=== PATIENT | male | born 1960 | race Caucasian/White ===

== ENCOUNTER 2018-05-18 12:59 | Observation (INO) | payer OTHER ==
[2018-05-18] MEDS ORDERED: SODIUM CHLORIDE 0.9% 500 ML 500 ML IV ONE (13:34)
--- NOTE | 2018-05-18 13:54 | ED ---
General Adult HPI - General Chief complaint: Neuro Symptoms/Deficit Stated complaint: Arm and leg numbness Time Seen by Provider: 05/18/18 13:33 Source: patient, RN notes reviewed, old records reviewed Mode of arrival: wheelchair Limitations: no limitations - History of Present Illness Initial comments: 57-year-old male presenting for evaluation of left sided numbness. Patient's symptoms began this morning at 4 AM when he awoke from sleep. He has had some intermittent left-sided numbness over the past week which has resolved without treatment. Today the symptoms were more persistent. Patient has not seen a doctor in at least 10 years. He has no diagnosed medical conditions. Denies smoking. He does occasionally drink alcohol. Patient denies weakness. Denies vision changes. Denies headache. Patient is presenting for evaluation at 1330. Patient also complains of some intermittent chest pain which is relieved with drinking water. He does not have any current chest pain. No dyspnea. No fever chills. No nausea vomiting. - Related Data Home Medications Medication Instructions Recorded Confirmed Aspirin 81 mg PO DAILY 05/18/18 05/18/18 Allergies Allergy/AdvReac Type Severity Reaction Status Date / Time No Known Allergies Allergy Verified 05/18/18 14:17 Review of Systems ROS Statement: Those systems with pertinent positive or pertinent negative responses have been documented in the HPI. ROS Other: All systems not noted in ROS Statement are negative. Past Medical History Past Medical History: No Reported History History of Any Multi-Drug Resistant Organisms: None Reported Past Surgical History: No Surgical Hx Reported Past Psychological History: No Psychological Hx Reported Smoking Status: Never smoker Past Alcohol Use History: Occasional Past Drug Use History: None Reported General Exam Limitations: no limitations General appearance: alert, in no apparent distress Head exam: Present: atraumatic, normocephalic Eye exam: Present: normal appearance, PERRL, EOMI ENT exam: Present: normal exam Neck exam: Present: normal inspection. Absent: tenderness, meningismus Respiratory exam: Present: normal lung sounds bilaterally. Absent: respiratory distress, wheezes, rales Cardiovascular Exam: Present: regular rate, normal rhythm GI/Abdominal exam: Present: soft. Absent: distended, tenderness, guarding Extremities exam: Present: normal inspection, normal capillary refill. Absent: pedal edema, calf tenderness Neurological exam: Present: alert, oriented X3, CN II-XII intact, motor sensory deficit (Numbness, left face, left upper extremity, left lower extremity) Psychiatric exam: Present: normal affect, normal mood Skin exam: Present: warm, dry, intact. Absent: cyanosis, diaphoretic Course Vital Signs 05/18/18 05/18/18 05/18/18 13:18 14:23 14:57 Temperature 98.1 F Pulse Rate 105 H 101 H 96 Respiratory 18 16 18 Rate Blood Pressure 206/118 219/132 215/130 O2 Sat by Pulse 98 98 99 Oximetry - Reevaluation(s) Reevaluation #1: 05/18/18 15:12 Patient reevaluated, numbness to the left leg is resolved, he has minimal residual numbness to the left arm. Repeat NIH is 2. EKG Findings - EKG Comments: EKG Findings:: EKG: Sinus tachycardia, left ventricular hypertrophy with repolarization abnormality, rate of 105, WV interval 174, QRS duration 114, QTC 475, no ST segment elevation. Medical Decision Making - Medical Decision Making 57-year-old male presenting with left-sided numbness. There is no weakness on exam. No ataxia. Patient is otherwise neurologically intact. Symptoms began at 4 AM this morning, patient was outside of TPA window at the time of presentation. Additionally the patient had similar symptoms throughout the past week. CT is obtained, shows chronic small vessel ischemia, no acute intracranial hemorrhage or mass effect. Patient has normal CBC, normal CMP, negative troponin. Chest x-ray shows some atelectasis with no acute findings. SHEENT is hypertensive in the emergency department, given aspirin, normal saline , and started on Norvasc. We will attempt to lower blood pressure however allowing for permissive hypertension in the setting of acute CVA. Case discussed with admitting physician Dr. Garcia. We will admit for further stroke workup. - Lab Data Result diagrams: 05/18/18 13:37 05/18/18 13:37 Lab Results 05/18/18 05/18/18 05/18/18 Range/Units 13:37 13:37 13:37 WBC 10.0 (3.8-10.6) k/uL RBC 5.25 (4.30-5.90) m/uL Hgb 16.3 (13.0-17.5) gm/dL Hct 48.1 (39.0-53.0) % MCV 91.6 (80.0-100.0) fL MCH 31.1 (25.0-35.0) pg MCHC 34.0 (31.0-37.0) g/dL RDW 12.8 (11.5-15.5) % Plt Count 219 (150-450) k/uL Neutrophils % 75 % Lymphocytes % 15 % Monocytes % 7 % Eosinophils % 1 % Basophils % 1 % Neutrophils # 7.5 (1.3-7.7) k/uL Lymphocytes # 1.5 (1.0-4.8) k/uL Monocytes # 0.7 (0-1.0) k/uL Eosinophils # 0.1 (0-0.7) k/uL Basophils # 0.1 (0-0.2) k/uL PT (9.0-12.0) sec INR (<1.2) APTT (22.0-30.0) sec Sodium 136 L (137-145) mmol/L Potassium 4.0 (3.5-5.1) mmol/L Chloride 99 (98-107) mmol/L Carbon Dioxide 24 (22-30) mmol/L Anion Gap 13 mmol/L BUN 17 (9-20) mg/dL Creatinine 0.83 (0.66-1.25) mg/dL Est GFR (CKD-EPI)AfAm >90 (>60 ml/min/1.73 sqM) Est GFR (CKD-EPI)NonAf >90 (>60 ml/min/1.73 sqM) Glucose 171 H (74-99) mg/dL Calcium 10.2 (8.4-10.2) mg/dL Total Bilirubin 1.1 (0.2-1.3) mg/dL AST 64 H (17-59) U/L ALT 61 (21-72) U/L Alkaline Phosphatase 90 (38-126) U/L Total Creatine Kinase 152 (55-170) U/L CK-MB (CK-2) 1.0 (0.0-2.4) ng/mL CK-MB (CK-2) Rel Index 0.7 Troponin I <0.012 (0.000-0.034) ng/mL Total Protein 8.3 H (6.3-8.2) g/dL Albumin 4.9 (3.5-5.0) g/dL 05/18/18 Range/Units 13:37 WBC (3.8-10.6) k/uL RBC (4.30-5.90) m/uL Hgb (13.0-17.5) gm/dL Hct (39.0-53.0) % MCV (80.0-100.0) fL MCH (25.0-35.0) pg MCHC (31.0-37.0) g/dL RDW (11.5-15.5) % Plt Count (150-450) k/uL Neutrophils % % Lymphocytes % % Monocytes % % Eosinophils % % Basophils % % Neutrophils # (1.3-7.7) k/uL Lymphocytes # (1.0-4.8) k/uL Monocytes # (0-1.0) k/uL Eosinophils # (0-0.7) k/uL Basophils # (0-0.2) k/uL PT 10.1 (9.0-12.0) sec INR 0.9 (<1.2) APTT 23.5 (22.0-30.0) sec Sodium (137-145) mmol/L Potassium (3.5-5.1) mmol/L Chloride (98-107) mmol/L Carbon Dioxide (22-30) mmol/L Anion Gap mmol/L BUN (9-20) mg/dL Creatinine (0.66-1.25) mg/dL Est GFR (CKD-EPI)AfAm (>60 ml/min/1.73 sqM) Est GFR (CKD-EPI)NonAf (>60 ml/min/1.73 sqM) Glucose (74-99) mg/dL Calcium (8.4-10.2) mg/dL Total Bilirubin (0.2-1.3) mg/dL AST (17-59) U/L ALT (21-72) U/L Alkaline Phosphatase (38-126) U/L Total Creatine Kinase (55-170) U/L CK-MB (CK-2) (0.0-2.4) ng/mL CK-MB (CK-2) Rel Index Troponin I (0.000-0.034) ng/mL Total Protein (6.3-8.2) g/dL Albumin (3.5-5.0) g/dL Critical Care Time Critical Care Time: Yes Total Critical Care Time: 35 Disposition Clinical Impression: Cerebrovascular accident Disposition: ADMITTED IP TO THIS [facility] Condition: Stable Is patient prescribed a controlled substance at d/c from ED?: No Referrals: None,Stated [Primary Care Provider] - 1-2 days Decision to Admit Reason: Admit from EC Decision Date: 05/18/18 Decision Time: 15:14
[2018-05-18 14:13] LABS: Basophils # (A) 0.1 k/uL (0-0.2); Basophils % (A) 1 %; Eosinophils # (A) 0.1 k/uL (0-0.7); Eosinophils % (A) 1 %; HCT 48.1 % (39.0-53.0); HGB 16.3 gm/dL (13.0-17.5); Lymphocytes # (A) 1.5 k/uL (1.0-4.8); Lymphocytes % (A) 15 %; MCH 31.1 pg (25.0-35.0); MCV 91.6 fL (80.0-100.0); Monocytes # (A) 0.7 k/uL (0-1.0); Monocytes % (A) 7 %; Neutrophils # (A) 7.5 k/uL (1.3-7.7); Neutrophils % (A) 75 %; Platelet Count 219 k/uL (150-450); RBC 5.25 m/uL (4.30-5.90); RDW 12.8 % (11.5-15.5)
--- NOTE | 2018-05-18 14:20 | XR ---
EXAMINATION TYPE: XR chest 2V DATE OF EXAM: 05/18/2018 COMPARISON: None HISTORY: 57-year-old male altered mental status, left hand numbness TECHNIQUE: PA and lateral views FINDINGS: Heart normal size. Elongation/ectasia of the thoracic aorta. Strandy atelectasis lower lungs. No cons olidation or pleural effusion seen. IMPRESSION: Some chronic appearing changes with strandy lower lung areas of atelectasis. Tortuous/ectatic thoraci c aorta. No definite acute process.
[2018-05-18 14:21] LABS: INR 0.9 (<1.2); Partial Thromboplastin Time 23.5 sec (22.0-30.0); Prothrombin Time 10.1 sec (9.0-12.0)
--- NOTE | 2018-05-18 14:21 | CT ---
EXAMINATION TYPE: CT brain wo con for TPA DATE OF EXAM: 05/18/2018 COMPARISON: none HISTORY: Left arm and leg numbness CT DLP: 1067.[address] of the brain was performed. The ventricles, basal cisterns and sulci overlying the cerebral convexities demonstrate mild enlargem ent. There is no evidence for intracranial hemorrhage or sulcal effacement. There is decreased attenuation about the periventricular white matter and deep white matter of both c erebral hemispheres, compatible with chronic small vessel ischemia. Differential diagnosis does inclu de demyelination. No mass effects are seen.No midline shift. Osseous calvarium is intact. If symptoms persist consider MRI. IMPRESSION: 1. Age related atrophic and chronic small vessel ischemic change without acute intracranial process s een at this time.
[2018-05-18 14:26] LABS: ALT 61 U/L (21-72); AST 64 U/L (17-59); Albumin 4.9 g/dL (3.5-5.0); Alkaline Phosphatase 90 U/L (38-126); Anion Gap 13 mmol/L; Blood Urea Nitrogen 17 mg/dL (9-20); Calcium 10.2 mg/dL (8.4-10.2); Carbon Dioxide 24 mmol/L (22-30); Chloride 99 mmol/L (98-107); Glucose 171 mg/dL (74-99); Sodium 136 mmol/L (137-145); Total Bilirubin 1.1 mg/dL (0.2-1.3); Total Protein 8.3 g/dL (6.3-8.2)
[2018-05-18 14:40] LABS: Creatine Kinase 152 U/L (55-170)
[2018-05-18 14:53] LABS: Troponin I <0.012 ng/mL (0.000-0.034)
[2018-05-18] MEDS ORDERED: ASPIRIN 325 MG TAB PO STA (14:54)
[2018-05-18] MEDS ORDERED: SODIUM CHLORIDE 0.9% 1,000 ML IV SCH (15:00)
[2018-05-18] MEDS ORDERED: amLODIPine 5 MG TAB PO STA ×2 (15:01→19:50)
[2018-05-18] MEDS ORDERED: LABETALOL SYRINGE 5 MG/ML IVP STA (16:50)
--- NOTE | 2018-05-18 17:04 | US ---
EXAMINATION TYPE: US carotid duplex BILAT DATE OF EXAM: 05/18/2018 COMPARISON: CT Brain CLINICAL HISTORY: Stenosis. Left hand numbness today. EXAM MEASUREMENTS: RIGHT: Peak Systolic Velocity (PSV) cm/sec ----- Right CCA: 66.4 ----- Right ICA: 60.1 ----- Right ECA: 152.4 ICA/CCA ratio: 0.9 RIGHT: End Diastole cm/sec ----- Right CCA: 23.3 ----- Right ICA: 14.7 ----- Right ECA: 38.6 LEFT: Peak Systolic Velocity (PSV) cm/sec ----- Left CCA: 81.5 ----- Left ICA: 81.5 ----- Left ECA: 114.5 ICA/CCA ratio: 1.0 LEFT: End Diastole cm/sec ----- Left CCA: 28.6 ----- Left ICA: 28.6 ----- Left ECA: 25.9 VERTEBRALS (direction of flow): Right Vertebral: Antegrade Left Vertebral: Antegrade Rhythm: Normal Irregular wall calcifications noted at bilateral carotid bifurcation with abnormally increased PSV in Right ECA (greater than 125cm/sec). IMPRESSION: Elevated right external carotid artery velocity suggestive of more than 50% stenosis. Th e images measurements suggest less than 50% stenosis both internal carotid arteries. There is antegra de flow in the vertebral arteries. Criteria for Assigning % of Stenosis / Diameter reduction (Estimation based on the indirect measurements of the internal carotid artery velocities (ICA PSV). 1. Normal (no stenosis)=ICA PSV < 125 cm/s: ratio < 2.0: ICA EDV<40 cm/s. 2. Less than 50% stenosis=ICA PSV < 125 cm/s: ratio < 2.0: ICA EDV<40 cm/s. 3. 50 to 69% stenosis=ICA PSV of 125 to 230 cm/s: ration 2.0 ? 4.0: ICA EDV 40-100 cm/s. 4. Greater than 70% stenosis to near occlusion= ICA PSV > 230 cm/s: ratio > 4.0: ICA EDV > 100 cm/s. 5. Near occlusion= ICA PSV velocities may be low or undetectable: variable ratio and ICA EDV. 6. Total occlusion=unable to detect flow.
--- NOTE | 2018-05-18 18:36 | P.HPIM ---
History of Present Illness 57-year-old male came in with complaints of left-sided numbness which started yesterday evening still has some numbness in the left hand fingers fourth and fifth fingers actually getting better now. He appears to have symptoms for more than 24 hours. Patient has similar symptoms last week on and off only lasted for a few minutes. Patient denied any weakness patient and any speech abnormality patient denied any headache seizure-like activity or migraine. Patient denies any smoking doesn't have any melena much of medical problems has seen a doctor about 10 years ago. Computed tomography scan of the head did not show any intracranial bleed with carotid Doppler did show some 50% stenosis in bilateral carotids. EKG showed some non-specific ST-T wave changes. Patient doesn't have any chest pain no troponin elevation. Blood pressure is bit elevated which is expected post stroke Review of Systems REVIEW OF SYSTEMS: CONSTITUTIONAL: No fever, no malaise, no fatigue. HEENT: No recent visual problems or hearing problems. Denied any sore throat. CARDIOVASCULAR: No chest pain, orthopnea, PND, no palpitations, no syncope. PULMONARY: No shortness of breath, no cough, no hemoptysis. GASTROINTESTINAL: No diarrhea, no nausea, no vomiting, no abdominal pain. NEUROLOGICAL: No headaches, no weakness, HEMATOLOGICAL: Denies any bleeding or petechiae. GENITOURINARY: Denies any burning micturition, frequency, or urgency. MUSCULOSKELETAL/RHEUMATOLOGICAL: Denies any joint pain, swelling, or any muscle pain. ENDOCRINE: Denies any polyuria or polydipsia. The rest of the 14-point review of systems is negative. Past Medical History Past Medical History: No Reported History History of Any Multi-Drug Resistant Organisms: None Reported Past Surgical History: No Surgical Hx Reported Past Psychological History: No Psychological Hx Reported Smoking Status: Never smoker Past Alcohol Use History: Occasional Past Drug Use History: None Reported Medications and Allergies Home Medications Medication Instructions Recorded Confirmed Type Aspirin 81 mg PO DAILY 05/18/18 05/18/18 History Allergies Allergy/AdvReac Type Severity Reaction Status Date / Time No Known Allergies Allergy Verified 05/18/18 14:17 Physical Exam Vitals: Vital Signs Temp Pulse Pulse Resp BP BP Pulse Ox 05/18/18 18:09 89 18 193/112 96 05/18/18 17:09 84 18 189/117 97 05/18/18 16:09 96 18 222/110 97 05/18/18 15:09 98 18 208/123 96 05/18/18 14:57 96 18 215/130 99 05/18/18 14:23 101 H 16 219/132 98 05/18/18 13:18 98.1 F 105 H 18 206/118 98 Intake and Output 05/18/18 05/18/18 05/18/18 06:59 14:59 22:59 Other: Weight 88.451 kg PHYSICAL EXAMINATION: GENERAL: The patient is alert and oriented x3, not in any acute distress. Well developed, well nourished. HEENT: Pupils are round and equally reacting to light. EOMI. No scleral icterus. No conjunctival pallor. Normocephalic, atraumatic. No pharyngeal erythema. No thyromegaly. CARDIOVASCULAR: S1 and S2 present. No murmurs, rubs, or gallops. PULMONARY: Chest is clear to auscultation, no wheezing or crackles. ABDOMEN: Soft, nontender, nondistended, normoactive bowel sounds. No palpable organomegaly. MUSCULOSKELETAL: No joint swelling or deformity. EXTREMITIES: No cyanosis, clubbing, or pedal edema. NEUROLOGICAL: Gross neurological examination did not reveal any focal deficits. SKIN: No rashes. Results CBC & Chem 7: 05/18/18 13:37 05/18/18 13:37 Labs: Abnormal Lab Results - Last 24 Hours (Table) 05/18/18 Range/Units 13:37 Sodium 136 L (137-145) mmol/L Glucose 171 H (74-99) mg/dL AST 64 H (17-59) U/L Total Protein 8.3 H (6.3-8.2) g/dL Assessment and Plan Plan: acute cerebrovascular accident, patient possible probably has Pure sensory sensory stroke possibly in the VPL nucleus of thalamus on the right side in the right middle cerebral artery territory perforating branches. Neurology was consulted will obtain LDL patient will be started on a statin and have antiplatelet therapy. We'll leave the addition of MRI to neurology. We'll obtain echo cardiac, as well as. -Hypertension elevated blood pressure unsure whether patient has essential hypertension to allow permissive hypertension after stroke will let the blood pressures stay bit higher although patient received amlodipine which will be continued.
[2018-05-18 18:44] LABS: Glucose,Whole Blood 202 mg/dL (75-99)
--- NOTE | 2018-05-18 19:31 | P.CNNES ---
History of Present Illness Consult date: 05/18/18 Reason for Consult: Patient admitted with left side numbness and possible stroke vs. TIA. History of Present Illness: This patient is a 57-year-old right-handed white male who came into the emergency room at [facility] today for evaluation of left- sided hand and leg numbness. Patient's symptoms began at 4 AM this morning when he awoke from sleep. He noticed that he was having tingling and numbness in his left hand as well as his left leg. Apparently from the toes up to the knee the left leg was numb. At about the same time he began to notice numbness on the left angle of his mouth as well. Patient was concerned with these symptoms and decided to come to the emergency room for further evaluation. Patient stated to the ER physician Dr. Hennessy that he had not been to a physician in over 10 years. He does not take any medications at all and has not had a physical exam in over 10 years. On further questioning in the ER by Dr. Hennessy the patient states that over the past week he had been noticing numbness in his left hand on and off. This had been ongoing for at least a week according to the patient. Mostly the left fourth and fifth fingers were becoming numb off and on for the past week. The patient was evaluated in the emergency room. His initial blood pressure was 206/118. It continued to remain elevated in the ER. He was given some treatment and and was sent for a computed tomography scan of the brain for further evaluation. CAT scan of the brain revealed age-related atrophy and chronic small vessel ischemic changes with no evidence of acute stroke or hemorrhage. He also underwent a carotid ultrasound which revealed less than 50% stenosis of both internal carotid arteries. Patient states he has not been using any medications and would only take an aspirin occasionally but not on a regular basis. Due to his symptoms suggesting possibility of TIA versus stroke he was evaluated for possibility of intervention with TPA but this was ruled out as his symptoms were outside of the TPA window and his NIH score was only 2.0. Additionally he had had symptoms of left-sided hand numbness for 1 week prior to his admission today. For all these reasons he was not considered a TPA candidate. He was recommended permissive hypertension due to his possibility of stroke. He was given a dose of amlodipine in the ER and this is to be closely monitored. The patient has not been evaluated previously for any major medical issues in over 10 years. We have recommended a complete stroke evaluation for this patient. He is being monitored closely in the intensive care unit due to his hypertensive urgency. We would recommend cardiology consultation as well for further assessment. He is examined today in the intensive care unit and seems to be anxious. This may be also contributing to his elevated blood pressure readings. He does follow all commands and his neurological exam in the ICU who is nonfocal. We have reviewed all of his test results with the patient today in detail. His clinical history suggests possibility of right hemispheric TIA versus stroke. We would recommend an MRI of the brain to be done for further evaluation. Neurology is now been consulted for further evaluation and recommendations. Review of Systems Constitutional: Denies chills, Denies fever Eyes: denies blurred vision, denies pain Ears, nose, mouth and throat: Denies headache, Denies sore throat Cardiovascular: Denies chest pain, Denies shortness of breath Respiratory: Denies cough Gastrointestinal: Denies abdominal pain, Denies diarrhea, Denies nausea, Denies vomiting Musculoskeletal: Denies myalgias Integumentary: Denies pruritus, Denies rash Neurological: Reports paresthesias, Reports tingling, Denies numbness, Denies weakness Psychiatric: Denies anxiety, Denies depression Endocrine: Denies fatigue, Denies weight change Past Medical History Past Medical History: No Reported History History of Any Multi-Drug Resistant Organisms: None Reported Past Surgical History: No Surgical Hx Reported Past Psychological History: No Psychological Hx Reported Smoking Status: Never smoker Past Alcohol Use History: Occasional Past Drug Use History: None Reported Medications and Allergies Home Medications Medication Instructions Recorded Confirmed Type Aspirin 81 mg PO DAILY 05/18/18 05/18/18 History Allergies Allergy/AdvReac Type Severity Reaction Status Date / Time No Known Allergies Allergy Verified 05/18/18 14:17 Physical Examination - Vital Signs Vital Signs: Vital Signs Temp Pulse Pulse Resp BP BP Pulse Ox 05/18/18 18:09 89 18 193/112 96 05/18/18 17:09 84 18 189/117 97 05/18/18 16:09 96 18 222/110 97 05/18/18 15:09 98 18 208/123 96 05/18/18 14:57 96 18 215/130 99 05/18/18 14:23 101 H 16 219/132 98 05/18/18 13:18 98.1 F 105 H 18 206/118 98 Intake and Output 05/18/18 05/18/18 05/18/18 06:59 14:59 22:59 Other: Weight 88.451 kg - Constitutional General appearance: average body habitus, cooperative - EENT EENT: PERRL, mucous membranes moist - Respiratory Respiratory: lungs clear, normal breath sounds - Cardiovascular Cardiovascular: regular rate, normal S1, normal S2 Extremities: no peripheral edema bilaterally - Gastrointestinal Gastrointestinal: normoactive bowel sounds - Integumentary Integumentary: normal - Neurologic Cranial nerve examination: PERRL, EOMI, VFF, V1/V2/V3 grossly intact, face symmetric, intact gag reflex, intact corneal reflex, normal palatal elevation Speech examination: intact Sensorimotor examination: intact Detailed motor examination: grossly full strength in all extremities Motor examination - right side: 4/5: biceps, triceps, wrist flexion, wrist extension, jingle writer, hip flexors, knee extensors, dorsiflexion, toe extension (EHL) , plantarflexion Motor examination - left side: 4/5: biceps, triceps, wrist flexion, wrist extension, jingle writer, hip flexors, knee extensors, dorsiflexion, toe extension (EHL) , plantarflexion Detailed sensory examination: intact Reflex and gait examination: intact Reflexes: 1+: ankle, bicep, knee, tricep - Musculoskeletal Musculoskeletal: no pain - Psychiatric Psychiatric: mood/affect appropriate, cooperative Results - Laboratory Findings CBC and BMP: 05/18/18 13:37 05/18/18 13:37 Abnormal Lab Findings: Abnormal Labs 05/18/18 13:37 Sodium 136 L Glucose 171 H AST 64 H Total Protein 8.3 H Assessment and Plan (1) TIA (transient ischemic attack) Current Visit: Yes Status: Acute Code(s): G45.9 - TRANSIENT CEREBRAL ISCHEMIC ATTACK, UNSPECIFIED SNOMED Code(s): 010996913 (2) Thalamic stroke Current Visit: Yes Status: Acute Code(s): I63.9 - CEREBRAL INFARCTION, UNSPECIFIED SNOMED Code(s): 042621096 (3) Hypertensive urgency Current Visit: Yes Status: Acute Code(s): I16.0 - HYPERTENSIVE URGENCY SNOMED Code(s): 430889055 (4) Anxiety Current Visit: Yes Status: Acute Code(s): F41.9 - ANXIETY DISORDER, UNSPECIFIED SNOMED Code(s): 47115922 Plan: This patient is a 57-year-old male who presented to the emergency room at [facility] today for evaluation of left-sided numbness. Patient had been having symptoms for 1 week at home prior to his admission today. This morning he awoke at 4 AM and noticed left hand leg and facial numbness. Symptoms gradually improved with time. He decided to come in his is not had the persistence of the numbness as noticeable as this morning. He was seen in the ER by Dr. Hennessy. His NIH stroke scale was 2. He was outside of the TPA window and his symptoms have been ongoing for 1 week. He was not a candidate for TPA intervention. He underwent computed tomography scan of the brain which failed to reveal any acute changes. Carotid Doppler ultrasound reveals 50% stenosis in the internal carotid arteries. His clinical history suggests possibility of right hemispheric TIA versus stroke. Given the sensory changes would rule out acute thalamic stroke. Would recommend MRI of the brain for further evaluation. Would recommend cardiology consultation for evaluation of his hypertension. We will obtain laboratory testing for complete stroke assessment including lipid profile. Would recommend permissive hypertension given his presentation of acute stroke findings today. We will continue to follow his progress very closely in the intensive care unit. Case was discussed at length with the patient and all of his questions were answered. Neurological examination today is nonfocal. We will continue close neurological follow-up for the patient during this admission. Time with Patient: Greater than 30
--- NOTE | 2018-05-18 19:42 | ECHOF ---
Referral Reason:Thrombus MEASUREMENTS -------- HEIGHT: 172.7 cm WEIGHT: 88.5 kg BP: 208/123 IVSd: 1.1 cm (0.6 - 1.1) LVIDd: 3.6 cm (3.9 - 5.3) LVPWd: 1.1 cm (0.6 - 1.1) IVSs: 1.5 cm LVIDs: 2.4 cm LVPWs: 1.5 cm LAESV Index (A-L): 18.08 ml/m Ao Diam: 3.4 cm (2.0 - 3.7) AV Cusp: 2.0 cm (1.5 - 2.6) LA Diam: 2.8 cm (2.7 - 3.8) MV E Edi: 0.53 m/s MV DecT: 172 ms MV A Edi: 0.99 m/s MV E/A Ratio: 0.53 RAP: 5.00 mmHg RVSP: 11.68 mmHg FINDINGS -------- Sinus rhythm. This was a technically difficult study with suboptimal views. The left ventricular size is normal. There is borderline concentric left ventricular hypertrophy. Overall left ventricular systolic function is normal with, an EF between 55 - 60 %. The right ventricle is normal in size and function. Normal LA size by volume 22+/-6 ml/m2. The right atrium is normal in size. 3 ml of Lumason was utilized for enhancement of images. There is mild aortic valve sclerosis. There is no evidence of aortic regurgitation. There is no e vidence of aortic stenosis. The mitral valve is normal. There is trace mitral regurgitation. Trace tricuspid regurgitation present. Right ventricular systolic pressure is normal at < 35 mmHg. There is no evidence of pulmonary hypertension. The pulmonic valve was not well visualized. The aortic root size is normal. Normal inferior vena cava with normal inspiratory collapse consistent with estimated right atrial pre ssure of 5 mmHg. There is a small pericardial effusion is located near the right ventricle. CONCLUSIONS -------- 1. Sinus rhythm. 2. This was a technically difficult study with suboptimal views. 3. The left ventricular size is normal. 4. There is borderline concentric left ventricular hypertrophy. 5. Overall left ventricular systolic function is normal with, an EF between 55 - 60 %. 6. Normal LA size by volume 22+/-6 ml/m2. 7. 3 ml of Lumason was utilized for enhancement of images. 8. There is mild aortic valve sclerosis. 9. There is trace mitral regurgitation. 10. Trace tricuspid regurgitation present. 11. Right ventricular systolic pressure is normal at < 35 mmHg. 12. There is no evidence of pulmonary hypertension. 13. The pulmonic valve was not well visualized. 14. The aortic root size is normal. 15. There is a small pericardial effusion is located near the right ventricle. STILL OPERATOR HELPER: Rodrick Rubio RDCS
[2018-05-18] MEDS: INSULIN ASPART 100 UNIT/ML 1 ML 10 ML VIAL SQ SCH (20:18)
[2018-05-18] MEDS: ALPRAZolam 0.25 MG TAB PO SCH (20:18)
[2018-05-18 20:19] LABS: Glucose,Whole Blood 209 mg/dL (75-99)
[2018-05-18] MEDS ORDERED: ATORVASTATIN 80 MG TAB PO SCH (21:00)
[2018-05-18 22:23] VITALS: BMI 31.2
[2018-05-19 05:36] LABS: Anion Gap 8 mmol/L; Blood Urea Nitrogen 13 mg/dL (9-20); Calcium 9.4 mg/dL (8.4-10.2); Carbon Dioxide 28 mmol/L (22-30); Chloride 100 mmol/L (98-107); Cholesterol 253 mg/dL (<200); Glucose 169 mg/dL (74-99); HDL Cholesterol 64 mg/dL (40-60); LDL Cholesterol,Calculated 128 mg/dL (0-99); Sodium 136 mmol/L (137-145); Triglycerides 305 mg/dL (<150)
[2018-05-19 05:45] LABS: Basophils % (A) 1 %; Eosinophils # (A) 0.1 k/uL (0-0.7); Eosinophils % (A) 2 %; HGB 14.6 gm/dL (13.0-17.5); Lymphocytes # (A) 1.2 k/uL (1.0-4.8); Lymphocytes % (A) 18 %; MCH 30.8 pg (25.0-35.0); MCHC 33.1 g/dL (31.0-37.0); MCV 92.9 fL (80.0-100.0); Mean Platelet Volume 6.9; Monocytes # (A) 0.5 k/uL (0-1.0); Monocytes % (A) 7 %; Neutrophils # (A) 4.8 k/uL (1.3-7.7); Neutrophils % (A) 71 %; Platelet Count 188 k/uL (150-450); RBC 4.73 m/uL (4.30-5.90); RDW 12.9 % (11.5-15.5); WBC 6.7 k/uL (3.8-10.6)
[2018-05-19 06:52] LABS: Glucose,Whole Blood 208 mg/dL (75-99)
[2018-05-19] MEDS: INSULIN ASPART 100 UNIT/ML 1 ML 10 ML VIAL SQ SCH ×2 (07:19→12:19)
[2018-05-19] MEDS ORDERED: ASPIRIN 325 MG TAB PO SCH (09:00)
[2018-05-19] MEDS ORDERED: amLODIPine 5 MG TAB PO SCH ×2 (09:00)
[2018-05-19] MEDS: ALPRAZolam 0.25 MG TAB PO SCH (09:46)
[2018-05-19 10:20] VITALS: TEMP 98
[2018-05-19 12:15] LABS: Glucose,Whole Blood 179 mg/dL (75-99)
--- NOTE | 2018-05-19 12:52 | P.CRDCN ---
History of Present Illness History of present illness: This is Dr. Osman dictating a consult on this patient The patient was interviewed and examined by me IMPRESSION / ASSESSMENT: Uncontrolled hypertension accelerated hypertension Noncompliance with any medical follow-up Binge alcohol consumption over the weekends Being worked up for CVA/TIA PLAN: Amlodipine 10 mg in the morning, losartan 50 mg daily at 4 PM Continue atorvastatin Gradually maximize antihypertensive therapy As an outpatient I will see him in follow-up HPI patient presented with left-sided numbness that started about a day before he was admitted. He was also complaining of some heaviness in the chest and headache He has not seen a physician for the last 10 years He does not smoke He drinks alcohol infrequently only on the weekends but does binge His blood pressure on admission was almost 220/111 mmHg and has been consistently elevated. This morning the nurse give him a full dose of amlodipine 10 mg at 4:30 in the morning. His blood pressure is a bit better now. I asked her to cut back on the aspirin to 81 mg by mouth daily Also added losartan at 4 PM 50 mg a day for now ROS: No fever chills or rigors, no cough, phlegm or expectoration, no nausea, vomiting or diarrhea, no hematuria, dysuria, no musculoskeletal complaints, no strokes or seizures, no skin lesions. EXAMINATION No JVD No current bruits No abdominal bruits Breath sounds are clear no rhonchi no crackles Heart sounds S2 normal no murmurs or gallop or rub Extremities are warm Alert and oriented and engaging in a full conversation completely normal mental status Blood pressure 156/96. His mercury 159/92 mmHg pulse rate in the 90s afebrile normal respirations REVIEW OF LABS, ECG CT head shows age-related atrophy and chronic small vessel changes No intracranial hemorrhage Past Medical History Past Medical History: No Reported History History of Any Multi-Drug Resistant Organisms: None Reported Past Surgical History: No Surgical Hx Reported Past Psychological History: No Psychological Hx Reported Smoking Status: Never smoker Past Alcohol Use History: Occasional Past Drug Use History: None Reported - Past Family History Mother Family Medical History: CVA/TIA Brother(s) Family Medical History: Myocardial Infarction ([place]) Medications and Allergies Home Medications Medication Instructions Recorded Confirmed Type RX: Aspirin 81 mg PO DAILY 05/18/18 05/18/18 History Allergies Allergy/AdvReac Type Severity Reaction Status Date / Time No Known Allergies Allergy Verified 05/18/18 14:17 Physical Exam Vitals: Vital Signs Temp Pulse Pulse Resp BP BP Pulse Ox 05/19/18 11:00 85 156/96 93 L 05/19/18 10:00 92 16 159/92 92 L 05/19/18 09:00 88 16 179/111 96 05/19/18 08:00 98 F 93 86 12 180/116 94 L 05/19/18 07:00 82 12 154/96 93 L 05/19/18 06:00 71 11 L 171/100 93 L 05/19/18 05:00 72 12 180/102 99 05/19/18 04:00 97.5 F L 73 86 16 185/137 94 L 05/19/18 02:00 77 10 L 158/114 94 L 05/19/18 01:00 87 16 175/114 91 L 05/19/18 00:19 85 93 L 05/19/18 00:00 98.1 F 75 86 15 133/105 92 L 05/18/18 23:00 85 13 170/101 96 05/18/18 22:15 81 8 L 179/103 94 L 05/18/18 22:00 81 9 L 177/106 90 L 05/18/18 21:45 84 9 L 167/107 92 L 05/18/18 21:30 84 10 L 177/113 93 L 05/18/18 21:15 85 11 L 169/97 93 L 05/18/18 21:00 83 9 L 160/104 94 L 05/18/18 20:45 83 11 L 158/94 93 L 05/18/18 20:30 86 9 L 176/106 95 05/18/18 20:15 86 10 L 209/122 93 L 05/18/18 20:00 98.6 F 95 86 16 210/141 95 05/18/18 19:45 87 15 187/105 95 05/18/18 19:30 86 16 229/135 95 05/18/18 19:15 87 14 229/135 95 05/18/18 19:00 96 14 238/142 96 05/18/18 18:45 98.0 F 99 16 97 05/18/18 18:30 90 12 193/112 05/18/18 18:15 89 12 193/112 96 05/18/18 18:09 89 18 193/112 96 05/18/18 18:00 84 7 L 189/117 05/18/18 17:45 85 7 L 189/117 05/18/18 17:30 85 7 L 189/117 97 05/18/18 17:15 86 16 217/116 96 05/18/18 17:09 84 18 189/117 97 05/18/18 17:00 95 6 L 222/110 97 05/18/18 16:45 96 6 L 222/110 97 05/18/18 16:30 101 H 7 L 210/124 96 05/18/18 16:15 94 10 L 210/124 97 05/18/18 16:09 96 18 222/110 97 05/18/18 16:00 99 7 L 208/123 97 05/18/18 15:45 96 13 208/123 97 05/18/18 15:30 98 11 L 208/123 96 05/18/18 15:15 97 10 L 207/127 96 05/18/18 15:09 98 18 208/123 96 05/18/18 15:00 96 7 L 215/130 97 05/18/18 14:57 96 18 215/130 99 05/18/18 14:45 96 8 L 231/117 99 05/18/18 14:30 105 H 9 L 219/132 98 05/18/18 14:23 101 H 16 219/132 98 05/18/18 14:22 102 H 11 L 97 05/18/18 13:18 98.1 F 105 H 18 206/118 98 Intake and Output 05/18/18 05/19/18 05/19/18 22:59 06:59 14:59 Intake Total 40 310 445 Output Total 100 175 0 Balance -60 135 445 Intake: IV 40 310 10 0.9 NACL 40 310 10 Intake, IV Titration 75 Amount Sodium Chloride 0.9% 1, 75 000 ml @ 75 mls/hr IV . [id number] [facility] Rx#:[id number] Oral 360 Output: Urine 100 175 0 Other: Voiding Method Toilet # Voids 0 0 0 Weight 93.2 kg 92.7 kg 92.7 kg Results 05/19/18 04:29 05/19/18 04:29 Cardiac Enzymes 05/18/18 05/18/18 Range/Units 13:37 13:37 AST 64 H (17-59) U/L CK-MB (CK-2) 1.0 (0.0-2.4) ng/mL Troponin I <0.012 (0.000-0.034) ng/mL Coagulation 05/18/18 Range/Units 13:37 PT 10.1 (9.0-12.0) sec APTT 23.5 (22.0-30.0) sec Lipids 05/19/18 Range/Units 04:29 Triglycerides 305 H (<150) mg/dL Cholesterol 253 H (<200) mg/dL HDL Cholesterol 64 H (40-60) mg/dL CBC 05/18/18 05/19/18 Range/Units 13:37 04:29 WBC 10.0 6.7 (3.8-10.6) k/uL RBC 5.25 4.73 (4.30-5.90) m/uL Hgb 16.3 14.6 (13.0-17.5) gm/dL Hct 48.1 44.0 (39.0-53.0) % Plt Count 219 188 (150-450) k/uL Comprehensive Metabolic Panel 05/18/18 05/19/18 Range/Units 13:37 04:29 Sodium 136 L 136 L (137-145) mmol/L Potassium 4.0 4.0 (3.5-5.1) mmol/L Chloride 99 100 (98-107) mmol/L Carbon Dioxide 24 28 (22-30) mmol/L BUN 17 13 (9-20) mg/dL Creatinine 0.83 0.74 (0.66-1.25) mg/dL Glucose 171 H 169 H (74-99) mg/dL Calcium 10.2 9.4 (8.4-10.2) mg/dL AST 64 H (17-59) U/L ALT 61 (21-72) U/L Alkaline Phosphatase 90 (38-126) U/L Total Protein 8.3 H (6.3-8.2) g/dL Albumin 4.9 (3.5-5.0) g/dL Current Medications Generic Name Dose Route Start Last Admin Trade Name Freq PRN Reason Stop Dose Admin Alprazolam 0.25 mg 05/18/18 22:00 05/19/18 09:46 Xanax PO 0.25 mg TID DALIA Administration Amlodipine Besylate 10 mg 12/29/18 07:00 Norvasc PO DAILY@0700 DALIA Aspirin 81 mg 05/20/18 09:00 Aspirin PO DAILY DALIA Atorvastatin Calcium 80 mg 05/18/18 21:00 05/18/18 20:17 Lipitor PO 80 mg HS DALIA Administration Sodium Chloride 1,000 mls @ 75 mls/hr 05/18/18 15:00 05/18/18 15:16 Saline 0.9% IV 75 mls/hr .[id number] DALIA Administration Insulin Aspart 0 unit 05/18/18 21:00 05/19/18 12:19 Novolog SQ 2 unit ACHS DALIA Administration Protocol Losartan Potassium 50 mg 05/19/18 16:00 Cozaar PO DAILY@1600 DALIA Intake and Output 05/18/18 05/19/18 05/19/18 22:59 06:59 14:59 Intake Total 40 310 445 Output Total 100 175 0 Balance -60 135 445 Intake: IV 40 310 10 0.9 NACL 40 310 10 Intake, IV Titration 75 Amount Sodium Chloride 0.9% 1, 75 000 ml @ 75 mls/hr IV . [id number] [facility] Rx#:[id number] Oral 360 Output: Urine 100 175 0 Other: Voiding Method Toilet # Voids 0 0 0 Weight 93.2 kg 92.7 kg 92.7 kg Patient Weight 05/20/18 06:59 Weight 92.7 kg 05/19/18 04:29 05/19/18 04:29
[2018-05-19 14:36] VITALS: BP 164/96; RESP 15
[2018-05-19 14:43] VITALS: PULSE 86
--- NOTE | 2018-05-19 14:56 | MR ---
EXAMINATION TYPE: MR brain wo con DATE OF EXAM: 05/19/2018 COMPARISON: CT brain from one day earlier. HISTORY: Lt sided facial/arm/leg numbness TECHNIQUE: Multiplanar, multisequence imaging of the brain and brainstem is performed without IV cont rast. FINDINGS: Diffusion weighted images demonstrate a single ovoid focus of increased signal on diffusion weighted images measuring roughly 7 mm long axis centered in the right thalamus image 120 series 505 with dimi nished signal on ADC mapping and T2 hyperintensity with T1 hypointensity consistent with evolving acu te lacunar infarct, this is near an area of old lacunar infarcts seen on CT and MRI just superior to this. There is no worrisome extra-axial fluid collection. There is ventricular and sulcal prominence consis tent with diffuse cerebral atrophy. There are scattered foci of T2 hyperintensity seen throughout the deep and periventricular white matter. There is additional old lacunar infarct right frontal lobe at level of kunz radiata axial image 19. Midline structures demonstrate normal morphology. The craniocervical junction appears within normal limits. Normal vascular flow voids are present. The visualized sinuses are clear and the globes are i ntact. IMPRESSION: 1. New acute lacunar infarct inferior lateral right thalamus. 2. Background mild to moderate diffuse cerebral atrophy and chronic small vessel ischemic change with several old right-sided lacunar infarcts noted.
--- NOTE | 2018-05-19 15:47 | P.DS ---
Providers Date of admission: 05/18/18 15:09 Attending physician: Melissa Garcia Consults: 05/18/18 15:09 Consult Physician Routine Consulting Provider: Yeimi Ledezma Consult Reason/Comments: CVA Do you want consulting provider notified?: Yes 05/19/18 08:00 Consult Physician Routine Consulting Provider: Stone Mckeon Consult Reason/Comments: Patient with stroke and hypertensive urgency. 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 Patient blood pressure is bit elevated but they have mostly secondary to the stroke may have essential hypertension patient will be continued on CASIMIRO inhibitor I wouldn't control the blood pressure strictly considering his recent stroke and patient was never treated for hypertension. Patient also is found to have diabetes mellitus with hemoglobin A1c of 7.0 patient will be started on metformin at counseling will be provided Accu-Cheks. Patient will be discharged today his symptoms completely resolved will not need any physical therapy or occupational therapy and speech support at home. Patient was started on statin as well patient does have hyperlipidemia. Patient will be referred to PCP patient will follow up with neurology as an outpatient. PHYSICAL EXAMINATION: GENERAL: The patient is alert and oriented x3, not in any acute distress. Well developed, well nourished. HEENT: Pupils are round and equally reacting to light. EOMI. No scleral icterus. No conjunctival pallor. Normocephalic, atraumatic. No pharyngeal erythema. No thyromegaly. CARDIOVASCULAR: S1 and S2 present. No murmurs, rubs, or gallops. PULMONARY: Chest is clear to auscultation, no wheezing or crackles. ABDOMEN: Soft, nontender, nondistended, normoactive bowel sounds. No palpable organomegaly. MUSCULOSKELETAL: No joint swelling or deformity. EXTREMITIES: No cyanosis, clubbing, or pedal edema. NEUROLOGICAL: Gross neurological examination did not reveal any focal deficits. SKIN: No rashes. For rest of the hospitalization course and other medical problems please refer to my HPI from yesterday Patient Condition at Discharge: Stable Plan - Discharge Summary New Discharge Prescriptions: New amLODIPine [Norvasc] 10 mg PO DAILY@0700 #30 tab Atorvastatin [Lipitor] 40 mg PO HS #30 tablet metFORMIN HCL [Glucophage] 500 mg PO BID #60 tab Continue Aspirin 81 mg PO DAILY #30 chew Discharge Medication List Aspirin 81 mg PO DAILY #30 chew 05/19/18 [Rx] Atorvastatin [Lipitor] 40 mg PO HS #30 tablet 05/19/18 [Rx] amLODIPine [Norvasc] 10 mg PO DAILY@0700 #30 tab 05/19/18 [Rx] metFORMIN HCL [Glucophage] 500 mg PO BID #60 tab 05/19/18 [Rx] Follow up Appointment(s)/Referral(s): Semaj Guillory MD [STAFF PHYSICIAN] - 1 Week Yeimi Ledezma MD [STAFF PHYSICIAN] - 1 Week None,Stated [Primary Care Provider] - 3 Days Patient Instructions/Handouts: Transient Ischemic Attack (GEN), Self Care Measures After a Stroke (GEN) Discharge Disposition: HOME SELF-CARE
[2018-05-19] MEDS ORDERED: LOSARTAN 50 MG TAB PO SCH (16:00)
--- NOTE | 2018-05-19 16:30 | P.PN ---
Subjective Progress Note Date: 05/19/18 This patient is a 57-year-old male who was admitted to hospital yesterday with new onset of left-sided arm and leg numbness. Patient was admitted with hypertensive urgency through the emergency room. He was admitted into the intensive care unit yesterday evening. We recommended the patient undergo MRI of the brain for further evaluation of possible acute right hemispheric stroke. MRI of the brain was completed today and reveals evidence of an acute lacunar infarct in the right thalamus. This finding would be consistent with this current symptoms of left-sided sensory change. We reviewed the results an MRI today with the patient. He has been started on amlodipine and losartan by cardiology who saw him in consultation today for evaluation of uncontrolled hypertension. We recommend he also be placed on atorvastatin and aspirin for secondary stroke prevention. Objective - Vital Signs Vital signs: Vital Signs Temp 98 F 05/19/18 08:00 Pulse 86 05/19/18 12:00 Resp 15 05/19/18 12:00 BP 164/96 05/19/18 12:00 Pulse Ox 95 05/19/18 12:00 Intake & Output 05/18/18 05/19/18 05/19/18 18:59 06:59 18:59 Intake Total 350 685 Output Total 275 0 Balance 75 685 Weight 93.2 kg 92.7 kg 92.7 kg Intake: IV 350 10 0.9 NACL 350 10 Intake, IV Titration 75 Amount Sodium Chloride 0.9% 1, 75 000 ml @ 75 mls/hr IV . [id number] [facility] Rx#:[id number] Oral 600 Output: Urine 275 0 Other: Voiding Method Toilet # Voids 0 0 # Bowel Movements 1 - Exam Physical examination: PHYSICAL EXAMINATION: Patient is resting comfortably in bed. VITAL SIGNS: Blood pressure is [164/96]. Heart rate is [92]. Respiration is [15] . Temperature is [98.0]. HEENT: Head is atraumatic, neck is supple, there were no carotid bruits. CHEST: Lungs are clear to auscultation and percussion. CARDIAC: S1, S2 normal rate and rhythm. There is no murmur. ABDOMEN: Soft and nontender. Bowel sounds are present. EXTREMITIES: There is no pedal edema. Peripheral pulses are present. Neurological examination: Patient has a nonfocal neurological examination today. - Labs CBC & Chem 7: 05/19/18 04:29 05/19/18 04:29 Labs: Abnormal Lab Results - Last 24 Hours (Table) 05/18/18 05/18/18 05/18/18 Range/Units 13:37 18:41 20:06 Sodium (137-145) mmol/L Glucose (74-99) mg/dL POC Glucose (mg/dL) 202 H 209 H (75-99) mg/dL Hemoglobin A1c 7.0 H (4.0-6.0) % Triglycerides (<150) mg/dL Cholesterol (<200) mg/dL LDL Cholesterol, Calc (0-99) mg/dL HDL Cholesterol (40-60) mg/dL 05/19/18 05/19/18 05/19/18 Range/Units 04:29 06:49 12:12 Sodium 136 L (137-145) mmol/L Glucose 169 H (74-99) mg/dL POC Glucose (mg/dL) 208 H 179 H (75-99) mg/dL Hemoglobin A1c (4.0-6.0) % Triglycerides 305 H (<150) mg/dL Cholesterol 253 H (<200) mg/dL LDL Cholesterol, Calc 128 H (0-99) mg/dL HDL Cholesterol 64 H (40-60) mg/dL Assessment and Plan (1) TIA (transient ischemic attack) Status: Acute Code(s): G45.9 - TRANSIENT CEREBRAL ISCHEMIC ATTACK, UNSPECIFIED SNOMED Code(s): 398060310 (2) Thalamic stroke Status: Acute Code(s): I63.9 - CEREBRAL INFARCTION, UNSPECIFIED SNOMED Code( s): 295630719 (3) Hypertensive urgency Status: Acute Code(s): I16.0 - HYPERTENSIVE URGENCY SNOMED Code(s): 838043950 (4) Anxiety Status: Acute Code(s): F41.9 - ANXIETY DISORDER, UNSPECIFIED SNOMED Code(s) : 05082475 Plan: This patient is a 57-year-old male who was admitted to hospital yesterday with acute left-sided numbness. Symptoms began suddenly and were persistent and he was admitted to hospital for further evaluation of stroke. Patient underwent MRI of the brain today which revealed evidence of an acute lacunar infarct in the right thalamus. This is likely secondary to his uncontrolled hypertension. He has been seen by cardiology and placed on antihypertensive medication. We are recommending he should be placed on aspirin daily for secondary stroke prevention. He is also started on a statin for treatment of his hyperlipidemia. Patient is being considered for discharge home today and follow -up as outpatient neurology. We recommend the patient to follow-up in the outpatient neurology clinic in 1-2 weeks. He is to keep a blood pressure log and to monitor for any further fluctuations in his blood pressure. We would strongly recommend he find a primary care physician to follow him closely in the outpatient setting. His overall prognosis at this time remains guarded. Patient advised to follow-up in the outpatient neurology clinic for further ongoing neurological management of this acute stroke findings.
[2018-05-20] MEDS ORDERED: amLODIPine 10 MG TAB PO SCH (07:00)
[2018-05-20] MEDS ORDERED: ASPIRIN 81 MG PO SCH (09:00)
== END 2018-05-19 16:16 | disposition home or self-care (01) ==
LOC: EC 12:59 → 2SICU 15:09 → INTOOBSV 15:09 → UNDOADMIN 15:09 → 2SICU 17:49 → UNDODISIN 05-19 16:16
PROVIDERS: ADMIT Internal Medicine; ATTEND Internal Medicine
DX: I63.81 Other cerebral infarction due to occlusion or stenosis of small artery (principal); J98.11 Atelectasis; R40.2362 Coma scale, best motor response, obeys commands, at arrival to emergency department; R40.2142 Coma scale, eyes open, spontaneous, at arrival to emergency department; R40.2252 Coma scale, best verbal response, oriented, at arrival to emergency department; R29.702 NIHSS score 2; F41.9 Anxiety disorder, unspecified; I10 Essential (primary) hypertension; I16.0 Hypertensive urgency; E78.5 Hyperlipidemia, unspecified; E11.9 Type 2 diabetes mellitus without complications; I65.23 Occlusion and stenosis of bilateral carotid arteries; Z91.19 Patient's noncompliance with other medical treatment and regimen; Z79.82 Long term (current) use of aspirin; Z82.49 Family history of ischemic heart disease and other diseases of the circulatory system; Z82.3 Family history of stroke
CPT/HCPCS: 96361; 96374; 99291; 36415; 93005; 93306; 97161; 97165; 80061; 80053; 80048; 82550; 82553; 84484; 85025 ×2; 85610; 85730; 83036; 71046; 93880; 70450; 70551; G0378 ×2; Q9950

== ENCOUNTER → 2018-09-21 | Outpatient (CLI) | payer OTHER ==
[2018-09-21 16:25] LABS: Anion Gap 10.2 mmol/L (4.00-12.00); Calcium 9.4 mg/dL (8.7-10.3); Carbon Dioxide 28.8 mmol/L (21.6-31.8); LDL Cholesterol,Calculated 46.4 mg/dL (0.0-131.0); Potassium 4.2 mmol/L (3.5-5.5); VLDL Calculation 18.6 mg/dL (5.00-40.00)
== END | disposition home or self-care (01) ==
LOC: LABWHC1 09:34
PROVIDERS: ATTEND Nurse Practitioner Adult Health
DX: I10 Essential (primary) hypertension (principal); E78.5 Hyperlipidemia, unspecified
CPT/HCPCS: 36415; 80048; 80061; 82533; 83835

== ENCOUNTER → 2018-10-04 | Outpatient (CLI) | payer OTHER ==
--- NOTE | 2018-10-04 09:49 | US ---
EXAMINATION TYPE: US renal artery duplex complet DATE OF EXAM: 10/04/2018 COMPARISON: NONE CLINICAL HISTORY: I10 essential hypertension. HTN, controlled for 5 months MEASUREMENTS: RENAL SIZE: Rt Kidney: 10.2 x 4.9 x 5.2cm Lt Kidney: 11.2 x 5.7 x 5.2cm RESISTANCE INDEX Right: 0.65 Left: 0.58 RA/AO RATIO (< 3.5 ) Right: 2.7 Left: 2.5 RA VELOCITY ( < 180 cm/s) Right: 171.6cm/s Left: 158.6cm/s *Technical limitations due to large amount of overlying bowel content. Proximal aorta obscured. Visua lized portions of abdominal aorta appear unremarkable. Dense echogenic area lateral/mid left kidney = 0.5cm. No evidence of renal artery stenosis as visualized at this time. Low resistive waveforms note d throughout IMPRESSION: 1. Values approach but do not fit criteria for renal arterial stenosis on the right. No evidence of r enal arterial stenosis on the left. 2. 5 mm echogenic focus of the left kidney may represent a small angiomyolipoma.
== END | disposition home or self-care (01) ==
LOC: RADUSWWP 07:56
PROVIDERS: ATTEND Internal Medicine Clinical Cardiac Electrophysiology
DX: I10 Essential (primary) hypertension (principal)
CPT/HCPCS: 93975

== ENCOUNTER → 2019-07-26 | Outpatient (CLI) | payer OTHER ==
--- NOTE | 2019-07-26 07:16 | XR ---
EXAMINATION TYPE: XR chest 2V DATE OF EXAM: 07/26/2019 COMPARISON: 05/11/1718 HISTORY: Shortness of breath. Acute bronchitis. Cough and congestion. TECHNIQUE: Frontal and lateral views of the chest are obtained. FINDINGS: There is no focal air space opacity, pleural effusion, or pneumothorax seen. The cardiac silhouette size is within normal limits. The osseous structures are intact. IMPRESSION: No acute cardiopulmonary process.
== END | disposition home or self-care (01) ==
LOC: RADXRMAIN 06:51
PROVIDERS: ATTEND Family Medicine
DX: J20.9 Acute bronchitis, unspecified (principal)
CPT/HCPCS: 71046

== ENCOUNTER 2020-01-08 06:24 | Inpatient (IN) | payer OTHER ==
[2020-01-08 06:29] LABS: Glucose,Whole Blood 148 mg/dL (75-99)
[2020-01-08] MEDS ORDERED: THIAMINE 100 MG/ML 2 ML VIAL IM STA (06:38)
[2020-01-08] MEDS ORDERED: LORazepam 2 MG/ML INJ IV STA (06:39)
[2020-01-08] MEDS ORDERED: SODIUM CHLORIDE 0.9% 500 ML 500 ML IV STA (06:39)
[2020-01-08 06:50] LABS: HCT 45.4 % (39.0-53.0); HGB 13.1 gm/dL (13.0-17.5); Hypochromasia Marked; MCH 30.5 pg (25.0-35.0); MCHC 28.9 g/dL (31.0-37.0); MCV 105.3 fL (80.0-100.0); Macrocytosis Slight; Mean Platelet Volume 9.1; Platelet Count 438 k/uL (150-450); RBC 4.31 m/uL (4.30-5.90); WBC 46.4 k/uL (3.8-10.6)
[2020-01-08 07:01] LABS: Partial Thromboplastin Time 44.9 sec (22.0-30.0); Prothrombin Time 10.3 sec (9.0-12.0)
[2020-01-08] MEDS ORDERED: SODIUM CHLORIDE 0.9% 1,000 ML IV STA ×3 (07:10→07:48)
[2020-01-08] MEDS ORDERED: PIPERACILLIN-TAZOBACTAM 3.375 GM in SODIUM CHLORIDE 0.9% 100 ML IVPB STA (07:16)
[2020-01-08] MEDS ORDERED: VANCOMYCIN IV PER PHARMACY 1 EACH MISC MISCELLANE PRN (07:16)
--- NOTE | 2020-01-08 07:17 | CT ---
EXAMINATION TYPE: CT brain wo con DATE OF EXAM: 01/08/2020 HISTORY: Altered mental status CT DLP: 1149.4 mGycm. Automated Exposure Control for Dose Reduction was Utilized. TECHNIQUE: CT scan of the head is performed without contrast. COMPARISON: CT brain May 18, 2018. FINDINGS: There is no acute intracranial hemorrhage or midline shift identified. There is diffuse v entricular and sulcal prominence consistent with diffuse age-related cerebral atrophy. There is low- attenuation in the periventricular white matter consistent with chronic small vessel ischemic change. The globes are intact and the visualized sinuses are clear. Persistent anterior metopic suture is noted. IMPRESSION: No acute intracranial hemorrhage or midline shift. There is mild to moderate diffuse ce rebral atrophy greatest superiorly and mild chronic small vessel ischemic change redemonstrated. No significant change from prior CT.
[2020-01-08] MEDS ORDERED: VANCOMYCIN 1,750 MG in SODIUM CHLORIDE 0.9% 500 ML 500 ML IVPB STA (07:20)
--- NOTE | 2020-01-08 07:23 | XR ---
EXAMINATION TYPE: XR chest 2V DATE OF EXAM: 01/08/2020 COMPARISON: CXR from 07/26/2019. HISTORY: ETOH withdrawal. Dyspnea. TECHNIQUE: Frontal and lateral views of the chest are obtained. FINDINGS: Diminished inspiration with some central vascular congestion. Seen on lateral view there is new retrocardiac opacity. Right lung remains clear. No pleural effusion or pneumothorax noted bilate rally. The cardiac silhouette size remains within normal limits. The osseous structures are intact . IMPRESSION: Diminished inspiration with developing retrocardiac acute infiltrate and/or atelectasis noted. Correlate clinically.
[2020-01-08 07:42] LABS: AST 113 U/L (17-59); African American GFR (CKD) 17 (>60 ml/min/1.73 sqM); Albumin 4.6 g/dL (3.5-5.0); Alcohol 72 mg/dL; Alkaline Phosphatase 78 U/L (38-126); Blood Urea Nitrogen 29 mg/dL (9-20); Calcium 9.3 mg/dL (8.4-10.2); Chloride 88 mmol/L (98-107); Glucose 139 mg/dL (74-99); Non-African American GFR(CKD) 15 (>60 ml/min/1.73 sqM); Salicylate <1.0 mg/dL; Sodium 136 mmol/L (137-145); Total Bilirubin 0.4 mg/dL (0.2-1.3); Total Protein 7.1 g/dL (6.3-8.2)
[2020-01-08 07:49] LABS: ALT 45 U/L (4-49)
[2020-01-08 07:51] LABS: ABG Oxygen Saturation 96.3 % (94-97); ABG PO2 157 mmHg (83-108); Allen Test Performed? Yes
[2020-01-08 07:56] LABS: Band Neutrophils % 1 %; Eosinophils # (M) 0.46 k/uL (0-0.7); Lymphocytes # (M) 8.82 k/uL (1.0-4.8); Monocytes # (M) 1.39 k/uL (0-1.0); Neutrophils % (M) 77 %; Nucleated Red Blood Cells 0 /100 WBC (0-0); Total Cells Counted 200
[2020-01-08 07:57] LABS: Anisocytosis (M) Present
[2020-01-08 08:04] LABS: Carbon Dioxide <5 mmol/L (22-30)
[2020-01-08] MEDS: SODIUM BICARB 8.4% 50 ML SYR (1 MEQ/ML) IV STA ×2 (08:06→10:35)
[2020-01-08] MEDS ORDERED: SODIUM BICARB 8.4% 50 ML SYR (1 MEQ/ML) IV STA ×2 (08:07→09:35)
[2020-01-08] MEDS ORDERED: ETOMIDATE 2 MG/ML 10 ML VIAL IVP STA (08:08)
[2020-01-08] MEDS ORDERED: HEPARIN SODIUM 1,000 UN/ML (10ML VL) ONE (08:08)
[2020-01-08] MEDS ORDERED: SODIUM BICARB 8.4% 50 ML SYR (1 MEQ/ML) ONE (08:08)
[2020-01-08] MEDS ORDERED: LIDOCAINE 1% INJ 10MG/ML (20 ML MDV) ONE (08:08)
[2020-01-08] MEDS ORDERED: SODIUM CHLORIDE 0.9% IVPB ONE (08:31)
[2020-01-08] MEDS ORDERED: FOMEPIZOLE IVPB ONE (08:31)
--- NOTE | 2020-01-08 08:32 | ED ---
General Adult HPI - General Source: patient, EMS Mode of arrival: EMS Limitations: no limitations <Caridad Forbes - Last Filed: 01/08/20 08:32> <Martir Motta - Last Filed: 01/08/20 09:15> - General Chief complaint: Alcohol Stated complaint: ETOH, SOB Time Seen by Provider: 01/08/20 06:42 - History of Present Illness Initial comments: Patient is 59-year-old male, history hypertension, diabetes, presenting to the emergency department via EMS with complaints of shortness of breath. Patient's fiance was helping provide history, states that he has been on a 5 day alcohol binge her, considering mostly ROM, and then she found him this morning having trouble breathing so she called EMS. Patient is also complaining that he cannot see very well. He denies taking other drugs or medications. Fiance states he does not drink everyday but does go on random binges. Patient is denying pain anywhere, he denies chest pain, abdominal pain. EMS states he did have one episode of vomiting when EMS arrived. He denies any numbness and tingling to extremities. Patient states only that he feels that he can't catch his breath and that he is thirsty. He is following commands. He has no other complaints. Upon arrival to the ER, patient is hypothermic, 93.8, pulse is 93, respiratory rate 30, BP is 132/81, 100% on 2 L. (Caridad Forbes) - Related Data Home Medications Medication Instructions Recorded Confirmed Losartan Potassium 100 mg PO DAILY 01/08/20 01/08/20 Pravastatin Sodium [Pravachol] 10 mg PO DAILY 01/08/20 01/08/20 Triamterene-Hctz 37.5-25Mg 1 cap PO DAILY 01/08/20 01/08/20 [Dyazide 37.5-25 Capsule] Previous Rx's Medication Instructions Recorded Aspirin 81 mg PO DAILY #30 chew 05/19/18 metFORMIN HCL [Glucophage] 500 mg PO BID #60 tab 05/19/18 Allergies Allergy/AdvReac Type Severity Reaction Status Date / Time No Known Allergies Allergy Verified 01/08/20 07:05 Review of Systems ROS Other: All systems not noted in ROS Statement are negative. <Caridad Forbes - Last Filed: 01/08/20 08:32> ROS Other: All systems not noted in ROS Statement are negative. <Martir Motta - Last Filed: 01/08/20 09:15> ROS Statement: Those systems with pertinent positive or pertinent negative responses have been documented in the HPI. Past Medical History Past Medical History: No Reported History History of Any Multi-Drug Resistant Organisms: None Reported Past Surgical History: No Surgical Hx Reported Past Psychological History: No Psychological Hx Reported Past Alcohol Use History: Occasional Past Drug Use History: None Reported - Past Family History Mother Family Medical History: CVA/TIA Brother(s) Family Medical History: Myocardial Infarction ([place]) <Caridad Forbes - Last Filed: 01/08/20 08:32> General Exam Limitations: no limitations <Caridad Forbes - Last Filed: 01/08/20 08:32> - General Exam Comments Initial Comments: GENERAL: Patient appears anxious, breathing rapidly, he is following commands, sluggish. HEAD: Atraumatic, normocephalic. No signs of hematoma. EYES: Pupils are dilated, very slow reactive to light bilaterally, sclera anicteric, conjunctiva are normal. Eyelids were unremarkable. ENT: TMs normal, nares patent, oropharynx clear without exudates. Moist mucous membranes. NECK: Normal range of motion, supple without lymphadenopathy or JVD. LUNGS: Rapid breathing, Breath sounds clear to auscultation bilaterally and equal. No wheezes rales or rhonchi. HEART: Regular rate and rhythm without murmurs, rubs or gallops. ABDOMEN: Soft, nontender, normoactive bowel sounds. No guarding, no rebound. No masses appreciated. : Deferred MUSCULOSKELETAL: Normal extremities with adequate strength and normal range of motion, no pitting or edema. No clubbing or cyanosis. NEUROLOGICAL: Patient is alert and oriented x 3. Motor and sensory are also intact. Cranial nerves II through XII grossly intact. Normal speech. PSYCH: Patient is anxious SKIN: Warm, Dry, normal turgor, no rashes or lesions noted. (Caridad Forbes) Course Vital Signs 01/08/20 01/08/20 06:27 07:16 Temperature 93.8 F L Pulse Rate 93 92 Respiratory 30 H 30 H Rate Blood Pressure 132/81 133/84 O2 Sat by Pulse 100 100 Oximetry EKG Findings - EKG Comments: EKG Findings:: Normal sinus rhythm, nonspecific intraventricular block, no signs of acute ischemia, ventricular rate 93, TN interval 170, QT 436. <Caridad Forbes - Last Filed: 01/08/20 08:32> Procedures - ABG Interpretation Interpretation: metabolic acidosis - Arterial Line No standard instances Consent Obtained: emergent situation Size (Gauge): 16 Technique Used: guide wire technique Post-Procedure: line sutured into place Patient Tolerated Procedure: well Complications: none - Intubation Sedative: Etomidate Paralytic: Rocuronium Laryngoscope: Sven Size: 3 ET Tube Size: 8 ET Tube Uncuffed: No Tube Secured Depth (cm): 24 Tube Secured Location: teeth Patient Tolerated Procedure: well Intubation Complications: none <Martir Motta - Last Filed: 01/08/20 09:15> - ABG Interpretation Additional Comments: severe metabolic acidosis (Martir Motta) Medical Decision Making - Lab Data Result diagrams: 01/08/20 06:40 01/08/20 06:40 <Caridad Forbes - Last Filed: 01/08/20 08:32> - Lab Data Result diagrams: 01/08/20 06:40 01/08/20 06:40 <Martir Motta - Last Filed: 01/08/20 09:15> - Medical Decision Making Patient care was handed off to me I physician topographical field assistant, Caridad Forbes. Briefly, patient 5-year-old male came in for altered mental status. According to EMS patient had been binge drinking rum for the last 5 days. Patient unable to provide detailed history at this time. His vital signs upon arrival showed hypothermia of 93.8, respiratory rate of 30, rest of vital signs within acceptable limits. Patient is not hypoxic. Laboratory evaluation obtained showing leukocytosis for 6.3, macrocytosis of 105.3. Coag panel is unremarkable. Metabolic derangement is severe. He has undetectable CO2 and undetectable anion gap. Acute kidney injury creatinine of 4.03. He has no history of kidney problems. Serum osmolality that is measured is 236. Osmole gap is 27. Lactic acidosis greater than 24.0. Elevated troponin 0.036. Lipase of 519. Acetone is positive. Serum alcohol is 72. Computed tomography scan of the brain shows no acute processes. Chest x-ray shows possible retrocardiac infiltrate. Clinical presentation concerning for toxic alcohol ingestion. Nephrology was contacted immediately for emergent dialysis. Patient started on bicarbonate, fomepizole. Patient was intubated due to agitated behavior and poor airway protection. An arterial line was placed. Discussed patient case with ICU physician Dr. Dotson who is willing to accept patients care to the intensive care unit. (Martir Motta) - Lab Data Lab Results 01/08/20 01/08/20 01/08/20 Range/Units 06:28 06:40 06:40 WBC 46.4 H (3.8-10.6) k/uL RBC 4.31 (4.30-5.90) m/uL Hgb 13.1 (13.0-17.5) gm/dL Hct 45.4 (39.0-53.0) % MCV 105.3 H (80.0-100.0) fL MCH 30.5 (25.0-35.0) pg MCHC 28.9 L (31.0-37.0) g/dL RDW 13.0 (11.5-15.5) % Plt Count 438 (150-450) k/uL Neutrophils % (Manual) 77 % Band Neutrophils % 1 % Lymphocytes % (Manual) 19 % Monocytes % (Manual) 3 % Eosinophils % (Manual) 1 % Neutrophils # (Manual) 36.10 H (1.3-7.7) k/uL Lymphocytes # (Manual) 8.82 H (1.0-4.8) k/uL Monocytes # (Manual) 1.39 H (0-1.0) k/uL Eosinophils # (Manual) 0.46 (0-0.7) k/uL Nucleated RBCs 0 (0-0) /100 WBC Manual Slide Review Performed Hypochromasia Marked Anisocytosis (manual) Present Macrocytosis Slight PT (9.0-12.0) sec INR (<1.2) APTT (22.0-30.0) sec Sample Site ABG pH (7.35-7.45) ABG pCO2 (35-45) mmHg ABG pO2 (83-108) mmHg ABG O2 Saturation (94-97) % Sukh Test FiO2 % Sodium 136 L (137-145) mmol/L Potassium 5.0 (3.5-5.1) mmol/L Chloride 88 L (98-107) mmol/L Carbon Dioxide <5 L* (22-30) mmol/L Anion Gap mmol/L BUN 29 H (9-20) mg/dL Creatinine 4.03 H (0.66-1.25) mg/dL Est GFR (CKD-EPI)AfAm 17 (>60 ml/min/1.73 sqM) Est GFR (CKD-EPI)NonAf 15 (>60 ml/min/1.73 sqM) Glucose 139 H (74-99) mg/dL POC Glucose (mg/dL) 148 H (75-99) mg/dL POC Glu Chief Diversity Officer ID Camilo Coppola Osmolality 336 H* (280-301) mosm/kg Plasma Lactic Acid Tejinder (0.7-2.0) mmol/L Calcium 9.3 (8.4-10.2) mg/dL Total Bilirubin 0.4 (0.2-1.3) mg/dL AST 113 H (17-59) U/L ALT 45 (4-49) U/L Alkaline Phosphatase 78 (38-126) U/L Troponin I (0.000-0.034) ng/mL Total Protein 7.1 (6.3-8.2) g/dL Albumin 4.6 (3.5-5.0) g/dL Lipase 519 H (23-300) U/L Urine Color Urine Appearance (Clear) Urine pH (5.0-8.0) Ur Specific [place] (1.001-1.035) Urine Protein (Negative) Urine Glucose (UA) (Negative) Urine Ketones (Negative) Urine Blood (Negative) Urine Nitrite (Negative) Urine Bilirubin (Negative) Urine Urobilinogen (<2.0) mg/dL Ur Leukocyte Esterase (Negative) Urine RBC (0-5) /hpf Urine WBC (0-5) /hpf Ur Squamous Epith Cells (0-4) /hpf Amorphous Sediment (None) /hpf Urine Bacteria (None) /hpf Hyaline Casts (0-2) /lpf Urine Mucus (None) /hpf Salicylates <1.0 mg/dL Urine Opiates Screen (NotDetected) Ur Oxycodone Screen (NotDetected) Urine Methadone Screen (NotDetected) Ur Propoxyphene Screen (NotDetected) Ur Barbiturates Screen (NotDetected) U Tricyclic Antidepress (NotDetected) Ur Phencyclidine Scrn (NotDetected) Ur Amphetamines Screen (NotDetected) U Methamphetamines Scrn (NotDetected) U Benzodiazepines Scrn (NotDetected) Urine Cocaine Screen (NotDetected) U Marijuana (THC) Screen (NotDetected) Serum Alcohol 72 mg/dL Acetone, Qual Positive (Negative) 01/08/20 01/08/20 01/08/20 Range/Units 06:40 06:40 06:40 WBC (3.8-10.6) k/uL RBC (4.30-5.90) m/uL Hgb (13.0-17.5) gm/dL Hct (39.0-53.0) % MCV (80.0-100.0) fL MCH (25.0-35.0) pg MCHC (31.0-37.0) g/dL RDW (11.5-15.5) % Plt Count (150-450) k/uL Neutrophils % (Manual) % Band Neutrophils % % Lymphocytes % (Manual) % Monocytes % (Manual) % Eosinophils % (Manual) % Neutrophils # (Manual) (1.3-7.7) k/uL Lymphocytes # (Manual) (1.0-4.8) k/uL Monocytes # (Manual) (0-1.0) k/uL Eosinophils # (Manual) (0-0.7) k/uL Nucleated RBCs (0-0) /100 WBC Manual Slide Review Hypochromasia Anisocytosis (manual) Macrocytosis PT 10.3 (9.0-12.0) sec INR 1.0 (<1.2) APTT 44.9 H (22.0-30.0) sec Sample Site ABG pH (7.35-7.45) ABG pCO2 (35-45) mmHg ABG pO2 (83-108) mmHg ABG O2 Saturation (94-97) % Sukh Test FiO2 % Sodium (137-145) mmol/L Potassium (3.5-5.1) mmol/L Chloride (98-107) mmol/L Carbon Dioxide (22-30) mmol/L Anion Gap mmol/L BUN (9-20) mg/dL Creatinine (0.66-1.25) mg/dL Est GFR (CKD-EPI)AfAm (>60 ml/min/1.73 sqM) Est GFR (CKD-EPI)NonAf (>60 ml/min/1.73 sqM) Glucose (74-99) mg/dL POC Glucose (mg/dL) (75-99) mg/dL POC Glu Chief Diversity Officer ID Osmolality ([phone]) mosm/kg Plasma Lactic Acid Tejinder >24.0 H* (0.7-2.0) mmol/L Calcium (8.4-10.2) mg/dL Total Bilirubin (0.2-1.3) mg/dL AST (17-59) U/L ALT (4-49) U/L Alkaline Phosphatase (38-126) U/L Troponin I (0.000-0.034) ng/mL Total Protein (6.3-8.2) g/dL Albumin (3.5-5.0) g/dL Lipase (23-300) U/L Urine Color Yellow Urine Appearance Clear (Clear) Urine pH 6.0 (5.0-8.0) Ur Specific [place] 1.025 (1.001-1.035) Urine Protein 2+ (Negative) Urine Glucose (UA) Negative (Negative) Urine Ketones 2+ (Negative) Urine Blood Moderate (Negative) Urine Nitrite Negative (Negative) Urine Bilirubin Negative (Negative) Urine Urobilinogen <2.0 (<2.0) mg/dL Ur Leukocyte Esterase Negative (Negative) Urine RBC <1 (0-5) /hpf Urine WBC 1 (0-5) /hpf Ur Squamous Epith Cells <1 (0-4) /hpf Amorphous Sediment Rare H (None) /hpf Urine Bacteria Rare H (None) /hpf Hyaline Casts 8 H (0-2) /lpf Urine Mucus Rare H (None) /hpf Salicylates mg/dL Urine Opiates Screen Not Detected (NotDetected) Ur Oxycodone Screen Not Detected (NotDetected) Urine Methadone Screen Not Detected (NotDetected) Ur Propoxyphene Screen Not Detected (NotDetected) Ur Barbiturates Screen Not Detected (NotDetected) U Tricyclic Antidepress Not Detected (NotDetected) Ur Phencyclidine Scrn Not Detected (NotDetected) Ur Amphetamines Screen Not Detected (NotDetected) U Methamphetamines Scrn Not Detected (NotDetected) U Benzodiazepines Scrn Not Detected (NotDetected) Urine Cocaine Screen Not Detected (NotDetected) U Marijuana (THC) Screen Not Detected (NotDetected) Serum Alcohol mg/dL Acetone, Qual (Negative) 01/08/20 01/08/20 Range/Units 06:40 07:47 WBC (3.8-10.6) k/uL RBC (4.30-5.90) m/uL Hgb (13.0-17.5) gm/dL Hct (39.0-53.0) % MCV (80.0-100.0) fL MCH (25.0-35.0) pg MCHC (31.0-37.0) g/dL RDW (11.5-15.5) % Plt Count (150-450) k/uL Neutrophils % (Manual) % Band Neutrophils % % Lymphocytes % (Manual) % Monocytes % (Manual) % Eosinophils % (Manual) % Neutrophils # (Manual) (1.3-7.7) k/uL Lymphocytes # (Manual) (1.0-4.8) k/uL Monocytes # (Manual) (0-1.0) k/uL Eosinophils # (Manual) (0-0.7) k/uL Nucleated RBCs (0-0) /100 WBC Manual Slide Review Hypochromasia Anisocytosis (manual) Macrocytosis PT (9.0-12.0) sec INR (<1.2) APTT (22.0-30.0) sec Sample Site rrad ABG pH <6.80 L* (7.35-7.45) ABG pCO2 <15 L* (35-45) mmHg ABG pO2 157 H (83-108) mmHg ABG O2 Saturation 96.3 (94-97) % Sukh Test Yes FiO2 32 % Sodium (137-145) mmol/L Potassium (3.5-5.1) mmol/L Chloride (98-107) mmol/L Carbon Dioxide (22-30) mmol/L Anion Gap mmol/L BUN (9-20) mg/dL Creatinine (0.66-1.25) mg/dL Est GFR (CKD-EPI)AfAm (>60 ml/min/1.73 sqM) Est GFR (CKD-EPI)NonAf (>60 ml/min/1.73 sqM) Glucose (74-99) mg/dL POC Glucose (mg/dL) (75-99) mg/dL POC Glu Chief Diversity Officer ID Osmolality ([phone]) mosm/kg Plasma Lactic Acid Tejinder (0.7-2.0) mmol/L Calcium (8.4-10.2) mg/dL Total Bilirubin (0.2-1.3) mg/dL AST (17-59) U/L ALT (4-49) U/L Alkaline Phosphatase (38-126) U/L Troponin I 0.036 H* (0.000-0.034) ng/mL Total Protein (6.3-8.2) g/dL Albumin (3.5-5.0) g/dL Lipase (23-300) U/L Urine Color Urine Appearance (Clear) Urine pH (5.0-8.0) Ur Specific [place] (1.001-1.035) Urine Protein (Negative) Urine Glucose (UA) (Negative) Urine Ketones (Negative) Urine Blood (Negative) Urine Nitrite (Negative) Urine Bilirubin (Negative) Urine Urobilinogen (<2.0) mg/dL Ur Leukocyte Esterase (Negative) Urine RBC (0-5) /hpf Urine WBC (0-5) /hpf Ur Squamous Epith Cells (0-4) /hpf Amorphous Sediment (None) /hpf Urine Bacteria (None) /hpf Hyaline Casts (0-2) /lpf Urine Mucus (None) /hpf Salicylates mg/dL Urine Opiates Screen (NotDetected) Ur Oxycodone Screen (NotDetected) Urine Methadone Screen (NotDetected) Ur Propoxyphene Screen (NotDetected) Ur Barbiturates Screen (NotDetected) U Tricyclic Antidepress (NotDetected) Ur Phencyclidine Scrn (NotDetected) Ur Amphetamines Screen (NotDetected) U Methamphetamines Scrn (NotDetected) U Benzodiazepines Scrn (NotDetected) Urine Cocaine Screen (NotDetected) U Marijuana (THC) Screen (NotDetected) Serum Alcohol mg/dL Acetone, Qual (Negative) Disposition <Caridad Forbes - Last Filed: 01/08/20 08:32> Decision Time: 09:15 <Martir Motta - Last Filed: 01/08/20 09:15> Clinical Impression: Metabolic acidosis Disposition: ADMITTED IP TO THIS HOSP Condition: Critical Referrals: None,Stated [REFERRING] - 1-2 days
[2020-01-08 08:42] LABS: ABG PH <6.80 (7.35-7.45)
[2020-01-08 08:43] LABS: ABG PCO2 <15 mmHg (35-45)
[2020-01-08 08:45] LABS: Amphetamine Screen,Urine Not Detected (NotDetected); Barbiturate Screen,Urine Not Detected (NotDetected); Benzodiazepines Screen,Urine Not Detected (NotDetected); Cocaine Screen,Urine Not Detected (NotDetected); Methadone Screen, Urine Not Detected (NotDetected); Opiate Screen,Urine Not Detected (NotDetected); Oxycodone Screen, Urine Not Detected (NotDetected); Phencyclidine Screen,Urine Not Detected (NotDetected); Tricyclic Antidepressant,Urine Not Detected (NotDetected); Urn Cannabinoid Scrn Not Detected (NotDetected)
[2020-01-08 08:48] LABS: Color,Urine Yellow
[2020-01-08 08:49] LABS: Appearance,Urine Clear (Clear); Bilirubin,Urine Negative (Negative); Glucose,Urine (UA) Negative (Negative); Protein,Urine 2+ (Negative); Specific Gravity,Urine 1.025 (1.001-1.035)
[2020-01-08 08:50] LABS: Blood,Urine Moderate (Negative); Ketones,Urine 2+ (Negative); Nitrite,Urine Negative (Negative); Urobilinogen,Urine <2.0 mg/dL (<2.0)
[2020-01-08 08:51] LABS: Leukocyte Esterase,Urine Negative (Negative)
[2020-01-08 08:59] LABS: Bacteria,Urine Rare /hpf; WBC,Urine 1 /hpf (0-5)
[2020-01-08 09:00] LABS: Amorphous Sediment,Urine Rare /hpf; Hyaline Casts,Urine 8 /lpf (0-2); RBC,Urine <1 /hpf (0-5); Squamous Epithelial Cell,Urine <1 /hpf (0-4)
[2020-01-08 09:01] LABS: Mucus,Urine Rare /hpf
[2020-01-08] MEDS ORDERED: NALOXONE 0.4 MG/ML 1 ML VIAL IV PRN (09:11)
--- NOTE | 2020-01-08 09:17 | ED ---
Medical Decision Making - Lab Data Result diagrams: 01/08/20 06:40 01/08/20 06:40 Lab Results 01/08/20 01/08/20 01/08/20 Range/Units 06:28 06:40 06:40 WBC 46.4 H (3.8-10.6) k/uL RBC 4.31 (4.30-5.90) m/uL Hgb 13.1 (13.0-17.5) gm/dL Hct 45.4 (39.0-53.0) % MCV 105.3 H (80.0-100.0) fL MCH 30.5 (25.0-35.0) pg MCHC 28.9 L (31.0-37.0) g/dL RDW 13.0 (11.5-15.5) % Plt Count 438 (150-450) k/uL Neutrophils % (Manual) 77 % Band Neutrophils % 1 % Lymphocytes % (Manual) 19 % Monocytes % (Manual) 3 % Eosinophils % (Manual) 1 % Neutrophils # (Manual) 36.10 H (1.3-7.7) k/uL Lymphocytes # (Manual) 8.82 H (1.0-4.8) k/uL Monocytes # (Manual) 1.39 H (0-1.0) k/uL Eosinophils # (Manual) 0.46 (0-0.7) k/uL Nucleated RBCs 0 (0-0) /100 WBC Manual Slide Review Performed Hypochromasia Marked Anisocytosis (manual) Present Macrocytosis Slight PT (9.0-12.0) sec INR (<1.2) APTT (22.0-30.0) sec Sample Site ABG pH (7.35-7.45) ABG pCO2 (35-45) mmHg ABG pO2 (83-108) mmHg ABG O2 Saturation (94-97) % Sukh Test FiO2 % Sodium 136 L (137-145) mmol/L Potassium 5.0 (3.5-5.1) mmol/L Chloride 88 L (98-107) mmol/L Carbon Dioxide <5 L* (22-30) mmol/L Anion Gap mmol/L BUN 29 H (9-20) mg/dL Creatinine 4.03 H (0.66-1.25) mg/dL Est GFR (CKD-EPI)AfAm 17 (>60 ml/min/1.73 sqM) Est GFR (CKD-EPI)NonAf 15 (>60 ml/min/1.73 sqM) Glucose 139 H (74-99) mg/dL POC Glucose (mg/dL) 148 H (75-99) mg/dL POC Glu Engine Cowling Installer ID Camilo Coppola Osmolality 336 H* (280-301) mosm/kg Plasma Lactic Acid Tejinder (0.7-2.0) mmol/L Calcium 9.3 (8.4-10.2) mg/dL Total Bilirubin 0.4 (0.2-1.3) mg/dL AST 113 H (17-59) U/L ALT 45 (4-49) U/L Alkaline Phosphatase 78 (38-126) U/L Troponin I (0.000-0.034) ng/mL Total Protein 7.1 (6.3-8.2) g/dL Albumin 4.6 (3.5-5.0) g/dL Lipase 519 H (23-300) U/L Urine Color Urine Appearance (Clear) Urine pH (5.0-8.0) Ur Specific [place] (1.001-1.035) Urine Protein (Negative) Urine Glucose (UA) (Negative) Urine Ketones (Negative) Urine Blood (Negative) Urine Nitrite (Negative) Urine Bilirubin (Negative) Urine Urobilinogen (<2.0) mg/dL Ur Leukocyte Esterase (Negative) Urine RBC (0-5) /hpf Urine WBC (0-5) /hpf Ur Squamous Epith Cells (0-4) /hpf Amorphous Sediment (None) /hpf Urine Bacteria (None) /hpf Hyaline Casts (0-2) /lpf Urine Mucus (None) /hpf Salicylates <1.0 mg/dL Urine Opiates Screen (NotDetected) Ur Oxycodone Screen (NotDetected) Urine Methadone Screen (NotDetected) Ur Propoxyphene Screen (NotDetected) Ur Barbiturates Screen (NotDetected) U Tricyclic Antidepress (NotDetected) Ur Phencyclidine Scrn (NotDetected) Ur Amphetamines Screen (NotDetected) U Methamphetamines Scrn (NotDetected) U Benzodiazepines Scrn (NotDetected) Urine Cocaine Screen (NotDetected) U Marijuana (THC) Screen (NotDetected) Serum Alcohol 72 mg/dL Acetone, Qual Positive (Negative) 01/08/20 01/08/20 01/08/20 Range/Units 06:40 06:40 06:40 WBC (3.8-10.6) k/uL RBC (4.30-5.90) m/uL Hgb (13.0-17.5) gm/dL Hct (39.0-53.0) % MCV (80.0-100.0) fL MCH (25.0-35.0) pg MCHC (31.0-37.0) g/dL RDW (11.5-15.5) % Plt Count (150-450) k/uL Neutrophils % (Manual) % Band Neutrophils % % Lymphocytes % (Manual) % Monocytes % (Manual) % Eosinophils % (Manual) % Neutrophils # (Manual) (1.3-7.7) k/uL Lymphocytes # (Manual) (1.0-4.8) k/uL Monocytes # (Manual) (0-1.0) k/uL Eosinophils # (Manual) (0-0.7) k/uL Nucleated RBCs (0-0) /100 WBC Manual Slide Review Hypochromasia Anisocytosis (manual) Macrocytosis PT 10.3 (9.0-12.0) sec INR 1.0 (<1.2) APTT 44.9 H (22.0-30.0) sec Sample Site ABG pH (7.35-7.45) ABG pCO2 (35-45) mmHg ABG pO2 (83-108) mmHg ABG O2 Saturation (94-97) % Sukh Test FiO2 % Sodium (137-145) mmol/L Potassium (3.5-5.1) mmol/L Chloride (98-107) mmol/L Carbon Dioxide (22-30) mmol/L Anion Gap mmol/L BUN (9-20) mg/dL Creatinine (0.66-1.25) mg/dL Est GFR (CKD-EPI)AfAm (>60 ml/min/1.73 sqM) Est GFR (CKD-EPI)NonAf (>60 ml/min/1.73 sqM) Glucose (74-99) mg/dL POC Glucose (mg/dL) (75-99) mg/dL POC Glu Engine Cowling Installer ID Osmolality ([phone]) mosm/kg Plasma Lactic Acid Tejinder >24.0 H* (0.7-2.0) mmol/L Calcium (8.4-10.2) mg/dL Total Bilirubin (0.2-1.3) mg/dL AST (17-59) U/L ALT (4-49) U/L Alkaline Phosphatase (38-126) U/L Troponin I (0.000-0.034) ng/mL Total Protein (6.3-8.2) g/dL Albumin (3.5-5.0) g/dL Lipase (23-300) U/L Urine Color Yellow Urine Appearance Clear (Clear) Urine pH 6.0 (5.0-8.0) Ur Specific [place] 1.025 (1.001-1.035) Urine Protein 2+ (Negative) Urine Glucose (UA) Negative (Negative) Urine Ketones 2+ (Negative) Urine Blood Moderate (Negative) Urine Nitrite Negative (Negative) Urine Bilirubin Negative (Negative) Urine Urobilinogen <2.0 (<2.0) mg/dL Ur Leukocyte Esterase Negative (Negative) Urine RBC <1 (0-5) /hpf Urine WBC 1 (0-5) /hpf Ur Squamous Epith Cells <1 (0-4) /hpf Amorphous Sediment Rare H (None) /hpf Urine Bacteria Rare H (None) /hpf Hyaline Casts 8 H (0-2) /lpf Urine Mucus Rare H (None) /hpf Salicylates mg/dL Urine Opiates Screen Not Detected (NotDetected) Ur Oxycodone Screen Not Detected (NotDetected) Urine Methadone Screen Not Detected (NotDetected) Ur Propoxyphene Screen Not Detected (NotDetected) Ur Barbiturates Screen Not Detected (NotDetected) U Tricyclic Antidepress Not Detected (NotDetected) Ur Phencyclidine Scrn Not Detected (NotDetected) Ur Amphetamines Screen Not Detected (NotDetected) U Methamphetamines Scrn Not Detected (NotDetected) U Benzodiazepines Scrn Not Detected (NotDetected) Urine Cocaine Screen Not Detected (NotDetected) U Marijuana (THC) Screen Not Detected (NotDetected) Serum Alcohol mg/dL Acetone, Qual (Negative) 08/18/20 08/18/20 Range/Units 06:40 07:47 WBC (3.8-10.6) k/uL RBC (4.30-5.90) m/uL Hgb (13.0-17.5) gm/dL Hct (39.0-53.0) % MCV (80.0-100.0) fL MCH (25.0-35.0) pg MCHC (31.0-37.0) g/dL RDW (11.5-15.5) % Plt Count (150-450) k/uL Neutrophils % (Manual) % Band Neutrophils % % Lymphocytes % (Manual) % Monocytes % (Manual) % Eosinophils % (Manual) % Neutrophils # (Manual) (1.3-7.7) k/uL Lymphocytes # (Manual) (1.0-4.8) k/uL Monocytes # (Manual) (0-1.0) k/uL Eosinophils # (Manual) (0-0.7) k/uL Nucleated RBCs (0-0) /100 WBC Manual Slide Review Hypochromasia Anisocytosis (manual) Macrocytosis PT (9.0-12.0) sec INR (<1.2) APTT (22.0-30.0) sec Sample Site rrad ABG pH <6.80 L* (7.35-7.45) ABG pCO2 <15 L* (35-45) mmHg ABG pO2 157 H (83-108) mmHg ABG O2 Saturation 96.3 (94-97) % Sukh Test Yes FiO2 32 % Sodium (137-145) mmol/L Potassium (3.5-5.1) mmol/L Chloride (98-107) mmol/L Carbon Dioxide (22-30) mmol/L Anion Gap mmol/L BUN (9-20) mg/dL Creatinine (0.66-1.25) mg/dL Est GFR (CKD-EPI)AfAm (>60 ml/min/1.73 sqM) Est GFR (CKD-EPI)NonAf (>60 ml/min/1.73 sqM) Glucose (74-99) mg/dL POC Glucose (mg/dL) (75-99) mg/dL POC Glu Engine Cowling Installer ID Osmolality ([phone]) mosm/kg Plasma Lactic Acid Tejinder (0.7-2.0) mmol/L Calcium (8.4-10.2) mg/dL Total Bilirubin (0.2-1.3) mg/dL AST (17-59) U/L ALT (4-49) U/L Alkaline Phosphatase (38-126) U/L Troponin I 0.036 H* (0.000-0.034) ng/mL Total Protein (6.3-8.2) g/dL Albumin (3.5-5.0) g/dL Lipase (23-300) U/L Urine Color Urine Appearance (Clear) Urine pH (5.0-8.0) Ur Specific [place] (1.001-1.035) Urine Protein (Negative) Urine Glucose (UA) (Negative) Urine Ketones (Negative) Urine Blood (Negative) Urine Nitrite (Negative) Urine Bilirubin (Negative) Urine Urobilinogen (<2.0) mg/dL Ur Leukocyte Esterase (Negative) Urine RBC (0-5) /hpf Urine WBC (0-5) /hpf Ur Squamous Epith Cells (0-4) /hpf Amorphous Sediment (None) /hpf Urine Bacteria (None) /hpf Hyaline Casts (0-2) /lpf Urine Mucus (None) /hpf Salicylates mg/dL Urine Opiates Screen (NotDetected) Ur Oxycodone Screen (NotDetected) Urine Methadone Screen (NotDetected) Ur Propoxyphene Screen (NotDetected) Ur Barbiturates Screen (NotDetected) U Tricyclic Antidepress (NotDetected) Ur Phencyclidine Scrn (NotDetected) Ur Amphetamines Screen (NotDetected) U Methamphetamines Scrn (NotDetected) U Benzodiazepines Scrn (NotDetected) Urine Cocaine Screen (NotDetected) U Marijuana (THC) Screen (NotDetected) Serum Alcohol mg/dL Acetone, Qual (Negative) Critical Care Time Critical Care Time: Yes Total Critical Care Time: 37 Disposition Clinical Impression: Metabolic acidosis Disposition: ADMITTED IP TO THIS [facility] Condition: Critical Referrals: None,Stated [REFERRING] - 1-2 days Decision Time: 09:16
[2020-01-08 09:20] LABS: ABG Oxygen Saturation 98.4 % (94-97); ABG PCO2 29 mmHg (35-45); ABG PO2 352 mmHg (83-108); ABG TCO2 4 mmol/L (19-24); Allen Test Performed? Yes
[2020-01-08] MEDS: DEXTROSE 5% IN WATER 1,000 ML with SODIUM BICARB (1 MEQ/ML) 150 ML IV SCH ×2 (09:27→16:57)
[2020-01-08] MEDS: SODIUM CHLORIDE 0.9% 1,000 ML IV SCH (09:29)
[2020-01-08 09:38] LABS: ABG Base Excess -34.6 mmol/L; ABG HCO3 3 mmol/L (21-25); ABG PH <6.80 (7.35-7.45)
[2020-01-08] MEDS ORDERED: NOREPINEPHRIN 4 MG-0.9% NS PMX 4 MG/250 ML ML IV ONE (09:56)
--- NOTE | 2020-01-08 09:58 | XR ---
EXAMINATION TYPE: XR chest 1V DATE OF EXAM: 01/08/2020 CLINICAL HISTORY: Difficulty breathing had to be intubated. TECHNIQUE: Single AP portable frontal view of the chest is obtained. COMPARISON: Chest x-ray from earlier today. FINDINGS: New endotracheal tube is at the aortic knob level, approximately 3 cm above the parris. Ne w orogastric tube projects below diaphragm. Persistent low lung volumes and worsening left basilar opacity. There is now silhouetting of the left hemidiaphragm noted. Developing patchy right basilar opacity is suspected. Cardiac silhouette size s table and upper limits of normal. Visualized osseous structures are intact. Entire lateral right lung base not included in field of view on current study. IMPRESSION: 1. New endotracheal and orogastric tubes satisfactory in position. 2. Persistent low lung volumes with worsening left basilar opacity consistent with small left pleural effusion and associated left base atelectasis and/or infiltrate. Developing patchy right basilar acu te atelectasis and/or early infiltrate is noted.
[2020-01-08 10:12] LABS: Glucose,Whole Blood 144 mg/dL (75-99)
--- NOTE | 2020-01-08 10:18 | CONS ---
CONSULTATION PULMONARY/CRITICAL CARE CONSULTATION: DATE OF CONSULTATION: 01/08/2020 This is a 59-year-old male with a history of hypertension, diabetes, hyperlipidemia, who apparently presented to the emergency department this morning at 6:24 a.m. complaining of shortness of breath. Apparently he had been on a 5 day alcohol binge. He apparently was having trouble breathing and EMS was called. He apparently cannot see very well. He apparently denied taking other drugs or medications other than what is prescribed. He apparently does not drink every day, but apparently does go on random binges according to his significant other. He denied pain in the emergency room. He denied abdominal discomfort. He apparently did have one episode of vomiting when EMS arrived. The patient apparently became very agitated and confused in the emergency room and apparently was intubated down there by the ER physician. The ER physician called me. We went down to see the patient. He was intubated. He is on the volume assist-control modality rate of 20, tidal volume 500, FiO2 100% ,PEEP of 5. Blood gases prior to intubation showed a pO2 of 157, pCO2 which was less than 15, and a pH which was 6.64. The patient subsequently had another blood gas. He had a pO2 of 352, a pCO2 28, and pH of 6.61. With those blood gases, the FiO2 was dropped from 100% to 50%. The patient is getting saline at 200 cc/hour. The patient also got fluid boluses x1. The patient also was given IV vancomycin. Currently, the patient is on the ventilator in the emergency room. The patient is going to be transferred up to the ICU at which time, the patient will have an art line and central line placed. HOME MEDICATIONS: Apparently include losartan, pravastatin, and triamterene/hydrochlorothiazide. He is also apparently on metformin. The patient also takes a baby aspirin a day. ALLERGIES: Denied. MEDICAL HISTORY: Diabetes, hypertension, and hyperlipidemia. SURGICAL HISTORY: Surgical history is not reported. SOCIAL HISTORY: Alcohol use is apparently noted by the significant other. There is no history of illicit drug use apparently, according to the chart. FAMILY HISTORY: Positive for mother with stroke, a brother with myocardial infarction. No history as it relates to the father. REVIEW OF SYSTEMS: Obviously cannot be obtained as the patient is currently on the mechanical ventilator. PHYSICAL EXAMINATION: VITAL SIGNS: Current vital signs include temperature 93.8, heart rate 92, respiratory rate 30, blood pressure 133/84, mean is 100, saturations are 100%. Appears unresponsive. HEENT: Examination is grossly unremarkable. He has an orally placed endotracheal tube and NG tube. Pupillary responses are sluggish. Pupils are dilated. NECK: Supple. Full range of motion. CARDIOVASCULAR: Examination reveals regular rhythm and rate. Heart rate in the mid 80s. LUNGS: Reveal mostly clear breath sounds. ABDOMEN: Soft. No bowel sounds. EXTREMITIES: Intact. No edema. SKIN: Without rash. NEUROLOGIC: Examination cannot be adequately assessed. LABS: Reviewed. White count 46.4, hemoglobin 13.1, hematocrit of 45.4, platelet count 438,000. His PT/INR was 10.3 and 1. His PTT is 44.9. Blood gases have been noted. Sodium 136, potassium 5, chloride 88, CO2 less than 5, BUN and creatinine were 29 and 4.03. His osmolarity measured is 336. His lactic acid is greater than 24. His calcium is 9.3, total bilirubin is 0.4, AST 113. Troponin 0.036. Urine is essentially negative. Drug screen was negative. Alcohol level was 72. His acetone was positive. IMAGING: Current brain CT scan showed no acute intracranial hemorrhage or midline shift. There is mild to moderate diffuse cerebral atrophy. A chest x-ray showed a possible developing retrocardiac infiltrate or atelectasis. Current orders are reviewed. The patient was apparently started on fomepizole, Narcan, D5W with 2 amps of bicarb at 150 an hour, saline at 20 mL an hour and vancomycin. ASSESSMENT: 1. Acute hypoxemic respiratory failure secondary to mental status changes, and severe electrolyte disturbances as well as severe metabolic acidosis/lactic acidemia requiring intubation on January 07. 2. Severe metabolic acidosis/ lactic acidemia. 3. Rule out ethylene glycol intoxication. 4. History of alcohol abuse. 5. Renal failure. 6. Diabetes. 7. Hypertension. 8. Hyperlipidemia. PLAN: The patient is going to be admitted to the ICU. Central line and art line will be placed. The patient will have a hemodialysis catheter placed. There was concern about ethylene glycol intoxication. According to the ER physician, the patient was drinking "rum." There is no history of ingestion of other substances. Drug screen was negative. The patient will be monitored here in the ICU. Additional recommendations and suggestions are forthcoming. Prognosis is guarded. Continue to monitor electrolytes. Severe acidosis will be treated. We will continue to follow. MMODL / IJN: [id number] / MTDD
[2020-01-08] MEDS ORDERED: ROCURONIUM BROMIDE 10 MG/ML 5 ML VIAL IV STA ×2 (10:39→10:42)
[2020-01-08] MEDS: NOREPINEPHRINE 32 MG in SODIUM CHLORIDE 0.9% 218 ML IV SCH (10:46)
--- NOTE | 2020-01-08 11:27 | PCN ---
PROCEDURE NOTE WAREHOUSE PROCESSOR: Dr. Saucedo and Jackie Greenberg. PROCEDURE PERFORMED: Left subclavian triple-lumen catheter. PREOP DIAGNOSIS: Administration of fluids and pressors. POSTOP DIAGNOSIS: Administration of fluids and pressors. TRIPLE LUMEN CATHETER PLACEMENT: Indication: Hemodynamic monitoring/Intravenous access. A time-out was completed verifying correct patient, procedure, site, positioning, and implant(s) or special equipment if applicable. The patient was placed in a dependent position appropriate for triple lumen catheter placement based on the vein to be cannulated. The patient's left shoulder was prepped and draped in sterile fashion. 1% Lidocaine was used to anesthetize the surrounding skin area. A triple lumen 9F Cordis catheter was introduced into the subclavian vein using Seldinger technique. The catheter was threaded smoothly over the guide wire and appropriate blood return was obtained. Each lumen of the catheter was evacuated of air and flushed with sterile saline. The catheter was then sutured in place to the skin and a sterile dressing applied. Perfusion to the extremity distal to the point of catheter insertion was checked and found to be adequate. There was no immediate complication. There was good blood return from all 3 ports. The catheter was sutured in place. A sterile dressing was applied by the nurse. There was no immediate complication. A chest x-ray will be ordered to rule out pneumothorax and check catheter placement. The patient tolerated the procedure very well. MMODL / KEMALN: [id number] /
[2020-01-08 11:29] LABS: ABG Base Excess -22.3 mmol/L; ABG Oxygen Saturation 97.9 % (94-97); ABG PCO2 38 mmHg (35-45); ABG PO2 133 mmHg (83-108); ABG TCO2 10 mmol/L (19-24); Allen Test Performed? Yes
--- NOTE | 2020-01-08 11:29 | XR ---
EXAMINATION TYPE: XR chest 1V portable DATE OF EXAM: 01/08/2020 CLINICAL HISTORY: Central line placement. TECHNIQUE: Single AP portable supine view of the chest is obtained. COMPARISON: Chest x-ray from earlier today. FINDINGS: Stable positioning of endotracheal and orogastric tubes. New left subclavian central venou s catheter terminating in distal SVC. Persistent low lung volumes with left-sided pleural effusion an d basilar opacity and more patchy right basilar opacity. Cardiac silhouette size stable and within no rmal limits. Osseous structures are intact. IMPRESSION: New left subclavian intravenous catheter terminating in SVC. No pneumothorax. Other findi ngs stable as there is small left pleural effusion with associated left basilar acute infiltrate and/ or atelectasis and more patchy right basilar atelectasis on background low lung volumes are all redem onstrated.
[2020-01-08 11:36] LABS: ABG PH 6.99 (7.35-7.45)
[2020-01-08 11:37] LABS: ABG HCO3 9 mmol/L (21-25)
[2020-01-08] MEDS ORDERED: propofoL 100 ML IV ONE (12:16)
[2020-01-08] MEDS ORDERED: IPRATROPIUM-ALBUTEROL 3 ML NEB INHALATION PRN (12:53)
--- NOTE | 2020-01-08 13:07 | P.OP ---
Date of Procedure: 01/08/20 Preoperative Diagnosis: Acute renal failure, severe metabolic acidosis Postoperative Diagnosis: Same Procedure(s) Performed: Ultrasound-guided right common femoral vein temporary hemodialysis catheter placement Anesthesia: local Surgeon: Velasquez Triana Estimated Blood Loss (ml): 5 Pathology: none sent Condition: stable Disposition: ICU Indications for Procedure: 59-year-old gentleman who originally presented to the emergency department and was admitted to the hospital secondary to hypoxic respiratory failure as well as metabolic acidosis. He has acute renal failure and is in need of emergent hemodialysis per nephrology. Procedure was performed at the bedside. Description of Procedure: Procedure was performed and emergent status. The right groin was prepped and draped in usual sterile fashion. Utilizing ultrasound the right common femoral vein was visualized shown to be patent without any thrombus. Local anesthetic was infused overlying the vein followed by a multipurpose needle and utilizing Seldinger technique a dual-lumen temporary hemodialysis catheter was placed in normal fashion. The ports were assessed for patency and flushed easily and then were heplocked. The catheter was then sutured in place with nylon suture. The skin was cleansed and dressings were placed. The patient tolerated procedure well and is okay to have hemodialysis.
[2020-01-08 14:53] LABS: Glucose,Whole Blood 196 mg/dL (75-99)
[2020-01-08] MEDS: IPRATROPIUM-ALBUTEROL 3 ML NEB INHALATION SCH ×3 (14:58→23:11)
--- NOTE | 2020-01-08 15:00 | P.GSCN ---
History of Present Illness Consult date: 01/08/20 Reason for Consult: Acute renal failure, Severe metabolic acidosis with emergent need for hemodialysis catheter placement History of present illness: This is a 59 year old man who has a past medical history that includes hypertension, diabetes, hyperlipidemia, and alcohol abuse. The patient was complaining about shortness of breath this morning therefore EMS was called and he was brought to the ED for admission to the ICU. The history is collected from the chart and from the patient's fianc. The patient was on a 5 day alcoh ol binge where he drank 2 half gallons of RUM within those five days. The fianc reports that he is not normally a daily drinker, however has had these binge episodes in the past. She states the last time he had this binge episode was in September however he did not require any hospitalization. She states that he became confused, short of breath and having difficulty breathing so they called EMS. She also states that he did have some nausea and vomiting today. While in the emergency department the patient became very agitated and confused and he was intubated by the emergency room physicians and transfered to the ICU on a ventilator. His labs showed a white count of 46.4, hemoglobin 13.1, hematocrit of 45.4, platelet count 438,000, his PT INR was 10.31. His PTT is 44.9. Sodium 136, potassium 5, chloride 88, CO2 less than 5, BUN/creatinine were 29 and 4.03 his lactic acid is greater than 24. Vascular surgery was called for any emergent hemodialysis catheter placement. Review of Systems Review of systems unable to be obtained as patient is intubated, information collected for fianc and chart. Past Medical History Past Medical History: CVA/TIA, Diabetes Mellitus, Hyperlipidemia, Hypertension, Pneumonia Additional Past Medical History / Comment(s): June 2019 severe pneumonia, 2018 CVA with some numbness L hand fingers, NIDDM type II, binge drinking, 2007 pancreatitis/alcoholic hepatitis, recent lower blood pressure past month. History of Any Multi-Drug Resistant Organisms: None Reported Past Surgical History: No Surgical Hx Reported Past Anesthesia/Blood Transfusion Reactions: Unable to Obtain Additional Past Anesthesia/Blood Transfusion Reaction / Comm: Pt has never had surgery. Smoking Status: Never smoker - Past Family History Mother Family Medical History: Congestive Heart Failure (CHF) Brother(s) Family Medical History: Myocardial Infarction (CO) Additional Family Medical History / Comment(s): of drug overdose at the age of 56 yrs, brook believes he had a CO as well. Sister(s) Additional Family Medical History / Comment(s): Sister from a drug overdose at the age of 63 yrs. Medications and Allergies Home Medications Medication Instructions Recorded Confirmed Type Aspirin 81 mg PO DAILY #30 chew 05/19/18 01/08/20 Rx metFORMIN HCL [Glucophage] 500 mg PO BID #60 tab 05/19/18 01/08/20 Rx Losartan Potassium 100 mg PO DAILY 01/08/20 01/08/20 History Pravastatin Sodium [Pravachol] 10 mg PO DAILY 01/08/20 01/08/20 History Triamterene-Hctz 37.5-25Mg 1 cap PO DAILY 01/08/20 01/08/20 History [Dyazide 37.5-25 Capsule] Allergies Allergy/AdvReac Type Severity Reaction Status Date / Time No Known Allergies Allergy Verified 01/08/20 07:05 Surgical - Exam Vital Signs Temp Pulse Resp BP Pulse Ox 93.8 F L 93 30 H 132/81 100 01/08/20 06:27 01/08/20 06:27 01/08/20 06:27 01/08/20 06:27 01/08/20 06:27 General appearance: Patient is intubated, slightly agitated. HET: Head is normocephalic and atraumatic. Pupils are equal and reactive. Neck: Supple without lymphadenopathy. Trachea midline. Heart: S1 S2. Regular rate and rhythm. Lungs: No crackles or wheezes are heard. Clear to auscultation. Extremities: Normal skin color and turgor. No cyanosis, rash, ulceration, clubbing, or edema. Neurological: patient intubated and sedated Results - Labs 01/08/20 06:40 01/08/20 06:40 Abnormal Lab Results - Last 24 Hours (Table) 01/08/20 01/08/20 01/08/20 Range/Units 06:28 06:40 06:40 WBC 46.4 H (3.8-10.6) k/uL MCV 105.3 H (80.0-100.0) fL MCHC 28.9 L (31.0-37.0) g/dL Neutrophils # (Manual) 36.10 H (1.3-7.7) k/uL Lymphocytes # (Manual) 8.82 H (1.0-4.8) k/uL Monocytes # (Manual) 1.39 H (0-1.0) k/uL APTT (22.0-30.0) sec ABG pH (7.35-7.45) ABG pCO2 (35-45) mmHg ABG pO2 (83-108) mmHg ABG HCO3 (21-25) mmol/L ABG Total CO2 (19-24) mmol/L ABG O2 Saturation (94-97) % Sodium 136 L (137-145) mmol/L Chloride 88 L (98-107) mmol/L Carbon Dioxide <5 L* (22-30) mmol/L BUN 29 H (9-20) mg/dL Creatinine 4.03 H (0.66-1.25) mg/dL Glucose 139 H (74-99) mg/dL POC Glucose (mg/dL) 148 H (75-99) mg/dL Osmolality 336 H* (280-301) mosm/kg Plasma Lactic Acid Tejinder (0.7-2.0) mmol/L AST 113 H (17-59) U/L Creatine Kinase (55-170) U/L Troponin I (0.000-0.034) ng/mL Lipase 519 H (23-300) U/L Amorphous Sediment (None) /hpf Urine Bacteria (None) /hpf Hyaline Casts (0-2) /lpf Urine Mucus (None) /hpf 01/08/20 01/08/20 01/08/20 Range/Units 06:40 06:40 06:40 WBC (3.8-10.6) k/uL MCV (80.0-100.0) fL MCHC (31.0-37.0) g/dL Neutrophils # (Manual) (1.3-7.7) k/uL Lymphocytes # (Manual) (1.0-4.8) k/uL Monocytes # (Manual) (0-1.0) k/uL APTT 44.9 H (22.0-30.0) sec ABG pH (7.35-7.45) ABG pCO2 (35-45) mmHg ABG pO2 (83-108) mmHg ABG HCO3 (21-25) mmol/L ABG Total CO2 (19-24) mmol/L ABG O2 Saturation (94-97) % Sodium (137-145) mmol/L Chloride (98-107) mmol/L Carbon Dioxide (22-30) mmol/L BUN (9-20) mg/dL Creatinine (0.66-1.25) mg/dL Glucose (74-99) mg/dL POC Glucose (mg/dL) (75-99) mg/dL Osmolality (280-301) mosm/kg Plasma Lactic Acid Tejinder >24.0 H* (0.7-2.0) mmol/L AST (17-59) U/L Creatine Kinase (55-170) U/L Troponin I (0.000-0.034) ng/mL Lipase (23-300) U/L Amorphous Sediment Rare H (None) /hpf Urine Bacteria Rare H (None) /hpf Hyaline Casts 8 H (0-2) /lpf Urine Mucus Rare H (None) /hpf 01/08/20 01/08/20 01/08/20 Range/Units 06:40 06:40 07:47 WBC (3.8-10.6) k/uL MCV (80.0-100.0) fL MCHC (31.0-37.0) g/dL Neutrophils # (Manual) (1.3-7.7) k/uL Lymphocytes # (Manual) (1.0-4.8) k/uL Monocytes # (Manual) (0-1.0) k/uL APTT (22.0-30.0) sec ABG pH <6.80 L* (7.35-7.45) ABG pCO2 <15 L* (35-45) mmHg ABG pO2 157 H (83-108) mmHg ABG HCO3 (21-25) mmol/L ABG Total CO2 (19-24) mmol/L ABG O2 Saturation (94-97) % Sodium (137-145) mmol/L Chloride (98-107) mmol/L Carbon Dioxide (22-30) mmol/L BUN (9-20) mg/dL Creatinine (0.66-1.25) mg/dL Glucose (74-99) mg/dL POC Glucose (mg/dL) (75-99) mg/dL Osmolality (280-301) mosm/kg Plasma Lactic Acid Tejinder (0.7-2.0) mmol/L AST (17-59) U/L Creatine Kinase 191 H (55-170) U/L Troponin I 0.036 H* (0.000-0.034) ng/mL Lipase (23-300) U/L Amorphous Sediment (None) /hpf Urine Bacteria (None) /hpf Hyaline Casts (0-2) /lpf Urine Mucus (None) /hpf 01/08/20 01/08/20 01/08/20 Range/Units 09:17 10:11 11:27 WBC (3.8-10.6) k/uL MCV (80.0-100.0) fL MCHC (31.0-37.0) g/dL Neutrophils # (Manual) (1.3-7.7) k/uL Lymphocytes # (Manual) (1.0-4.8) k/uL Monocytes # (Manual) (0-1.0) k/uL APTT (22.0-30.0) sec ABG pH <6.80 L* 6.99 L* (7.35-7.45) ABG pCO2 29 L (35-45) mmHg ABG pO2 352 H 133 H (83-108) mmHg ABG HCO3 3 L* 9 L* (21-25) mmol/L ABG Total CO2 4 L 10 L (19-24) mmol/L ABG O2 Saturation 98.4 H 97.9 H (94-97) % Sodium (137-145) mmol/L Chloride (98-107) mmol/L Carbon Dioxide (22-30) mmol/L BUN (9-20) mg/dL Creatinine (0.66-1.25) mg/dL Glucose (74-99) mg/dL POC Glucose (mg/dL) 144 H (75-99) mg/dL Osmolality (280-301) mosm/kg Plasma Lactic Acid Tejinder (0.7-2.0) mmol/L AST (17-59) U/L Creatine Kinase (55-170) U/L Troponin I (0.000-0.034) ng/mL Lipase (23-300) U/L Amorphous Sediment (None) /hpf Urine Bacteria (None) /hpf Hyaline Casts (0-2) /lpf Urine Mucus (None) /hpf Diabetes panel 01/08/20 Range/Units 06:40 Sodium 136 L (137-145) mmol/L Potassium 5.0 (3.5-5.1) mmol/L Chloride 88 L (98-107) mmol/L Carbon Dioxide <5 L* (22-30) mmol/L BUN 29 H (9-20) mg/dL Creatinine 4.03 H (0.66-1.25) mg/dL Glucose 139 H (74-99) mg/dL Calcium 9.3 (8.4-10.2) mg/dL AST 113 H (17-59) U/L ALT 45 (4-49) U/L Alkaline Phosphatase 78 (38-126) U/L Total Protein 7.1 (6.3-8.2) g/dL Albumin 4.6 (3.5-5.0) g/dL Calcium panel 01/08/20 Range/Units 06:40 Calcium 9.3 (8.4-10.2) mg/dL Albumin 4.6 (3.5-5.0) g/dL Pituitary panel 01/08/20 Range/Units 06:40 Sodium 136 L (137-145) mmol/L Potassium 5.0 (3.5-5.1) mmol/L Chloride 88 L (98-107) mmol/L Carbon Dioxide <5 L* (22-30) mmol/L BUN 29 H (9-20) mg/dL Creatinine 4.03 H (0.66-1.25) mg/dL Glucose 139 H (74-99) mg/dL Calcium 9.3 (8.4-10.2) mg/dL Adrenal panel 01/08/20 Range/Units 06:40 Sodium 136 L (137-145) mmol/L Potassium 5.0 (3.5-5.1) mmol/L Chloride 88 L (98-107) mmol/L Carbon Dioxide <5 L* (22-30) mmol/L BUN 29 H (9-20) mg/dL Creatinine 4.03 H (0.66-1.25) mg/dL Glucose 139 H (74-99) mg/dL Calcium 9.3 (8.4-10.2) mg/dL Total Bilirubin 0.4 (0.2-1.3) mg/dL AST 113 H (17-59) U/L ALT 45 (4-49) U/L Alkaline Phosphatase 78 (38-126) U/L Total Protein 7.1 (6.3-8.2) g/dL Albumin 4.6 (3.5-5.0) g/dL Assessment and Plan Assessment: 1. Acute renal failure 2. Severe metabolic acidosis 3. Hypoxic respiratory failure 4. Alcohol abuse 5. Diabetes 6. Hypertension 7. Per lipidemia Plan: The plan is for an emergent bedside hemodialysis catheter placement in the ICU. Dr. Triana to place a temporary right common femoral hemodialysis catheter. Hemodialysis per recommendations by nephrology. Continue medical management per the ICU team. Thank you for this consultation allowing us take part in the plan of care of this patient during his hospital stay. The above dictated assessment and findings were discussed with Dr. Triana. The impression and plan of care have been directed as dictated.
[2020-01-08] MEDS: SODIUM CHLORIDE 0.9% 50 ML with VASOPRESSIN 20 UNIT IVPB SCH ×2 (15:12)
[2020-01-08] MEDS ORDERED: HYDROmorphone 1 MG/ML 1 ML SYRINGE IVP PRN (15:19)
[2020-01-08] MEDS ORDERED: HYDROmorphone 1 MG/ML 1 ML SYRINGE ONE (15:22)
[2020-01-08] MEDS ORDERED: CISATRACURIUM 200 MG in SODIUM CHLORIDE 0.9% 180 ML IV SCH (16:45)
[2020-01-08 17:58] LABS: ABG Base Excess -12.1 mmol/L; ABG HCO3 16 mmol/L (21-25); ABG Oxygen Saturation 98.2 % (94-97); ABG PCO2 40 mmHg (35-45); ABG PO2 114 mmHg (83-108); ABG TCO2 17 mmol/L (19-24); Allen Test Performed? Yes
[2020-01-08 17:58] LABS: Glucose,Whole Blood 266 mg/dL (75-99)
[2020-01-08 18:53] LABS: Hepatitis B Surface AB- Quant 3.5 mIU/mL; Hepatitis B Surface Antibody Non-Reactive (Non-Reactive); Hepatitis B Surface Antigen Non-Reactive (Non-Reactive)
[2020-01-08 20:06] LABS: Calcium 7.3 mg/dL (8.4-10.2); Potassium 4.2 mmol/L (3.5-5.1)
[2020-01-08] MEDS: ARTIFICIAL TEARS-HYPROMELLOSE DROPS 15 ML BTL BOTH EYES SCH (20:08)
--- NOTE | 2020-01-08 20:18 | CONS ---
CONSULTATION REASON FOR CONSULT: Severe metabolic acidosis. HISTORY OF PRESENT ILLNESS: The patient is a 59-year-old male who was brought in by his girlfriend with complaints of shortness of breath and altered mentation. He did not appear to be right, according to his girlfriend. The patient had been drinking a lot. The patient's fiancee was not sure if he had been drinking other kinds of alcohol-containing liquids. 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 There is no prior history of ingestion of coolant. Patient was intubated when he came into the ER. Toxic alcohol screen has been sent out. LABS: His CO2 on labs was less than 5. The patient's creatinine was 4.0. His lactic acid was more than 24. Serum osmolality was elevated at 336. Serum acetone was positive. Serum alcohol was at 72. Potassium was 5.0, hemoglobin 13.1. UA shows amorphous sediment. No specific crystals were seen. Labs show sodium of 136, potassium 5.0, chloride 88, CO2 less than 5, BUN 29, creatinine 4.03. Serum osmolality measured 336. Lactic acid more than 24. Anion gap significantly elevated, which could not be calculated. PAST MEDICAL HISTORY: Significant for hypertension, diabetes. PAST SURGICAL HISTORY: None. MEDICATIONS: Medications prior to admission included Dyazide, losartan, pravastatin. The patient had also been on Glucophage and aspirin. ALLERGIES: NONE. PHYSICAL EXAMINATION: Patient is currently sedated. He is on the vent. Blood pressure 103/42, heart rate 101 per minute. He is afebrile. EXAMINATION OF THE HEART: S1 and S2. EXAMINATION OF LUNGS: Bilateral breath sounds are heard. ABDOMEN: Soft, non-tender. Examination of lower extremities shows no evidence of edema. SURGICAL DEVICE SALES REPRESENTATIVE exam cannot be performed. ASSESSMENT: 1. Severe anion gap metabolic acidosis with elevated osmolar gap as well with high suspicion for ingestion of toxic alcohols, including methanol and ethylene glycol. The osmolar gap can also be elevated from ethanol, and patient's alcohol level was elevated. Patient will be dialyzed. Toxic alcohol screen has been sent out. He will also be given omeprazole. Patient is maintained on bicarb drip. 2. Lactic acidosis. Rule out lactic acidosis related to metformin use. 3. Hypertension; blood pressure currently on the lower side. 4. History of diabetes. Blood sugar was not significantly elevated at the time of presentation. Not likely to be DKA. PLAN: Hemodialysis today. Patient may need another treatment tomorrow. Maintain bicarb drip. Maintain IV fluids. Maintain ventilation support. Repeat labs and blood gases this evening. Thank you for this consultation. Will continue to follow the patient with you during his hospitalization. SHERYL / ELTON: [id number] /
--- NOTE | 2020-01-08 20:42 | P.HPIM ---
History of Present Illness This is a 59 years old male with past medical history of hypertension, hyperlipidemia, diabetes mellitus, CVA/TIA, diabetic neuropathy. Exactly and depression, heavy alcohol drinker. Presents because of dyspnea Patient got intubated in the emergency room confirmation was taken from records and staff. The patient has been belching drinking alcohol he is been drinking alcohol for the last 5 days, today his financing noticed his been short of breath and he came to emergency room on admission was significantly tachypneic with her respiratory rate around 30, blood pressure was 133/84 however it drops to 89/50.patient was vomiting and he got confused, WBC of 40 6K, Hemoglobin and Platelets Are Normal, ABG Shows Severe Acidosis with pH less than 6.8, pCO2 29 and pO2 was 352. Lactic acid significantly elevated more than 24, elevated troponin 0.03, sodium mildly low at 136, potassium normal 5.0,, liver enzymes mildly elevated with AST 113, with normal ALT 45, lipase slightly high at 519. creatinine is elevated at 4.0, urinalysis is unremarkable. Chest x-ray done in the emergency room showing diminished inspiration with developing retrocardiac acute infiltrate and/or atelectasis. EKG showing normal sinus rhythm at [address]-T changes and QTC of 542 in the emergency room patient was givenon vancomycin and Zosyn home medications including metformin, Dyazide, Pravachol, losartan and aspirin Review of Systems n/a Past Medical History Past Medical History: CVA/TIA, Diabetes Mellitus, Hyperlipidemia, Hypertension, Pneumonia Additional Past Medical History / Comment(s): June 2019 severe pneumonia, 2018 CVA with some numbness L hand fingers, NIDDM type II, binge drinking, 2007 pancreatitis/alcoholic hepatitis, recent lower blood pressure past month. History of Any Multi-Drug Resistant Organisms: None Reported Past Surgical History: No Surgical Hx Reported Past Anesthesia/Blood Transfusion Reactions: Unable to Obtain Additional Past Anesthesia/Blood Transfusion Reaction / Comment(s): Pt has never had surgery. Smoking Status: Never smoker - Past Family History Mother Family Medical History: Congestive Heart Failure (CHF) Brother(s) Family Medical History: Myocardial Infarction (MS) Additional Family Medical History / Comment(s): of drug overdose at the age of 56 yrs, saidaancetej believes he had a MS as well. Sister(s) Additional Family Medical History / Comment(s): Sister from a drug overdose at the age of 63 yrs. Medications and Allergies Home Medications Medication Instructions Recorded Confirmed Type Aspirin 81 mg PO DAILY #30 chew 05/19/18 01/08/20 Rx metFORMIN HCL [Glucophage] 500 mg PO BID #60 tab 05/19/18 01/08/20 Rx Losartan Potassium 100 mg PO DAILY 01/08/20 01/08/20 History Pravastatin Sodium [Pravachol] 10 mg PO DAILY 01/08/20 01/08/20 History Triamterene-Hctz 37.5-25Mg 1 cap PO DAILY 01/08/20 01/08/20 History [Dyazide 37.5-25 Capsule] Allergies Allergy/AdvReac Type Severity Reaction Status Date / Time No Known Allergies Allergy Verified 01/08/20 07:05 Physical Exam Vitals: Vital Signs Temp Pulse Pulse Resp BP BP Pulse Ox 01/08/20 09:50 79 20 100 01/08/20 09:45 76 20 74/61 100 01/08/20 09:43 81 30 H 82/49 100 01/08/20 09:35 80 20 82/49 100 01/08/20 09:25 80 20 85/50 01/08/20 09:20 81 20 89/50 100 01/08/20 07:16 92 30 H 133/84 100 01/08/20 06:27 93.8 F L 93 30 H 132/81 100 Intake and Output 01/07/20 01/08/20 01/08/20 22:59 06:59 14:59 Other: Weight 86.183 kg 86.183 kg -GENERAL: The patient is intubated and sedated HEENT: Pupils are round and equally reacting to light. EOMI. No scleral icterus. No conjunctival pallor. Normocephalic, atraumatic. No pharyngeal erythema. No thyromegaly. CARDIOVASCULAR: S1 and S2 present. No murmurs, rubs, or gallops. PULMONARY: Chest is clear to auscultation, no wheezing or crackles. ABDOMEN: Soft, nontender, nondistended, normoactive bowel sounds. No palpable organomegaly. MUSCULOSKELETAL: No joint swelling or deformity. EXTREMITIES: No cyanosis, clubbing, or pedal edema. NEUROLOGICAL: Gross neurological examination did not reveal any focal deficits. SKIN: No rashes. No petechiae Results CBC & Chem 7: 01/08/20 06:40 01/08/20 19:00 Labs: Abnormal Lab Results - Last 24 Hours (Table) 01/08/20 01/08/20 01/08/20 Range/Units 06:28 06:40 06:40 WBC 46.4 H (3.8-10.6) k/uL MCV 105.3 H (80.0-100.0) fL MCHC 28.9 L (31.0-37.0) g/dL Neutrophils # (Manual) 36.10 H (1.3-7.7) k/uL Lymphocytes # (Manual) 8.82 H (1.0-4.8) k/uL Monocytes # (Manual) 1.39 H (0-1.0) k/uL APTT (22.0-30.0) sec ABG pH (7.35-7.45) ABG pCO2 (35-45) mmHg ABG pO2 (83-108) mmHg ABG HCO3 (21-25) mmol/L ABG Total CO2 (19-24) mmol/L ABG O2 Saturation (94-97) % Sodium 136 L (137-145) mmol/L Chloride 88 L (98-107) mmol/L Carbon Dioxide <5 L* (22-30) mmol/L BUN 29 H (9-20) mg/dL Creatinine 4.03 H (0.66-1.25) mg/dL Glucose 139 H (74-99) mg/dL POC Glucose (mg/dL) 148 H (75-99) mg/dL Osmolality 336 H* (280-301) mosm/kg Plasma Lactic Acid Tejinder (0.7-2.0) mmol/L AST 113 H (17-59) U/L Creatine Kinase (55-170) U/L Troponin I (0.000-0.034) ng/mL Lipase 519 H (23-300) U/L Amorphous Sediment (None) /hpf Urine Bacteria (None) /hpf Hyaline Casts (0-2) /lpf Urine Mucus (None) /hpf 01/08/20 01/08/20 01/08/20 Range/Units 06:40 06:40 06:40 WBC (3.8-10.6) k/uL MCV (80.0-100.0) fL MCHC (31.0-37.0) g/dL Neutrophils # (Manual) (1.3-7.7) k/uL Lymphocytes # (Manual) (1.0-4.8) k/uL Monocytes # (Manual) (0-1.0) k/uL APTT 44.9 H (22.0-30.0) sec ABG pH (7.35-7.45) ABG pCO2 (35-45) mmHg ABG pO2 (83-108) mmHg ABG HCO3 (21-25) mmol/L ABG Total CO2 (19-24) mmol/L ABG O2 Saturation (94-97) % Sodium (137-145) mmol/L Chloride (98-107) mmol/L Carbon Dioxide (22-30) mmol/L BUN (9-20) mg/dL Creatinine (0.66-1.25) mg/dL Glucose (74-99) mg/dL POC Glucose (mg/dL) (75-99) mg/dL Osmolality (280-301) mosm/kg Plasma Lactic Acid Tejinder >24.0 H* (0.7-2.0) mmol/L AST (17-59) U/L Creatine Kinase (55-170) U/L Troponin I (0.000-0.034) ng/mL Lipase (23-300) U/L Amorphous Sediment Rare H (None) /hpf Urine Bacteria Rare H (None) /hpf Hyaline Casts 8 H (0-2) /lpf Urine Mucus Rare H (None) /hpf 01/08/20 01/08/20 01/08/20 Range/Units 06:40 06:40 07:47 WBC (3.8-10.6) k/uL MCV (80.0-100.0) fL MCHC (31.0-37.0) g/dL Neutrophils # (Manual) (1.3-7.7) k/uL Lymphocytes # (Manual) (1.0-4.8) k/uL Monocytes # (Manual) (0-1.0) k/uL APTT (22.0-30.0) sec ABG pH <6.80 L* (7.35-7.45) ABG pCO2 <15 L* (35-45) mmHg ABG pO2 157 H (83-108) mmHg ABG HCO3 (21-25) mmol/L ABG Total CO2 (19-24) mmol/L ABG O2 Saturation (94-97) % Sodium (137-145) mmol/L Chloride (98-107) mmol/L Carbon Dioxide (22-30) mmol/L BUN (9-20) mg/dL Creatinine (0.66-1.25) mg/dL Glucose (74-99) mg/dL POC Glucose (mg/dL) (75-99) mg/dL Osmolality (280-301) mosm/kg Plasma Lactic Acid Tejinder (0.7-2.0) mmol/L AST (17-59) U/L Creatine Kinase 191 H (55-170) U/L Troponin I 0.036 H* (0.000-0.034) ng/mL Lipase (23-300) U/L Amorphous Sediment (None) /hpf Urine Bacteria (None) /hpf Hyaline Casts (0-2) /lpf Urine Mucus (None) /hpf 01/08/20 01/08/20 Range/Units 09:17 10:11 WBC (3.8-10.6) k/uL MCV (80.0-100.0) fL MCHC (31.0-37.0) g/dL Neutrophils # (Manual) (1.3-7.7) k/uL Lymphocytes # (Manual) (1.0-4.8) k/uL Monocytes # (Manual) (0-1.0) k/uL APTT (22.0-30.0) sec ABG pH <6.80 L* (7.35-7.45) ABG pCO2 29 L (35-45) mmHg ABG pO2 352 H (83-108) mmHg ABG HCO3 3 L* (21-25) mmol/L ABG Total CO2 4 L (19-24) mmol/L ABG O2 Saturation 98.4 H (94-97) % Sodium (137-145) mmol/L Chloride (98-107) mmol/L Carbon Dioxide (22-30) mmol/L BUN (9-20) mg/dL Creatinine (0.66-1.25) mg/dL Glucose (74-99) mg/dL POC Glucose (mg/dL) 144 H (75-99) mg/dL Osmolality (280-301) mosm/kg Plasma Lactic Acid Tejinder (0.7-2.0) mmol/L AST (17-59) U/L Creatine Kinase (55-170) U/L Troponin I (0.000-0.034) ng/mL Lipase (23-300) U/L Amorphous Sediment (None) /hpf Urine Bacteria (None) /hpf Hyaline Casts (0-2) /lpf Urine Mucus (None) /hpf Thrombosis Risk Factor Assmnt - Choose All That Apply Any of the Below Risk Factors Present?: Yes Each Factor Represents 1 point: Age 41-60 years, Obesity (BMI >25) Other Risk Factors: No Other congenital or acquired thrombophilia - If yes, enter type in comment: No Thrombosis Risk Factor Assessment Total Risk Factor Score: 2 Thrombosis Risk Factor Assessment Level: Low Risk Assessment and Plan Assessment: acute hypoxic respiratory failure need for intubation andmechanical ventilation Acute kidney failure Severe metabolic acidosis Elevated lactic acid elevated troponin alcohol abuse and risk of local withdrawal and delirium tremens diabetes mellitus, type II Plan: this is a 59 years old male who presents with respiratory failure and acidosis, needing mechanical ventilation.pt is undergoing emergent hemodialysis ,patient admitted to the ICU with pulmonary/critical care team managing his vent and critical condition.hold metformin and losartan.we will monitor kidney function closely as well. And monitor input and output Continue same treatment. Monitor lytes and vitals. DVT and GI prophylaxis. Further recommendations of the clinical course of the patient DVT prophylaxis: Subcutaneous heparin GI Prophylaxis: Pepcid Prognosis is guarded
[2020-01-08] MEDS ORDERED: FOMEPIZOLE IVPB SCH (21:00)
[2020-01-08] MEDS ORDERED: SODIUM CHLORIDE 0.9% IVPB SCH (21:00)
[2020-01-09 00:01] LABS: Glucose,Whole Blood 451 mg/dL (75-99)
[2020-01-09 00:54] LABS: Hemoglobin A1C 7.5 % (4.0-6.0)
[2020-01-09] MEDS: FAMOTIDINE 20 MG/2 ML VIAL IV SCH ×2 (01:08→08:24)
[2020-01-09] MEDS: PIPERACILLIN-TAZOBACTAM 3.375 GM in SODIUM CHLORIDE 0.9% 100 ML IVPB SCH ×2 (01:08→08:24)
[2020-01-09] MEDS: CHLORHEXIDINE GLUCONATE 15 ML CUP MUCOUS MEM SCH ×2 (01:08→08:24)
[2020-01-09] MEDS: HEPARIN SODIUM,PORCINE 5,000 UNIT/ML 1 ML VIAL SQ SCH ×2 (01:09→08:24)
[2020-01-09] MEDS: INSULIN ASPART (NovoLOG) 100 UNIT/ML VIAL SQ SCH ×4 (01:10→18:50)
[2020-01-09 02:11] LABS: Glucose,Whole Blood 408 mg/dL (75-99)
[2020-01-09] MEDS: IPRATROPIUM-ALBUTEROL 3 ML NEB INHALATION SCH ×5 (03:09→19:47)
--- NOTE | 2020-01-09 04:29 | PCN ---
PROCEDURE NOTE PROCEDURE: Right radial arterial line placement. PREOPERATIVE DIAGNOSIS: Acute hypoxic respiratory failure. POSTOPERATIVE DIAGNOSIS: Acute hypoxic respiratory failure. ARTERIAL LINE PLACEMENT: Indications: Hemodynamic monitoring. A time-out was completed verifying correct patient, procedure, site, positioning, and implant(s) or special equipment if applicable. Sukh's test was performed to ensure adequate perfusion. The patient's right wrist was prepped and draped in sterile fashion. 1% Lidocaine was used to anesthetize the area. An 18G Arrow arterial line was introduced into the right radial artery. The catheter was threaded over the guide wire and the needle was removed with appropriate pulsatile blood return. Blood loss was minimal. The catheter was then sutured in place to the skin and a sterile dressing applied. Perfusion to the extremity distal to the point of catheter insertion was checked and found to be adequate. The patient tolerated the procedure well and there were no complications. Good waveform was noted. Line was sutured in place, flushed. Sterile dressing was applied per nursing staff. MMODL / IJN: [id number] /
[2020-01-09 04:59] LABS: Glucose,Whole Blood 405 mg/dL (75-99)
[2020-01-09 05:32] LABS: ABG Base Excess 0.5 mmol/L; ABG HCO3 25 mmol/L (21-25); ABG PCO2 38 mmHg (35-45); ABG PH 7.42 (7.35-7.45); ABG PO2 110 mmHg (83-108); ABG TCO2 26 mmol/L (19-24); Allen Test Performed? Yes
[2020-01-09] MEDS: DEXTROSE 5% IN WATER 1,000 ML with SODIUM BICARB (1 MEQ/ML) 150 ML IV SCH ×2 (06:18→07:57)
[2020-01-09] MEDS: ARTIFICIAL TEARS-HYPROMELLOSE DROPS 15 ML BTL BOTH EYES SCH ×4 (06:27→11:17)
[2020-01-09] MEDS: SODIUM CHLORIDE 0.9% 50 ML with VASOPRESSIN 20 UNIT IVPB SCH ×2 (06:28)
[2020-01-09] MEDS ORDERED: INSULIN ASPART (NovoLOG) 100 UNIT/ML VIAL SQ ONE (07:14)
[2020-01-09 07:22] LABS: Glucose,Whole Blood 434 mg/dL (75-99)
[2020-01-09] MEDS ORDERED: VANCOMYCIN 1,500 MG in SODIUM CHLORIDE 0.9% 250 ML IVPB ONE (08:00)
[2020-01-09] MEDS: NOREPINEPHRINE 32 MG in SODIUM CHLORIDE 0.9% 218 ML IV SCH (08:06)
[2020-01-09] MEDS: SODIUM CHLORIDE 0.9% 1,000 ML IV SCH (08:28)
--- NOTE | 2020-01-09 08:45 | XR ---
EXAMINATION TYPE: XR chest 1V portable DATE OF EXAM: 01/09/2020 COMPARISON: 01/08/2020 HISTORY: SOB, Follow Up FINDINGS: Indwelling tubes and catheters are unchanged. No change in bibasilar opacities. Stable appearance of the cardio-mediastinal structures at this time. Pleural effusion unchanged. IMPRESSION: 1. Stable portable chest. Clinical correlation and follow up until resolution is recommended.
--- NOTE | 2020-01-09 09:52 | PN ---
PROGRESS NOTE PULMONARY/CRITICAL CARE PROGRESS NOTE: DATE OF SERVICE: 01/09/2020 Critical care time 34 minute. HISTORY OF PRESENT ILLNESS: This is a 59-year-old male who we saw yesterday in the emergency room. He came into the emergency room apparently complaining of shortness of breath. He apparently was on a 5 day alcohol binge prior to coming into the emergency room. For some reason, they thought the patient could have ethylene glycol intoxication. He had significant electrolyte disturbances, profound metabolic acidosis, and acute kidney injury. The patient apparently was drinking rum on his alcohol binge. Anyway, for agitation, he was intubated in the emergency department. An ART line was placed and the patient was transferred up to the ICU. Here in the ICU, the patient received a left subclavian triple-lumen catheter. The ART line placed in the ER went bad and it was replaced by the Jennifer Greenberg, our nurse practitioner. Currently, the patient remains on the ventilator. His vent settings include the volume assist-control mode rate of 20, tidal volume 500, FiO2 of 40%, PEEP of 5. Blood gases show pO2 of 110, pCO2 of 38, pH is 7.42. The patient is only on a small amount of norepinephrine at 4.3 mcg/minute. Vasopressin which was previously at 0.03 units/minute has been turned off. He is on propofol at 50 mcg/kg per minute. Nimbex is at 1.5 mcg/kg per minute. That will be DC'd. In addition, he has an IV with 3 amps of sodium bicarb and D5W at 150 mL an hour, which will be discontinued as well. The patient did receive ultrafiltration yesterday. A hemodialysis catheter was placed by Vascular Surgery. We are going to add some sliding scale insulin q.4 to q.6 hours around the clock. In addition, he is on saline at 20 mL an hour. We will DC the longer-acting insulin. Currently, we are going to see if we can't wake the patient up and do a spontaneous breathing trial. His electrolyte disturbances and blood gas abnormalities, as well as his profound metabolic acidosis have corrected nicely throughout the night. The patient does have a history of hyperlipidemia, hypertension, and diabetes. PHYSICAL EXAMINATION: VITAL SIGNS: Current vital signs are reviewed. His temperature is 97.7, his heart rate is 109, respiratory rate is 20, blood pressure is 100/62 and his saturations are 95%. Appears in no acute distress. Currently sedated. HEENT: Examination is grossly unremarkable. There is an orally placed endotracheal tube and NG tube. NECK: Supple. Full range of motion. No adenopathy. Neck veins are flat. There is a left subclavian triple-lumen catheter. CARDIOVASCULAR: Examination reveals regular rhythm and rate. Heart rate about 100 beats per minute. S1, S2 normal. Heart sounds are distant. LUNGS: Reveal diffuse coarse rhonchi. Breath sounds equal. ABDOMEN: Soft. No bowel sounds. EXTREMITIES: Intact. No edema. SKIN: Without rash. NEUROLOGIC: Examination cannot be adequately assessed. LABS: Reviewed. Currently, no labs are available today. His blood gas most recently shows a pO2 of 110, pCO2 of 38, pH is 7.42. His most recent lactic acid was down to 6.6. His urine looks negative. His drug screen appears to be relatively negative. His alcohol level was 72 on admission. Microbiologic studies are negative. His most recent chest x-ray shows some mild bibasilar opacities. MEDICATIONS: Reviewed. He is getting Artificial Tears, Peridex, famotidine, omeprazole, subcu heparin, Dilaudid p.r.n., insulin, DuoNeb, Narcan, norepinephrine, Zosyn, propofol, sodium bicarbonate, which has been discontinued, vancomycin, and vasopressin which has been discontinued. ASSESSMENT: 1. Acute hypoxemic respiratory failure secondary to mental status changes and severe electrolyte disturbances as well as severe metabolic acidosis/lactic acidemia, requiring intubation on January 08, 2020. 2. Severe metabolic acidosis. 3. Lactic acidemia. 4. Possible remove ethylene glycol intoxication versus ethanol intoxication. 5. History of alcohol abuse. 6. Renal failure. 7. Diabetes mellitus. 8. Hypertension. 9. Hyperlipidemia. PLAN: The patient is doing much better. The patient is currently off the Nimbex. We will DC the sodium bicarbonate drip. Will wean the Diprivan off. We will do a spontaneous breathing trial after daily interruption of sedation. His blood gases look good. Will discontinued the Levemir. Will put him on sliding scale insulin. He did get ultrafiltration yesterday. Overall prognosis remains guarded. We will continue to follow. Critical care time 34 minutes. MMODL / IJN: [id number] /
[2020-01-09 11:01] LABS: Albumin 2.5 g/dL (3.5-5.0); Calcium 6.9 mg/dL (8.4-10.2); Potassium 3.6 mmol/L (3.5-5.1); Total Bilirubin 0.7 mg/dL (0.2-1.3); Total Protein 4.4 g/dL (6.3-8.2)
[2020-01-09 11:07] LABS: HCT 34.5 % (39.0-53.0); HGB 11.7 gm/dL (13.0-17.5); MCH 32.5 pg (25.0-35.0); MCHC 34.1 g/dL (31.0-37.0); Mean Platelet Volume 9.3; RBC 3.62 m/uL (4.30-5.90); RDW 13.6 % (11.5-15.5); WBC 21.9 k/uL (3.8-10.6)
[2020-01-09 11:09] LABS: MCV 95.3 fL (80.0-100.0)
[2020-01-09 11:10] LABS: Platelet Count 186 k/uL (150-450)
[2020-01-09 11:25] LABS: Glucose,Whole Blood 268 mg/dL (75-99)
[2020-01-09 11:27] LABS: ABG Base Excess 6.4 mmol/L; ABG HCO3 29 mmol/L (21-25); ABG Oxygen Saturation 99.3 % (94-97); ABG PCO2 33 mmHg (35-45); ABG PH 7.55 (7.35-7.45); ABG PO2 157 mmHg (83-108); ABG TCO2 30 mmol/L (19-24); Allen Test Performed? Yes
[2020-01-09 11:27] LABS: Band Neutrophils % 14 %; Lymphocytes # (M) 0.44 k/uL (1.0-4.8); Metamyelocytes # (M) 0.88 k/uL (0); Metamyelocytes % 4 %; Myelocytes # (M) 0.44 k/uL (0); Myelocytes % 2 %; Neutrophils % (M) 79 %; Nucleated Red Blood Cells 0 /100 WBC (0-0); Total Cells Counted 200
[2020-01-09 11:28] LABS: Poikilocytosis (M) Present; Toxic Granulation Present; Toxic Vacuolation Present
--- NOTE | 2020-01-09 15:08 | P.PN ---
Subjective Progress Note Date: 01/09/20 Patient seen and examined. He was recently extubated. They have utilized the dialysis access and it was functioning well. No plans for dialysis today. Labs and stabilized Objective - Vital Signs Vital signs: Vital Signs Temp 97.0 F L 01/09/20 12:00 Pulse 107 H 01/09/20 13:00 Resp 13 01/09/20 13:00 BP 104/65 01/09/20 13:00 Pulse Ox 98 01/09/20 13:00 Intake & Output 01/08/20 01/09/20 01/09/20 18:59 06:59 18:59 Intake Total 6103.918 2309.555 819.835 Output Total 130 475 225 Balance 5973.918 1834.555 594.835 Weight 86.183 kg 86.183 kg Intake: IV 4500 2000 210 LR 2000 NS 190 Sodium Chloride 0.9% 1, 4500 0 20 000 ml @ 999 mls/hr IV . Q1H1M STA Rx#:[id number] Intake, IV Titration 1603.918 309.555 609.835 Amount Cisatracurium 200 mg In 8.791 156.552 Sodium Chloride 0.9% 180 ml @ 1 MCG/KG/MIN 5.171 mls/hr IV .Q24H DALIA Rx#: [id number] Dextrose 5% in Water 1, 1350 150 000 ml @ 150 mls/hr IV . Q7H40M DALIA with Sodium Bicarb (1 Meq/ml) 150 ml Rx#:[id number] Norepinephrine 32 mg In 166.831 83.169 5.164 Sodium Chloride 0.9% 218 ml @ 0.05 MCG/KG/MIN 2.02 mls/hr IV .Q24H DALIA Rx#: [id number] Piperacillin-Tazobactam 3 100 .375 gm In Sodium Chloride 0.9% 100 ml @ 25 mls/hr IVPB Q12HR DALIA Rx #:[id number] Vancomycin 1,500 mg In 250 Sodium Chloride 0.9% 250 ml @ 125 mls/hr IVPB ONCE ONE Rx#:[id number] propofoL 1,000 mg In 78.296 76.386 98.119 Empty Bag 1 bag @ Titrate IV .Q0M DALIA Rx#: [id number] Output: Urine 130 475 225 Hemodialysis 0 Other: Voiding Method Indwelling Catheter Indwelling Catheter Indwelling Catheter ABP, PAP, CO, CI - Last Documented Arterial Blood Pressure 123/54 - Exam Gen. is a pleasant cooperative male in no acute distress. HEENT is normal sac atraumatic wearing oxygen. Heart is regular at this time. Lungs with decreased breath sounds. Abdomen is soft. Femoral dialysis catheter in place. No hematoma or oozing - Labs CBC & Chem 7: 01/09/20 04:38 01/09/20 04:38 Labs: Abnormal Lab Results - Last 24 Hours (Table) 01/08/20 01/08/20 01/08/20 Range/Units 06:40 14:51 14:54 WBC (3.8-10.6) k/uL RBC (4.30-5.90) m/uL Hgb (13.0-17.5) gm/dL Hct (39.0-53.0) % Neutrophils # (Manual) (1.3-7.7) k/uL Lymphocytes # (Manual) (1.0-4.8) k/uL Metamyelocytes # (Man) (0) k/uL Myelocytes # (Manual) (0) k/uL ABG pH (7.35-7.45) ABG pCO2 (35-45) mmHg ABG pO2 (83-108) mmHg ABG HCO3 (21-25) mmol/L ABG Total CO2 (19-24) mmol/L ABG O2 Saturation (94-97) % ABG Lactic Acid 12.8 H* (0.5-1.6) mmol/L Sodium (137-145) mmol/L Chloride (98-107) mmol/L Carbon Dioxide (22-30) mmol/L BUN (9-20) mg/dL Creatinine (0.66-1.25) mg/dL Glucose (74-99) mg/dL POC Glucose (mg/dL) 196 H (75-99) mg/dL Hemoglobin A1c 7.5 H (4.0-6.0) % Plasma Lactic Acid Tejinder (0.7-2.0) mmol/L Calcium (8.4-10.2) mg/dL AST (17-59) U/L ALT (4-49) U/L Total Protein (6.3-8.2) g/dL Albumin (3.5-5.0) g/dL 01/08/20 01/08/20 01/08/20 Range/Units 17:55 17:56 17:56 WBC (3.8-10.6) k/uL RBC (4.30-5.90) m/uL Hgb (13.0-17.5) gm/dL Hct (39.0-53.0) % Neutrophils # (Manual) (1.3-7.7) k/uL Lymphocytes # (Manual) (1.0-4.8) k/uL Metamyelocytes # (Man) (0) k/uL Myelocytes # (Manual) (0) k/uL ABG pH 7.20 L (7.35-7.45) ABG pCO2 (35-45) mmHg ABG pO2 114 H (83-108) mmHg ABG HCO3 16 L (21-25) mmol/L ABG Total CO2 17 L (19-24) mmol/L ABG O2 Saturation 98.2 H (94-97) % ABG Lactic Acid (0.5-1.6) mmol/L Sodium (137-145) mmol/L Chloride (98-107) mmol/L Carbon Dioxide (22-30) mmol/L BUN (9-20) mg/dL Creatinine (0.66-1.25) mg/dL Glucose (74-99) mg/dL POC Glucose (mg/dL) 266 H (75-99) mg/dL Hemoglobin A1c (4.0-6.0) % Plasma Lactic Acid Tejinder 11.8 H* (0.7-2.0) mmol/L Calcium (8.4-10.2) mg/dL AST (17-59) U/L ALT (4-49) U/L Total Protein (6.3-8.2) g/dL Albumin (3.5-5.0) g/dL 01/08/20 01/08/20 01/08/20 Range/Units 19:00 20:50 23:59 WBC (3.8-10.6) k/uL RBC (4.30-5.90) m/uL Hgb (13.0-17.5) gm/dL Hct (39.0-53.0) % Neutrophils # (Manual) (1.3-7.7) k/uL Lymphocytes # (Manual) (1.0-4.8) k/uL Metamyelocytes # (Man) (0) k/uL Myelocytes # (Manual) (0) k/uL ABG pH (7.35-7.45) ABG pCO2 (35-45) mmHg ABG pO2 (83-108) mmHg ABG HCO3 (21-25) mmol/L ABG Total CO2 (19-24) mmol/L ABG O2 Saturation (94-97) % ABG Lactic Acid (0.5-1.6) mmol/L Sodium 135 L (137-145) mmol/L Chloride (98-107) mmol/L Carbon Dioxide 17 L (22-30) mmol/L BUN (9-20) mg/dL Creatinine 1.90 H (0.66-1.25) mg/dL Glucose 299 H (74-99) mg/dL POC Glucose (mg/dL) 451 H (75-99) mg/dL Hemoglobin A1c (4.0-6.0) % Plasma Lactic Acid Tejinder 9.5 H* (0.7-2.0) mmol/L Calcium 7.3 L (8.4-10.2) mg/dL AST (17-59) U/L ALT (4-49) U/L Total Protein (6.3-8.2) g/dL Albumin (3.5-5.0) g/dL 01/09/20 01/09/20 01/09/20 Range/Units 01:10 02:10 04:38 WBC (3.8-10.6) k/uL RBC (4.30-5.90) m/uL Hgb (13.0-17.5) gm/dL Hct (39.0-53.0) % Neutrophils # (Manual) (1.3-7.7) k/uL Lymphocytes # (Manual) (1.0-4.8) k/uL Metamyelocytes # (Man) (0) k/uL Myelocytes # (Manual) (0) k/uL ABG pH (7.35-7.45) ABG pCO2 (35-45) mmHg ABG pO2 (83-108) mmHg ABG HCO3 (21-25) mmol/L ABG Total CO2 (19-24) mmol/L ABG O2 Saturation (94-97) % ABG Lactic Acid (0.5-1.6) mmol/L Sodium (137-145) mmol/L Chloride (98-107) mmol/L Carbon Dioxide (22-30) mmol/L BUN (9-20) mg/dL Creatinine (0.66-1.25) mg/dL Glucose (74-99) mg/dL POC Glucose (mg/dL) 408 H (75-99) mg/dL Hemoglobin A1c (4.0-6.0) % Plasma Lactic Acid Tejinder 7.2 H* 6.6 H* (0.7-2.0) mmol/L Calcium (8.4-10.2) mg/dL AST (17-59) U/L ALT (4-49) U/L Total Protein (6.3-8.2) g/dL Albumin (3.5-5.0) g/dL 01/09/20 01/09/20 01/09/20 Range/Units 04:38 04:38 04:58 WBC 21.9 H (3.8-10.6) k/uL RBC 3.62 L (4.30-5.90) m/uL Hgb 11.7 L (13.0-17.5) gm/dL Hct 34.5 L (39.0-53.0) % Neutrophils # (Manual) 20.30 H (1.3-7.7) k/uL Lymphocytes # (Manual) 0.44 L (1.0-4.8) k/uL Metamyelocytes # (Man) 0.88 H (0) k/uL Myelocytes # (Manual) 0.44 H (0) k/uL ABG pH (7.35-7.45) ABG pCO2 (35-45) mmHg ABG pO2 (83-108) mmHg ABG HCO3 (21-25) mmol/L ABG Total CO2 (19-24) mmol/L ABG O2 Saturation (94-97) % ABG Lactic Acid (0.5-1.6) mmol/L Sodium 134 L (137-145) mmol/L Chloride 96 L (98-107) mmol/L Carbon Dioxide (22-30) mmol/L BUN 25 H (9-20) mg/dL Creatinine 2.69 H (0.66-1.25) mg/dL Glucose 381 H (74-99) mg/dL POC Glucose (mg/dL) 405 H (75-99) mg/dL Hemoglobin A1c (4.0-6.0) % Plasma Lactic Acid Tejinder (0.7-2.0) mmol/L Calcium 6.9 L (8.4-10.2) mg/dL AST 1446 H (17-59) U/L ALT 749 H (4-49) U/L Total Protein 4.4 L (6.3-8.2) g/dL Albumin 2.5 L (3.5-5.0) g/dL 01/09/20 01/09/20 01/09/20 Range/Units 05:29 07:21 11:04 WBC (3.8-10.6) k/uL RBC (4.30-5.90) m/uL Hgb (13.0-17.5) gm/dL Hct (39.0-53.0) % Neutrophils # (Manual) (1.3-7.7) k/uL Lymphocytes # (Manual) (1.0-4.8) k/uL Metamyelocytes # (Man) (0) k/uL Myelocytes # (Manual) (0) k/uL ABG pH (7.35-7.45) ABG pCO2 (35-45) mmHg ABG pO2 110 H (83-108) mmHg ABG HCO3 (21-25) mmol/L ABG Total CO2 26 H (19-24) mmol/L ABG O2 Saturation 99.0 H (94-97) % ABG Lactic Acid (0.5-1.6) mmol/L Sodium (137-145) mmol/L Chloride (98-107) mmol/L Carbon Dioxide (22-30) mmol/L BUN (9-20) mg/dL Creatinine (0.66-1.25) mg/dL Glucose (74-99) mg/dL POC Glucose (mg/dL) 434 H (75-99) mg/dL Hemoglobin A1c (4.0-6.0) % Plasma Lactic Acid Tejinder 4.6 H* (0.7-2.0) mmol/L Calcium (8.4-10.2) mg/dL AST (17-59) U/L ALT (4-49) U/L Total Protein (6.3-8.2) g/dL Albumin (3.5-5.0) g/dL 01/09/20 01/09/20 Range/Units 11:22 11:24 WBC (3.8-10.6) k/uL RBC (4.30-5.90) m/uL Hgb (13.0-17.5) gm/dL Hct (39.0-53.0) % Neutrophils # (Manual) (1.3-7.7) k/uL Lymphocytes # (Manual) (1.0-4.8) k/uL Metamyelocytes # (Man) (0) k/uL Myelocytes # (Manual) (0) k/uL ABG pH 7.55 H (7.35-7.45) ABG pCO2 33 L (35-45) mmHg ABG pO2 157 H (83-108) mmHg ABG HCO3 29 H (21-25) mmol/L ABG Total CO2 30 H (19-24) mmol/L ABG O2 Saturation 99.3 H (94-97) % ABG Lactic Acid (0.5-1.6) mmol/L Sodium (137-145) mmol/L Chloride (98-107) mmol/L Carbon Dioxide (22-30) mmol/L BUN (9-20) mg/dL Creatinine (0.66-1.25) mg/dL Glucose (74-99) mg/dL POC Glucose (mg/dL) 268 H (75-99) mg/dL Hemoglobin A1c (4.0-6.0) % Plasma Lactic Acid Tejinder (0.7-2.0) mmol/L Calcium (8.4-10.2) mg/dL AST (17-59) U/L ALT (4-49) U/L Total Protein (6.3-8.2) g/dL Albumin (3.5-5.0) g/dL Microbiology - Last 24 Hours (Table) 01/08/20 15:55 Gram Stain - Preliminary Sputum Sputum Culture - Preliminary 01/08/20 07:31 Blood Culture - Preliminary Blood No Growth after 24 hours Assessment and Plan Assessment: Acute renal failure Severe metabolic acidosis A proximal gastrectomy failure Alcohol abuse Diabetes Hypertension Plan: At this point await further recommendations per nephrology regarding catheter. Okay to remove once no further need
--- NOTE | 2020-01-09 15:15 | PN ---
PROGRESS NOTE The patient is seen for followup for acute kidney injury, severe metabolic acidosis, possible toxic alcohol ingestion, status post hemodialysis yesterday. The patient was severely hypotensive with Levophed at about 60 mics yesterday along with Carmelo- Synephrine. However, his blood pressure has improved. His mentation is improved as well. He is awake, following commands. Urine output has improved significantly to about 60-50 mL an hour. Levophed is almost off and patient is currently on CPAP. Repeat blood gases show bicarb of 29 and a bicarb drip was discontinued. Lactic acid is down to 4.6 from more than 24 on initial admission. On examination today, blood pressure 114/73, heart rate 107 per minute. He is afebrile. Examination of the heart S1, S2. Examination of the lungs, bilateral breath sounds are heard. Abdomen is soft. Examination lower extremities shows no evidence of edema. 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 Moving all 4 extremities. LAB: Labs show blood gases showing pH of 7.5, bicarb of 29. Other labs, BMP show sodium 134, potassium 3.6, CO2 is 23 BUN 25, serum creatinine 2.69. Lactic acid was down to 4.6. AST, ALT elevated at 1446 and 749 respectively. Albumin 2.5. ASSESSMENT: 1. Acute kidney injury associated with severe hypotension, ATN currently nonoliguric and improving. Also most likely associated with toxic alcohol ingestion, status post hemodialysis. Good urine output. No plans for repeat dialysis at this point. 2. Severe anion gap metabolic acidosis with elevated osmolar gap with suspicion for possible toxic alcohol ingestion with ethylene glycol versus methanol. The volatile alcohol panel is pending. The patient was dialyzed. He did get Omeprazole and serum acetone as well as alcohol level was also elevated. His acidosis is significantly improved. Lactic acid was high as well on initial admission. This is now improved. 3. Lactic acidosis associated possibly related to metformin, currently significantly improved, status post hemodialysis yesterday. 4. Shock liver associated with hypotension. PLAN: Agree with discontinuation of bicarb drip. Follow up on results of the toxic alcohol panel. Continue off metformin. Switch IV fluids to normal saline at 50 mL an hour and repeat labs in a.m. MMODL / IJN: [id number] /
[2020-01-09 18:15] LABS: Glucose,Whole Blood 129 mg/dL (75-99)
--- NOTE | 2020-01-09 19:53 | P.PN ---
Subjective This is a 59 years old male with past medical history of hypertension, hyperlipidemia, diabetes mellitus, CVA/TIA, diabetic neuropathy. Exactly and depression, heavy alcohol drinker. Presents because of dyspnea Patient got intubated in the emergency room confirmation was taken from records and staff. The patient has been belching drinking alcohol he is been drinking alcohol for the last 5 days, today his financing noticed his been short of b reath and he came to emergency room on admission was significantly tachypneic with her respiratory rate around 30, blood pressure was 133/84 however it drops to 89/50.patient was vomiting and he got confused, WBC of 40 6K, Hemoglobin and Platelets Are Normal, ABG Shows Severe Acidosis with pH less than 6.8, pCO2 29 and pO2 was 352. Lactic acid significantly elevated more than 24, elevated troponin 0.03, sodium mildly low at 136, potassium normal 5.0,, liver enzymes mildly elevated with AST 113, with normal ALT 45, lipase slightly high at 519. creatinine is elevated at 4.0, urinalysis is unremarkable. Chest x-ray done in the emergency room showing diminished inspiration with developing retrocardiac acute infiltrate and/or atelectasis. EKG showing normal sinus rhythm at [address]-T changes and QTC of 542 in the emergency room patient was givenon vancomycin and Zosyn home medications including metformin, Dyazide, Pravachol, losartan and aspirin 01/09/2020 Patient remains in the ICU, his status post extubation, he is currently breathing quietly On 2 L oxygen and he is saturating high 90s. This is slightly tachycardic at 108 Vital signs stable. Patient and significant other at bedside confirmed to me he was only drinking rum for 5 days prior to admission to the hospital. WBC is down to 21.9. Hemoglobin is 11.7, platelets is also down to 186, most likely it's hemodilution. PH is 7.5, pCO2 is 33 which is low and high CO2 at 157. Lactic acid is also significantly improved and output 4.6, glucose is controlled 129 06/24/1968. Creatinine 2.6, sodium 134 and dressed of electrolytes is normal. AST is up 113 to 1446 and ALT up from 40 to 749. Chest x-ray from today showing stable findings Patient is started back on Zosyn today. He was nothing by mouth, started on clear liquid diet. He got 12 units of short-acting insulin in the morning. As well as he got Levemir 10 units. We will keep Levemir and insulin sliding scale . Hemoglobin A1c is 7.5% review of systems: N/a, patient is very weak and lethargic to participate in detail information Active Medications Generic Name Dose Route Start Last Admin Trade Name Freq PRN Reason Stop Dose Admin Albuterol/Ipratropium 3 ml 01/08/20 12:53 Duoneb 0.5 Mg-3 Mg/3 Ml Soln INHALATION RT-Q2H PRN Shortness Of Breath Or Wheezing Albuterol/Ipratropium 3 ml 01/08/20 16:00 01/09/20 19:47 Duoneb 0.5 Mg-3 Mg/3 Ml Soln INHALATION 3 ml RT-Q4H DALIA Administration Famotidine 20 mg 01/08/20 21:00 01/09/20 08:24 Pepcid IV 20 mg Q12HR DALIA Administration Heparin Sodium (Porcine) 5,000 unit 01/08/20 21:00 01/09/20 08:24 Heparin SQ 5,000 unit Q12HR DALIA Administration Hydromorphone HCl 1 mg 01/08/20 15:19 Dilaudid IVP Q3HR PRN Pain Sodium Chloride 1,000 mls @ 50 mls/hr 01/08/20 09:15 01/09/20 08:28 Saline 0.9% IV 20 mls/hr .Q20H DALIA Administration Norepinephrine Bitartrate 32 250 mls @ 2.02 mls/hr 01/08/20 10:30 01/09/20 11:09 mg/ Sodium Chloride IV 0 mcg/kg/min .Q24H DALIA 0 mls/hr Titration Protocol 0.05 MCG/KG/MIN Piperacillin Sod/Tazobactam 100 mls @ 25 mls/hr 01/08/20 21:00 01/09/20 08:24 Sod 3.375 gm/ Sodium Chloride IVPB 25 mls/hr Q12HR DALIA Administration Insulin Aspart 0 unit 01/09/20 00:00 01/09/20 18:50 Novolog SQ Not Given Q6HR DALIA Protocol Insulin Detemir 10 unit 01/10/20 07:00 Levemir SQ DAILY@0700 DALIA Naloxone HCl 0.2 mg 01/08/20 09:11 Narcan IV Q2M PRN Opioid Reversal Objective - Vital Signs Vital signs: Vital Signs Temp 97.0 F L 01/09/20 12:00 Pulse 107 H 01/09/20 19:00 Resp 11 L 01/09/20 19:00 BP 144/94 01/09/20 19:00 Pulse Ox 98 01/09/20 19:00 Intake & Output 01/09/20 01/09/20 01/10/20 06:59 18:59 06:59 Intake Total 2309.555 1069.835 50 Output Total 475 415 30 Balance 1834.555 654.835 20 Weight 86.183 kg Intake: IV 2000 460 50 LR 2000 NS 440 50 Sodium Chloride 0.9% 1, 0 20 000 ml @ 999 mls/hr IV . Q1H1M STA Rx#:[id number] Intake, IV Titration 309.555 609.835 Amount Cisatracurium 200 mg In 156.552 Sodium Chloride 0.9% 180 ml @ 1 MCG/KG/MIN 5.171 mls/hr IV .Q24H DALIA Rx#: [id number] Dextrose 5% in Water 1, 150 000 ml @ 150 mls/hr IV . Q7H40M DALIA with Sodium Bicarb (1 Meq/ml) 150 ml Rx#:[id number] Norepinephrine 32 mg In 83.169 5.164 Sodium Chloride 0.9% 218 ml @ 0.05 MCG/KG/MIN 2.02 mls/hr IV .Q24H DALIA Rx#: [id number] Piperacillin-Tazobactam 3 100 .375 gm In Sodium Chloride 0.9% 100 ml @ 25 mls/hr IVPB Q12HR DALIA Rx #:[id number] Vancomycin 1,500 mg In 250 Sodium Chloride 0.9% 250 ml @ 125 mls/hr IVPB ONCE ONE Rx#:[id number] propofoL 1,000 mg In 76.386 98.119 Empty Bag 1 bag @ Titrate IV .Q0M DALIA Rx#: [id number] Output: Urine 475 415 30 Other: Voiding Method Indwelling Catheter Indwelling Catheter ABP, PAP, CO, CI - Last Documented Arterial Blood Pressure 150/57 - Exam -GENERAL: The patient is alert and oriented x3, not in any acute distress. He is severely lethargic HEENT: Pupils are round and equally reacting to light. EOMI. No scleral icterus. No conjunctival pallor. Normocephalic, atraumatic. No pharyngeal erythema. No thyromegaly. CARDIOVASCULAR: S1 and S2 present. No murmurs, rubs, or gallops. PULMONARY: Chest is clear to auscultation, no wheezing or crackles. ABDOMEN: Soft, nontender, nondistended, normoactive bowel sounds. No palpable organomegaly. MUSCULOSKELETAL: No joint swelling or deformity. EXTREMITIES: No cyanosis, clubbing, or pedal edema. NEUROLOGICAL: Gross neurological examination did not reveal any focal deficits. SKIN: No rashes. no petechiae. - Labs CBC & Chem 7: 01/09/20 04:38 01/09/20 04:38 Labs: Abnormal Lab Results - Last 24 Hours (Table) 01/08/20 01/08/20 01/08/20 Range/Units 06:40 19:00 20:50 WBC (3.8-10.6) k/uL RBC (4.30-5.90) m/uL Hgb (13.0-17.5) gm/dL Hct (39.0-53.0) % Neutrophils # (Manual) (1.3-7.7) k/uL Lymphocytes # (Manual) (1.0-4.8) k/uL Metamyelocytes # (Man) (0) k/uL Myelocytes # (Manual) (0) k/uL ABG pH (7.35-7.45) ABG pCO2 (35-45) mmHg ABG pO2 (83-108) mmHg ABG HCO3 (21-25) mmol/L ABG Total CO2 (19-24) mmol/L ABG O2 Saturation (94-97) % Sodium 135 L (137-145) mmol/L Chloride (98-107) mmol/L Carbon Dioxide 17 L (22-30) mmol/L BUN (9-20) mg/dL Creatinine 1.90 H (0.66-1.25) mg/dL Glucose 299 H (74-99) mg/dL POC Glucose (mg/dL) (75-99) mg/dL Hemoglobin A1c 7.5 H (4.0-6.0) % Plasma Lactic Acid Tejinder 9.5 H* (0.7-2.0) mmol/L Calcium 7.3 L (8.4-10.2) mg/dL AST (17-59) U/L ALT (4-49) U/L Total Protein (6.3-8.2) g/dL Albumin (3.5-5.0) g/dL 01/08/20 01/09/20 01/09/20 Range/Units 23:59 01:10 02:10 WBC (3.8-10.6) k/uL RBC (4.30-5.90) m/uL Hgb (13.0-17.5) gm/dL Hct (39.0-53.0) % Neutrophils # (Manual) (1.3-7.7) k/uL Lymphocytes # (Manual) (1.0-4.8) k/uL Metamyelocytes # (Man) (0) k/uL Myelocytes # (Manual) (0) k/uL ABG pH (7.35-7.45) ABG pCO2 (35-45) mmHg ABG pO2 (83-108) mmHg ABG HCO3 (21-25) mmol/L ABG Total CO2 (19-24) mmol/L ABG O2 Saturation (94-97) % Sodium (137-145) mmol/L Chloride (98-107) mmol/L Carbon Dioxide (22-30) mmol/L BUN (9-20) mg/dL Creatinine (0.66-1.25) mg/dL Glucose (74-99) mg/dL POC Glucose (mg/dL) 451 H 408 H (75-99) mg/dL Hemoglobin A1c (4.0-6.0) % Plasma Lactic Acid Tejinder 7.2 H* (0.7-2.0) mmol/L Calcium (8.4-10.2) mg/dL AST (17-59) U/L ALT (4-49) U/L Total Protein (6.3-8.2) g/dL Albumin (3.5-5.0) g/dL 01/09/20 01/09/20 01/09/20 Range/Units 04:38 04:38 04:38 WBC 21.9 H (3.8-10.6) k/uL RBC 3.62 L (4.30-5.90) m/uL Hgb 11.7 L (13.0-17.5) gm/dL Hct 34.5 L (39.0-53.0) % Neutrophils # (Manual) 20.30 H (1.3-7.7) k/uL Lymphocytes # (Manual) 0.44 L (1.0-4.8) k/uL Metamyelocytes # (Man) 0.88 H (0) k/uL Myelocytes # (Manual) 0.44 H (0) k/uL ABG pH (7.35-7.45) ABG pCO2 (35-45) mmHg ABG pO2 (83-108) mmHg ABG HCO3 (21-25) mmol/L ABG Total CO2 (19-24) mmol/L ABG O2 Saturation (94-97) % Sodium 134 L (137-145) mmol/L Chloride 96 L (98-107) mmol/L Carbon Dioxide (22-30) mmol/L BUN 25 H (9-20) mg/dL Creatinine 2.69 H (0.66-1.25) mg/dL Glucose 381 H (74-99) mg/dL POC Glucose (mg/dL) (75-99) mg/dL Hemoglobin A1c (4.0-6.0) % Plasma Lactic Acid Tejinder 6.6 H* (0.7-2.0) mmol/L Calcium 6.9 L (8.4-10.2) mg/dL AST 1446 H (17-59) U/L ALT 749 H (4-49) U/L Total Protein 4.4 L (6.3-8.2) g/dL Albumin 2.5 L (3.5-5.0) g/dL 01/09/20 01/09/20 01/09/20 Range/Units 04:58 05:29 07:21 WBC (3.8-10.6) k/uL RBC (4.30-5.90) m/uL Hgb (13.0-17.5) gm/dL Hct (39.0-53.0) % Neutrophils # (Manual) (1.3-7.7) k/uL Lymphocytes # (Manual) (1.0-4.8) k/uL Metamyelocytes # (Man) (0) k/uL Myelocytes # (Manual) (0) k/uL ABG pH (7.35-7.45) ABG pCO2 (35-45) mmHg ABG pO2 110 H (83-108) mmHg ABG HCO3 (21-25) mmol/L ABG Total CO2 26 H (19-24) mmol/L ABG O2 Saturation 99.0 H (94-97) % Sodium (137-145) mmol/L Chloride (98-107) mmol/L Carbon Dioxide (22-30) mmol/L BUN (9-20) mg/dL Creatinine (0.66-1.25) mg/dL Glucose (74-99) mg/dL POC Glucose (mg/dL) 405 H 434 H (75-99) mg/dL Hemoglobin A1c (4.0-6.0) % Plasma Lactic Acid Tejinder (0.7-2.0) mmol/L Calcium (8.4-10.2) mg/dL AST (17-59) U/L ALT (4-49) U/L Total Protein (6.3-8.2) g/dL Albumin (3.5-5.0) g/dL 01/09/20 01/09/20 01/09/20 Range/Units 11:04 11:22 11:24 WBC (3.8-10.6) k/uL RBC (4.30-5.90) m/uL Hgb (13.0-17.5) gm/dL Hct (39.0-53.0) % Neutrophils # (Manual) (1.3-7.7) k/uL Lymphocytes # (Manual) (1.0-4.8) k/uL Metamyelocytes # (Man) (0) k/uL Myelocytes # (Manual) (0) k/uL ABG pH 7.55 H (7.35-7.45) ABG pCO2 33 L (35-45) mmHg ABG pO2 157 H (83-108) mmHg ABG HCO3 29 H (21-25) mmol/L ABG Total CO2 30 H (19-24) mmol/L ABG O2 Saturation 99.3 H (94-97) % Sodium (137-145) mmol/L Chloride (98-107) mmol/L Carbon Dioxide (22-30) mmol/L BUN (9-20) mg/dL Creatinine (0.66-1.25) mg/dL Glucose (74-99) mg/dL POC Glucose (mg/dL) 268 H (75-99) mg/dL Hemoglobin A1c (4.0-6.0) % Plasma Lactic Acid Tejinder 4.6 H* (0.7-2.0) mmol/L Calcium (8.4-10.2) mg/dL AST (17-59) U/L ALT (4-49) U/L Total Protein (6.3-8.2) g/dL Albumin (3.5-5.0) g/dL 01/09/20 Range/Units 18:13 WBC (3.8-10.6) k/uL RBC (4.30-5.90) m/uL Hgb (13.0-17.5) gm/dL Hct (39.0-53.0) % Neutrophils # (Manual) (1.3-7.7) k/uL Lymphocytes # (Manual) (1.0-4.8) k/uL Metamyelocytes # (Man) (0) k/uL Myelocytes # (Manual) (0) k/uL ABG pH (7.35-7.45) ABG pCO2 (35-45) mmHg ABG pO2 (83-108) mmHg ABG HCO3 (21-25) mmol/L ABG Total CO2 (19-24) mmol/L ABG O2 Saturation (94-97) % Sodium (137-145) mmol/L Chloride (98-107) mmol/L Carbon Dioxide (22-30) mmol/L BUN (9-20) mg/dL Creatinine (0.66-1.25) mg/dL Glucose (74-99) mg/dL POC Glucose (mg/dL) 129 H (75-99) mg/dL Hemoglobin A1c (4.0-6.0) % Plasma Lactic Acid Tejinder (0.7-2.0) mmol/L Calcium (8.4-10.2) mg/dL AST (17-59) U/L ALT (4-49) U/L Total Protein (6.3-8.2) g/dL Albumin (3.5-5.0) g/dL Microbiology - Last 24 Hours (Table) 01/08/20 15:55 Gram Stain - Preliminary Sputum Sputum Culture - Preliminary 01/08/20 07:31 Blood Culture - Preliminary Blood No Growth after 24 hours Assessment and Plan Assessment: acute hypoxic respiratory failure needed when day of mechanical ventilation, currently extubated Acute kidney failure , improving Severe metabolic acidosis, improving Elevated lactic acid , improving alcohol abuse and risk of local withdrawal and delirium tremens diabetes mellitus, type II elevated troponin Plan: this is a 59 years old male who presents with respiratory failure and acidosis, status post hemodialysis ,patient admitted to the ICU with pulmonary/critical care team managing his vent and critical condition.continue with Zosyn. Continue with Levemir and insulin sliding scale. DIET as tolerated hold metformin and losartan.we will monitor kidney function closely as well. And monitor input and output Continue same treatment. Monitor lytes and vitals. DVT and GI prophylaxis. Further recommendations of the clinical course of the patient DVT prophylaxis: Subcutaneous heparin GI Prophylaxis: Pepcid Prognosis is guarded
--- NOTE | 2020-01-09 20:16 | CONS ---
CONSULTATION REASON FOR CONSULTATION: Rule out suicidal attempt. HISTORY OF PRESENT ILLNESS: The patient is a 59-year-old male, father of 2 grown-up children, who was presented to the emergency room with dyspnea and difficulty breathing. The patient was on breathing support and currently is off of it and able to participate in the interview with very limited information, as he is still tired. However, his fiancee of 17 years was at his bedside and most of the information is from her and from the medical record. She stated that the patient has been bingeing on alcohol for the last 5 days. She did notice that he was short of breath, so she brought him to the emergency room. According to her, he has never been treated for depression and he never has been suicidal. 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 His fiancee stated that the last binge drinking was in September of 2019, but he did not have the same reaction, and he knows that she does not like this; he even promised her that he would not drink; and if he cannot control it, he will seek treatment for alcoholism. The patient answered most of the questions by nodding his head yes or no. He denied being suicidal or homicidal. He denied being hopeless or helpless. He stated that he will not drink again. He was alert and oriented to person, but it seems that he was very weak, as he was just extubated. His medical history: The patient was admitted with white blood cells of more than 40,000. He had severe acidosis with pH less than 6.8, and oxygen saturation was 352. Lactic acid was significantly elevated to more than 24, and he was intubated in the ER. Currently he is stable in his breathing and his recent vital signs are pulse 108, respiration 13, blood pressure 121/68, oxygen saturation 99. PAST MEDICAL HISTORY: History of diabetes, hyperlipidemia, hypertension, pneumonia, history of cerebrovascular accident in 2018, history of pancreatitis. ALLERGIES: THERE IS NO KNOWN ALLERGY. HOME MEDICATION: His home medications include aspirin, metformin, losartan, Pravastatin and Dyazide. PAST PSYCHIATRIC HISTORY: There is no previous inpatient or outpatient treatment for mental illness. Also there is no previous treatment for alcohol. He has never been in chemical dependency rehab. FAMILY PSYCHIATRIC HISTORY: The patient is not aware of any mental illness or chemical dependency in his family. No family member attempted suicide. 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 She stated that they have a very successful business. The patient has 2 grown-up children, ages 25 and 30. He has a good relationship with them. According to the fiancee, there is no stressor in his life, but sometimes when he starts drinking it gets out of control. SUBSTANCE USE DISORDER: Alcohol. According to his fiancee, he was drinking heavily more than 15 years ago, then he started just binge drinking, and the last binge drinking prior to this one was in September of 2019. She denied that he had any withdrawal seizures or DTs. He has never been in any substance abuse program. MENTAL STATUS EXAMINATION: Patient was lying in his bed. He looked tired. Most of his answers were just by nodding his head or just one-word answers. I could not do a complete mental status examination, as he was tired and half sedated, but he denied any psychotic features and he denied any suicidal or homicidal ideation. His insight and judgment are fair. IMPRESSION: Alcohol use disorder, binge drinking. PLAN: The patient does not meet any criteria for inpatient treatment. The patient is not depressed or suicidal. wardrobe specialty worker can help the patient to be referred to a chemical dependency program for alcohol. Psychiatry signs off. Thank you for this consult. SHERYL / ELTON: [id number] /
[2020-01-10] MEDS: PIPERACILLIN-TAZOBACTAM 3.375 GM in SODIUM CHLORIDE 0.9% 100 ML IVPB SCH ×3 (00:08→20:20)
[2020-01-10] MEDS: FAMOTIDINE 20 MG/2 ML VIAL IV SCH ×2 (00:09→10:10)
[2020-01-10] MEDS: HEPARIN SODIUM,PORCINE 5,000 UNIT/ML 1 ML VIAL SQ SCH ×3 (00:09→20:29)
[2020-01-10] MEDS: INSULIN ASPART (NovoLOG) 100 UNIT/ML VIAL SQ SCH ×4 (00:12→18:31)
[2020-01-10 00:14] LABS: Glucose,Whole Blood 160 mg/dL (75-99)
[2020-01-10] MEDS: IPRATROPIUM-ALBUTEROL 3 ML NEB INHALATION SCH ×3 (00:23→07:13)
[2020-01-10 06:32] LABS: Calcium 7.2 mg/dL (8.4-10.2); Potassium 3.9 mmol/L (3.5-5.1)
[2020-01-10 06:37] LABS: Glucose,Whole Blood 163 mg/dL (75-99)
--- NOTE | 2020-01-10 07:05 | XR ---
EXAMINATION TYPE: XR chest 1V portable DATE OF EXAM: 01/10/2020 COMPARISON: 01/09/2020 HISTORY: Respiratory difficulty TECHNIQUE: Single frontal view of the chest is obtained. FINDINGS: ET and NG tube have been removed. Left-sided central line stable. No pneumothorax. Bilater al areas of infiltrate are stable. Correlate for mild central venous congestion or interstitial pneum onitis. IMPRESSION: 1. Persistent bilateral infiltrate. Correlate for central venous congestion or interstitial pneumonit is.
[2020-01-10 07:21] LABS: Basophils % (A) 0 %; Eosinophils # (A) 0.1 k/uL (0-0.7); Eosinophils % (A) 0 %; HCT 32.8 % (39.0-53.0); Lymphocytes # (A) 1.2 k/uL (1.0-4.8); Lymphocytes % (A) 6 %; MCH 30.5 pg (25.0-35.0); MCHC 33.5 g/dL (31.0-37.0); Mean Platelet Volume 8.5; Monocytes # (A) 0.5 k/uL (0-1.0); Monocytes % (A) 3 %; Neutrophils # (A) 17.1 k/uL (1.3-7.7); Neutrophils % (A) 90 %; Platelet Count 118 k/uL (150-450); RBC 3.61 m/uL (4.30-5.90); RDW 13.6 % (11.5-15.5)
[2020-01-10 07:34] LABS: Albumin 2.8 g/dL (3.5-5.0); Potassium 3.3 mmol/L (3.5-5.1); Total Bilirubin 0.9 mg/dL (0.2-1.3); Total Protein 4.8 g/dL (6.3-8.2)
[2020-01-10] MEDS ORDERED: Potassium Replacement Protocol 1 EACH MISC MISCELLANE PRN (08:00)
[2020-01-10] MEDS: INSULIN DETEMIR (LEVEMIR) 100 UNIT/ML SYR SQ SCH (08:04)
[2020-01-10 08:56] LABS: Ethanol Negative (Negative); Isopropanol Negative (Negative)
--- NOTE | 2020-01-10 09:25 | PN ---
PROGRESS NOTE PULMONARY/CRITICAL CARE PROGRESS NOTE: DATE OF SERVICE: 01/10/2020 HISTORY OF PRESENT ILLNESS: This is a 59-year-old male who was seen 2 days ago in the emergency room. He came in with what was thought to be severe intoxication with alcohol. Initially was thought to have ethylene glycol intoxication, but it was probably just pure alcohol. He had severe metabolic acidosis and lactic acidemia. He has significant osmolar gap. The patient had some acute kidney injury as well. Anyway, he was initially intubated in the emergency department. He came up here to the ICU. A central line and art line were placed. Yesterday, his blood gases were reasonable. His chest x-ray was improved. We let him up off sedation, we did a spontaneous breathing trial and the patient was extubated from mechanical ventilation. Currently, he is on room air. He is getting saline at 50 mL an hour. The art line will be discontinued. The central line can stay in for another day. Initially, he was profoundly hypotensive. He was on maximal doses of norepinephrine and vasopressin for a period of time. Both have been weaned off. He did have hemodialysis. A dialysis catheter was placed. PHYSICAL EXAMINATION: VITAL SIGNS: Current vital signs are reviewed. His temperature is 97 degrees, his heart rate is 102, respiratory rate is 17, blood pressure 168/105, mean 126, room air saturation 96%. Appears in no acute distress. HEENT: Examination is grossly unremarkable. No supplemental oxygen. NECK: Supple. Full range of motion. No adenopathy. Neck veins are flat. CARDIOVASCULAR: Examination reveals regular rhythm and rate. S1, S2 normal. No S3, S4, or murmur. LUNGS: Clear. Breath sounds equal. ABDOMEN: Soft. Bowel sounds are heard. EXTREMITIES: Intact. No cyanosis, clubbing, or edema. SKIN: Without rash. NEUROLOGIC: Examination is brief but nonfocal. LABS: Reviewed. White count 19, hemoglobin 11.0, hematocrit 32.8, platelet count 118,000. Sodium 137, potassium 3.3, chloride 100, CO2 is 30, anion gap is 7. BUN and creatinine were 38 and 4.88. Calcium is 7.0, AST 586, ALT 488. Albumin 2.8. Microbiology is all negative. IMAGING: Today's chest x-ray is reviewed. It does show mostly clear lung reyes. Lung volumes are small. There is some bibasilar atelectasis or infiltrate, more so on the left than on the right. MEDICATIONS: Medications are reviewed. Currently he is on famotidine, subcu heparin, Dilaudid, insulin, DuoNeb, Narcan, and saline IV. ASSESSMENT: 1. Acute hypoxemic respiratory failure, secondary to acute mental status changes, severe electrolyte disturbances, and severe metabolic acidosis with lactic acidemia, likely related to acute alcohol intoxication, requiring intubation on January 08, 2020 and extubation on January 09, 2020. 2. Severe metabolic acidosis with lactic acidemia and anion gap. 3. Doubt ethylene glycol intoxication. 4. Acute alcohol intoxication. 5. History of chronic alcohol abuse. 6. Renal failure/acute kidney injury. 7. Diabetes mellitus. 8. Hypertension. 9. Hyperlipidemia. PLAN: The patient's art line is discontinued. The patient is on room air. Updrafts can be discontinued. Other medications which are unnecessary can be discontinued. We will continue to follow. Prognosis is guarded. We will continue to follow with Nephrology. Hopefully his kidney function will return. No additional recommendations are made. Prognosis is guarded. MMODL / IJN: [id number] /
--- NOTE | 2020-01-10 09:36 | P.PN ---
Subjective Progress Note Date: 01/10/20 Patient seen and examined sitting up at the bedside. Patient seems slightly confused. Temporary hemodialysis catheter intact in the right groin. Patient did not receive hemodialysis yesterday per recommendations of nephrology. Today's BUN/creatinine is 38/4.88. Patient is voiding on own. Objective - Vital Signs Vital signs: Vital Signs Temp 97.0 F L 01/09/20 12:00 Pulse 102 H 01/10/20 07:26 Resp 17 01/10/20 07:00 BP 168/105 01/10/20 07:00 Pulse Ox 96 01/10/20 07:00 Intake & Output 01/09/20 01/10/20 01/10/20 18:59 06:59 18:59 Intake Total 1069.835 600 50 Output Total 415 1205 50 Balance 654.835 -605 0 Weight 87.2 kg Intake: IV 460 600 50 NS 440 600 50 Sodium Chloride 0.9% 1, 20 000 ml @ 999 mls/hr IV . Q1H1M [facility] Rx#:[id number] Intake, IV Titration 609.835 Amount Cisatracurium 200 mg In 156.552 Sodium Chloride 0.9% 180 ml @ 1 MCG/KG/MIN 5.171 mls/hr IV .Q24H [facility] Rx#: [id number] Norepinephrine 32 mg In 5.164 Sodium Chloride 0.9% 218 ml @ 0.05 MCG/KG/MIN 2.02 mls/hr IV .Q24H [facility] Rx#: [id number] Piperacillin-Tazobactam 3 100 .375 gm In Sodium Chloride 0.9% 100 ml @ 25 mls/hr IVPB Q12HR [facility] Rx #:[id number] Vancomycin 1,500 mg In 250 Sodium Chloride 0.9% 250 ml @ 125 mls/hr IVPB ONCE ONE Rx#:[id number] propofoL 1,000 mg In 98.119 Empty Bag 1 bag @ Titrate IV .Q0M [facility] Rx#: [id number] Output: Urine 415 1205 50 Other: Voiding Method Indwelling Catheter Indwelling Catheter ABP, PAP, CO, CI - Last Documented Arterial Blood Pressure 150/57 - Exam General appearance: The patient is alert, disorientated, in no acute distress. HET: Head is normocephalic and atraumatic. Extremities: Normal skin color and turgor. No cyanosis, rash, ulceration, clubbing, or edema. Radial and pedal pulses are 2/4 bilaterally. Right groin with temporary hemodialysis catheter in place. Neurological: No focal deficits. Strength and sensation are grossly intact. - Labs CBC & Chem 7: 01/10/20 07:00 01/10/20 07:00 Labs: Abnormal Lab Results - Last 24 Hours (Table) 01/09/20 01/09/20 01/09/20 Range/Units 04:38 04:38 11:04 WBC 21.9 H (3.8-10.6) k/uL RBC 3.62 L (4.30-5.90) m/uL Hgb 11.7 L (13.0-17.5) gm/dL Hct 34.5 L (39.0-53.0) % Plt Count (150-450) k/uL Neutrophils # (1.3-7.7) k/uL Neutrophils # (Manual) 20.30 H (1.3-7.7) k/uL Lymphocytes # (Manual) 0.44 L (1.0-4.8) k/uL Metamyelocytes # (Man) 0.88 H (0) k/uL Myelocytes # (Manual) 0.44 H (0) k/uL ABG pH (7.35-7.45) ABG pCO2 (35-45) mmHg ABG pO2 (83-108) mmHg ABG HCO3 (21-25) mmol/L ABG Total CO2 (19-24) mmol/L ABG O2 Saturation (94-97) % Sodium 134 L (137-145) mmol/L Potassium (3.5-5.1) mmol/L Chloride 96 L (98-107) mmol/L BUN 25 H (9-20) mg/dL Creatinine 2.69 H (0.66-1.25) mg/dL Glucose 381 H (74-99) mg/dL POC Glucose (mg/dL) (75-99) mg/dL Plasma Lactic Acid Tejinder (0.7-2.0) mmol/L Calcium 6.9 L (8.4-10.2) mg/dL AST 1446 H (17-59) U/L ALT 749 H (4-49) U/L Total Protein 4.4 L (6.3-8.2) g/dL Albumin 2.5 L (3.5-5.0) g/dL Acetone, Qual 11 H (Negative) mg/dL 01/09/20 01/09/20 01/09/20 Range/Units 11:04 11:22 11:24 WBC (3.8-10.6) k/uL RBC (4.30-5.90) m/uL Hgb (13.0-17.5) gm/dL Hct (39.0-53.0) % Plt Count (150-450) k/uL Neutrophils # (1.3-7.7) k/uL Neutrophils # (Manual) (1.3-7.7) k/uL Lymphocytes # (Manual) (1.0-4.8) k/uL Metamyelocytes # (Man) (0) k/uL Myelocytes # (Manual) (0) k/uL ABG pH 7.55 H (7.35-7.45) ABG pCO2 33 L (35-45) mmHg ABG pO2 157 H (83-108) mmHg ABG HCO3 29 H (21-25) mmol/L ABG Total CO2 30 H (19-24) mmol/L ABG O2 Saturation 99.3 H (94-97) % Sodium (137-145) mmol/L Potassium (3.5-5.1) mmol/L Chloride (98-107) mmol/L BUN (9-20) mg/dL Creatinine (0.66-1.25) mg/dL Glucose (74-99) mg/dL POC Glucose (mg/dL) 268 H (75-99) mg/dL Plasma Lactic Acid Tejinder 4.6 H* (0.7-2.0) mmol/L Calcium (8.4-10.2) mg/dL AST (17-59) U/L ALT (4-49) U/L Total Protein (6.3-8.2) g/dL Albumin (3.5-5.0) g/dL Acetone, Qual (Negative) mg/dL 01/09/20 01/10/20 01/10/20 Range/Units 18:13 00:11 05:28 WBC (3.8-10.6) k/uL RBC (4.30-5.90) m/uL Hgb (13.0-17.5) gm/dL Hct (39.0-53.0) % Plt Count (150-450) k/uL Neutrophils # (1.3-7.7) k/uL Neutrophils # (Manual) (1.3-7.7) k/uL Lymphocytes # (Manual) (1.0-4.8) k/uL Metamyelocytes # (Man) (0) k/uL Myelocytes # (Manual) (0) k/uL ABG pH (7.35-7.45) ABG pCO2 (35-45) mmHg ABG pO2 (83-108) mmHg ABG HCO3 (21-25) mmol/L ABG Total CO2 (19-24) mmol/L ABG O2 Saturation (94-97) % Sodium (137-145) mmol/L Potassium (3.5-5.1) mmol/L Chloride (98-107) mmol/L BUN 39 H (9-20) mg/dL Creatinine 4.82 H (0.66-1.25) mg/dL Glucose 161 H (74-99) mg/dL POC Glucose (mg/dL) 129 H 160 H (75-99) mg/dL Plasma Lactic Acid Tejinder (0.7-2.0) mmol/L Calcium 7.2 L (8.4-10.2) mg/dL AST (17-59) U/L ALT (4-49) U/L Total Protein (6.3-8.2) g/dL Albumin (3.5-5.0) g/dL Acetone, Qual (Negative) mg/dL 01/10/20 01/10/20 01/10/20 Range/Units 06:36 07:00 07:00 WBC 19.0 H (3.8-10.6) k/uL RBC 3.61 L (4.30-5.90) m/uL Hgb 11.0 L (13.0-17.5) gm/dL Hct 32.8 L (39.0-53.0) % Plt Count 118 L (150-450) k/uL Neutrophils # 17.1 H (1.3-7.7) k/uL Neutrophils # (Manual) (1.3-7.7) k/uL Lymphocytes # (Manual) (1.0-4.8) k/uL Metamyelocytes # (Man) (0) k/uL Myelocytes # (Manual) (0) k/uL ABG pH (7.35-7.45) ABG pCO2 (35-45) mmHg ABG pO2 (83-108) mmHg ABG HCO3 (21-25) mmol/L ABG Total CO2 (19-24) mmol/L ABG O2 Saturation (94-97) % Sodium (137-145) mmol/L Potassium 3.3 L (3.5-5.1) mmol/L Chloride (98-107) mmol/L BUN 38 H (9-20) mg/dL Creatinine 4.88 H (0.66-1.25) mg/dL Glucose 160 H (74-99) mg/dL POC Glucose (mg/dL) 163 H (75-99) mg/dL Plasma Lactic Acid Tejinder (0.7-2.0) mmol/L Calcium 7.0 L (8.4-10.2) mg/dL AST 586 H (17-59) U/L ALT 488 H (4-49) U/L Total Protein 4.8 L (6.3-8.2) g/dL Albumin 2.8 L (3.5-5.0) g/dL Acetone, Qual (Negative) mg/dL Microbiology - Last 24 Hours (Table) 01/08/20 15:55 Gram Stain - Preliminary Sputum Sputum Culture - Preliminary 01/08/20 07:31 Blood Culture - Preliminary Blood No Growth after 24 hours Assessment and Plan Assessment: 1. Acute renal failure 2. Severe metabolic acidosis 3. Hypoxic respiratory failure 4. Alcohol abuse 5. Diabetes 6. Hypertension 7. Per lipidemia Plan: We'll await recommendations per nephrology on hemodialysis catheter removal. Continue hemodialysis as ordered per nephrology. We will continue to follow. The above dictated assessment and findings were discussed with Dr. Duque. The impression and plan of care have been directed as dictated.
[2020-01-10] MEDS: POTASSIUM CHLORIDE 20 MEQ in WATER FOR INJECTION 1 100ML.BAG IVPB SCH ×2 (10:10→14:23)
[2020-01-10] MEDS ORDERED: HALOPERIDOL LACTATE 5 MG/ML 1 ML VIAL IVP PRN ×3 (11:13→18:20)
[2020-01-10] MEDS ORDERED: QUEtiapine 25 MG TAB PO SCH (11:15)
[2020-01-10 12:03] LABS: Glucose,Whole Blood 204 mg/dL (75-99)
[2020-01-10] MEDS: amLODIPine 5 MG TAB PO SCH (14:22)
[2020-01-10] MEDS ORDERED: ONDANSETRON 4 MG/2 ML VIAL IVP PRN (15:01)
[2020-01-10] MEDS: LORazepam 2 MG/ML INJ IV PRN ×5 (15:10→22:44)
--- NOTE | 2020-01-10 15:17 | XR ---
EXAMINATION TYPE: XR chest 1V portable DATE OF EXAM: 01/10/2020 COMPARISON: 01/10/2020 HISTORY: Respiratory difficulty TECHNIQUE: Single frontal view of the chest is obtained. FINDINGS: Left-sided central line stable. No pneumothorax. Bilateral areas of infiltrate are stable. Correlate for mild central venous congestion or interstitial pneumonitis. IMPRESSION: 1. Persistent bilateral infiltrate. Correlate for central venous congestion or interstitial pneumonit is.
--- NOTE | 2020-01-10 16:13 | PN ---
PROGRESS NOTE Patient is seen for followup for acute kidney injury and severe metabolic acidosis, status post one treatment of hemodialysis. The patient's urine output has improved significantly. His creatinine is staying at about 4.8 mg/dL. Mentation has improved. PHYSICAL EXAMINATION: On examination today, blood pressure was 163/127, heart rate 108 per minute. Patient is afebrile. EXAMINATION OF THE HEART: S1 and S2. EXAMINATION OF LUNGS: Bilateral breath sounds are heard. ABDOMEN: Soft, non-tender. Examination of lower extremities shows trace edema bilaterally. [employer] exam is grossly intact. LABS: Labs show sodium 137, potassium 3.3, chloride 100, BUN 38, creatinine 4.8, hemoglobin 11.0 g/dL. ALT 488, AST 586, albumin 2.8. ASSESSMENT: 1. Acute kidney injury, most likely acute tubular necrosis, currently nonoliguric, off of dialysis. The patient had one treatment of dialysis on admission, mainly for severe metabolic acidosis and possible toxic alcohol ingestion. I will decrease the IV fluids. Patient is encouraged to increase his oral intake. Continue to avoid nephrotoxic agents. 2. Severe anion gap metabolic acidosis with toxic alcohol screen currently negative. Patient's serum acetone and alcohol level were elevated as well. His acidosis has improved significantly currently post dialysis. 3. Hypokalemia. We will replace. 4. Severe lactic acidosis, possibly related to metformin. PLAN: Hold off on hemodialysis for now. Encourage increased oral intake. Discontinue the IV fluids and repeat labs in a.m. Replace potassium as well. MMODL / IJN: [id number] /
[2020-01-10 18:07] LABS: Glucose,Whole Blood 181 mg/dL (75-99)
--- NOTE | 2020-01-10 19:23 | P.PN ---
Subjective This is a 59 years old male with past medical history of hypertension, hyperlipidemia, diabetes mellitus, CVA/TIA, diabetic neuropathy. Exactly and depression, heavy alcohol drinker. Presents because of dyspnea Patient got intubated in the emergency room confirmation was taken from records and staff. The patient has been belching drinking alcohol he is been drinking alcohol for the last 5 days, today his financing noticed his been short of b reath and he came to emergency room on admission was significantly tachypneic with her respiratory rate around 30, blood pressure was 133/84 however it drops to 89/50.patient was vomiting and he got confused, WBC of 40 6K, Hemoglobin and Platelets Are Normal, ABG Shows Severe Acidosis with pH less than 6.8, pCO2 29 and pO2 was 352. Lactic acid significantly elevated more than 24, elevated troponin 0.03, sodium mildly low at 136, potassium normal 5.0,, liver enzymes mildly elevated with AST 113, with normal ALT 45, lipase slightly high at 519. creatinine is elevated at 4.0, urinalysis is unremarkable. Chest x-ray done in the emergency room showing diminished inspiration with developing retrocardiac acute infiltrate and/or atelectasis. EKG showing normal sinus rhythm at [address]-T changes and QTC of 542 in the emergency room patient was givenon vancomycin and Zosyn home medications including metformin, Dyazide, Pravachol, losartan and aspirin 01/09/2020 Patient remains in the ICU, his status post extubation, he is currently breathing quietly On 2 L oxygen and he is saturating high 90s. This is slightly tachycardic at 108 Vital signs stable. Patient and significant other at bedside confirmed to me he was only drinking rum for 5 days prior to admission to the hospital. WBC is down to 21.9. Hemoglobin is 11.7, platelets is also down to 186, most likely it's hemodilution. PH is 7.5, pCO2 is 33 which is low and high CO2 at 157. Lactic acid is also significantly improved and output 4.6, glucose is controlled 129 06/24/1968. Creatinine 2.6, sodium 134 and dressed of electrolytes is normal. AST is up 113 to 1446 and ALT up from 40 to 749. Chest x-ray from today showing stable findings Patient is started back on Zosyn today. He was nothing by mouth, started on clear liquid diet. He got 12 units of short-acting insulin in the morning. As well as he got Levemir 10 units. We will keep Levemir and insulin sliding scale . Hemoglobin A1c is 7.5% 01/10/2020 Patient is more awake and interactive today, he does not have any specific complaints, he remains in the ICU with close monitoring. He still feels generally weak. But he is improving gradually. His tachypneic at 22 tachycardic around 125, his sugar is elevated today after holding his Levemir, however continue with insulin sliding scale, patient is a started on diet and is advanced gradually. Patient was placed on hold, due to delirium mostly due to his infection and metabolic abnormality including renal failure and hyperglycemia , however patient was started on antibiotics and currently he is on Zosyn. Patient remains to improve gradually.The saturating 94% on 4 L oxygen via nasal cannula. Leukocytosis trending down to 19.0 K. Hemoglobin 11.0. Creatinine stable as of yesterday at 4.8. And liver enzymes came down significantly 2586 AST and 488 ALT, troponin 0.35. However patient with no chest pain or dyspnea. Chest x-ray showed persistent bilateral infiltrates and venous congestion and he remains on Zosyn for now. No more hemodialysis and encourage oral intake.. Review of systems CONSTITUTIONAL: No fever, no malaise, no fatigue. HEENT: No recent visual problems or hearing problems. Denied any sore throat. CARDIOVASCULAR: No orthopnea, PND, no palpitations, no syncope. PULMONARY: No shortness of breath, no cough, no hemoptysis. GASTROINTESTINAL: No diarrhea, no nausea, no vomiting, no abdominal pain. Normoactive bowel sounds. NEUROLOGICAL: No headaches, no weakness, no numbness. HEMATOLOGICAL: Denies any bleeding or petechiae. Active Medications Generic Name Dose Route Start Last Admin Trade Name Freq PRN Reason Stop Dose Admin Amlodipine Besylate 5 mg 01/10/20 14:15 01/10/20 14:22 Norvasc PO 5 mg DAILY [facility] Administration Famotidine 20 mg 01/11/20 09:00 Pepcid IV DAILY [facility] Haloperidol Lactate 4 mg 01/10/20 18:18 01/10/20 18:23 Haldol IVP 4 mg Q2HR PRN Administration Agitation or Acute Psychosis Haloperidol Lactate 8 mg 01/10/20 18:20 Haldol IVP Q2HR PRN Agitation or Acute Psychosis Heparin Sodium (Porcine) 5,000 unit 01/08/20 21:00 01/10/20 10:10 Heparin SQ 5,000 unit Q12HR [facility] Administration Piperacillin Sod/Tazobactam 100 mls @ 25 mls/hr 01/08/20 21:00 01/10/20 10:10 Sod 3.375 gm/ Sodium Chloride IVPB 25 mls/hr Q12HR [facility] Administration Insulin Aspart 0 unit 01/09/20 00:00 01/10/20 18:31 Novolog SQ Not Given Q6HR [facility] Protocol Insulin Detemir 10 unit 01/10/20 07:00 01/10/20 08:04 Levemir SQ Not Given DAILY@0700 [facility] Lorazepam 1 mg 01/10/20 15:02 Ativan IV Q2HR PRN [facility] 8 or 9 Lorazepam 1 mg 01/10/20 15:02 01/10/20 15:10 Ativan IV 1 mg Q1HR PRN Administration CIWA 10 to 15 Miscellaneous Information 1 each 01/10/20 08:00 Potassium Per Protocol MISCELLANE DAILY PRN Per Protocol Protocol Naloxone HCl 0.2 mg 01/08/20 09:11 Narcan IV Q2M PRN Opioid Reversal Ondansetron HCl 4 mg 01/10/20 15:01 Zofran IVP Q6HR PRN Nausea And Vomiting Objective - Vital Signs Vital signs: Vital Signs Temp 98 F 01/10/20 09:00 Pulse 110 H 01/10/20 17:00 Resp 15 01/10/20 17:00 BP 132/97 01/10/20 17:00 Pulse Ox 96 01/10/20 17:00 Intake & Output 01/09/20 01/10/20 01/10/20 18:59 06:59 18:59 Intake Total 1069.835 600 500 Output Total 415 1205 555 Balance 654.835 -605 -55 Weight 87.2 kg Intake: IV 460 600 400 NS 440 600 150 Piperacillin-Tazobactam 3 100 .375 gm In Sodium Chloride 0.9% 100 ml @ 25 mls/hr IVPB Q12HR [facility] Rx #:[id number] Potassium Chloride 20 meq 100 In Water For Injection 1 100ml.bag @ 50 mls/hr IVPB Q2H [facility] Rx#: [id number] Sodium Chloride 0.9% 1, 50 000 ml @ 50 mls/hr IV . Q20H [facility] Rx#:[id number] Sodium Chloride 0.9% 1, 20 000 ml @ 999 mls/hr IV . Q1H1M [facility] Rx#:[id number] Intake, IV Titration 609.835 Amount Cisatracurium 200 mg In 156.552 Sodium Chloride 0.9% 180 ml @ 1 MCG/KG/MIN 5.171 mls/hr IV .Q24H [facility] Rx#: [id number] Norepinephrine 32 mg In 5.164 Sodium Chloride 0.9% 218 ml @ 0.05 MCG/KG/MIN 2.02 mls/hr IV .Q24H [facility] Rx#: [id number] Piperacillin-Tazobactam 3 100 .375 gm In Sodium Chloride 0.9% 100 ml @ 25 mls/hr IVPB Q12HR [facility] Rx #:[id number] Vancomycin 1,500 mg In 250 Sodium Chloride 0.9% 250 ml @ 125 mls/hr IVPB ONCE ONE Rx#:[id number] propofoL 1,000 mg In 98.119 Empty Bag 1 bag @ Titrate IV .Q0M [facility] Rx#: [id number] Oral 100 Output: Urine 415 1205 555 Other: Voiding Method Indwelling Catheter Indwelling Catheter Indwelling Catheter # Bowel Movements 1 ABP, PAP, CO, CI - Last Documented Arterial Blood Pressure 150/57 - Exam -GENERAL: The patient is alert and oriented x3, not in any acute distress. His weakness is improving HEENT: Pupils are round and equally reacting to light. EOMI. No scleral icterus. No conjunctival pallor. Normocephalic, atraumatic. No pharyngeal erythema. No thyromegaly. CARDIOVASCULAR: S1 and S2 present. No murmurs, rubs, or gallops. PULMONARY: Chest is clear to auscultation, no wheezing or crackles. ABDOMEN: Soft, nontender, nondistended, normoactive bowel sounds. No palpable organomegaly. MUSCULOSKELETAL: No joint swelling or deformity. EXTREMITIES: No cyanosis, clubbing, or pedal edema. NEUROLOGICAL: Gross neurological examination did not reveal any focal deficits. SKIN: No rashes. no petechiae. - Labs CBC & Chem 7: 01/10/20 07:00 01/10/20 07:00 Labs: Abnormal Lab Results - Last 24 Hours (Table) 01/09/20 01/09/20 01/10/20 Range/Units 11:04 18:13 00:11 WBC (3.8-10.6) k/uL RBC (4.30-5.90) m/uL Hgb (13.0-17.5) gm/dL Hct (39.0-53.0) % Plt Count (150-450) k/uL Neutrophils # (1.3-7.7) k/uL Potassium (3.5-5.1) mmol/L BUN (9-20) mg/dL Creatinine (0.66-1.25) mg/dL Glucose (74-99) mg/dL POC Glucose (mg/dL) 129 H 160 H (75-99) mg/dL Calcium (8.4-10.2) mg/dL AST (17-59) U/L ALT (4-49) U/L Troponin I (0.000-0.034) ng/mL Total Protein (6.3-8.2) g/dL Albumin (3.5-5.0) g/dL Acetone, Qual 11 H (Negative) mg/dL 01/10/20 01/10/20 01/10/20 Range/Units 05:28 06:36 07:00 WBC 19.0 H (3.8-10.6) k/uL RBC 3.61 L (4.30-5.90) m/uL Hgb 11.0 L (13.0-17.5) gm/dL Hct 32.8 L (39.0-53.0) % Plt Count 118 L (150-450) k/uL Neutrophils # 17.1 H (1.3-7.7) k/uL Potassium (3.5-5.1) mmol/L BUN 39 H (9-20) mg/dL Creatinine 4.82 H (0.66-1.25) mg/dL Glucose 161 H (74-99) mg/dL POC Glucose (mg/dL) 163 H (75-99) mg/dL Calcium 7.2 L (8.4-10.2) mg/dL AST (17-59) U/L ALT (4-49) U/L Troponin I (0.000-0.034) ng/mL Total Protein (6.3-8.2) g/dL Albumin (3.5-5.0) g/dL Acetone, Qual (Negative) mg/dL 01/10/20 01/10/20 01/10/20 Range/Units 07:00 12:02 15:22 WBC (3.8-10.6) k/uL RBC (4.30-5.90) m/uL Hgb (13.0-17.5) gm/dL Hct (39.0-53.0) % Plt Count (150-450) k/uL Neutrophils # (1.3-7.7) k/uL Potassium 3.3 L (3.5-5.1) mmol/L BUN 38 H (9-20) mg/dL Creatinine 4.88 H (0.66-1.25) mg/dL Glucose 160 H (74-99) mg/dL POC Glucose (mg/dL) 204 H (75-99) mg/dL Calcium 7.0 L (8.4-10.2) mg/dL AST 586 H (17-59) U/L ALT 488 H (4-49) U/L Troponin I 0.352 H* (0.000-0.034) ng/mL Total Protein 4.8 L (6.3-8.2) g/dL Albumin 2.8 L (3.5-5.0) g/dL Acetone, Qual (Negative) mg/dL Microbiology - Last 24 Hours (Table) 01/08/20 07:31 Blood Culture - Preliminary Blood No Growth after 48 hours Assessment and Plan Assessment: acute hypoxic respiratory failure needed when day of mechanical ventilation, currently extubated Acute kidney failure , improving Severe metabolic acidosis, improving Elevated lactic acid , improving alcohol abuse and risk of local withdrawal and delirium tremens diabetes mellitus, type II elevated troponin Plan: this is a 59 years old male who presents with respiratory failure and acidosis, status post hemodialysis ,patient admitted to the ICU with pulmonary/critical care team managing his vent and critical condition.continue with Zosyn. Continue with Levemir and insulin sliding scale. DIET as tolerated hold metformin and losartan.we will monitor kidney function closely as well. And monitor input and output Continue same treatment. Monitor lytes and vitals. DVT and GI prophylaxis. Further recommendations of the clinical course of the patient DVT prophylaxis: Subcutaneous heparin GI Prophylaxis: Pepcid PT/OT. Recommended inpatient rehab, we will consult Dr. Odell Prognosis is guarded
[2020-01-11 00:07] LABS: Glucose,Whole Blood 181 mg/dL (75-99)
[2020-01-11] MEDS: INSULIN ASPART (NovoLOG) 100 UNIT/ML VIAL SQ SCH ×5 (00:57→20:30)
--- NOTE | 2020-01-11 01:40 | XR ---
EXAMINATION TYPE: XR chest 1V portable DATE OF EXAM: 01/11/2020 COMPARISON: Yesterday HISTORY: Short of breath TECHNIQUE: FINDINGS: There is bilateral perihilar pulmonary airspace edema. There is blunting left costophrenic angle. There are chest leads. Bony thorax is intact. IMPRESSION: There is increased pulmonary airspace edema compared to exam yesterday and consistent wit h developing RDS or congestive heart failure.
[2020-01-11 04:44] LABS: Basophils % (A) 0 %; Eosinophils # (A) 0.1 k/uL (0-0.7); Eosinophils % (A) 0 %; HCT 34.5 % (39.0-53.0); HGB 11.3 gm/dL (13.0-17.5); Lymphocytes # (A) 0.8 k/uL (1.0-4.8); Lymphocytes % (A) 4 %; MCH 30.8 pg (25.0-35.0); MCHC 32.9 g/dL (31.0-37.0); MCV 93.6 fL (80.0-100.0); Monocytes # (A) 0.5 k/uL (0-1.0); Monocytes % (A) 2 %; Neutrophils # (A) 20.6 k/uL (1.3-7.7); Neutrophils % (A) 93 %; Platelet Count 108 k/uL (150-450); RBC 3.68 m/uL (4.30-5.90); RDW 13.8 % (11.5-15.5); WBC 22.1 k/uL (3.8-10.6)
[2020-01-11 04:50] LABS: Albumin 2.6 g/dL (3.5-5.0); Calcium 6.9 mg/dL (8.4-10.2); Potassium 3.7 mmol/L (3.5-5.1); Total Bilirubin 1.5 mg/dL (0.2-1.3); Total Protein 4.6 g/dL (6.3-8.2)
[2020-01-11 05:59] LABS: Glucose,Whole Blood 215 mg/dL (75-99)
[2020-01-11] MEDS: INSULIN DETEMIR (LEVEMIR) 100 UNIT/ML SYR SQ SCH (06:03)
--- NOTE | 2020-01-11 06:19 | P.CONS ---
History of Present Illness - Chief Complaint Medical debility - History of Present Illness I had the opportunity to see patient for inpatient rehab consultation with regard to medical debility. He was admitted to [facility] January 07 with shortness of breath. Been using and alcohol for 5 days and now in DVTs. Last night underwent respiratory failure with hypoxemia. Chest x-ray consistent with RDS and CHF. Head CT demonstrates mild to moderate atrophy. Note patient has had hemodialysis catheter place. Seen by therapies. PT reports minimal moderate assistance for bed mobility and minimal assistance for gait 132 feet with roller walker. OT reports minimal assistance for upper dressing and maxim al assist for lower dressing. Two-person assistance for bathing, toileting and transfers. Previous functional history unobtainable from patient currently. Review of Systems Review of systems: As gleaned from chart and exam patient ENT: Denies sneezes or discharge. Eyes: Denies discharge or photophobia. Cardiac: Denies chest pain or palpitation. Pulmonary: Denies cough or shortness of breath. Gastrointestinal: Denies nausea, emesis, constipation, diarrhea. Genitourinary: Denies discharge or frequency. Musculoskeletal: Denies muscle or bone aches. Neurologic: Obtunded. Endocrine: Denies shakes or sweats. Oncology: Denies cancers. Dermatologic: Denies rash, itching, pruritus. ALLERGY/immunology: Denies sneezes, rashes. Past Medical History Past Medical History: CVA/TIA, Diabetes Mellitus, Hyperlipidemia, Hypertension, Pneumonia Additional Past Medical History / Comment(s): June 2019 severe pneumonia, 2018 CVA with some numbness L hand fingers, NIDDM type II, binge drinking, 2007 pancreatitis/alcoholic hepatitis, recent lower blood pressure past month. History of Any Multi-Drug Resistant Organisms: None Reported Past Surgical History: No Surgical Hx Reported Past Anesthesia/Blood Transfusion Reactions: Unable to Obtain Additional Past Anesthesia/Blood Transfusion Reaction / Comm: Pt has never had surgery. Smoking Status: Never smoker - Past Family History Mother Family Medical History: Congestive Heart Failure (CHF) Brother(s) Family Medical History: Myocardial Infarction (PR) Additional Family Medical History / Comment(s): of drug overdose at the age of 56 yrs, brook believes he had a PR as well. Sister(s) Additional Family Medical History / Comment(s): Sister from a drug overdose at the age of 63 yrs. Medications and Allergies Home Medications Medication Instructions Recorded Confirmed Type Aspirin 81 mg PO DAILY #30 chew 05/19/18 01/08/20 Rx metFORMIN HCL [Glucophage] 500 mg PO BID #60 tab 05/19/18 01/08/20 Rx Losartan Potassium 100 mg PO DAILY 01/08/20 01/08/20 History Pravastatin Sodium [Pravachol] 10 mg PO DAILY 01/08/20 01/08/20 History Triamterene-Hctz 37.5-25Mg 1 cap PO DAILY 01/08/20 01/08/20 History [Dyazide 37.5-25 Capsule] Allergies Allergy/AdvReac Type Severity Reaction Status Date / Time No Known Allergies Allergy Verified 01/08/20 07:05 Physical Exam Vitals: Vital Signs Temp Pulse Pulse Resp BP Pulse Ox 01/11/20 06:00 99 21 122/91 98 01/11/20 05:00 105 H 26 H 112/85 98 01/11/20 04:00 100.6 F H 101 H 28 H 129/101 97 01/11/20 03:00 108 H 30 H 97/72 95 01/11/20 02:00 116 H 36 H 139/103 95 01/11/20 01:00 123 H 47 H 151/112 93 L 01/11/20 00:00 100.6 F H 124 H 49 H 155/113 86 L 01/10/20 23:00 126 H 44 H 152/108 93 L 01/10/20 22:00 129 H 45 H 142/109 93 L 01/10/20 21:00 130 H 43 H 150/119 94 L 01/10/20 20:00 134 H 128 H 50 H 162/109 92 L 01/10/20 19:00 122 H 25 H 157/107 94 L 01/10/20 18:00 115 H 28 H 171/128 92 L 01/10/20 17:00 110 H 15 132/97 96 01/10/20 16:00 103 H 21 176/126 98 01/10/20 15:00 113 H 24 177/128 92 L 01/10/20 14:00 114 H 19 171/123 90 L 01/10/20 13:00 111 H 14 95 01/10/20 12:00 116 H 13 94 L 01/10/20 11:15 109 H 17 163/126 92 L 01/10/20 10:15 108 H 17 163/127 92 L 01/10/20 09:00 98 F 109 H 17 160/132 94 L 01/10/20 08:00 110 H 16 173/111 94 L 01/10/20 07:55 17 01/10/20 07:26 102 H 01/10/20 07:15 100 01/10/20 07:00 111 H 17 168/105 96 Intake and Output 01/10/20 01/10/20 01/11/20 14:59 22:59 06:59 Intake Total 500 50 50 Output Total 485 465 330 Balance 23 -981 -273 Intake: IV 400 50 50 NS 150 Piperacillin-Tazobactam 3 100 50 50 .375 gm In Sodium Chloride 0.9% 100 ml @ 25 mls/hr IVPB Q12HR [facility] Rx #:[id number] Potassium Chloride 20 meq 100 In Water For Injection 1 100ml.bag @ 50 mls/hr IVPB Q2H [facility] Rx#: [id number] Sodium Chloride 0.9% 1, 50 000 ml @ 50 mls/hr IV . Q20H [facility] Rx#:[id number] Oral 100 Output: Urine 485 465 330 Other: Voiding Method Indwelling Catheter Indwelling Catheter Indwelling Catheter # Bowel Movements 1 Weight 96.7 kg Skin: Good color, texture, turgor. General: Medium build and comfortable appearance. Head: Normocephalic, atraumatic. Eyes: Symmetric. Pupils equal round. Ears: Symmetric. Hearing within normal limits. Mouth: Clear. Oxygen mask. Neck: Supple. Carotid without bruit. Cardiac: Regular rate and rhythm. Lungs: Clear anteriorly and posteriorly. Abdomen: Soft active nontender. Extremities: Normal tone. Neurological: Mental status: Alert, cooperative, pleasant. Cranial nerves: Symmetric facial tone and trapezius. Motor: Poor movement noxious stimulus all limbs. Sensation: As noted above. DTRs: Symmetric and equal throughout. Mobility: Did not perform bed mobility. Results CBC & Chem 7: 01/11/20 04:00 01/11/20 04:00 Labs: Abnormal Lab Results - Last 24 Hours (Table) 01/09/20 01/10/20 01/10/20 Range/Units 11:04 05:28 06:36 WBC (3.8-10.6) k/uL RBC (4.30-5.90) m/uL Hgb (13.0-17.5) gm/dL Hct (39.0-53.0) % Plt Count (150-450) k/uL Neutrophils # (1.3-7.7) k/uL Lymphocytes # (1.0-4.8) k/uL Potassium (3.5-5.1) mmol/L BUN 39 H (9-20) mg/dL Creatinine 4.82 H (0.66-1.25) mg/dL Glucose 161 H (74-99) mg/dL POC Glucose (mg/dL) 163 H (75-99) mg/dL Calcium 7.2 L (8.4-10.2) mg/dL Total Bilirubin (0.2-1.3) mg/dL AST (17-59) U/L ALT (4-49) U/L Troponin I (0.000-0.034) ng/mL Total Protein (6.3-8.2) g/dL Albumin (3.5-5.0) g/dL Acetone, Qual 11 H (Negative) mg/dL 01/10/20 01/10/20 01/10/20 Range/Units 07:00 07:00 12:02 WBC 19.0 H (3.8-10.6) k/uL RBC 3.61 L (4.30-5.90) m/uL Hgb 11.0 L (13.0-17.5) gm/dL Hct 32.8 L (39.0-53.0) % Plt Count 118 L (150-450) k/uL Neutrophils # 17.1 H (1.3-7.7) k/uL Lymphocytes # (1.0-4.8) k/uL Potassium 3.3 L (3.5-5.1) mmol/L BUN 38 H (9-20) mg/dL Creatinine 4.88 H (0.66-1.25) mg/dL Glucose 160 H (74-99) mg/dL POC Glucose (mg/dL) 204 H (75-99) mg/dL Calcium 7.0 L (8.4-10.2) mg/dL Total Bilirubin (0.2-1.3) mg/dL AST 586 H (17-59) U/L ALT 488 H (4-49) U/L Troponin I (0.000-0.034) ng/mL Total Protein 4.8 L (6.3-8.2) g/dL Albumin 2.8 L (3.5-5.0) g/dL Acetone, Qual (Negative) mg/dL 01/10/20 01/10/20 01/11/20 Range/Units 15:22 18:05 00:05 WBC (3.8-10.6) k/uL RBC (4.30-5.90) m/uL Hgb (13.0-17.5) gm/dL Hct (39.0-53.0) % Plt Count (150-450) k/uL Neutrophils # (1.3-7.7) k/uL Lymphocytes # (1.0-4.8) k/uL Potassium (3.5-5.1) mmol/L BUN (9-20) mg/dL Creatinine (0.66-1.25) mg/dL Glucose (74-99) mg/dL POC Glucose (mg/dL) 181 H 181 H (75-99) mg/dL Calcium (8.4-10.2) mg/dL Total Bilirubin (0.2-1.3) mg/dL AST (17-59) U/L ALT (4-49) U/L Troponin I 0.352 H* (0.000-0.034) ng/mL Total Protein (6.3-8.2) g/dL Albumin (3.5-5.0) g/dL Acetone, Qual (Negative) mg/dL 01/11/20 01/11/20 01/11/20 Range/Units 04:00 04:00 05:57 WBC 22.1 H (3.8-10.6) k/uL RBC 3.68 L (4.30-5.90) m/uL Hgb 11.3 L (13.0-17.5) gm/dL Hct 34.5 L (39.0-53.0) % Plt Count 108 L (150-450) k/uL Neutrophils # 20.6 H (1.3-7.7) k/uL Lymphocytes # 0.8 L (1.0-4.8) k/uL Potassium (3.5-5.1) mmol/L BUN 52 H (9-20) mg/dL Creatinine 5.89 H (0.66-1.25) mg/dL Glucose 187 H (74-99) mg/dL POC Glucose (mg/dL) 215 H (75-99) mg/dL Calcium 6.9 L (8.4-10.2) mg/dL Total Bilirubin 1.5 H (0.2-1.3) mg/dL AST 209 H (17-59) U/L ALT 276 H (4-49) U/L Troponin I (0.000-0.034) ng/mL Total Protein 4.6 L (6.3-8.2) g/dL Albumin 2.6 L (3.5-5.0) g/dL Acetone, Qual (Negative) mg/dL Microbiology - Last 24 Hours (Table) 01/08/20 07:31 Blood Culture - Preliminary Blood No Growth after 48 hours Assessment and Plan (1) Metabolic acidosis Current Visit: Yes Status: Acute Code(s): E87.2 - ACIDOSIS SNOMED Code(s): 17020434 (2) Cerebrovascular accident Current Visit: No Status: Acute Code(s): I63.9 - CEREBRAL INFARCTION, UNSPECIFIED SNOMED Code(s): 122746024 (3) Hypertensive urgency Current Visit: No Status: Acute Code(s): I16.0 - HYPERTENSIVE URGENCY SNOMED Code(s): 839709826 (4) Thalamic stroke Current Visit: No Status: Acute Code(s): I63.9 - CEREBRAL INFARCTION, UNSPECIFIED SNOMED Code(s): 880129778 Plan: Impression: 1. Medical debility. 2. Alcohol withdrawal with DTs. 3. Acute respiratory failure with hypoxemia. 4. Thalamic stroke with history of previous stroke. 4. Hypertension. 5. Dyslipidemia. 6. Diabetes. Comments and plan: PT and OT of initiated. Patient's condition however change overnight. Rehab prognosis currently guarded.
[2020-01-11] MEDS ORDERED: FAMOTIDINE 20 MG/2 ML VIAL IV SCH (09:00)
--- NOTE | 2020-01-11 09:33 | PN ---
PROGRESS NOTE PULMONARY/CRITICAL CARE PROGRESS NOTE: DATE OF SERVICE: 01/11/2020 Critical care time 32 minutes. HISTORY OF PRESENT ILLNESS: A 59-year-old male who was seen initially 3 days ago in the emergency department. He came in with what was thought to be severe intoxication with alcohol and/or ethylene glycol. Anyway, it appears that it was probably just alcohol in retrospect. He apparently was drinking rum. He does this periodically as part of a binge drinking routine. He presented with severe metabolic acidosis and lactic acidemia. He had a significant osmolar gap. He had some acute kidney injury as well. He was initially intubated in the emergency department and transferred up to the ICU. Two days ago, the patient's chest x-ray was improved. His blood gases were excellent and his weaning parameters were good and the patient was extubated. Currently, the patient is back on either BiPAP at 12/5 and 50% or high-flow O2 at 8 L. Yesterday, he became very agitated. We gave him Haldol with some improvement. The patient is currently getting saline at 10 mL an hour. He should get hemodialysis today as his chest x-ray shows fluid overload. Some of his behavior may relate to alcohol withdrawal syndrome. PHYSICAL EXAMINATION: VITAL SIGNS: Current vital signs are reviewed. Temperature is 100.6, heart rate 99, respiratory rate 26, blood pressure 112/87, mean 95, saturations are 96 to 98% on high- flow O2. Appears in no acute distress. He promises to behave himself today. BiPAP mask is removed. High-flow nasal cannula is placed. NECK: Supple. Full range of motion. No adenopathy. Neck veins are flat. CARDIOVASCULAR: Examination reveals a heart rate of about 100 beats per minute. S1, S2 normal. No murmur. LUNGS: Relatively clear. A few scattered rhonchi. No wheezes or crackles. ABDOMEN: Soft. Bowel sounds are noted. EXTREMITIES: Intact. No edema. SKIN: Without rash. NEUROLOGIC: Neurologic examination appears to show it to be nonfocal. He is a bit lethargic this morning though. LABS: Reviewed. White count 22.1, hemoglobin 11.3, hematocrit 34.5, platelet count 108,000. Sodium, potassium, chloride, CO2 all normal. Anion gap normal. BUN and creatinine were 52 and 5.89. Calcium 6.9, bilirubin 1.5, AST 209, ALT is 276. His albumin is 2.6. Microbiology thus far is negative. IMAGING: The patient had a chest x-ray today. It shows fluid overload. CURRENT MEDICATIONS: Reviewed. He is on amlodipine, Pepcid, Haldol, heparin, insulin, lorazepam, Narcan, Zofran, Zosyn, potassium replacement. ASSESSMENT: 1. Acute hypoxemic respiratory failure, secondary to acute mental status changes, severe electrolyte disturbances, and severe metabolic acidosis with lactic acidemia, likely related to acute alcohol intoxication, which required intubation on January 07 and extubation on January 09, 2020. 2. Severe agitation and confusion, improved. 3. Severe metabolic acidosis with lactic acidemia and anion gap. 4. Doubt ethylene glycol intoxication. 5. Acute alcohol intoxication. 6. History of acute kidney injury with renal failure. 7. History of chronic alcohol abuse. 8. Diabetes mellitus. 9. History of hypertension. 10.Hyperlipidemia. PLAN: The patient will hopefully receive hemodialysis today. He should. Fluid should be removed as he is showing evidence of fluid overload. He continues on Zosyn, although microbiology is negative. The patient will be taken off his BiPAP and placed on high- flow O2. He is getting saline at 10 mL an hour. We will continue to follow. Overall prognosis is guarded. Continue with Marsha velázquez Critical care time 32 minutes. MMASHAL / KEMALN: [id number] /
--- NOTE | 2020-01-11 11:54 | PN ---
PROGRESS NOTE The patient is seen for followup for acute kidney injury. Patient was admitted to the hospital with significant obtundation, hypoxic respiratory failure and severe anion gap metabolic acidosis along with elevated osmolar gap. Toxic volatile alcohol screen was negative. However, patient was severely acidotic with elevated serum acetone and alcohol levels. His lactic acid was also more than 24. He had been on metformin prior to admission. The patient received one treatment of hemodialysis on admission and his mentation improved significantly the next day with improvement in acidosis as well. However, this morning patient was more short of breath and his chest x-ray shows CHF with worsening pulmonary vasculature. Therefore, patient is being dialyzed today. He has had good urine output. Therefore, I will start him on IV Lasix and we will assess on a daily basis regarding need for renal replacement therapy. PHYSICAL EXAMINATION: On examination today, blood pressure is 126/89, heart rate 106 per minute, patient did have a temp of 100.8 degrees Fahrenheit. He is currently sleeping but arousable. He is not in any acute distress. Mildly short of breath. Examination of the heart S1, S2. Examination of lungs, bilateral breath sounds are heard. Bilateral crackles are heard. Abdomen is soft, nontender, obese. Exam of lower extremities shows trace edema. 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 LAB: Show sodium 139, potassium 3.7, chloride 104, BUN 52, creatinine 5.89, hemoglobin 11.3 g/dL. ASSESSMENT: 1. Acute kidney injury associated with severe hypotension on initial admission, status post one treatment of hemodialysis on admission, mainly for severe acidosis. Patient's urine output had picked up once his blood pressure had stabilized. However, this morning he is in volume overload. Therefore, he is being dialyzed again today. I will start him on IV Lasix and hopefully we can avoid further dialysis, but I will keep the femoral catheter in for now. Previous creatinine was 0.9 on 09/21/2018. We have a creatinine of 2.0 on 07/24/2019 as well. 2. Severe anion gap metabolic acidosis with elevated osmolar gap, possibly related to toxic alcohol ingestion. However, the volatile alcohol screen was negative. Patient's urine fluorescence was positive, but this can be nonspecific. Serum alcohol level and acetone were elevated along with elevated lactic acid levels, which are all improved now post dialysis. 3. Volume overload. Start IV Lasix and we will dialyze the patient today. 4. History of EtOH abuse. PLAN: Hemodialysis today. Start IV Lasix. Monitor urine output. Avoid nephrotoxic agents. Repeat labs in a.m. and we will assess on a daily basis regarding need for dialysis. MMODL / IJN: [id number] /
[2020-01-11 11:57] LABS: Glucose,Whole Blood 131 mg/dL (75-99)
--- NOTE | 2020-01-11 12:31 | P.PN ---
Subjective Progress Note Date: 01/11/20 The patient was seen sitting in bed in the ICU, he is status post right femoral temporary hemodialysis catheter placement for acute kidney injury. Prior to today, he has only needed 1 hemodialysis treatment. He has been having adequate urine output per Duque catheter. Patient had some fluid overload through the night and is scheduled to receive hemodialysis today. Objective - Vital Signs Vital signs: Vital Signs Temp 100.6 F H 01/11/20 04:00 Pulse 112 H 01/11/20 07:00 Resp 26 H 01/11/20 07:00 BP 112/87 01/11/20 07:00 Pulse Ox 96 01/11/20 07:00 Intake & Output 01/10/20 01/11/20 01/11/20 18:59 06:59 18:59 Intake Total 500 100 Output Total 705 605 30 Balance -205 -505 -30 Weight 96.7 kg Intake: IV 400 100 NS 150 Piperacillin-Tazobactam 3 100 100 .375 gm In Sodium Chloride 0.9% 100 ml @ 25 mls/hr IVPB Q12HR [facility] Rx #:[id number] Potassium Chloride 20 meq 100 In Water For Injection 1 100ml.bag @ 50 mls/hr IVPB Q2H [facility] Rx#: [id number] Sodium Chloride 0.9% 1, 50 000 ml @ 50 mls/hr IV . Q20H [facility] Rx#:[id number] Oral 100 Output: Urine 705 605 30 Other: Voiding Method Indwelling Catheter Indwelling Catheter # Bowel Movements 1 ABP, PAP, CO, CI - Last Documented Arterial Blood Pressure 150/57 - Exam General appearance: The patient is alert, disorientated, in no acute distress. HET: Head is normocephalic and atraumatic. Extremities: Normal skin color and turgor. No cyanosis, rash, ulceration, clubbing, or edema. Radial and pedal pulses are 2/4 bilaterally. Right groin with temporary hemodialysis catheter in place. Neurological: No focal deficits. Strength and sensation are grossly intact. - Labs CBC & Chem 7: 01/11/20 04:00 01/11/20 04:00 Labs: Abnormal Lab Results - Last 24 Hours (Table) 01/10/20 01/10/20 01/10/20 Range/Units 12:02 15:22 18:05 WBC (3.8-10.6) k/uL RBC (4.30-5.90) m/uL Hgb (13.0-17.5) gm/dL Hct (39.0-53.0) % Plt Count (150-450) k/uL Neutrophils # (1.3-7.7) k/uL Lymphocytes # (1.0-4.8) k/uL BUN (9-20) mg/dL Creatinine (0.66-1.25) mg/dL Glucose (74-99) mg/dL POC Glucose (mg/dL) 204 H 181 H (75-99) mg/dL Calcium (8.4-10.2) mg/dL Total Bilirubin (0.2-1.3) mg/dL AST (17-59) U/L ALT (4-49) U/L Troponin I 0.352 H* (0.000-0.034) ng/mL Total Protein (6.3-8.2) g/dL Albumin (3.5-5.0) g/dL 01/11/20 01/11/20 01/11/20 Range/Units 00:05 04:00 04:00 WBC 22.1 H (3.8-10.6) k/uL RBC 3.68 L (4.30-5.90) m/uL Hgb 11.3 L (13.0-17.5) gm/dL Hct 34.5 L (39.0-53.0) % Plt Count 108 L (150-450) k/uL Neutrophils # 20.6 H (1.3-7.7) k/uL Lymphocytes # 0.8 L (1.0-4.8) k/uL BUN 52 H (9-20) mg/dL Creatinine 5.89 H (0.66-1.25) mg/dL Glucose 187 H (74-99) mg/dL POC Glucose (mg/dL) 181 H (75-99) mg/dL Calcium 6.9 L (8.4-10.2) mg/dL Total Bilirubin 1.5 H (0.2-1.3) mg/dL AST 209 H (17-59) U/L ALT 276 H (4-49) U/L Troponin I (0.000-0.034) ng/mL Total Protein 4.6 L (6.3-8.2) g/dL Albumin 2.6 L (3.5-5.0) g/dL 01/11/20 Range/Units 05:57 WBC (3.8-10.6) k/uL RBC (4.30-5.90) m/uL Hgb (13.0-17.5) gm/dL Hct (39.0-53.0) % Plt Count (150-450) k/uL Neutrophils # (1.3-7.7) k/uL Lymphocytes # (1.0-4.8) k/uL BUN (9-20) mg/dL Creatinine (0.66-1.25) mg/dL Glucose (74-99) mg/dL POC Glucose (mg/dL) 215 H (75-99) mg/dL Calcium (8.4-10.2) mg/dL Total Bilirubin (0.2-1.3) mg/dL AST (17-59) U/L ALT (4-49) U/L Troponin I (0.000-0.034) ng/mL Total Protein (6.3-8.2) g/dL Albumin (3.5-5.0) g/dL Microbiology - Last 24 Hours (Table) 01/08/20 07:31 Blood Culture - Preliminary Blood No Growth after 48 hours Assessment and Plan Assessment: 1. Acute renal failure 2. Severe metabolic acidosis 3. Hypoxic respiratory failure 4. Alcohol abuse 5. Diabetes 6. Hypertension 7. Per lipidemia Plan: We'll await recommendations per nephrology on hemodialysis catheter removal. Continue hemodialysis as ordered per nephrology. We will continue to follow. The above dictated assessment and findings were discussed with Dr. Duque. The impression and plan of care have been directed as dictated.
[2020-01-11] MEDS: HEPARIN SODIUM,PORCINE 5,000 UNIT/ML 1 ML VIAL SQ SCH ×2 (13:53→21:30)
[2020-01-11] MEDS: PIPERACILLIN-TAZOBACTAM 3.375 GM in SODIUM CHLORIDE 0.9% 100 ML IVPB SCH ×2 (13:53→21:30)
[2020-01-11] MEDS: FUROSEMIDE 10 MG/ML 10 ML VIAL IV SCH ×2 (13:54→21:30)
[2020-01-11] MEDS: amLODIPine 5 MG TAB PO SCH (13:55)
[2020-01-11 17:27] LABS: Glucose,Whole Blood 156 mg/dL (75-99)
--- NOTE | 2020-01-11 18:24 | P.PN ---
Subjective This is a 59 years old male with past medical history of hypertension, hyperlipidemia, diabetes mellitus, CVA/TIA, diabetic neuropathy. Exactly and depression, heavy alcohol drinker. Presents because of dyspnea Patient got intubated in the emergency room confirmation was taken from records and staff. The patient has been belching drinking alcohol he is been drinking alcohol for the last 5 days, today his financing noticed his been short of b reath and he came to emergency room on admission was significantly tachypneic with her respiratory rate around 30, blood pressure was 133/84 however it drops to 89/50.patient was vomiting and he got confused, WBC of 40 6K, Hemoglobin and Platelets Are Normal, ABG Shows Severe Acidosis with pH less than 6.8, pCO2 29 and pO2 was 352. Lactic acid significantly elevated more than 24, elevated troponin 0.03, sodium mildly low at 136, potassium normal 5.0,, liver enzymes mildly elevated with AST 113, with normal ALT 45, lipase slightly high at 519. creatinine is elevated at 4.0, urinalysis is unremarkable. Chest x-ray done in the emergency room showing diminished inspiration with developing retrocardiac acute infiltrate and/or atelectasis. EKG showing normal sinus rhythm at [address]-T changes and QTC of 542 in the emergency room patient was givenon vancomycin and Zosyn home medications including metformin, Dyazide, Pravachol, losartan and aspirin 01/09/2020 Patient remains in the ICU, his status post extubation, he is currently breathing quietly On 2 L oxygen and he is saturating high 90s. This is slightly tachycardic at 108 Vital signs stable. Patient and significant other at bedside confirmed to me he was only drinking rum for 5 days prior to admission to the hospital. WBC is down to 21.9. Hemoglobin is 11.7, platelets is also down to 186, most likely it's hemodilution. PH is 7.5, pCO2 is 33 which is low and high CO2 at 157. Lactic acid is also significantly improved and output 4.6, glucose is controlled 129 06/24/1968. Creatinine 2.6, sodium 134 and dressed of electrolytes is normal. AST is up 113 to 1446 and ALT up from 40 to 749. Chest x-ray from today showing stable findings Patient is started back on Zosyn today. He was nothing by mouth, started on clear liquid diet. He got 12 units of short-acting insulin in the morning. As well as he got Levemir 10 units. We will keep Levemir and insulin sliding scale . Hemoglobin A1c is 7.5% 01/10/2020 Patient is more awake and interactive today, he does not have any specific complaints, he remains in the ICU with close monitoring. He still feels generally weak. But he is improving gradually. His tachypneic at 22 tachycardic around 125, his sugar is elevated today after holding his Levemir, however continue with insulin sliding scale, patient is a started on diet and is advanced gradually. Patient was placed on hold, due to delirium mostly due to his infection and metabolic abnormality including renal failure and hyperglycemia , however patient was started on antibiotics and currently he is on Zosyn. Patient remains to improve gradually.The saturating 94% on 4 L oxygen via nasal cannula. Leukocytosis trending down to 19.0 K. Hemoglobin 11.0. Creatinine stable as of yesterday at 4.8. And liver enzymes came down significantly 2586 AST and 488 ALT, troponin 0.35. However patient with no chest pain or dyspnea. Chest x-ray showed persistent bilateral infiltrates and venous congestion and he remains on Zosyn for now. No more hemodialysis and encourage oral intake.. 01/11/2020 Patient remains in critical condition in the ICU he's awake and alert but still lethargic and severely weak. Vitas looks stable, however her WBC is worsening to 22, creatinine went up slightly to 5.8, troponin was high 0.3, glucose controlled less than 200, LFT is improving.. Patient got agitated and he didn't Haldol with partial improvement however his more calm today. He needed BiPAP overnight, and he was on 8 L oxygen via high flow nasal cannula in the morning, he needed hemodialysis today as his chest x-ray showed worsening CHF versus RDS and is oxygen requirement dropped to 4 L after the dialysis. Patient is a spiking fever of 100.1 and he remains on Zosyn for that. Lasix 60 mg twice daily was added. We will order echocardiogram. Dr. Odell input is appreciated, patient will need rehab once he improves Review of systems CONSTITUTIONAL: No fever, no malaise, no fatigue. HEENT: No recent visual problems or hearing problems. Denied any sore throat. CARDIOVASCULAR: no palpitations, no syncope. GASTROINTESTINAL: No diarrhea, no nausea, no vomiting, no abdominal pain. Normoactive bowel sounds. NEUROLOGICAL: No headaches, no weakness, no numbness. HEMATOLOGICAL: Denies any bleeding or petechiae. Active Medications Generic Name Dose Route Start Last Admin Trade Name Freq PRN Reason Stop Dose Admin Amlodipine Besylate 5 mg 01/10/20 14:15 01/11/20 13:55 Norvasc PO Not Given DAILY [facility] Famotidine 20 mg 01/12/20 09:00 Pepcid PO DAILY [facility] Furosemide 60 mg 01/11/20 09:30 01/11/20 13:54 Lasix IV 60 mg Q12HR [facility] Administration Haloperidol Lactate 4 mg 01/10/20 18:18 01/10/20 18:23 Haldol IVP 4 mg Q2HR PRN Administration Agitation or Acute Psychosis Haloperidol Lactate 8 mg 01/10/20 18:20 01/10/20 20:26 Haldol IVP 8 mg Q2HR PRN Administration Agitation or Acute Psychosis Heparin Sodium (Porcine) 5,000 unit 01/08/20 21:00 01/11/20 13:53 Heparin SQ 5,000 unit Q12HR [facility] Administration Piperacillin Sod/Tazobactam 100 mls @ 25 mls/hr 01/08/20 21:00 01/11/20 13:53 Sod 3.375 gm/ Sodium Chloride IVPB 25 mls/hr Q12HR [facility] Administration Insulin Aspart 0 unit 01/09/20 00:00 01/11/20 17:30 Novolog SQ 1 unit Q6HR [facility] Administration Protocol Insulin Detemir 10 unit 01/10/20 07:00 01/11/20 06:03 Levemir SQ 10 unit DAILY@0700 [facility] Administration Lorazepam 1 mg 01/10/20 15:02 01/10/20 22:44 Ativan IV 1 mg Q2HR PRN Administration CIWA 8 or 9 Lorazepam 1 mg 01/10/20 15:02 01/10/20 20:18 Ativan IV 1 mg Q1HR PRN Administration CIWA 10 to 15 Miscellaneous Information 1 each 01/10/20 08:00 Potassium Per Protocol MISCELLANE DAILY PRN Per Protocol Protocol Naloxone HCl 0.2 mg 01/08/20 09:11 Narcan IV Q2M PRN Opioid Reversal Ondansetron HCl 4 mg 08/20/20 15:01 Zofran IVP Q6HR PRN Nausea And Vomiting Objective - Vital Signs Vital signs: Vital Signs Temp 100.8 F H 01/11/20 08:00 Pulse 106 H 01/11/20 11:00 Resp 39 H 01/11/20 11:00 BP 126/89 01/11/20 11:00 Pulse Ox 96 01/11/20 11:00 Intake & Output 01/10/20 01/11/20 01/11/20 18:59 06:59 18:59 Intake Total 500 100 Output Total 705 605 170 Balance -205 -505 -170 Weight 96.7 kg Intake: IV 400 100 NS 150 Piperacillin-Tazobactam 3 100 100 .375 gm In Sodium Chloride 0.9% 100 ml @ 25 mls/hr IVPB Q12HR [facility] Rx #:[id number] Potassium Chloride 20 meq 100 In Water For Injection 1 100ml.bag @ 50 mls/hr IVPB Q2H [facility] Rx#: [id number] Sodium Chloride 0.9% 1, 50 000 ml @ 50 mls/hr IV . Q20H [facility] Rx#:[id number] Oral 100 Output: Urine 705 605 170 Other: Voiding Method Indwelling Catheter Indwelling Catheter Indwelling Catheter # Bowel Movements 1 ABP, PAP, CO, CI - Last Documented Arterial Blood Pressure 150/57 - Exam -GENERAL: The patient is alert and oriented x3, not in any acute distress. His weakness is improving gradually HEENT: Pupils are round and equally reacting to light. EOMI. No scleral icterus. No conjunctival pallor. Normocephalic, atraumatic. No pharyngeal erythema. No thyromegaly. CARDIOVASCULAR: S1 and S2 present. No murmurs, rubs, or gallops. -PULMONARY: Chest is clear to auscultation, no wheezing or. Bilateral basal crepitation ABDOMEN: Soft, nontender, nondistended, normoactive bowel sounds. No palpable organomegaly. MUSCULOSKELETAL: No joint swelling or deformity. EXTREMITIES: No cyanosis, clubbing, or pedal edema. NEUROLOGICAL: Gross neurological examination did not reveal any focal deficits. SKIN: No rashes. no petechiae. - Labs CBC & Chem 7: 01/11/20 04:00 01/11/20 04:00 Labs: Abnormal Lab Results - Last 24 Hours (Table) 01/10/20 01/10/20 01/11/20 Range/Units 15:22 18:05 00:05 WBC (3.8-10.6) k/uL RBC (4.30-5.90) m/uL Hgb (13.0-17.5) gm/dL Hct (39.0-53.0) % Plt Count (150-450) k/uL Neutrophils # (1.3-7.7) k/uL Lymphocytes # (1.0-4.8) k/uL BUN (9-20) mg/dL Creatinine (0.66-1.25) mg/dL Glucose (74-99) mg/dL POC Glucose (mg/dL) 181 H 181 H (75-99) mg/dL Calcium (8.4-10.2) mg/dL Total Bilirubin (0.2-1.3) mg/dL AST (17-59) U/L ALT (4-49) U/L Troponin I 0.352 H* (0.000-0.034) ng/mL Total Protein (6.3-8.2) g/dL Albumin (3.5-5.0) g/dL 01/11/20 01/11/20 01/11/20 Range/Units 04:00 04:00 05:57 WBC 22.1 H (3.8-10.6) k/uL RBC 3.68 L (4.30-5.90) m/uL Hgb 11.3 L (13.0-17.5) gm/dL Hct 34.5 L (39.0-53.0) % Plt Count 108 L (150-450) k/uL Neutrophils # 20.6 H (1.3-7.7) k/uL Lymphocytes # 0.8 L (1.0-4.8) k/uL BUN 52 H (9-20) mg/dL Creatinine 5.89 H (0.66-1.25) mg/dL Glucose 187 H (74-99) mg/dL POC Glucose (mg/dL) 215 H (75-99) mg/dL Calcium 6.9 L (8.4-10.2) mg/dL Total Bilirubin 1.5 H (0.2-1.3) mg/dL AST 209 H (17-59) U/L ALT 276 H (4-49) U/L Troponin I (0.000-0.034) ng/mL Total Protein 4.6 L (6.3-8.2) g/dL Albumin 2.6 L (3.5-5.0) g/dL 01/11/20 Range/Units 11:55 WBC (3.8-10.6) k/uL RBC (4.30-5.90) m/uL Hgb (13.0-17.5) gm/dL Hct (39.0-53.0) % Plt Count (150-450) k/uL Neutrophils # (1.3-7.7) k/uL Lymphocytes # (1.0-4.8) k/uL BUN (9-20) mg/dL Creatinine (0.66-1.25) mg/dL Glucose (74-99) mg/dL POC Glucose (mg/dL) 131 H (75-99) mg/dL Calcium (8.4-10.2) mg/dL Total Bilirubin (0.2-1.3) mg/dL AST (17-59) U/L ALT (4-49) U/L Troponin I (0.000-0.034) ng/mL Total Protein (6.3-8.2) g/dL Albumin (3.5-5.0) g/dL Microbiology - Last 24 Hours (Table) 01/08/20 15:55 Gram Stain - Final Sputum Sputum Culture - Final 01/08/20 07:31 Blood Culture - Preliminary Blood No Growth after 72 hours Assessment and Plan Assessment: acute hypoxic respiratory failure needed when day of mechanical ventilation, currently extubated Acute kidney failure , needed hemodialysis Pulmonary congestion versus RDS. Check echocardiogram Severe metabolic acidosis, improving Elevated lactic acid , improving alcohol abuse and risk of local withdrawal and delirium tremens diabetes mellitus, type II elevated troponin Plan: this is a 59 years old male who presents with respiratory failure and acidosis, status post hemodialysis ,patient admitted to the ICU with pulmonary/critical care team managing his vent and critical condition.continue with Zosyn. Continue with Levemir and insulin sliding scale. DIET as tolerated hold metformin and losartan.we will monitor kidney function closely as well. And monitor input and output. Check echocardiogram. Continue with Lasix. Continue same treatment. Monitor lytes and vitals. DVT and GI prophylaxis. Further recommendations of the clinical course of the patient DVT prophylaxis: Subcutaneous heparin GI Prophylaxis: Pepcid PT/OT. Recommended inpatient rehab Prognosis is guarded
[2020-01-11 20:26] LABS: Glucose,Whole Blood 174 mg/dL (75-99)
[2020-01-12] MEDS: LORazepam 2 MG/ML INJ IV PRN (01:25)
[2020-01-12 04:23] LABS: Basophils % (A) 0 %; Eosinophils # (A) 0.1 k/uL (0-0.7); Eosinophils % (A) 1 %; HCT 32.6 % (39.0-53.0); HGB 10.9 gm/dL (13.0-17.5); Lymphocytes # (A) 1.9 k/uL (1.0-4.8); Lymphocytes % (A) 12 %; MCH 30.9 pg (25.0-35.0); MCHC 33.5 g/dL (31.0-37.0); MCV 92.4 fL (80.0-100.0); Mean Platelet Volume 9.4; Monocytes % (A) 6 %; Neutrophils # (A) 13.2 k/uL (1.3-7.7); Neutrophils % (A) 80 %; RBC 3.53 m/uL (4.30-5.90); RDW 13.6 % (11.5-15.5); WBC 16.6 k/uL (3.8-10.6)
[2020-01-12 04:36] LABS: Albumin 2.7 g/dL (3.5-5.0); Calcium 7.5 mg/dL (8.4-10.2); Potassium 3.2 mmol/L (3.5-5.1); Total Protein 4.9 g/dL (6.3-8.2)
[2020-01-12 04:50] LABS: Platelet Count 80 k/uL (150-450)
[2020-01-12 06:18] LABS: Magnesium 1.8 mg/dL (1.6-2.3); Phosphorus 3.1 mg/dL (2.5-4.5)
[2020-01-12 06:35] LABS: Glucose,Whole Blood 142 mg/dL (75-99)
[2020-01-12] MEDS: INSULIN DETEMIR (LEVEMIR) 100 UNIT/ML SYR SQ SCH (06:55)
[2020-01-12] MEDS: INSULIN ASPART (NovoLOG) 100 UNIT/ML VIAL SQ SCH ×4 (06:55→21:29)
[2020-01-12] MEDS ORDERED: POTASSIUM CHLORIDE 20 MEQ in WATER FOR INJECTION 1 100ML.BAG IVPB STA (07:15)
--- NOTE | 2020-01-12 07:19 | XR ---
EXAMINATION TYPE: XR chest 1V portable DATE OF EXAM: 01/12/2020 HISTORY: Shortness of breath. COMPARISON: 01/11/2020 TECHNIQUE: Single view of the chest is submitted. FINDINGS: Demonstrated are scattered senescent parenchymal change. Hilar infiltrates left greater than right persist although have improved in the interval. Central caroline ous line unchanged in position. Small pleural effusions are improved as well. The heart is stable. Hilar and mediastinal structures are within normal limits. Degenerative changes are seen of the dorsal spine. IMPRESSION: 1. Hilar infiltrates left greater than right persist although have improved in the interval. Central venous line unchanged in position. Small pleural effusions are improved as well.
[2020-01-12] MEDS ORDERED: MAGNESIUM SULFATE-D5W PMX 1 GM in DEXTROSE/WATER 1 100ML.BAG IVPB ONE (07:30)
[2020-01-12] MEDS: HEPARIN SODIUM,PORCINE 5,000 UNIT/ML 1 ML VIAL SQ SCH ×2 (09:06→21:28)
[2020-01-12] MEDS: amLODIPine 5 MG TAB PO SCH (09:06)
[2020-01-12] MEDS: FAMOTIDINE 20 MG TAB PO SCH (09:06)
[2020-01-12] MEDS: FUROSEMIDE 10 MG/ML 10 ML VIAL IV SCH (09:06)
[2020-01-12] MEDS: PIPERACILLIN-TAZOBACTAM 3.375 GM in SODIUM CHLORIDE 0.9% 100 ML IVPB SCH ×2 (09:06→21:28)
--- NOTE | 2020-01-12 09:58 | P.PN ---
Subjective Progress Note Date: 01/12/20 Patient seen and examined. Underwent urgent hemodialysis yesterday for volume overload. No acute distress. Resting comfortably. Breathing comfortably. On oxygen. Decreasing anasarca Acute kidney injury with worsening creatinine. Labs improved today other than creatinine. At this time continue to monitor. Await further nephrology input regarding tunneled dialysis catheter Objective - Vital Signs Vital signs: Vital Signs Temp 98.0 F 01/12/20 04:00 Pulse 101 H 01/12/20 09:00 Resp 31 H 01/12/20 09:00 BP 147/104 01/12/20 09:00 Pulse Ox 96 01/12/20 09:00 Intake & Output 01/11/20 01/12/20 01/12/20 18:59 06:59 18:59 Intake Total 200 300 Output Total 4120 2100 250 Balance -4120 -1900 50 Weight 92.5 kg Intake: IV 100 300 Piperacillin-Tazobactam 3 100 100 .375 gm In Sodium Chloride 0.9% 100 ml @ 25 mls/hr IVPB Q12HR [facility] Rx #:[id number] magnesium 100 potassium 100 Oral 100 Output: Urine 1120 2100 250 Hemodialysis 3000 Other: Voiding Method Indwelling Catheter Indwelling Catheter ABP, PAP, CO, CI - Last Documented Arterial Blood Pressure 150/57 - Labs CBC & Chem 7: 01/12/20 04:10 01/12/20 04:10 Labs: Abnormal Lab Results - Last 24 Hours (Table) 01/11/20 01/11/20 01/11/20 Range/Units 11:55 17:26 20:24 WBC (3.8-10.6) k/uL RBC (4.30-5.90) m/uL Hgb (13.0-17.5) gm/dL Hct (39.0-53.0) % Plt Count (150-450) k/uL Neutrophils # (1.3-7.7) k/uL Potassium (3.5-5.1) mmol/L BUN (9-20) mg/dL Creatinine (0.66-1.25) mg/dL Glucose (74-99) mg/dL POC Glucose (mg/dL) 131 H 156 H 174 H (75-99) mg/dL Calcium (8.4-10.2) mg/dL AST (17-59) U/L ALT (4-49) U/L Total Protein (6.3-8.2) g/dL Albumin (3.5-5.0) g/dL 01/12/20 01/12/20 01/12/20 Range/Units 04:10 04:10 06:32 WBC 16.6 H (3.8-10.6) k/uL RBC 3.53 L (4.30-5.90) m/uL Hgb 10.9 L (13.0-17.5) gm/dL Hct 32.6 L (39.0-53.0) % Plt Count 80 L (150-450) k/uL Neutrophils # 13.2 H (1.3-7.7) k/uL Potassium 3.2 L (3.5-5.1) mmol/L BUN 55 H (9-20) mg/dL Creatinine 5.60 H (0.66-1.25) mg/dL Glucose 113 H (74-99) mg/dL POC Glucose (mg/dL) 142 H (75-99) mg/dL Calcium 7.5 L (8.4-10.2) mg/dL AST 103 H (17-59) U/L ALT 192 H (4-49) U/L Total Protein 4.9 L (6.3-8.2) g/dL Albumin 2.7 L (3.5-5.0) g/dL Microbiology - Last 24 Hours (Table) 01/08/20 07:31 Blood Culture - Preliminary Blood No Growth after 96 hours 01/08/20 15:55 Gram Stain - Final Sputum Sputum Culture - Final
--- NOTE | 2020-01-12 10:08 | P.PN ---
Subjective Progress Note Date: 01/12/20 Principal diagnosis: This is a 59-year-old male seen in consultation because of acute kidney injury secondary to low blood pressure and severe acidosis secondary to hypotension and alcohol, with the level of 72. The other alcohol syndrome negative ear He had 1 session of dialysis yesterday 01/11/2020. He is making large amount of urine with IV Lasix 60 mg every 12. His blood pressure is in the 120-140 range with diastolics in the 9204 range Urine output was 3220 with additional ultrafiltration of 3 L yesterday for a total of 622 0 mL output He is awake alert on 3 L oxygen.not on on IV fluids or inotropes Objective - Vital Signs Vital signs: Vital Signs Temp 98.0 F 01/12/20 04:00 Pulse 101 H 01/12/20 09:00 Resp 31 H 01/12/20 09:00 BP 147/104 01/12/20 09:00 Pulse Ox 96 01/12/20 09:00 Intake & Output 01/11/20 01/12/20 01/12/20 18:59 06:59 18:59 Intake Total 200 300 Output Total 4120 2100 250 Balance -4120 -1900 50 Weight 92.5 kg Intake: IV 100 300 Piperacillin-Tazobactam 3 100 100 .375 gm In Sodium Chloride 0.9% 100 ml @ 25 mls/hr IVPB Q12HR [facility] Rx #:[id number] magnesium 100 potassium 100 Oral 100 Output: Urine 1120 2100 250 Hemodialysis 3000 Other: Voiding Method Indwelling Catheter Indwelling Catheter ABP, PAP, CO, CI - Last Documented Arterial Blood Pressure 150/57 Gen. awake alert oriented. No JVP neck is supple no facial asymmetry Lungs are clear to auscultation with good air entry bilaterally He is on 3 L nasal cannula Heart sounds are unremarkable no murmur rub gallop normal sinus rhythm Abdomen soft nontender nondistended no ascites Extremity exam was moderate edema Neurologically awake alert oriented no asterixis - Labs CBC & Chem 7: 01/12/20 04:10 01/12/20 04:10 Labs: Abnormal Lab Results - Last 24 Hours (Table) 01/11/20 01/11/20 01/11/20 Range/Units 11:55 17:26 20:24 WBC (3.8-10.6) k/uL RBC (4.30-5.90) m/uL Hgb (13.0-17.5) gm/dL Hct (39.0-53.0) % Plt Count (150-450) k/uL Neutrophils # (1.3-7.7) k/uL Potassium (3.5-5.1) mmol/L BUN (9-20) mg/dL Creatinine (0.66-1.25) mg/dL Glucose (74-99) mg/dL POC Glucose (mg/dL) 131 H 156 H 174 H (75-99) mg/dL Calcium (8.4-10.2) mg/dL AST (17-59) U/L ALT (4-49) U/L Total Protein (6.3-8.2) g/dL Albumin (3.5-5.0) g/dL 01/12/20 01/12/20 01/12/20 Range/Units 04:10 04:10 06:32 WBC 16.6 H (3.8-10.6) k/uL RBC 3.53 L (4.30-5.90) m/uL Hgb 10.9 L (13.0-17.5) gm/dL Hct 32.6 L (39.0-53.0) % Plt Count 80 L (150-450) k/uL Neutrophils # 13.2 H (1.3-7.7) k/uL Potassium 3.2 L (3.5-5.1) mmol/L BUN 55 H (9-20) mg/dL Creatinine 5.60 H (0.66-1.25) mg/dL Glucose 113 H (74-99) mg/dL POC Glucose (mg/dL) 142 H (75-99) mg/dL Calcium 7.5 L (8.4-10.2) mg/dL AST 103 H (17-59) U/L ALT 192 H (4-49) U/L Total Protein 4.9 L (6.3-8.2) g/dL Albumin 2.7 L (3.5-5.0) g/dL Microbiology - Last 24 Hours (Table) 01/08/20 07:31 Blood Culture - Preliminary Blood No Growth after 96 hours 01/08/20 15:55 Gram Stain - Final Sputum Sputum Culture - Final Assessment and Plan Plan: Impression 1. Acute kidney injury secondary to hypotension, dialyzed 01/11/2020. Recovering with good urine output 2. Severe acidosis resolved, secondary to acute kidney injury and severe lactic acidosis with level greater than 24 mmol per liter down normalized to 1 3. Alcohol is up with liver disease 4. Mild degree of hypokalemia potassium is 3.2 secondary to diuresis. Additionally hypomagnesemia causing low potassium 5. Hypomagnesemia secondary to alcoholism and diuretics. Recommendation 1. Slurred on the diuresis. Reduce Lasix from 60-20 g every 12 2. He'll need about 6-8 g of magnesium sulfate which can be given slowly over several hours. 3. We will need potassium replacement about 60-80 mEq. 4. Monitor potassium and magnesium labs. 5. Watch for withdrawal symptoms
[2020-01-12] MEDS: QUEtiapine 50 MG TAB PO SCH ×2 (10:43→21:29)
[2020-01-12 11:57] LABS: Glucose,Whole Blood 159 mg/dL (75-99)
--- NOTE | 2020-01-12 13:04 | PN ---
PROGRESS NOTE PULMONARY/CRITICAL CARE PROGRESS NOTE: DATE OF SERVICE: January 12, 2020. INTERVAL HISTORY: A 59-year-old male who was initially seen 4 days ago in the emergency department. He came in with severe alcohol intoxication and possible ethylene glycol intoxication. It appears that it was primarily just alcohol. He apparently was drinking rum on a binge. He was drinking for about 5 days. Anyway, he required intubation and mechanical ventilation for agitation and mental status changes as well as severe metabolic acidosis and lactic acidemia. He also was found to have a significant osmolar gap. In addition, he sustained acute kidney injury. He has had a couple rounds of hemodialysis. He was initially intubated in the ER, transferred up to the ICU. Currently, the patient has been extubated. He is currently on 3 L nasal cannula. Not receiving any IV fluids. We do add Seroquel at 50 mg twice a day. For a period of time, he did require being placed back on the BiPAP. That has seemed to pass. PHYSICAL EXAMINATION: VITAL SIGNS: Current vital signs are reviewed. Current temperature is 98 degrees, heart rate is 100, respiratory rate 17, blood pressure 147/104, mean 118, saturations 96% on 3 L. Appears in no acute distress. HEENT: Examination is grossly unremarkable. Nasal O2 noted. NECK: Supple. Full range of motion. No adenopathy. Neck veins are flat. CARDIOVASCULAR: Examination reveals regular rhythm and rate. Heart rate right around 100. It is regular. S1, S2 normal. No murmur. LUNGS: Clear breath sounds, equal. No wheezes, rhonchi, or crackles. ABDOMEN: Soft. Bowel sounds are heard. EXTREMITIES: Intact. Minimal edema. SKIN: Without rash. NEUROLOGIC: Examination is nonfocal. LABS: Reviewed. White count 16.6, hemoglobin 10.9, hematocrit 32.6, platelet count 80,000. Sodium 139, potassium 3.2, chloride 103, CO2 30, anion gap 6. BUN and creatinine were 55 and 5.6. AST 103, ALT 192, albumin 2.7. Microbiology including blood and sputum sampling is negative. IMAGING: Chest x-ray done on the 01/12/2020 shows some perihilar infiltrates bilaterally, left greater than right. There are small effusions. Chest x-ray is improved. CURRENT MEDICATIONS: Reviewed. The patient is on amlodipine, famotidine, Lasix, Haldol, heparin subcu, insulin, Ativan, magnesium replacement, Narcan, Zofran, Zosyn, potassium replacement, and Seroquel. ASSESSMENT: 1. Acute hypoxemic respiratory failure, secondary to acute mental status changes, with severe electrolyte disturbances and severe anion gap metabolic acidosis/lactic acidemia, related to acute alcohol intoxication, requiring intubation on the January 07 and subsequent successful extubation on January 08. 2. Severe agitation and confusion, much improved. 3. Severe anion gap metabolic acidosis secondary to lactic acidemia. 4. Doubt ethylene glycol intoxication. 5. Acute alcohol intoxication. 6. History of acute kidney injury with renal failure. 7. History of chronic alcohol abuse. 8. Diabetes mellitus. 9. History of hypertension. 10.Hyperlipidemia. PLAN: Currently, the patient is doing well. He has been weaned down to 3 L. He is not on any IV fluids. We added Seroquel 50 mg twice a day. He may or may not need additional dialysis as per Renal. We will continue to follow. His overall mental status is greatly improved. He is counseled about the importance of alcohol cessation. MMODL / IJN: [id number] /
[2020-01-12 16:57] LABS: Glucose,Whole Blood 119 mg/dL (75-99)
--- NOTE | 2020-01-12 17:40 | P.PN ---
Subjective This is a 59 years old male with past medical history of hypertension, hyperlipidemia, diabetes mellitus, CVA/TIA, diabetic neuropathy. Exactly and depression, heavy alcohol drinker. Presents because of dyspnea Patient got intubated in the emergency room confirmation was taken from records and staff. The patient has been belching drinking alcohol he is been drinking alcohol for the last 5 days, today his financing noticed his been short of b reath and he came to emergency room on admission was significantly tachypneic with her respiratory rate around 30, blood pressure was 133/84 however it drops to 89/50.patient was vomiting and he got confused, WBC of 40 6K, Hemoglobin and Platelets Are Normal, ABG Shows Severe Acidosis with pH less than 6.8, pCO2 29 and pO2 was 352. Lactic acid significantly elevated more than 24, elevated troponin 0.03, sodium mildly low at 136, potassium normal 5.0,, liver enzymes mildly elevated with AST 113, with normal ALT 45, lipase slightly high at 519. creatinine is elevated at 4.0, urinalysis is unremarkable. Chest x-ray done in the emergency room showing diminished inspiration with developing retrocardiac acute infiltrate and/or atelectasis. EKG showing normal sinus rhythm at [address]-T changes and QTC of 542 in the emergency room patient was givenon vancomycin and Zosyn home medications including metformin, Dyazide, Pravachol, losartan and aspirin 01/09/2020 Patient remains in the ICU, his status post extubation, he is currently breathing quietly On 2 L oxygen and he is saturating high 90s. This is slightly tachycardic at 108 Vital signs stable. Patient and significant other at bedside confirmed to me he was only drinking rum for 5 days prior to admission to the hospital. WBC is down to 21.9. Hemoglobin is 11.7, platelets is also down to 186, most likely it's hemodilution. PH is 7.5, pCO2 is 33 which is low and high CO2 at 157. Lactic acid is also significantly improved and output 4.6, glucose is controlled 129 06/24/1968. Creatinine 2.6, sodium 134 and dressed of electrolytes is normal. AST is up 113 to 1446 and ALT up from 40 to 749. Chest x-ray from today showing stable findings Patient is started back on Zosyn today. He was nothing by mouth, started on clear liquid diet. He got 12 units of short-acting insulin in the morning. As well as he got Levemir 10 units. We will keep Levemir and insulin sliding scale . Hemoglobin A1c is 7.5% 01/10/2020 Patient is more awake and interactive today, he does not have any specific complaints, he remains in the ICU with close monitoring. He still feels generally weak. But he is improving gradually. His tachypneic at 22 tachycardic around 125, his sugar is elevated today after holding his Levemir, however continue with insulin sliding scale, patient is a started on diet and is advanced gradually. Patient was placed on hold, due to delirium mostly due to his infection and metabolic abnormality including renal failure and hyperglycemia , however patient was started on antibiotics and currently he is on Zosyn. Patient remains to improve gradually.The saturating 94% on 4 L oxygen via nasal cannula. Leukocytosis trending down to 19.0 K. Hemoglobin 11.0. Creatinine stable as of yesterday at 4.8. And liver enzymes came down significantly 2586 AST and 488 ALT, troponin 0.35. However patient with no chest pain or dyspnea. Chest x-ray showed persistent bilateral infiltrates and venous congestion and he remains on Zosyn for now. No more hemodialysis and encourage oral intake.. 01/11/2020 Patient remains in critical condition in the ICU he's awake and alert but still lethargic and severely weak. Vitas looks stable, however her WBC is worsening to 22, creatinine went up slightly to 5.8, troponin was high 0.3, glucose controlled less than 200, LFT is improving.. Patient got agitated and he didn't Haldol with partial improvement however his more calm today. He needed BiPAP overnight, and he was on 8 L oxygen via high flow nasal cannula in the morning, he needed hemodialysis today as his chest x-ray showed worsening CHF versus RDS and is oxygen requirement dropped to 4 L after the dialysis. Patient is a spiking fever of 100.1 and he remains on Zosyn for that. Lasix 60 mg twice daily was added. We will order echocardiogram. Dr. Odell input is appreciated, patient will need rehab once he improves 01/12/2020 Patient is more awake and calm today, his answer questions appropriately. He is breathing more quietly and he saturating 90s on. Oxygen via nasal cannula. No abdominal pain or nausea vomiting. He is tolerating diet well and his medication about 75% of his breakfast and lunch. He is hemodynamically stable. WBC trending down to 16 K. His sugar is controlled on 10 units of Levemir. Glucose is ranging 119-159. Creatinine 5.6. Nephrology on the case and the managing his dialysis. Lasix is lowered to 20 mg twice daily. His vomiting present on admission and confusion has resolved, his blood pressure is more stabilized, was low on admission and due to his severe acidosis and vomiting and dehydration, on admission he got emergent hemodialysis. Also on admission he got IV vancomycin. Currently he is on Zosyn. His lactic acid on admission was more than 24 and 11 in relation to his severe acidosis and hypovolemia with dehydration. Currently lactic acid check today is within normal limits at 1.0. Troponins were elevated and just x-ray showed some pulmonary congestion, echocardiogram done on the results still pending when checked this afternoon. Review of systems CONSTITUTIONAL: No fever, no malaise, no fatigue. HEENT: No recent visual problems or hearing problems. Denied any sore throat. CARDIOVASCULAR: no palpitations, no syncope. GASTROINTESTINAL: No diarrhea, no nausea, no vomiting, no abdominal pain. Normoactive bowel sounds. NEUROLOGICAL: No headaches, no weakness, no numbness. HEMATOLOGICAL: Denies any bleeding or petechiae. Active Medications Generic Name Dose Route Start Last Admin Trade Name Freq PRN Reason Stop Dose Admin Amlodipine Besylate 5 mg 01/10/20 14:15 01/12/20 09:06 Norvasc PO 5 mg DAILY DALIA Administration Famotidine 20 mg 01/12/20 09:00 01/12/20 09:06 Pepcid PO 20 mg DAILY DALIA Administration Furosemide 20 mg 01/12/20 21:00 Lasix IV Q12HR DALIA Haloperidol Lactate 4 mg 01/10/20 18:18 01/10/20 18:23 Haldol IVP 4 mg Q2HR PRN Administration Agitation or Acute Psychosis Haloperidol Lactate 8 mg 01/10/20 18:20 01/10/20 20:26 Haldol IVP 8 mg Q2HR PRN Administration Agitation or Acute Psychosis Heparin Sodium (Porcine) 5,000 unit 01/08/20 21:00 01/12/20 09:06 Heparin SQ 5,000 unit Q12HR DALIA Administration Piperacillin Sod/Tazobactam 100 mls @ 25 mls/hr 01/08/20 21:00 01/12/20 09:06 Sod 3.375 gm/ Sodium Chloride IVPB 25 mls/hr Q12HR DALIA Administration Insulin Aspart 0 unit 01/12/20 07:30 01/12/20 11:56 Novolog SQ 1 unit ACHS DALIA Administration Protocol Insulin Detemir 10 unit 01/10/20 07:00 01/12/20 06:55 Levemir SQ 10 unit DAILY@0700 DALIA Administration Lorazepam 1 mg 01/10/20 15:02 01/12/20 01:25 Ativan IV 1 mg Q2HR PRN Administration CIWA 8 or 9 Lorazepam 1 mg 01/10/20 15:02 01/10/20 20:18 Ativan IV 1 mg Q1HR PRN Administration CIWA 10 to 15 Miscellaneous Information 1 each 01/10/20 08:00 Potassium Per Protocol MISCELLANE DAILY PRN Per Protocol Protocol Naloxone HCl 0.2 mg 01/08/20 09:11 Narcan IV Q2M PRN Opioid Reversal Ondansetron HCl 4 mg 01/10/20 15:01 Zofran IVP Q6HR PRN Nausea And Vomiting Quetiapine Fumarate 50 mg 01/12/20 10:30 01/12/20 10:43 Seroquel PO 50 mg BID DALIA Administration Objective - Vital Signs Vital signs: Vital Signs Temp 97.8 F 01/12/20 12:00 Pulse 92 01/12/20 15:00 Resp 19 01/12/20 15:00 BP 114/85 01/12/20 15:00 Pulse Ox 90 L 01/12/20 15:00 Intake & Output 01/11/20 01/12/20 01/12/20 18:59 06:59 18:59 Intake Total 200 300 Output Total 4120 2100 1225 Balance -4120 -1900 925 Weight 92.5 kg Intake: IV 100 300 Piperacillin-Tazobactam 3 100 100 .375 gm In Sodium Chloride 0.9% 100 ml @ 25 mls/hr IVPB Q12HR [facility] Rx #:[id number] magnesium 100 potassium 100 Oral 100 Output: Urine 1120 2100 1225 Hemodialysis 3000 Other: Voiding Method Indwelling Catheter Indwelling Catheter ABP, PAP, CO, CI - Last Documented Arterial Blood Pressure 150/57 - Exam -GENERAL: The patient is alert and oriented x3, not in any acute distress. His weakness is improving gradually HEENT: Pupils are round and equally reacting to light. EOMI. No scleral icterus. No conjunctival pallor. Normocephalic, atraumatic. No pharyngeal erythema. No thyromegaly. CARDIOVASCULAR: S1 and S2 present. No murmurs, rubs, or gallops. -PULMONARY: Chest is clear to auscultation, no wheezing or. Bilateral basal crepitation ABDOMEN: Soft, nontender, nondistended, normoactive bowel sounds. No palpable organomegaly. MUSCULOSKELETAL: No joint swelling or deformity. EXTREMITIES: No cyanosis, clubbing, or pedal edema. NEUROLOGICAL: Gross neurological examination did not reveal any focal deficits. SKIN: No rashes. no petechiae. - Labs CBC & Chem 7: 01/12/20 04:10 01/12/20 04:10 Labs: Abnormal Lab Results - Last 24 Hours (Table) 01/11/20 01/11/20 01/12/20 Range/Units 17:26 20:24 04:10 WBC 16.6 H (3.8-10.6) k/uL RBC 3.53 L (4.30-5.90) m/uL Hgb 10.9 L (13.0-17.5) gm/dL Hct 32.6 L (39.0-53.0) % Plt Count 80 L (150-450) k/uL Neutrophils # 13.2 H (1.3-7.7) k/uL Potassium (3.5-5.1) mmol/L BUN (9-20) mg/dL Creatinine (0.66-1.25) mg/dL Glucose (74-99) mg/dL POC Glucose (mg/dL) 156 H 174 H (75-99) mg/dL Calcium (8.4-10.2) mg/dL AST (17-59) U/L ALT (4-49) U/L Total Protein (6.3-8.2) g/dL Albumin (3.5-5.0) g/dL 01/12/20 01/12/20 01/12/20 Range/Units 04:10 06:32 11:48 WBC (3.8-10.6) k/uL RBC (4.30-5.90) m/uL Hgb (13.0-17.5) gm/dL Hct (39.0-53.0) % Plt Count (150-450) k/uL Neutrophils # (1.3-7.7) k/uL Potassium 3.2 L (3.5-5.1) mmol/L BUN 55 H (9-20) mg/dL Creatinine 5.60 H (0.66-1.25) mg/dL Glucose 113 H (74-99) mg/dL POC Glucose (mg/dL) 142 H 159 H (75-99) mg/dL Calcium 7.5 L (8.4-10.2) mg/dL AST 103 H (17-59) U/L ALT 192 H (4-49) U/L Total Protein 4.9 L (6.3-8.2) g/dL Albumin 2.7 L (3.5-5.0) g/dL 01/12/20 Range/Units 16:55 WBC (3.8-10.6) k/uL RBC (4.30-5.90) m/uL Hgb (13.0-17.5) gm/dL Hct (39.0-53.0) % Plt Count (150-450) k/uL Neutrophils # (1.3-7.7) k/uL Potassium (3.5-5.1) mmol/L BUN (9-20) mg/dL Creatinine (0.66-1.25) mg/dL Glucose (74-99) mg/dL POC Glucose (mg/dL) 119 H (75-99) mg/dL Calcium (8.4-10.2) mg/dL AST (17-59) U/L ALT (4-49) U/L Total Protein (6.3-8.2) g/dL Albumin (3.5-5.0) g/dL Microbiology - Last 24 Hours (Table) 01/08/20 07:31 Blood Culture - Preliminary Blood No Growth after 96 hours Assessment and Plan Assessment: alcohol abuse acute hypoxic respiratory failure needed when day of mechanical ventilation, currently extubated and on nasal cannula Acute kidney failure , needed hemodialysis Pulmonary congestion versus RDS. Check echocardiogram Severe metabolic acidosis, improving Elevated lactic acid , improving Pulmonary congestion, check echocardiogram diabetes mellitus, type II elevated troponin Plan: this is a 59 years old male who presents with respiratory failure and acidosis, status post hemodialysis ,patient admitted to the ICU with pulmonary/critical care team managing his vent and critical condition.continue with Zosyn. Continue with Levemir and insulin sliding scale. DIET as tolerated hold metformin and losartan.we will monitor kidney function closely as well. Continue with Lasix. And monitor input and output. Check echocardiogram. Continue with Lasix. Continue same treatment. Monitor lytes and vitals. DVT and GI prophylaxis. Further recommendations of the clinical course of the patient DVT prophylaxis: Subcutaneous heparin GI Prophylaxis: Pepcid PT/OT. Recommended inpatient rehab Prognosis is guarded
[2020-01-12 21:28] LABS: Glucose,Whole Blood 218 mg/dL (75-99)
[2020-01-12] MEDS: FUROSEMIDE 10 MG/ML 2 ML VIAL IV SCH (21:28)
[2020-01-13 05:13] LABS: Basophils # (A) 0.1 k/uL (0-0.2); Basophils % (A) 1 %; Eosinophils # (A) 0.3 k/uL (0-0.7); Eosinophils % (A) 3 %; HCT 30.6 % (39.0-53.0); HGB 10.3 gm/dL (13.0-17.5); Lymphocytes # (A) 1.9 k/uL (1.0-4.8); Lymphocytes % (A) 17 %; MCH 30.6 pg (25.0-35.0); MCHC 33.6 g/dL (31.0-37.0); MCV 91.1 fL (80.0-100.0); Mean Platelet Volume 8.7; Monocytes # (A) 1.1 k/uL (0-1.0); Monocytes % (A) 10 %; Neutrophils # (A) 7.4 k/uL (1.3-7.7); Neutrophils % (A) 67 %; RBC 3.36 m/uL (4.30-5.90); RDW 13.7 % (11.5-15.5)
[2020-01-13 05:14] LABS: Platelet Count 92 k/uL (150-450)
[2020-01-13 05:25] LABS: Albumin 2.7 g/dL (3.5-5.0); Calcium 7.9 mg/dL (8.4-10.2); Potassium 3.2 mmol/L (3.5-5.1); Total Bilirubin 0.8 mg/dL (0.2-1.3); Total Protein 4.9 g/dL (6.3-8.2)
[2020-01-13 06:47] LABS: Glucose,Whole Blood 156 mg/dL (75-99)
[2020-01-13] MEDS: POTASSIUM CHLORIDE 20 MEQ in WATER FOR INJECTION 1 100ML.BAG IVPB SCH ×3 (07:04→12:21)
[2020-01-13] MEDS: INSULIN ASPART (NovoLOG) 100 UNIT/ML VIAL SQ SCH ×4 (07:05→19:59)
[2020-01-13] MEDS: INSULIN DETEMIR (LEVEMIR) 100 UNIT/ML SYR SQ SCH (07:05)
--- NOTE | 2020-01-13 07:12 | XR ---
EXAMINATION TYPE: XR chest 1V portable DATE OF EXAM: 01/13/2020 CLINICAL HISTORY: Difficulty breathing progress study. TECHNIQUE: Single AP portable upright view of the chest is obtained. COMPARISON: Chest x-ray from one day earlier and older studies. FINDINGS: Stable left-sided subclavian central venous catheter. Background chronic parenchymal chartlon e with left greater than right bilateral central opacities. Cardiac silhouette size stable and within normal limits. Osseous structures are intact. IMPRESSION: Left greater than right bilateral central basilar acute infiltrates and/or atelectasis wi th small left pleural effusion are all redemonstrated. No significant change from one day earlier.
[2020-01-13] MEDS ORDERED: AMOXIC-POT CLAV 875-125MG 1 EACH TAB PO SCH (09:00)
[2020-01-13] MEDS: FAMOTIDINE 20 MG TAB PO SCH (09:21)
[2020-01-13] MEDS: FUROSEMIDE 10 MG/ML 2 ML VIAL IV SCH ×2 (09:21→19:59)
[2020-01-13] MEDS: HEPARIN SODIUM,PORCINE 5,000 UNIT/ML 1 ML VIAL SQ SCH ×3 (09:21→20:05)
[2020-01-13] MEDS: amLODIPine 5 MG TAB PO SCH (09:21)
[2020-01-13] MEDS: QUEtiapine 50 MG TAB PO SCH (09:22)
--- NOTE | 2020-01-13 09:52 | P.PN ---
Subjective Principal diagnosis: This is a 59-year-old male seen in consultation because of acute kidney injury secondary to low blood pressure and severe lactic acidosis and ketoacidosis acidosis secondary to hypotension and an elevated alcohol level of 72. He had 1 session of dialysis 01/11/2020. He is awake alert oriented comfortable. He is sitting out in a chair he has nasal cannula on. Denies any shortness of breath nausea vomiting diarrhea. Says he has a good appetite. He making large amount of urine with IV Lasix 60 mg every 12, this was reduced to 20 mg every 12 yesterday. His blood pressure is in the 120-160 range. Urine output was 3275 mL He is not on on IV fluids or inotropes Objective - Vital Signs Vital signs: Vital Signs Temp 97.6 F 01/13/20 08:00 Pulse 96 01/13/20 09:00 Resp 18 01/13/20 09:00 BP 125/84 01/13/20 09:00 Pulse Ox 96 01/13/20 09:00 Intake & Output 01/12/20 01/13/20 01/13/20 18:59 06:59 18:59 Intake Total 300 400 440 Output Total 1575 1700 275 Balance -1275 -1300 165 Weight 92.5 kg Intake: IV 300 100 100 Piperacillin-Tazobactam 3 100 100 .375 gm In Sodium Chloride 0.9% 100 ml @ 25 mls/hr IVPB Q12HR [facility] Rx #:[id number] magnesium 100 potassium 100 100 Oral 300 340 Output: Urine 1575 1700 275 Other: Voiding Method Indwelling Catheter Indwelling Catheter ABP, PAP, CO, CI - Last Documented Arterial Blood Pressure 150/57 He is awake alert oriented comfortable on nasal cannula. HEENT exam no JVP neck is supple no facial asymmetry Lungs are clear to auscultation good air entry bilaterally Heart sounds are unremarkable normal sinus rhythm no murmur rub gallop Abdomen soft nontender no ascites Leny exam was 2+ edema Neurologically awake alert oriented no asterixis - Labs CBC & Chem 7: 01/13/20 05:00 01/13/20 05:00 Labs: Abnormal Lab Results - Last 24 Hours (Table) 01/12/20 01/12/20 01/12/20 Range/Units 11:48 16:55 21:27 WBC (3.8-10.6) k/uL RBC (4.30-5.90) m/uL Hgb (13.0-17.5) gm/dL Hct (39.0-53.0) % Plt Count (150-450) k/uL Monocytes # (0-1.0) k/uL Potassium (3.5-5.1) mmol/L BUN (9-20) mg/dL Creatinine (0.66-1.25) mg/dL Glucose (74-99) mg/dL POC Glucose (mg/dL) 159 H 119 H 218 H (75-99) mg/dL Calcium (8.4-10.2) mg/dL ALT (4-49) U/L Total Protein (6.3-8.2) g/dL Albumin (3.5-5.0) g/dL 01/13/20 01/13/20 01/13/20 Range/Units 05:00 05:00 06:46 WBC 11.0 H (3.8-10.6) k/uL RBC 3.36 L (4.30-5.90) m/uL Hgb 10.3 L (13.0-17.5) gm/dL Hct 30.6 L (39.0-53.0) % Plt Count 92 L (150-450) k/uL Monocytes # 1.1 H (0-1.0) k/uL Potassium 3.2 L (3.5-5.1) mmol/L BUN 73 H (9-20) mg/dL Creatinine 6.49 H (0.66-1.25) mg/dL Glucose 115 H (74-99) mg/dL POC Glucose (mg/dL) 156 H (75-99) mg/dL Calcium 7.9 L (8.4-10.2) mg/dL ALT 127 H (4-49) U/L Total Protein 4.9 L (6.3-8.2) g/dL Albumin 2.7 L (3.5-5.0) g/dL Microbiology - Last 24 Hours (Table) 01/08/20 07:31 Blood Culture - Preliminary Blood No Growth after 120 hours Assessment and Plan Plan: Impression 1. Acute kidney injury with acute tubular necrosis, secondary to hypotension, dialyzed 01/11/2020. Possibly recovering with good urine output although her creatinine has gone up, from 5.6 yesterday to 6.49 today. Recovery might take a few more days, no uremic symptoms and no urgent need for dialysis 2. Severe acidosis resolved, secondary to acute kidney injury and severe lactic acidosis with level greater than 24 mmol per liter down normalized to 1 3. Alcohol is up with liver disease, no evidence of cirrhosis at this time clinically 4. Mild degree of hypokalemia potassium is 3.2 secondary to diuresis. Additionally hypomagnesemia causing low potassium. 5. Hypomagnesemia secondary to alcoholism and diuretics. Replaced and resolved Recommendation 1. Will switch IV Lasix to 20 mg by mouth twice a day 2. Replace potassium 60 mEq over 3 doses of 20 mg each every 12 hours orally. 3. May need dialysis but will wait until tomorrow and see 4. Monitor potassium and magnesium labs. 5. Watch for withdrawal symptoms
--- NOTE | 2020-01-13 10:46 | PN ---
PROGRESS NOTE PULMONARY/CRITICAL CARE PROGRESS NOTE: DATE OF SERVICE: January 13, 2020 HISTORY: A 59-year-old male who was initially seen about 5 days ago in the emergency department. He came in with severe alcohol intoxication and possible ethylene glycol intoxication. It appears after evaluation, that it was related to acute on chronic alcohol abuse. He apparently was drinking rum on a binge. He was drinking for about 5 days in a row. Anyway, because of mental status changes and agitation, he required intubation and mechanical ventilation. In addition, he had severe metabolic acidosis, lactic acidemia, and an osmolar gap. The patient was admitted to the ICU. He has had a couple rounds of hemodialysis. The patient has done well. He was extubated the following day in the ICU. He was only intubated for about a day or so. Currently, he is doing much better. He is on O2 at 3 L. He is on no IV fluids. He is getting antibiotic. We will DC the Zosyn and add some oral Augmentin. He does have a bit of an infiltrate in the left lung. There was no hemodialysis yesterday. Nephrology continues to see the patient on a regular and ongoing basis. PHYSICAL EXAMINATION: VITAL SIGNS: Current vital signs reviewed. Temperature is 97.6. Heart rate 96. Respiratory rate 18, blood pressure 125/84, mean 97. 3 L saturation 96%. GENERAL: Appears in no acute distress. HEENT: Examination is grossly unremarkable. NECK: Supple. Full range of motion. No adenopathy. Neck veins are flat. CARDIOVASCULAR: Examination reveals a regular rhythm and rate. S1, S2 normal. Heart rate about 90 beats per minute. No murmur. LUNGS: Reveal mostly clear breath sounds. A few scattered rhonchi. No wheezes or crackles. Breath sounds equal. ABDOMEN: Soft. Bowel sounds are heard. EXTREMITIES are intact. There is some small blisters on both heels. No cyanosis, clubbing, or edema. SKIN: Without rash. NEUROLOGIC: Examination is nonfocal. CURRENT LABS: Reviewed. White count 11, hemoglobin 10.3, hematocrit 30.6, platelet count 96,000. Sodium 138, potassium 3.2, chloride 101, CO2 29, anion gap is 8, BUN and creatinine continued to rise. Currently, his BUN 73, creatinine 6.49 compared to 55 and 5.60 yesterday. The patient's calcium is normalizing. The rest of the labs look much improved. Albumin 2.7. Microbiology is currently all negative. A chest x-ray dated January 12 shows some central perihilar bilateral and bibasilar infiltrates and atelectasis. There is a small left-sided pleural effusion. The infiltrates seem to be more left-sided than right-sided. CURRENT MEDICATIONS: Reviewed. He is on amlodipine, Augmentin, Pepcid, Lasix, Haldol, heparin subcu, insulin, Ativan per CIWA protocol, Narcan, Zofran, potassium replacement, Seroquel, and Silvadene cream. ASSESSMENT: 1. Acute hypoxemic respiratory failure, secondary to acute mental status changes with severe electrolyte disturbances and severe anion gap metabolic acidosis/lactic acidemia, related to acute alcohol intoxication requiring intubation on January 07 and subsequent successful extubation on January 08. 2. Severe agitation and confusion, much improved. 3. Severe anion gap metabolic acidosis secondary to lactic acidemia. 4. Acute alcohol intoxication. 5. Acute kidney injury/ATN, secondary to hypotension. 6. History of chronic alcohol abuse. 7. Diabetes mellitus. 8. History of hypertension. 9. Hyperlipidemia by history. PLAN: Overall, the patient continues to show significant improvement. Neurologic much improved. His kidney function continues to decline. Nephrology is seeing the patient. He did not have any dialysis yesterday. Apparently they were going to wait 1 more day to determine whether not the patient needs dialysis. Zosyn is discontinued.Microbiology is negative. The patient is placed on a short course of Augmentin. Will continue to follow. The Seroquel that we added at 50 mg twice a day has helped tremendously. Electrolytes will be replaced. Prognosis is guarded. MMODL / IJN: [id number] / [facility]
--- NOTE | 2020-01-13 11:50 | P.PN ---
Subjective This is a 59 years old male with past medical history of hypertension, hyperlipidemia, diabetes mellitus, CVA/TIA, diabetic neuropathy. Exactly and depression, heavy alcohol drinker. Presents because of dyspnea Patient got intubated in the emergency room confirmation was taken from records and staff. The patient has been belching drinking alcohol he is been drinking alcohol for the last 5 days, today his financing noticed his been short of b reath and he came to emergency room on admission was significantly tachypneic with her respiratory rate around 30, blood pressure was 133/84 however it drops to 89/50.patient was vomiting and he got confused, WBC of 40 6K, Hemoglobin and Platelets Are Normal, ABG Shows Severe Acidosis with pH less than 6.8, pCO2 29 and pO2 was 352. Lactic acid significantly elevated more than 24, elevated troponin 0.03, sodium mildly low at 136, potassium normal 5.0,, liver enzymes mildly elevated with AST 113, with normal ALT 45, lipase slightly high at 519. creatinine is elevated at 4.0, urinalysis is unremarkable. Chest x-ray done in the emergency room showing diminished inspiration with developing retrocardiac acute infiltrate and/or atelectasis. EKG showing normal sinus rhythm at [address]-T changes and QTC of 542 in the emergency room patient was givenon vancomycin and Zosyn home medications including metformin, Dyazide, Pravachol, losartan and aspirin 01/09/2020 Patient remains in the ICU, his status post extubation, he is currently breathing quietly On 2 L oxygen and he is saturating high 90s. This is slightly tachycardic at 108 Vital signs stable. Patient and significant other at bedside confirmed to me he was only drinking rum for 5 days prior to admission to the hospital. WBC is down to 21.9. Hemoglobin is 11.7, platelets is also down to 186, most likely it's hemodilution. PH is 7.5, pCO2 is 33 which is low and high CO2 at 157. Lactic acid is also significantly improved and output 4.6, glucose is controlled 129 06/24/1968. Creatinine 2.6, sodium 134 and dressed of electrolytes is normal. AST is up 113 to 1446 and ALT up from 40 to 749. Chest x-ray from today showing stable findings Patient is started back on Zosyn today. He was nothing by mouth, started on clear liquid diet. He got 12 units of short-acting insulin in the morning. As well as he got Levemir 10 units. We will keep Levemir and insulin sliding scale . Hemoglobin A1c is 7.5% 01/10/2020 Patient is more awake and interactive today, he does not have any specific complaints, he remains in the ICU with close monitoring. He still feels generally weak. But he is improving gradually. His tachypneic at 22 tachycardic around 125, his sugar is elevated today after holding his Levemir, however continue with insulin sliding scale, patient is a started on diet and is advanced gradually. Patient was placed on hold, due to delirium mostly due to his infection and metabolic abnormality including renal failure and hyperglycemia , however patient was started on antibiotics and currently he is on Zosyn. Patient remains to improve gradually.The saturating 94% on 4 L oxygen via nasal cannula. Leukocytosis trending down to 19.0 K. Hemoglobin 11.0. Creatinine stable as of yesterday at 4.8. And liver enzymes came down significantly 2586 AST and 488 ALT, troponin 0.35. However patient with no chest pain or dyspnea. Chest x-ray showed persistent bilateral infiltrates and venous congestion and he remains on Zosyn for now. No more hemodialysis and encourage oral intake.. 01/11/2020 Patient remains in critical condition in the ICU he's awake and alert but still lethargic and severely weak. Vitas looks stable, however her WBC is worsening to 22, creatinine went up slightly to 5.8, troponin was high 0.3, glucose controlled less than 200, LFT is improving.. Patient got agitated and he didn't Haldol with partial improvement however his more calm today. He needed BiPAP overnight, and he was on 8 L oxygen via high flow nasal cannula in the morning, he needed hemodialysis today as his chest x-ray showed worsening CHF versus RDS and is oxygen requirement dropped to 4 L after the dialysis. Patient is a spiking fever of 100.1 and he remains on Zosyn for that. Lasix 60 mg twice daily was added. We will order echocardiogram. Dr. Odell input is appreciated, patient will need rehab once he improves 01/12/2020 Patient is more awake and calm today, his answer questions appropriately. He is breathing more quietly and he saturating 90s on. Oxygen via nasal cannula. No abdominal pain or nausea vomiting. He is tolerating diet well and his medication about 75% of his breakfast and lunch. He is hemodynamically stable. WBC trending down to 16 K. His sugar is controlled on 10 units of Levemir. Glucose is ranging 119-159. Creatinine 5.6. Nephrology on the case and the managing his dialysis. Lasix is lowered to 20 mg twice daily. His vomiting present on admission and confusion has resolved, his blood pressure is more stabilized, was low on admission and due to his severe acidosis and vomiting and dehydration, on admission he got emergent hemodialysis. Also on admission he got IV vancomycin. Currently he is on Zosyn. His lactic acid on admission was more than 24 and 11 in relation to his severe acidosis and hypovolemia with dehydration. Currently lactic acid check today is within normal limits at 1.0. Troponins were elevated and just x-ray showed some pulmonary congestion, echocardiogram done on the results still pending when checked this afternoon. 01/13/2020 Patient is awake and calm, his weakness has improved, he is up in chair. There is some blistering in his feet which are covered with dressing. He saturating 90s on 3 L oxygen via nasal cannula, no agitation. He remains on IV Lasix and he is making good urine output. WBC is down to 11 K. His low platelets are at 92. His creatinine is still up a 6.4 with nephrology on the case for possible further hemodialysis as per their recommendation. Echocardiogram still pending. Chest x-ray showed bilateral hilar infiltrates, left more than right Review of systems CONSTITUTIONAL: No fever, no malaise, no fatigue. HEENT: No recent visual problems or hearing problems. Denied any sore throat. CARDIOVASCULAR: no palpitations, no syncope. GASTROINTESTINAL: No diarrhea, no nausea, no vomiting, no abdominal pain. Normoactive bowel sounds. NEUROLOGICAL: No headaches, no weakness, no numbness. HEMATOLOGICAL: Denies any bleeding or petechiae. Active Medications Generic Name Dose Route Start Last Admin Trade Name Freq PRN Reason Stop Dose Admin Amlodipine Besylate 5 mg 01/10/20 14:15 01/13/20 09:21 Norvasc PO 5 mg DAILY DALIA Administration Amoxicillin/Clavulanate Potassium 1 each 01/13/20 09:00 01/13/20 09:20 Augmentin 875-125 PO 1 each Q12HR DALIA Administration Famotidine 20 mg 01/12/20 09:00 01/13/20 09:21 Pepcid PO 20 mg DAILY DALIA Administration Furosemide 20 mg 01/12/20 21:00 01/13/20 09:21 Lasix IV 20 mg Q12HR DALIA Administration Haloperidol Lactate 4 mg 01/10/20 18:18 01/10/20 18:23 Haldol IVP 4 mg Q2HR PRN Administration Agitation or Acute Psychosis Haloperidol Lactate 8 mg 01/10/20 18:20 01/10/20 20:26 Haldol IVP 8 mg Q2HR PRN Administration Agitation or Acute Psychosis Heparin Sodium (Porcine) 5,000 unit 01/08/20 21:00 01/13/20 09:21 Heparin SQ 5,000 unit Q12HR DALIA Administration Potassium Chloride 20 meq/ IV 100 mls @ 50 mls/hr 01/13/20 07:00 01/13/20 09:19 Solution IVPB 01/13/20 12:59 50 mls/hr Q2H DALIA Administration Protocol Insulin Aspart 0 unit 01/12/20 07:30 01/13/20 07:05 Novolog SQ 1 unit ACHS [facility] Administration Protocol Insulin Detemir 10 unit 01/10/20 07:00 01/13/20 07:05 Levemir SQ 10 unit DAILY@0700 DALIA Administration Lorazepam 1 mg 01/10/20 15:02 01/12/20 01:25 Ativan IV 1 mg Q2HR PRN Administration CIWA 8 or 9 Lorazepam 1 mg 01/10/20 15:02 01/10/20 20:18 Ativan IV 1 mg Q1HR PRN Administration CIWA 10 to 15 Miscellaneous Information 1 each 01/10/20 08:00 Potassium Per Protocol MISCELLANE DAILY PRN Per Protocol Protocol Naloxone HCl 0.2 mg 01/08/20 09:11 Narcan IV Q2M PRN Opioid Reversal Ondansetron HCl 4 mg 01/10/20 15:01 Zofran IVP Q6HR PRN Nausea And Vomiting Quetiapine Fumarate 25 mg 01/13/20 21:00 Seroquel PO HS [facility] Silver Sulfadiazine 1 applic 01/13/20 09:00 01/13/20 09:20 Silvadene Cream TOPICAL 1 applic DAILY DALIA Administration Objective - Vital Signs Vital signs: Vital Signs Temp 97.6 F 01/13/20 08:00 Pulse 92 01/13/20 11:00 Resp 12 01/13/20 11:00 BP 138/98 01/13/20 11:00 Pulse Ox 96 01/13/20 11:00 Intake & Output 01/12/20 01/13/20 01/13/20 18:59 06:59 18:59 Intake Total 300 400 540 Output Total 1575 1700 325 Balance -1275 -1300 215 Weight 92.5 kg Intake: IV 300 100 200 Piperacillin-Tazobactam 3 100 100 .375 gm In Sodium Chloride 0.9% 100 ml @ 25 mls/hr IVPB Q12HR [facility]AL[facility] Rx #:[id number] Potassium Chloride 20 meq 100 In Water For Injection 1 100ml.bag @ 50 mls/hr IVPB Q2H [facility]AL[facility] Rx#: [id number] magnesium 100 potassium 100 100 Oral 300 340 Output: Urine 1575 1700 325 Other: Voiding Method Indwelling Catheter Indwelling Catheter Indwelling Catheter ABP, PAP, CO, CI - Last Documented Arterial Blood Pressure 150/57 - Exam -GENERAL: The patient is alert and oriented x3, not in any acute distress. His weakness is improving gradually HEENT: Pupils are round and equally reacting to light. EOMI. No scleral icterus. No conjunctival pallor. Normocephalic, atraumatic. No pharyngeal erythema. No thyromegaly. CARDIOVASCULAR: S1 and S2 present. No murmurs, rubs, or gallops. -PULMONARY: Chest is clear to auscultation, no wheezing or. Bilateral basal crepitation ABDOMEN: Soft, nontender, nondistended, normoactive bowel sounds. No palpable organomegaly. MUSCULOSKELETAL: No joint swelling or deformity. EXTREMITIES: No cyanosis, clubbing, or pedal edema. NEUROLOGICAL: Gross neurological examination did not reveal any focal deficits. SKIN: No rashes. no petechiae. - Labs CBC & Chem 7: 01/13/20 05:00 01/13/20 05:00 Labs: Abnormal Lab Results - Last 24 Hours (Table) 01/12/20 01/12/20 01/12/20 Range/Units 11:48 16:55 21:27 WBC (3.8-10.6) k/uL RBC (4.30-5.90) m/uL Hgb (13.0-17.5) gm/dL Hct (39.0-53.0) % Plt Count (150-450) k/uL Monocytes # (0-1.0) k/uL Potassium (3.5-5.1) mmol/L BUN (9-20) mg/dL Creatinine (0.66-1.25) mg/dL Glucose (74-99) mg/dL POC Glucose (mg/dL) 159 H 119 H 218 H (75-99) mg/dL Calcium (8.4-10.2) mg/dL ALT (4-49) U/L Total Protein (6.3-8.2) g/dL Albumin (3.5-5.0) g/dL 01/13/20 01/13/20 01/13/20 Range/Units 05:00 05:00 06:46 WBC 11.0 H (3.8-10.6) k/uL RBC 3.36 L (4.30-5.90) m/uL Hgb 10.3 L (13.0-17.5) gm/dL Hct 30.6 L (39.0-53.0) % Plt Count 92 L (150-450) k/uL Monocytes # 1.1 H (0-1.0) k/uL Potassium 3.2 L (3.5-5.1) mmol/L BUN 73 H (9-20) mg/dL Creatinine 6.49 H (0.66-1.25) mg/dL Glucose 115 H (74-99) mg/dL POC Glucose (mg/dL) 156 H (75-99) mg/dL Calcium 7.9 L (8.4-10.2) mg/dL ALT 127 H (4-49) U/L Total Protein 4.9 L (6.3-8.2) g/dL Albumin 2.7 L (3.5-5.0) g/dL Microbiology - Last 24 Hours (Table) 01/08/20 07:31 Blood Culture - Preliminary Blood No Growth after 120 hours Assessment and Plan Assessment: alcohol abuse acute hypoxic respiratory failure needed when day of mechanical ventilation, currently extubated and on nasal cannula Acute kidney failure , needed hemodialysis Pulmonary congestion versus RDS. Check echocardiogram Severe metabolic acidosis, improving Elevated lactic acid , improving Thrombocytopenia Pulmonary congestion, check echocardiogram diabetes mellitus, type II elevated troponin Plan: this is a 59 years old male who presents with respiratory failure and acidosis, status post hemodialysis ,patient admitted to the ICU with pulmonary/critical care team managing his vent and critical condition.continue with Zosyn. Continue with Levemir and insulin sliding scale. DIET as tolerated hold metformin and losartan.we will monitor kidney function closely as well. Continue with Lasix. And monitor input and output. Check echocardiogram. Continue with Lasix. Continue same treatment. Monitor lytes and vitals. DVT and GI prophylaxis. Further recommendations of the clinical course of the patient DVT prophylaxis: Subcutaneous heparin GI Prophylaxis: Pepcid PT/OT. Recommended inpatient rehab Prognosis is guarded
[2020-01-13 12:24] LABS: Glucose,Whole Blood 152 mg/dL (75-99)
[2020-01-13 16:36] LABS: Glucose,Whole Blood 154 mg/dL (75-99)
[2020-01-13 19:53] LABS: Glucose,Whole Blood 199 mg/dL (75-99)
[2020-01-13] MEDS: QUEtiapine 25 MG TAB PO SCH (19:58)
[2020-01-14 04:30] LABS: Basophils # (A) 0.1 k/uL (0-0.2); Basophils % (A) 1 %; Eosinophils # (A) 0.3 k/uL (0-0.7); Eosinophils % (A) 4 %; Lymphocytes # (A) 1.3 k/uL (1.0-4.8); Lymphocytes % (A) 13 %; MCH 31.3 pg (25.0-35.0); MCHC 34.5 g/dL (31.0-37.0); MCV 90.8 fL (80.0-100.0); Mean Platelet Volume 7.9; Monocytes # (A) 1.4 k/uL (0-1.0); Monocytes % (A) 15 %; Neutrophils # (A) 5.9 k/uL (1.3-7.7); Neutrophils % (A) 63 %; Platelet Count 132 k/uL (150-450); RDW 13.8 % (11.5-15.5); WBC 9.4 k/uL (3.8-10.6)
[2020-01-14 04:43] LABS: Albumin 2.8 g/dL (3.5-5.0); Potassium 3.3 mmol/L (3.5-5.1); Total Bilirubin 0.7 mg/dL (0.2-1.3); Total Protein 5.1 g/dL (6.3-8.2)
[2020-01-14 06:16] LABS: Glucose,Whole Blood 157 mg/dL (75-99)
[2020-01-14] MEDS: INSULIN DETEMIR (LEVEMIR) 100 UNIT/ML SYR SQ SCH (06:24)
[2020-01-14] MEDS: INSULIN ASPART (NovoLOG) 100 UNIT/ML VIAL SQ SCH ×4 (06:24→20:39)
--- NOTE | 2020-01-14 07:23 | XR ---
EXAMINATION TYPE: XR chest 1V portable DATE OF EXAM: 01/14/2020 Comparison: 01/13/2020 Clinical History: 59-year-old male vent Findings: Left subclavian CVC tip at the cavoatrial junction. Heart upper limits of normal in size. Continued b and of right perihilar atelectasis. Worsening aeration at the left base. Impression: 1. Worsening aeration/consolidation and likely small effusion at the left base. 2. Similar right perihilar bandlike atelectasis.
[2020-01-14] MEDS: HEPARIN SODIUM,PORCINE 5,000 UNIT/ML 1 ML VIAL SQ SCH ×2 (09:16→20:41)
[2020-01-14] MEDS: AMOXIC-POT CLAV 875-125MG 1 EACH TAB PO SCH (09:17)
[2020-01-14] MEDS: FAMOTIDINE 20 MG TAB PO SCH (09:17)
[2020-01-14] MEDS: FUROSEMIDE 10 MG/ML 2 ML VIAL IV SCH ×2 (09:17→20:41)
[2020-01-14] MEDS: amLODIPine 5 MG TAB PO SCH (09:17)
--- NOTE | 2020-01-14 09:57 | P.PN ---
Subjective Patient is seen in follow-up for acute kidney injury. Patient is nonoliguric but creatinine continues to rise. Currently seen while undergoing hemodialysis but the left groin catheter not functioning well. Blood pressure stable. Admits to loose stools but no vomiting. Vital signs are stable. General: The patient appeared well nourished and normally developed. HEENT: Head exam is unremarkable. Neck is without jugular venous distension. LUNGS: Breath sounds decreased. HEART: Rate and Rhythm are regular. ABDOMEN: Soft, nontender. EXTREMITITES: No clubbing, cyanosis, or edema. Objective - Vital Signs Vital signs: Vital Signs Temp 98.4 F 01/14/20 08:00 Pulse 98 01/14/20 09:00 Resp 16 01/14/20 08:00 BP 151/90 01/14/20 09:00 Pulse Ox 94 L 01/14/20 08:00 Intake & Output 01/13/20 01/14/20 01/14/20 18:59 06:59 18:59 Intake Total 640 Output Total 1525 1175 200 Balance -885 -1175 -200 Weight 91.6 kg Intake: IV 200 Potassium Chloride 20 meq 100 In Water For Injection 1 100ml.bag @ 50 mls/hr IVPB Q2H [facility] Rx#: [id number] potassium 100 Intake, IV Titration 100 Amount Potassium Chloride 20 meq 100 In Water For Injection 1 100ml.bag @ 50 mls/hr IVPB Q2H DALIA Rx#: [id number] Oral 340 Output: Urine 1525 1175 200 Other: Voiding Method Urinal Urinal ABP, PAP, CO, CI - Last Documented Arterial Blood Pressure 150/57 - Labs CBC & Chem 7: 01/14/20 04:10 01/14/20 04:10 Labs: Abnormal Lab Results - Last 24 Hours (Table) 01/13/20 01/13/20 01/13/20 Range/Units 12:22 16:35 19:52 RBC (4.30-5.90) m/uL Hgb (13.0-17.5) gm/dL Hct (39.0-53.0) % Plt Count (150-450) k/uL Monocytes # (0-1.0) k/uL Potassium (3.5-5.1) mmol/L BUN (9-20) mg/dL Creatinine (0.66-1.25) mg/dL Glucose (74-99) mg/dL POC Glucose (mg/dL) 152 H 154 H 199 H (75-99) mg/dL Calcium (8.4-10.2) mg/dL AST (17-59) U/L ALT (4-49) U/L Total Protein (6.3-8.2) g/dL Albumin (3.5-5.0) g/dL 01/14/20 01/14/20 01/14/20 Range/Units 04:10 04:10 06:14 RBC 3.20 L (4.30-5.90) m/uL Hgb 10.0 L (13.0-17.5) gm/dL Hct 29.0 L (39.0-53.0) % Plt Count 132 L (150-450) k/uL Monocytes # 1.4 H (0-1.0) k/uL Potassium 3.3 L (3.5-5.1) mmol/L BUN 76 H (9-20) mg/dL Creatinine 7.23 H* (0.66-1.25) mg/dL Glucose 152 H (74-99) mg/dL POC Glucose (mg/dL) 157 H (75-99) mg/dL Calcium 8.0 L (8.4-10.2) mg/dL AST 67 H (17-59) U/L ALT 116 H (4-49) U/L Total Protein 5.1 L (6.3-8.2) g/dL Albumin 2.8 L (3.5-5.0) g/dL Microbiology - Last 24 Hours (Table) 01/08/20 07:31 Blood Culture - Final Blood No Growth after 144 hours Assessment and Plan Plan: Assessment: 1. Acute kidney injury secondary to ATN. Currently hemodialysis dependent. Creatinine 7.23 today. Baseline creatinine from September 2018 was 0.9. 2. Hypokalemia secondary to diuresis. Magnesium normal. 3. Severe anion gap metabolic acidosis secondary to acute kidney injury and lactic acidosis. Resolved. 4. Alcohol abuse. 5. Benign hypertension. Stable. 6. Insulin-dependent diabetes mellitus. Plan: Maintain Lasix 20 mg IV twice daily. Patient seen while undergoing hemodialysis but the groin catheter not functioning well - DC groin catheter and inserted permacath. Continue to monitor for renal recovery. Replace potassium.
[2020-01-14] MEDS ORDERED: ALTEPLASE 2 MG VIAL (CATHFLO) IV STA (10:43)
--- NOTE | 2020-01-14 11:16 | P.PN ---
Progress Note - Text Progress Note Date: 01/14/20 Patient was seen and examined at the bedside in the ICU. No acute distress, resting comfortably. Breathing is nonlabored, patient is room air. Patient was to undergo hemodialysis today through his temporary right groin catheter. However patient states that the catheter was not functioning correctly. Nephrology has seen patient and is recommending a permacath for hemodialysis. Patient has been nonoliguric. Had a chest x-ray done this morning which showed her sending aeration/consolidation and likely small effusion at the left base. Similar Right perihilar bandlike atelectasis. The patient denies any shortness breath or chest pain. Serum creatinine slightly worsened today at 7.23 Acute kidney injury with worsening creatinine Status post right femoral temporary hemodialysis catheter, nonfunctioning This patient was discussed with Dr. Duque, she would like TWO milligrams of TPA to be administered through the catheter and hemodialysis retried one hour post. Nursing is instructed to call with results. Will schedule for tunneled dialysis catheter today or tomorrow. Keep patient NPO. The above dictated assessment and findings were discussed with Dr. Duque. The impression and plan of care have been directed as dictated.
--- NOTE | 2020-01-14 11:18 | P.PN ---
Subjective Progress Note Date: 01/14/20 59-year-old male patient who came in with severe metabolic acidosis which do not to be related to severe lactic acidosis and he also had a mild osmolality gap and he was investigated further and the volatile alcohol screen came back negative. The patient is recovered and the patient is clinically stable and the leg against level is normalized. Meanwhile, the patient developed an acute kidney injury. He required to be dialyzed for a few times earlier and he was off dialysis. This morning his creatinine is on that I dropped to 7.23. His serum bicarb is 28 with a potassium level of 3.3. White cell count is at 9.4. The chest x-ray showing some worsening of the consolidation of the left lung bas e. There is also small effusions and a right perihilar bandlike atelectasis. The patient is currently on Augmentin. Is awake and alert., Indicating and answering questions appropriately. No signs of any respiratory distress. He does have a urine output and he has no Duque catheter in place. The patient has a dialysis catheter in his right IJ and left subclavian triple-lumen catheter in place. He remains on Lasix 20 mg IV push every 12 hours. Nephrology is on the case. Objective - Vital Signs Vital signs: Vital Signs Temp 98.4 F 01/14/20 08:00 Pulse 98 01/14/20 09:00 Resp 16 01/14/20 08:00 BP 151/90 01/14/20 09:00 Pulse Ox 94 L 01/14/20 08:00 Intake & Output 01/13/20 01/14/20 01/14/20 18:59 06:59 18:59 Intake Total 640 Output Total 1525 1175 200 Balance -885 -1175 -200 Weight 91.6 kg Intake: IV 200 Potassium Chloride 20 meq 100 In Water For Injection 1 100ml.bag @ 50 mls/hr IVPB Q2H [facility] Rx#: [id number] potassium 100 Intake, IV Titration 100 Amount Potassium Chloride 20 meq 100 In Water For Injection 1 100ml.bag @ 50 mls/hr IVPB Q2H [facility]ALIA Rx#: [id number] Oral 340 Output: Urine 1525 1175 200 Other: Voiding Method Urinal Urinal Urinal ABP, PAP, CO, CI - Last Documented Arterial Blood Pressure 150/57 - Exam The patient appeared well nourished and normally developed. Vital signs as documented. Head exam is unremarkable. No scleral icterus or corneal arcus noted. Neck is without jugular venous distension, thyromegaly, or carotid bruits. Carotid upstrokes are brisk bilaterally. Lungs are clear to auscultation and percussion. Cardiac exam reveals the PMI to be normally sized and situated. Rhythm is regular. First and second heart sounds normal. No murmurs, rubs or gallops. Abdominal exam reveals normal bowel sounds, no masses, no organomegaly and no aortic enlargement. Extremities are nonedematous and both femoral and pedal pulses are normal.Examination of the skin revealed no evidence of significant rashes, suspicious appearing nevi or other concerning lesions.Neurologically, the patient is awake and alert and the patient does not have any focal neurological deficit. Cranial nerves are essentially intact. The patient has a left subclavian triple-lumen catheter in the right femoral dialysis catheter. - Labs CBC & Chem 7: 01/14/20 04:10 01/14/20 04:10 Labs: Abnormal Lab Results - Last 24 Hours (Table) 01/13/20 01/13/20 01/13/20 Range/Units 12:22 16:35 19:52 RBC (4.30-5.90) m/uL Hgb (13.0-17.5) gm/dL Hct (39.0-53.0) % Plt Count (150-450) k/uL Monocytes # (0-1.0) k/uL Potassium (3.5-5.1) mmol/L BUN (9-20) mg/dL Creatinine (0.66-1.25) mg/dL Glucose (74-99) mg/dL POC Glucose (mg/dL) 152 H 154 H 199 H (75-99) mg/dL Calcium (8.4-10.2) mg/dL AST (17-59) U/L ALT (4-49) U/L Total Protein (6.3-8.2) g/dL Albumin (3.5-5.0) g/dL 01/14/20 01/14/20 01/14/20 Range/Units 04:10 04:10 06:14 RBC 3.20 L (4.30-5.90) m/uL Hgb 10.0 L (13.0-17.5) gm/dL Hct 29.0 L (39.0-53.0) % Plt Count 132 L (150-450) k/uL Monocytes # 1.4 H (0-1.0) k/uL Potassium 3.3 L (3.5-5.1) mmol/L BUN 76 H (9-20) mg/dL Creatinine 7.23 H* (0.66-1.25) mg/dL Glucose 152 H (74-99) mg/dL POC Glucose (mg/dL) 157 H (75-99) mg/dL Calcium 8.0 L (8.4-10.2) mg/dL AST 67 H (17-59) U/L ALT 116 H (4-49) U/L Total Protein 5.1 L (6.3-8.2) g/dL Albumin 2.8 L (3.5-5.0) g/dL Microbiology - Last 24 Hours (Table) 01/08/20 07:31 Blood Culture - Final Blood No Growth after 144 hours Assessment and Plan Plan: 1 acute hypoxic respiratory failure, multifactorial essentially related to severe metabolic acidosis/are cold intoxication at recovered and the patient is currently on room air oxygen 2 left lower lobe consolidation/pneumonia, consider aspiration pneumonia curr ently on Augmentin, currently on room air oxygen 3 severe metabolic acidosis/lactic acidosis, recovered, likely secondary to alcoholism, dehydration and use of metformin outpatient basis which have p robably cause severe metabolic acidosis. 4 altered mental status secondary to above, recovered and the patient's mentation is back to normal 5 acute alcohol intoxication, recovered 6 acute kidney injury/ATN in the creatinine is on the rise and the patient will need hemodialysis 7 history of alcoholism 8 diabetes mellitus 9 hypertension 10 hyperlipidemia Plan Continue Augmentin for now and repeat the chest x-ray in a.m. No need for antibiotic adjustments at this point in time Monitor renal function Proceed with hemodialysis today Obtain ultrasound of the kidneys to rule out hydronephrosis Continue IV Lasix and We'll continue to follow
[2020-01-14 11:49] LABS: Glucose,Whole Blood 183 mg/dL (75-99)
[2020-01-14] MEDS ORDERED: POTASSIUM CHLORIDE ER 20 MEQ TAB.ER PO STA (12:49)
[2020-01-14 16:43] LABS: Glucose,Whole Blood 174 mg/dL (75-99)
--- NOTE | 2020-01-14 17:37 | US ---
EXAMINATION TYPE: US kidneys/renal and bladder DATE OF EXAM: 01/14/2020 COMPARISON: 10/04/2018 CLINICAL HISTORY: 59 year-old male acute kidney injury. TECHNIQUE: Multiple sonographic images of the kidneys and bladder are obtained. FINDINGS: EXAM MEASUREMENTS: Right Kidney: 11.4 x 5.7 x6.5 cm Left Kidney: 11.8 x 6.1 x 6.2 cm Post Void Residual Volume: not assessed on inpatient Right Kidney: Echogenic focus superiorly may be vessel wall calcification. No hydronephrosis. Left Kidney: multiple hyperechoic parallel lines suggests vessel wall calcifications. No hydronephros is. Bladder: Circumferential bladder wall thickening up to 8 mm may be secondary to partial distention. Bilateral Jets seen: not seen after 3 minute observation Incidental echogenic appearance to the liver. IMPRESSION: 1. No hydronephrosis. 2. Echogenic areas in the kidneys, suspected vascular calcifications. 3. Circumferential bladder wall thickening could relate to underdistention, chronic bladder wall hype rtrophy, or cystitis. Clinically correlate. 4. Incidental: Suspect underlying hepatic steatosis.
[2020-01-14 20:13] LABS: Glucose,Whole Blood 154 mg/dL (75-99)
[2020-01-14] MEDS: QUEtiapine 25 MG TAB PO SCH (20:43)
[2020-01-15 05:00] LABS: HCT 27.9 % (39.0-53.0); HGB 9.3 gm/dL (13.0-17.5); MCH 30.8 pg (25.0-35.0); MCHC 33.4 g/dL (31.0-37.0); MCV 92.1 fL (80.0-100.0); Mean Platelet Volume 7.8; Platelet Count 181 k/uL (150-450); RBC 3.03 m/uL (4.30-5.90)
[2020-01-15 05:51] LABS: Calcium 8.1 mg/dL (8.4-10.2); Potassium 3.5 mmol/L (3.5-5.1)
[2020-01-15 06:49] LABS: Glucose,Whole Blood 166 mg/dL (75-99)
[2020-01-15] MEDS: INSULIN ASPART (NovoLOG) 100 UNIT/ML VIAL SQ SCH ×4 (06:54→20:24)
[2020-01-15] MEDS: INSULIN DETEMIR (LEVEMIR) 100 UNIT/ML SYR SQ SCH (06:54)
--- NOTE | 2020-01-15 06:58 | P.PN ---
Subjective This is a 59 years old male with past medical history of hypertension, hyperlipidemia, diabetes mellitus, CVA/TIA, diabetic neuropathy. Exactly and depression, heavy alcohol drinker. Presents because of dyspnea Patient got intubated in the emergency room confirmation was taken from records and staff. The patient has been belching drinking alcohol he is been drinking alcohol for the last 5 days, today his financing noticed his been short of b reath and he came to emergency room on admission was significantly tachypneic with her respiratory rate around 30, blood pressure was 133/84 however it drops to 89/50.patient was vomiting and he got confused, WBC of 40 6K, Hemoglobin and Platelets Are Normal, ABG Shows Severe Acidosis with pH less than 6.8, pCO2 29 and pO2 was 352. Lactic acid significantly elevated more than 24, elevated troponin 0.03, sodium mildly low at 136, potassium normal 5.0,, liver enzymes mildly elevated with AST 113, with normal ALT 45, lipase slightly high at 519. creatinine is elevated at 4.0, urinalysis is unremarkable. Chest x-ray done in the emergency room showing diminished inspiration with developing retrocardiac acute infiltrate and/or atelectasis. EKG showing normal sinus rhythm at [address]-T changes and QTC of 542 in the emergency room patient was givenon vancomycin and Zosyn home medications including metformin, Dyazide, Pravachol, losartan and aspirin 01/09/2020 Patient remains in the ICU, his status post extubation, he is currently breathing quietly On 2 L oxygen and he is saturating high 90s. This is slightly tachycardic at 108 Vital signs stable. Patient and significant other at bedside confirmed to me he was only drinking rum for 5 days prior to admission to the hospital. WBC is down to 21.9. Hemoglobin is 11.7, platelets is also down to 186, most likely it's hemodilution. PH is 7.5, pCO2 is 33 which is low and high CO2 at 157. Lactic acid is also significantly improved and output 4.6, glucose is controlled 129 06/24/1968. Creatinine 2.6, sodium 134 and dressed of electrolytes is normal. AST is up 113 to 1446 and ALT up from 40 to 749. Chest x-ray from today showing stable findings Patient is started back on Zosyn today. He was nothing by mouth, started on clear liquid diet. He got 12 units of short-acting insulin in the morning. As well as he got Levemir 10 units. We will keep Levemir and insulin sliding scale . Hemoglobin A1c is 7.5% 01/10/2020 Patient is more awake and interactive today, he does not have any specific complaints, he remains in the ICU with close monitoring. He still feels generally weak. But he is improving gradually. His tachypneic at 22 tachycardic around 125, his sugar is elevated today after holding his Levemir, however continue with insulin sliding scale, patient is a started on diet and is advanced gradually. Patient was placed on hold, due to delirium mostly due to his infection and metabolic abnormality including renal failure and hyperglycemia , however patient was started on antibiotics and currently he is on Zosyn. Patient remains to improve gradually.The saturating 94% on 4 L oxygen via nasal cannula. Leukocytosis trending down to 19.0 K. Hemoglobin 11.0. Creatinine stable as of yesterday at 4.8. And liver enzymes came down significantly 2586 AST and 488 ALT, troponin 0.35. However patient with no chest pain or dyspnea. Chest x-ray showed persistent bilateral infiltrates and venous congestion and he remains on Zosyn for now. No more hemodialysis and encourage oral intake.. 01/11/2020 Patient remains in critical condition in the ICU he's awake and alert but still lethargic and severely weak. Vitas looks stable, however her WBC is worsening to 22, creatinine went up slightly to 5.8, troponin was high 0.3, glucose controlled less than 200, LFT is improving.. Patient got agitated and he didn't Haldol with partial improvement however his more calm today. He needed BiPAP overnight, and he was on 8 L oxygen via high flow nasal cannula in the morning, he needed hemodialysis today as his chest x-ray showed worsening CHF versus RDS and is oxygen requirement dropped to 4 L after the dialysis. Patient is a spiking fever of 100.1 and he remains on Zosyn for that. Lasix 60 mg twice daily was added. We will order echocardiogram. Dr. Odell input is appreciated, patient will need rehab once he improves 01/12/2020 Patient is more awake and calm today, his answer questions appropriately. He is breathing more quietly and he saturating 90s on. Oxygen via nasal cannula. No abdominal pain or nausea vomiting. He is tolerating diet well and his medication about 75% of his breakfast and lunch. He is hemodynamically stable. WBC trending down to 16 K. His sugar is controlled on 10 units of Levemir. Glucose is ranging 119-159. Creatinine 5.6. Nephrology on the case and the managing his dialysis. Lasix is lowered to 20 mg twice daily. His vomiting present on admission and confusion has resolved, his blood pressure is more stabilized, was low on admission and due to his severe acidosis and vomiting and dehydration, on admission he got emergent hemodialysis. Also on admission he got IV vancomycin. Currently he is on Zosyn. His lactic acid on admission was more than 24 and 11 in relation to his severe acidosis and hypovolemia with dehydration. Currently lactic acid check today is within normal limits at 1.0. Troponins were elevated and just x-ray showed some pulmonary congestion, echocardiogram done on the results still pending when checked this afternoon. 01/13/2020 Patient is awake and calm, his weakness has improved, he is up in chair. There is some blistering in his feet which are covered with dressing. He saturating 90s on 3 L oxygen via nasal cannula, no agitation. He remains on IV Lasix and he is making good urine output. WBC is down to 11 K. His low platelets are at 92. His creatinine is still up a 6.4 with nephrology on the case for possible further hemodialysis as per their recommendation. Echocardiogram still pending. Chest x-ray showed bilateral hilar infiltrates, left more than right 01/14/2020 Patient is awake, sitting calm and comfortable in his chair he denies chest pain or dyspnea, he was able to look around with no problem He is hemodynamically stable. showing normal WBC of 9.40 and hemoglobin 10, his creatinine 7.3 and patient is undergoing hemodialysis. Sugar is controlled Antibiotics and Zosyn has been changed to Augmentin Chest x-ray showing worsening effusion and congestion Patient is supposed to get hemodialysis today however his catheter is not functioning, there was a try to get it open and that should fail patient will need permacath tomorrow Echocardiogram has been done several days ago and result is not back despite several requests. We are going to repeat an echocardiogram, as patient has pulmonary congestion and high troponin, if echocardiogram is abnormal then consider cardiac consult Review of systems CONSTITUTIONAL: No fever, no malaise, no fatigue. HEENT: No recent visual problems or hearing problems. Denied any sore throat. CARDIOVASCULAR: no palpitations, no syncope. GASTROINTESTINAL: No diarrhea, no nausea, no vomiting, no abdominal pain. Normoactive bowel sounds. NEUROLOGICAL: No headaches, no weakness, no numbness. HEMATOLOGICAL: Denies any bleeding or petechiae. Active Medications Generic Name Dose Route Start Last Admin Trade Name Freq PRN Reason Stop Dose Admin Amlodipine Besylate 5 mg 01/10/20 14:15 01/14/20 09:17 Norvasc PO 5 mg DAILY DALIA Administration Amoxicillin/Clavulanate Potassium 1 each 01/14/20 09:00 01/14/20 09:17 Augmentin 875-125 PO 1 each Q24HR DALIA Administration Famotidine 20 mg 01/12/20 09:00 01/14/20 09:17 Pepcid PO 20 mg DAILY DALIA Administration Furosemide 20 mg 01/12/20 21:00 01/14/20 20:41 Lasix IV 20 mg Q12HR DALIA Administration Haloperidol Lactate 4 mg 01/10/20 18:18 01/10/20 18:23 Haldol IVP 4 mg Q2HR PRN Administration Agitation or Acute Psychosis Haloperidol Lactate 8 mg 01/10/20 18:20 01/10/20 20:26 Haldol IVP 8 mg Q2HR PRN Administration Agitation or Acute Psychosis Heparin Sodium (Porcine) 5,000 unit 01/08/20 21:00 01/14/20 20:41 Heparin SQ 5,000 unit Q12HR DALIA Administration Insulin Aspart 0 unit 01/12/20 07:30 01/14/20 20:39 Novolog SQ 1 unit ACHS DALIA Administration Protocol Insulin Detemir 10 unit 01/10/20 07:00 01/14/20 06:24 Levemir SQ 10 unit DAILY@0700 DALIA Administration Lorazepam 1 mg 01/10/20 15:02 01/12/20 01:25 Ativan IV 1 mg Q2HR PRN Administration CIWA 8 or 9 Lorazepam 1 mg 01/10/20 15:02 01/10/20 20:18 Ativan IV 1 mg Q1HR PRN Administration CIWA 10 to 15 Miscellaneous Information 1 each 01/10/20 08:00 Potassium Per Protocol MISCELLANE DAILY PRN Per Protocol Protocol Naloxone HCl 0.2 mg 01/08/20 09:11 Narcan IV Q2M PRN Opioid Reversal Ondansetron HCl 4 mg 01/10/20 15:01 01/14/20 06:27 Zofran IVP 4 mg Q6HR PRN Administration Nausea And Vomiting Quetiapine Fumarate 25 mg 01/13/20 21:00 01/14/20 20:43 Seroquel PO 25 mg HS DALIA Administration Silver Sulfadiazine 1 applic 01/13/20 09:00 01/14/20 09:17 Silvadene Cream TOPICAL 1 applic DAILY DALIA Administration Objective - Vital Signs Vital signs: Vital Signs Temp 98.2 F 01/14/20 12:00 Pulse 92 01/14/20 12:00 Resp 15 01/14/20 12:00 BP 115/87 01/14/20 12:00 Pulse Ox 94 L 01/14/20 08:00 Intake & Output 01/13/20 01/14/20 01/14/20 18:59 06:59 18:59 Intake Total 640 Output Total 1525 1175 400 Balance -885 -1175 -400 Weight 91.6 kg Intake: IV 200 Potassium Chloride 20 meq 100 In Water For Injection 1 100ml.bag @ 50 mls/hr IVPB Q2H DALIA Rx#: [id number] potassium 100 Intake, IV Titration 100 Amount Potassium Chloride 20 meq 100 In Water For Injection 1 100ml.bag @ 50 mls/hr IVPB Q2H DALIA Rx#: [id number] Oral 340 Output: Urine 1525 1175 400 Other: Voiding Method Urinal Urinal Urinal ABP, PAP, CO, CI - Last Documented Arterial Blood Pressure 150/57 - Exam -GENERAL: The patient is alert and oriented x3, not in any acute distress. His weakness is improving gradually HEENT: Pupils are round and equally reacting to light. EOMI. No scleral icterus. No conjunctival pallor. Normocephalic, atraumatic. No pharyngeal erythema. No thyromegaly. CARDIOVASCULAR: S1 and S2 present. No murmurs, rubs, or gallops. -PULMONARY: Chest is clear to auscultation, no wheezing or. Bilateral basal crepitation ABDOMEN: Soft, nontender, nondistended, normoactive bowel sounds. No palpable organomegaly. MUSCULOSKELETAL: No joint swelling or deformity. EXTREMITIES: No cyanosis, clubbing, or pedal edema. NEUROLOGICAL: Gross neurological examination did not reveal any focal deficits. SKIN: No rashes. no petechiae. - Labs CBC & Chem 7: 01/15/20 04:28 01/15/20 04:28 Labs: Abnormal Lab Results - Last 24 Hours (Table) 01/13/20 01/13/20 01/14/20 Range/Units 16:35 19:52 04:10 RBC 3.20 L (4.30-5.90) m/uL Hgb 10.0 L (13.0-17.5) gm/dL Hct 29.0 L (39.0-53.0) % Plt Count 132 L (150-450) k/uL Monocytes # 1.4 H (0-1.0) k/uL Potassium (3.5-5.1) mmol/L BUN (9-20) mg/dL Creatinine (0.66-1.25) mg/dL Glucose (74-99) mg/dL POC Glucose (mg/dL) 154 H 199 H (75-99) mg/dL Calcium (8.4-10.2) mg/dL AST (17-59) U/L ALT (4-49) U/L Total Protein (6.3-8.2) g/dL Albumin (3.5-5.0) g/dL 01/14/20 01/14/20 01/14/20 Range/Units 04:10 06:14 11:46 RBC (4.30-5.90) m/uL Hgb (13.0-17.5) gm/dL Hct (39.0-53.0) % Plt Count (150-450) k/uL Monocytes # (0-1.0) k/uL Potassium 3.3 L (3.5-5.1) mmol/L BUN 76 H (9-20) mg/dL Creatinine 7.23 H* (0.66-1.25) mg/dL Glucose 152 H (74-99) mg/dL POC Glucose (mg/dL) 157 H 183 H (75-99) mg/dL Calcium 8.0 L (8.4-10.2) mg/dL AST 67 H (17-59) U/L ALT 116 H (4-49) U/L Total Protein 5.1 L (6.3-8.2) g/dL Albumin 2.8 L (3.5-5.0) g/dL Microbiology - Last 24 Hours (Table) 01/08/20 07:31 Blood Culture - Final Blood No Growth after 144 hours Assessment and Plan Assessment: alcohol abuse acute hypoxic respiratory failure needed when day of mechanical ventilation, currently extubated and on nasal cannula Acute kidney failure , needed hemodialysis Pulmonary congestion versus RDS. Check echocardiogram Severe metabolic acidosis, improving Elevated lactic acid , improving Thrombocytopenia Pulmonary congestion, check echocardiogram diabetes mellitus, type II elevated troponin Plan: this is a 59 years old male who presents with respiratory failure and acidosis, status post hemodialysis ,patient admitted to the ICU with pulmonary/critical care team managing his vent and critical condition.continue with Zosyn. Continue with Levemir and insulin sliding scale. DIET as tolerated hold metfor min and losartan.we will monitor kidney function closely as well. Continue with Lasix. And monitor input and output. Check echocardiogram. Continue with Lasix. Continue same treatment. Monitor lytes and vitals. DVT and GI prophylaxis. Further recommendations of the clinical course of the patient DVT prophylaxis: Subcutaneous heparin GI Prophylaxis: Pepcid PT/OT. Recommended inpatient rehab Prognosis is guarded
[2020-01-15] MEDS ORDERED: POTASSIUM CHLORIDE 20 MEQ in WATER FOR INJECTION 1 100ML.BAG IVPB ONE ×2 (07:15→10:30)
[2020-01-15] MEDS ORDERED: NALOXONE 0.4 MG/ML 1 ML VIAL IV PRN (09:06)
[2020-01-15] MEDS ORDERED: ONDANSETRON 4 MG/2 ML VIAL IVP PRN (09:06)
--- NOTE | 2020-01-15 09:44 | P.PN ---
Subjective Patient is seen in follow-up for acute kidney injury. Patient is nonoliguric but creatinine continues to rise. Scheduled for hemodialysis today. Denies chest pain or shortness of breath. Oral intake good. Vital signs are stable. General: The patient appeared well nourished and normally developed. HEENT: Head exam is unremarkable. Neck is without jugular venous distension. LUNGS: Breath sounds decreased. HEART: Rate and Rhythm are regular. ABDOMEN: Soft, nontender. EXTREMITITES: Trace edema. Objective - Vital Signs Vital signs: Vital Signs Temp 98.9 F 01/15/20 04:00 Pulse 93 01/15/20 05:00 Resp 16 01/15/20 04:00 BP 147/88 01/15/20 04:00 Pulse Ox 93 L 01/15/20 04:00 Intake & Output 01/14/20 01/15/20 01/15/20 18:59 06:59 18:59 Output Total 825 750 Balance -825 -750 Weight 89.3 kg Output: Urine 825 750 Hemodialysis 0 Other: Voiding Method Urinal Urinal # Voids 1 ABP, PAP, CO, CI - Last Documented Arterial Blood Pressure 150/57 - Labs CBC & Chem 7: 01/15/20 04:28 01/15/20 04:28 Labs: Abnormal Lab Results - Last 24 Hours (Table) 01/14/20 01/14/20 01/14/20 Range/Units 11:46 16:40 20:11 RBC (4.30-5.90) m/uL Hgb (13.0-17.5) gm/dL Hct (39.0-53.0) % Sodium (137-145) mmol/L BUN (9-20) mg/dL Creatinine (0.66-1.25) mg/dL Glucose (74-99) mg/dL POC Glucose (mg/dL) 183 H 174 H 154 H (75-99) mg/dL Calcium (8.4-10.2) mg/dL 01/15/20 01/15/20 01/15/20 Range/Units 04:28 04:28 06:47 RBC 3.03 L (4.30-5.90) m/uL Hgb 9.3 L (13.0-17.5) gm/dL Hct 27.9 L (39.0-53.0) % Sodium 136 L (137-145) mmol/L BUN 77 H (9-20) mg/dL Creatinine 7.33 H* (0.66-1.25) mg/dL Glucose 154 H (74-99) mg/dL POC Glucose (mg/dL) 166 H (75-99) mg/dL Calcium 8.1 L (8.4-10.2) mg/dL Microbiology - Last 24 Hours (Table) 01/08/20 07:31 Blood Culture - Final Blood No Growth after 144 hours Assessment and Plan Plan: Assessment: 1. Acute kidney injury secondary to ATN. Currently hemodialysis dependent. Creatinine 7.33 today. Baseline creatinine from September 2018 was 0.9. 2. Hypokalemia secondary to diuresis. Magnesium normal. Status post replacement. 3. Severe anion gap metabolic acidosis secondary to acute kidney injury and lactic acidosis. Resolved. 4. Alcohol abuse. 5. Benign hypertension. Stable. 6. Insulin-dependent diabetes mellitus. Plan: Hemodialysis today. I will change Lasix to 40 mg orally once daily. Scheduled for permacath placement today. Continue to monitor for renal recovery. Anticipate discharge soon.
[2020-01-15] MEDS: FUROSEMIDE 40 MG TAB PO SCH (10:02)
[2020-01-15] MEDS: AMOXIC-POT CLAV 875-125MG 1 EACH TAB PO SCH (10:02)
[2020-01-15] MEDS: FAMOTIDINE 20 MG TAB PO SCH (10:02)
[2020-01-15] MEDS: amLODIPine 5 MG TAB PO SCH (10:02)
[2020-01-15] MEDS: HEPARIN SODIUM,PORCINE 5,000 UNIT/ML 1 ML VIAL SQ SCH ×2 (10:02→20:26)
[2020-01-15 10:13] VITALS: BMI 27.4
--- NOTE | 2020-01-15 11:08 | P.PN ---
Subjective Progress Note Date: 01/15/20 59-year-old male patient who came in with severe metabolic acidosis which do not to be related to severe lactic acidosis and he also had a mild osmolality gap and he was investigated further and the volatile alcohol screen came back negative. The patient is recovered and the patient is clinically stable and the leg against level is normalized. Meanwhile, the patient developed an acute kidney injury. He required to be dialyzed for a few times earlier and he was off dialysis. This morning his creatinine is on that I dropped to 7.23. His serum bicarb is 28 with a potassium level of 3.3. White cell count is at 9.4. The chest x-ray showing some worsening of the consolidation of the left lung bas e. There is also small effusions and a right perihilar bandlike atelectasis. The patient is currently on Augmentin. Is awake and alert., Indicating and answering questions appropriately. No signs of any respiratory distress. He does have a urine output and he has no Duque catheter in place. The patient has a dialysis catheter in his right IJ and left subclavian triple-lumen catheter in place. He remains on Lasix 20 mg IV push every 12 hours. Nephrology is on the case. 01/15/2020 and seeing this patient for a follow-up. The patient is doing well and has no specific complaints. He is dialysis catheter was nonfunctioning yesterday and based on that he was given TPA flushes and a dialysis scheduled for today if the catheter is deemed to be functional. He is also being scheduled for a permacath insertion today. He still producing urine output. He is on Lasix at a dose of 40 mg on a daily basis. Creatinine is still elevated at 7.3 with a BUN of 77. The rest of the electrodes are within normal limits. White cell count is at 9.3. The ultrasound the kidneys was completed yesterday and it showed no acute abnormalities. The patient is afebrile. The patient is hemodynamically stable. The patient is pulse oxing 90% on room air oxygen. Temperature 98.9. Objective - Vital Signs Vital signs: Vital Signs Temp 98.9 F 01/15/20 04:00 Pulse 93 01/15/20 05:00 Resp 16 01/15/20 04:00 BP 147/88 01/15/20 04:00 Pulse Ox 93 L 01/15/20 04:00 Intake & Output 01/14/20 01/15/20 01/15/20 18:59 06:59 18:59 Output Total 825 750 Balance -825 -750 Weight 89.3 kg 89.3 kg Output: Urine 825 750 Hemodialysis 0 Other: Voiding Method Urinal Urinal # Voids 1 ABP, PAP, CO, CI - Last Documented Arterial Blood Pressure 150/57 - Exam The patient appeared well nourished and normally developed. Vital signs as documented. Head exam is unremarkable. No scleral icterus or corneal arcus noted. Neck is without jugular venous distension, thyromegaly, or carotid bruits. Carotid upstrokes are brisk bilaterally. Lungs are clear to auscultation and percussion. Cardiac exam reveals the PMI to be normally sized and situated. Rhythm is regular. First and second heart sounds normal. No murmurs, rubs or gallops. Abdominal exam reveals normal bowel sounds, no masses, no organomegaly and no aortic enlargement. Extremities are nonedematous and both femoral and pedal pulses are normal.Examination of the skin revealed no evidence of significant rashes, suspicious appearing nevi or other concerning lesions.Neurologically, the patient is awake and alert and the patient does not have any focal neurological deficit. Cranial nerves are essentially intact. The patient has a left subclavian triple-lumen catheter in the right femoral dialysis catheter. - Labs CBC & Chem 7: 01/15/20 04:28 01/15/20 04:28 Labs: Abnormal Lab Results - Last 24 Hours (Table) 01/14/20 01/14/20 01/14/20 Range/Units 11:46 16:40 20:11 RBC (4.30-5.90) m/uL Hgb (13.0-17.5) gm/dL Hct (39.0-53.0) % Sodium (137-145) mmol/L BUN (9-20) mg/dL Creatinine (0.66-1.25) mg/dL Glucose (74-99) mg/dL POC Glucose (mg/dL) 183 H 174 H 154 H (75-99) mg/dL Calcium (8.4-10.2) mg/dL 01/15/20 01/15/20 01/15/20 Range/Units 04:28 04:28 06:47 RBC 3.03 L (4.30-5.90) m/uL Hgb 9.3 L (13.0-17.5) gm/dL Hct 27.9 L (39.0-53.0) % Sodium 136 L (137-145) mmol/L BUN 77 H (9-20) mg/dL Creatinine 7.33 H* (0.66-1.25) mg/dL Glucose 154 H (74-99) mg/dL POC Glucose (mg/dL) 166 H (75-99) mg/dL Calcium 8.1 L (8.4-10.2) mg/dL Microbiology - Last 24 Hours (Table) 01/08/20 07:31 Blood Culture - Final Blood No Growth after 144 hours Assessment and Plan Plan: 1 acute hypoxic respiratory failure, multifactorial essentially related to severe metabolic acidosis/are cold intoxication at recovered and the patient is currently on room air oxygen 2 left lower lobe consolidation/pneumonia, consider aspiration pneumonia currently on Augmentin, currently on room air oxygen, a repeat x-ray is to follow with the next 24-48 hours. 3 severe metabolic acidosis/lactic acidosis, recovered, likely secondary to al coholism, dehydration and use of metformin outpatient basis which have probably cause severe metabolic acidosis. 4 altered mental status secondary to above, recovered and the patient's mentation is back to normal 5 acute alcohol intoxication, recovered 6 acute kidney injury/ATN in the creatinine is on the rise and the patient will need hemodialysis, in no improvement in the renal function compared to yesterday. Ultrasound the kidneys showed no evidence of hydronephrosis. 7 history of alcoholism 8 diabetes mellitus 9 hypertension 10 hyperlipidemia Plan Continue Augmentin for now and repeat the chest x-ray once permacath was inserted Monitor renal function Proceed with hemodialysis today following a permacath insertion Ultrasound the kidneys was within normal limits Continue oral Lasix We'll continue to follow
[2020-01-15 12:05] LABS: Glucose,Whole Blood 128 mg/dL (75-99)
[2020-01-15] MEDS ORDERED: SODIUM CHLORIDE 0.9% 500 ML 500 ML IV ONE (12:45)
[2020-01-15] MEDS: fentaNYL (PF) 50 MCG/ML 2 ML AMP IV ONE ×2 (12:47→12:59)
[2020-01-15] MEDS ORDERED: MIDAZOLAM 2 MG/2 ML VIAL IV ONE (12:47)
[2020-01-15] MEDS ORDERED: LIDOCAINE 1% INJ 10MG/ML (20 ML MDV) SQ ONE (12:51)
--- NOTE | 2020-01-15 12:51 | ECHOF ---
Referral Reason:Rule out heart disease MEASUREMENTS -------- HEIGHT: 180.3 cm WEIGHT: 96.6 kg BP: 147/102 IVSd: 1.7 cm (0.6 - 1.1) LVIDd: 4.6 cm (3.9 - 5.3) LVPWd: 1.7 cm (0.6 - 1.1) EDV(Teich): 99 ml IVSs: 1.9 cm LVIDs: 3.6 cm LVPWs: 1.9 cm %IVS Thck: 12 % ESV(Teich): 56 ml EF(Teich): 44 % %FS: 22 % SV(Teich): 43 ml LA Diam: 3.6 cm (2.7 - 3.8) RVIDd: 3.5 cm (< 3.3) IVC: 18.46 mm LALs A4C: 4.3 cm LAAs A4C: 13.4 cm LAESV A-L A4C: 36 ml LAESV MOD A4C: 32 ml LALs A2C: 5.2 cm LAAs A2C: 16.0 cm LAESV A-L A2C: 42 ml LAESV MOD A2C: 41 ml LAESV(A-L): 43 ml LAESV Index (A-L): 19.65 ml/m Ao Diam: 3.7 cm (2.0 - 3.7) AV Cusp: 2.2 cm (1.5 - 2.6) EPSS: 1.5 cm MV E Edi: 0.83 m/s MV DecT: 112 ms MV Dec Trego: 7.5 m/s MV A Edi: 0.59 m/s MV E/A Ratio: 1.42 MV PHT: 32 ms AV Vmax: 0.99 m/s AV maxP.89 mmHg TR Vmax: 2.86 m/s TR maxP.68 mmHg RAP: 5.00 mmHg RVSP: 37.68 mmHg MV EF SLOPE: 55.08 mm/s (70 - 150) MV EXCURSION: 16.31 mm (> 18.000) FINDINGS -------- Resting tachycardia (HR>100bpm). This was a technically difficult study with suboptimal views. The left ventricular size is normal. There is severe concentric left ventricular hypertrophy. Ove rall left ventricular systolic function is severely impaired with, an EF between 25 - 30 %. The right ventricle is mildly enlarged. LA is midly dilated 29-33ml/m2. The right atrium is normal in size. Lumason used Interatrial and interventricular septum intact. The aortic valve is trileaflet and appears structurally normal. Mild mitral regurgitation is present. Mild tricuspid regurgitation present. There is mild pulmonary hypertension. The right ventricular systolic pressure, as measured by Doppler, is 37.68mmHg. The pulmonic valve was not well visualized. The aortic root size is normal. Normal inferior vena cava with normal inspiratory collapse consistent with estimated right atrial pre ssure of 5 mmHg. Echo free space indicative of a pericardial fat pad. CONCLUSIONS -------- 1. Resting tachycardia (HR>100bpm). 2. This was a technically difficult study with suboptimal views. 3. The left ventricular size is normal. 4. There is severe concentric left ventricular hypertrophy. 5. Overall left ventricular systolic function is severely impaired with, an EF between 25 - 30 %. 6. The right ventricle is mildly enlarged. 7. Lumason used 8. The aortic valve is trileaflet and appears structurally normal. 9. Mild mitral regurgitation is present. 10. Mild tricuspid regurgitation present. 11. There is mild pulmonary hypertension. 12. The right ventricular systolic pressure, as measured by Doppler, is 37.68mmHg. 13. Echo free space indicative of a pericardial fat pad. [employer] TECHNICIAN: Praveena Barclay RDCS
--- NOTE | 2020-01-15 13:22 | P.OP ---
Date of Procedure: 01/15/20 Description of Procedure: Preoperative diagnosis: [Acute kidney injury, nontender covering creatinine, alcoholic encephalopathy] Postoperative diagnosis: Same Procedure: [#1 ultrasound-guided right internal jugular vein access #2 fluoroscopic assisted placement 23 cm tunneled dialysis catheter #3 moderate conscious sedation 21 minutes] Surgeon: Zahira Duque D.O. EBL: [Less than 10 mL] IV fluids: [See records] Urine output: [None measured] Drains: [None] Complications: [None immediately apparent] Condition: [Stable back to room] Operative indication and findings: [The patient is a 59-year-old male who initially presented in alcoholic encephalopathy and was found to have worsening creatinine that did not recover even after multiple rounds of dialysis. He was recommended to undergo tunneled dialysis catheter placement. Risks and benefits were discussed. He seemingly understood and was willing to proceed.] Procedure in detail: [The patient was taken to the special suite and placed in supine position. The bilateral necks were prepped and draped in usual sterile fashion. Preprocedure timeout was performed, all parties were in agreement. Was Utilized and the Right Internal Jugular Vein Was Identified. The Skin Overlying Was Anesthetized with 1% Lidocaine Plain. A Cannulation Needle Was Used and Direct Chelation under Ultrasound-Guided Access Was Obtained with Return of Dark Venous, Nonpulsatile Blood. A Guidewire Was Placed and Advanced Freely. It Was Confirmed in Place in the Superior Vena Cava. Attention Was Then Turned Towards the Tunnel. The Proposed Tunnel Was Anesthetized. A Small Incision Was Made in the Anterior Chest Wall and the Tunneler Was Then Passed with the Previously Flushed Catheter. Then under Direct Visualization, the Subcutaneous Tissues Were Serially Dilated While Watching on Fluoroscopy. The Tear-Away Sheath Was Placed. The Inner Cannula and Wire Removed. The Catheter Was Placed. The Tear-Away Sheath Was Removed. The Catheter Was Found to Be in Good Resting Position in the Superior Vena Cava. It Aspirated and Flushed Well. The Catheter Was Sutured in Place with 3-0 Nylon. The Skin Was Reapproximated at the Access Site with 4-0 Vicryl. A Dressing Was Placed. Patient Was Transferred Back to His Room in Stable Condition Having Tolerated the Procedure Well. A Post Procedure Chest X-Ray Is Pending.
--- NOTE | 2020-01-15 14:09 | P.PN ---
Subjective 59-year-old male was admitted with severe metabolic acidosis alcohol overdose, patient had mild osmolar gap because of which patient underwent a work and alcohol screen which was negative. Patient had severe lactic acidosis from intravascular depletion dehydration and the metformin patient ended up having acute kidney injury now requiring hemodialysis patient on admission was intubated and had respiratory failure which is believed to be secondary to alcohol overdose and aspiration pneumonia patient can use to be in Augmentin. Patient is to permacath patient probably will be discharged tomorrow patient is presently medically stable to be transferred out of ICU. Patient will undergo hemodialysis today Constitutional: Denied any fatigue denied any fever. Cardio vascular: denied any chest pain, palpitations Gastrointestinal denied any nausea vomiting Pulmonary: Denied any shortness of breath cough Neurologic denied any new focal deficits All inpatient medications were reviewed and appropriate changes in these medications as dictated in the interval history and assessment and plan. Objective - Vital Signs Vital signs: Vital Signs Temp 98.1 F 01/15/20 12:00 Pulse 92 01/15/20 12:00 Resp 14 01/15/20 12:00 BP 150/96 01/15/20 12:00 Pulse Ox 96 01/15/20 12:00 Intake & Output 01/14/20 01/15/20 01/15/20 18:59 06:59 18:59 Intake Total 300 Output Total 825 750 800 Balance -825 -750 -500 Weight 89.3 kg 89.3 kg Intake: IV 300 potassium 100 Output: Urine 825 750 800 Hemodialysis 0 Other: Voiding Method Urinal Urinal # Voids 1 ABP, PAP, CO, CI - Last Documented Arterial Blood Pressure 150/57 - Exam PHYSICAL EXAMINATION: GENERAL: The patient is alert and oriented x3, not in any acute distress. Well developed, well nourished. HEENT: Pupils are round and equally reacting to light. EOMI. No scleral icterus. No conjunctival pallor. Normocephalic, atraumatic. No pharyngeal erythema. No thyromegaly. CARDIOVASCULAR: S1 and S2 present. No murmurs, rubs, or gallops. PULMONARY: Chest is clear to auscultation, no wheezing or crackles. ABDOMEN: Soft, nontender, nondistended, normoactive bowel sounds. No palpable organomegaly. MUSCULOSKELETAL: No joint swelling or deformity. EXTREMITIES: No cyanosis, clubbing, or pedal edema. NEUROLOGICAL: Gross neurological examination did not reveal any focal deficits. SKIN: No rashes. - Labs CBC & Chem 7: 01/15/20 04:28 01/15/20 04:28 Labs: Abnormal Lab Results - Last 24 Hours (Table) 01/14/20 01/14/20 01/15/20 Range/Units 16:40 20:11 04:28 RBC 3.03 L (4.30-5.90) m/uL Hgb 9.3 L (13.0-17.5) gm/dL Hct 27.9 L (39.0-53.0) % Sodium (137-145) mmol/L BUN (9-20) mg/dL Creatinine (0.66-1.25) mg/dL Glucose (74-99) mg/dL POC Glucose (mg/dL) 174 H 154 H (75-99) mg/dL Calcium (8.4-10.2) mg/dL 01/15/20 01/15/20 01/15/20 Range/Units 04:28 06:47 12:04 RBC (4.30-5.90) m/uL Hgb (13.0-17.5) gm/dL Hct (39.0-53.0) % Sodium 136 L (137-145) mmol/L BUN 77 H (9-20) mg/dL Creatinine 7.33 H* (0.66-1.25) mg/dL Glucose 154 H (74-99) mg/dL POC Glucose (mg/dL) 166 H 128 H (75-99) mg/dL Calcium 8.1 L (8.4-10.2) mg/dL Assessment and Plan Plan: -Acute hypoxic respiratory failure multifactorial secondary to metabolic acidosis and alcohol intoxication and aspiration pneumonia patient is presently extubated medically stable transferring out of ICU patient is presently on Augmentin -Possible aspiration pneumonia -Severe metabolic acidosis and lactic acidosis recorded at this time secondary to intravascular depletion dehydration, metformin and alcoholism. -Metabolic and toxicants abruptly which resolved -Acute kidney injury secondary to acute blood necrosis from a bowel and the patient was initiated on hemodialysis receiving permacath possibility of discharge tomorrow -Type 2 diabetes mellitus -Hypertension -Hyperlipidemia
--- NOTE | 2020-01-15 15:42 | IR ---
EXAMINATION TYPE: IR cvc insert central tunneled DATE OF EXAM: 01/15/2020 CLINICAL HISTORY: Dialysis failure. TECHNIQUE: Fluoroscopy. COMPARISON: None. FINDINGS: Fluoroscopic guidance was provided during when internal jugular dialysis catheter insertio n procedure performed by Dr. Dquue. A total of 12 seconds of fluoroscopic time was utilized during t he procedure and single spot images was acquired. Image shows large bore right internal jugular dialy sis catheter with tips terminating in SVC. IMPRESSION: As Above.
--- NOTE | 2020-01-15 15:45 | XR ---
EXAMINATION TYPE: XR chest 1V portable DATE OF EXAM: 01/15/2020 HISTORY: Shortness of breath. COMPARISON: 01/14/2020 TECHNIQUE: Single view of the chest is submitted. FINDINGS: Right IJ central venous line with its distal tip overlying the SVC. No evidence for pneumothorax. Lef t subclavian central venous line unchanged in position. Right perihilar atelectasis as well as left b asilar infiltrate and/or atelectasis improved from prior study. There is no evidence for focal infiltrate. The heart is stable. Hilar and mediastinal structures are within normal limits. Degenerative changes are seen of the dorsal spine. IMPRESSION: 1. Right IJ central venous line with its distal tip overlying the SVC. No evidence for pneumothorax. Left subclavian central venous line unchanged in position. Right perihilar atelectasis as well as le ft basilar infiltrate and/or atelectasis improved from prior study.
[2020-01-15 18:29] LABS: Glucose,Whole Blood 116 mg/dL (75-99)
[2020-01-15 20:25] LABS: Glucose,Whole Blood 124 mg/dL (75-99)
[2020-01-15] MEDS: QUEtiapine 25 MG TAB PO SCH (20:26)
[2020-01-16] MEDS ORDERED: ACETAMINOPHEN TAB 325 MG TAB PO PRN (02:00)
[2020-01-16 04:43] LABS: HCT 27.8 % (39.0-53.0); HGB 9.7 gm/dL (13.0-17.5); MCH 32.3 pg (25.0-35.0); MCHC 34.9 g/dL (31.0-37.0); MCV 92.8 fL (80.0-100.0); Mean Platelet Volume 7.6; Platelet Count 205 k/uL (150-450); WBC 11.7 k/uL (3.8-10.6)
[2020-01-16 04:49] LABS: Calcium 8.3 mg/dL (8.4-10.2); Potassium 3.9 mmol/L (3.5-5.1)
[2020-01-16 06:56] LABS: Glucose,Whole Blood 142 mg/dL (75-99)
[2020-01-16] MEDS: INSULIN DETEMIR (LEVEMIR) 100 UNIT/ML SYR SQ SCH (06:57)
[2020-01-16] MEDS: INSULIN ASPART (NovoLOG) 100 UNIT/ML VIAL SQ SCH (06:59)
--- NOTE | 2020-01-16 08:56 | P.PN ---
Subjective Progress Note Date: 01/16/20 Principal diagnosis: Acute kidney injury Patient seen and examined at the bedside. The patient is status postop day 1 for right internal jugular vein tunneled dialysis catheter placement. Patient states mild discomfort in the right upper chest wall where the tunneled dialysis catheter was placed yesterday. He received dialysis treatment yesterday evening without any difficulty. He denies any bleeding from the right groin where the temporary dialysis catheter was removed. He denies any shortness of breath or chest pain. Patient is likely being discharged home today. Objective - Vital Signs Vital signs: Vital Signs Temp 99.1 F 01/16/20 04:00 Pulse 82 01/16/20 04:00 Resp 15 01/16/20 04:00 BP 135/76 01/16/20 04:00 Pulse Ox 94 L 01/16/20 04:00 Intake & Output 01/15/20 01/16/20 01/16/20 18:59 06:59 18:59 Intake Total 300 Output Total 1700 700 Balance -1400 -700 Weight 89.3 kg 87.9 kg Intake: IV 300 potassium 100 Output: Urine 1700 700 Other: Voiding Method Urinal # Bowel Movements 1 ABP, PAP, CO, CI - Last Documented Arterial Blood Pressure 150/57 - Exam General appearance: The patient is alert, disorientated, in no acute distress. HET: Head is normocephalic and atraumatic. Heart: Normal rate and rhythm. Chest wall: Right IJ tunneled dialysis catheter intact. Lungs: Clear to auscultation bilaterally Extremities: Normal skin color and turgor. No cyanosis, rash, ulceration, club adams, or edema. Radial and pedal pulses are 2/4 bilaterally. Right groin site clean dry and intact without any bleeding. Neurological: No focal deficits. Strength and sensation are grossly intact. - Labs CBC & Chem 7: 01/16/20 04:14 01/16/20 04:14 Labs: Abnormal Lab Results - Last 24 Hours (Table) 01/15/20 01/15/20 01/15/20 Range/Units 12:04 18:28 20:23 WBC (3.8-10.6) k/uL RBC (4.30-5.90) m/uL Hgb (13.0-17.5) gm/dL Hct (39.0-53.0) % Sodium (137-145) mmol/L BUN (9-20) mg/dL Creatinine (0.66-1.25) mg/dL Glucose (74-99) mg/dL POC Glucose (mg/dL) 128 H 116 H 124 H (75-99) mg/dL Calcium (8.4-10.2) mg/dL 01/16/20 01/16/20 01/16/20 Range/Units 04:14 04:14 06:54 WBC 11.7 H (3.8-10.6) k/uL RBC 3.00 L (4.30-5.90) m/uL Hgb 9.7 L (13.0-17.5) gm/dL Hct 27.8 L (39.0-53.0) % Sodium 133 L (137-145) mmol/L BUN 39 H (9-20) mg/dL Creatinine 4.86 H (0.66-1.25) mg/dL Glucose 135 H (74-99) mg/dL POC Glucose (mg/dL) 142 H (75-99) mg/dL Calcium 8.3 L (8.4-10.2) mg/dL Assessment and Plan Assessment: 1. Acute renal failure, post op day 1 for right internal jugular vein tunneled dialysis catheter placement 2. Severe metabolic acidosis 3. Hypoxic respiratory failure 4. Alcohol abuse 5. Diabetes 6. Hypertension 7. Per lipidemia Plan: Right IJ tunneled catheter intact, patient received dialysis treatment yesterday evening. No further vascular surgical interventions indicated. Patient may be discharged home when medically stable. Patient to follow-up with Dr. Duque in the clinic in 2 weeks. Hemodialysis per recommendations from nephrology. The above dictated assessment and findings were discussed with Dr. Duque. The impression and plan of care have been directed as dictated.
--- NOTE | 2020-01-16 09:11 | XR ---
EXAMINATION TYPE: XR chest 1V DATE OF EXAM: 01/16/2020 COMPARISON: 01/15/2020 INDICATION: Shortness of breath TECHNIQUE: Single frontal view of the chest is obtained. FINDINGS: The heart size is normal. The pulmonary vasculature is normal. Left lower lobe infiltrate is present. Small left pleural effusion may be present. Findings are worse bhavna over the interval. Right double lumen catheter is present with the tips in the proximal right atrium. A left central caroline ous catheter is present with the tip in the proximal right atrium. IMPRESSION: 1. Worsening left lower lobe infiltrate with small left pleural effusion. 2. Catheters present with the tips in the region of the proximal right.
[2020-01-16] MEDS: AMOXIC-POT CLAV 875-125MG 1 EACH TAB PO SCH (09:20)
[2020-01-16] MEDS: FUROSEMIDE 40 MG TAB PO SCH (09:20)
[2020-01-16] MEDS: FAMOTIDINE 20 MG TAB PO SCH (09:20)
[2020-01-16] MEDS: amLODIPine 5 MG TAB PO SCH (09:21)
[2020-01-16] MEDS: HEPARIN SODIUM,PORCINE 5,000 UNIT/ML 1 ML VIAL SQ SCH (09:21)
--- NOTE | 2020-01-16 09:33 | P.PN ---
Subjective Patient is seen in follow-up for acute kidney injury. Patient is nonoliguric but creatinine continues to rise. Denies chest pain or shortness of breath. Oral intake good. No active complaints at this time. Tolerated dialysis well yesterday. Vital signs are stable. General: The patient appeared well nourished and normally developed. HEENT: Head exam is unremarkable. Neck is without jugular venous distension. LUNGS: Breath sounds decreased. HEART: Rate and Rhythm are regular. ABDOMEN: Soft, nontender. EXTREMITITES: Trace edema. Objective - Vital Signs Vital signs: Vital Signs Temp 99.1 F 01/16/20 04:00 Pulse 82 01/16/20 04:00 Resp 15 01/16/20 04:00 BP 135/76 01/16/20 04:00 Pulse Ox 94 L 01/16/20 04:00 Intake & Output 01/15/20 01/16/20 01/16/20 18:59 06:59 18:59 Intake Total 300 Output Total 1700 700 Balance -1400 -700 Weight 89.3 kg 87.9 kg Intake: IV 300 potassium 100 Output: Urine 1700 700 Other: Voiding Method Urinal # Bowel Movements 1 ABP, PAP, CO, CI - Last Documented Arterial Blood Pressure 150/57 - Labs CBC & Chem 7: 01/16/20 04:14 01/16/20 04:14 Labs: Abnormal Lab Results - Last 24 Hours (Table) 01/15/20 01/15/20 01/15/20 Range/Units 12:04 18:28 20:23 WBC (3.8-10.6) k/uL RBC (4.30-5.90) m/uL Hgb (13.0-17.5) gm/dL Hct (39.0-53.0) % Sodium (137-145) mmol/L BUN (9-20) mg/dL Creatinine (0.66-1.25) mg/dL Glucose (74-99) mg/dL POC Glucose (mg/dL) 128 H 116 H 124 H (75-99) mg/dL Calcium (8.4-10.2) mg/dL 01/16/20 01/16/20 01/16/20 Range/Units 04:14 04:14 06:54 WBC 11.7 H (3.8-10.6) k/uL RBC 3.00 L (4.30-5.90) m/uL Hgb 9.7 L (13.0-17.5) gm/dL Hct 27.8 L (39.0-53.0) % Sodium 133 L (137-145) mmol/L BUN 39 H (9-20) mg/dL Creatinine 4.86 H (0.66-1.25) mg/dL Glucose 135 H (74-99) mg/dL POC Glucose (mg/dL) 142 H (75-99) mg/dL Calcium 8.3 L (8.4-10.2) mg/dL Assessment and Plan Plan: Assessment: 1. Acute kidney injury secondary to ATN. Currently hemodialysis dependent. Creatinine 7.33 as of yesterday. Last hemodialysis January 14. Baseline creatinine from September 2018 was 0.9. 2. Hypokalemia secondary to diuresis. Magnesium normal. Status post replacement. 3. Severe anion gap metabolic acidosis secondary to acute kidney injury and lactic acidosis. He was on metformin prior to admission. Also heavy alcohol use. Resolved. 4. Alcohol abuse. 5. Benign hypertension. Stable. 6. Insulin-dependent diabetes mellitus. Plan: Hemodialysis tomorrow. He will be maintained on Tuesday schedule. Maintain Lasix 40 mg orally once daily. Continue to monitor for renal recovery. Anticipate discharge soon. Stable to be discharged home from nephrology standpoint. Outpatient dialysis has been set up.
[2020-01-16 11:00] VITALS: PULSE 94; RESP 14
--- NOTE | 2020-01-16 11:08 | P.PN ---
Subjective Progress Note Date: 01/16/20 59-year-old male patient who came in with severe metabolic acidosis which do not to be related to severe lactic acidosis and he also had a mild osmolality gap and he was investigated further and the volatile alcohol screen came back negative. The patient is recovered and the patient is clinically stable and the leg against level is normalized. Meanwhile, the patient developed an acute kidney injury. He required to be dialyzed for a few times earlier and he was off dialysis. This morning his creatinine is on that I dropped to 7.23. His serum bicarb is 28 with a potassium level of 3.3. White cell count is at 9.4. The chest x-ray showing some worsening of the consolidation of the left lung bas e. There is also small effusions and a right perihilar bandlike atelectasis. The patient is currently on Augmentin. Is awake and alert., Indicating and answering questions appropriately. No signs of any respiratory distress. He does have a urine output and he has no Duque catheter in place. The patient has a dialysis catheter in his right IJ and left subclavian triple-lumen catheter in place. He remains on Lasix 20 mg IV push every 12 hours. Nephrology is on the case. 01/15/2020 and seeing this patient for a follow-up. The patient is doing well and has no specific complaints. He is dialysis catheter was nonfunctioning yesterday and based on that he was given TPA flushes and a dialysis scheduled for today if the catheter is deemed to be functional. He is also being scheduled for a permacath insertion today. He still producing urine output. He is on Lasix at a dose of 40 mg on a daily basis. Creatinine is still elevated at 7.3 with a BUN of 77. The rest of the electrodes are within normal limits. White cell count is at 9.3. The ultrasound the kidneys was completed yesterday and it showed no acute abnormalities. The patient is afebrile. The patient is hemodynamically stable. The patient is pulse oxing 90% on room air oxygen. Temperature 98.9. 01/16/2020, the patient is doing well without any complaints. He underwent a permacath insertion yesterday and he underwent dialysis. No dialysis scheduled for today and the patient will be discharged home to be followed up with nephrology on outpatient basis. He has to go to the [facility] and [place]. Otherwise, the patient doing well. Post permacath insertion, the chest x-ray was done and showed improvement in left lower lobe consolidation and the patient remains on oral Augmentin. He remains on room air oxygen. No cough or sputum production or chest that is so wheezing. No altered mentation. He has been on Lasix 40 mg by mouth daily and is producing adequate amount of urine output is also on Levemir 10 units along with vascular coverage. No other significant events overnight. Objective - Vital Signs Vital signs: Vital Signs Temp 98.3 F 01/16/20 08:00 Pulse 94 01/16/20 08:00 Resp 14 01/16/20 08:00 BP 128/77 01/16/20 08:00 Pulse Ox 96 01/16/20 08:00 Intake & Output 01/15/20 01/16/20 01/16/20 18:59 06:59 18:59 Intake Total 300 250 Output Total 1700 700 400 Balance -1400 -700 -150 Weight 89.3 kg 87.9 kg Intake: IV 300 potassium 100 Oral 250 Output: Urine 1700 700 400 Other: Voiding Method Urinal # Voids 1 # Bowel Movements 1 1 ABP, PAP, CO, CI - Last Documented Arterial Blood Pressure 150/57 - Exam The patient appeared well nourished and normally developed. Vital signs as documented. Head exam is unremarkable. No scleral icterus or corneal arcus noted. Neck is without jugular venous distension, thyromegaly, or carotid bruits. Carotid upstrokes are brisk bilaterally. Lungs are clear to auscultation and percussion. Cardiac exam reveals the PMI to be normally sized and situated. Rhythm is regular. First and second heart sounds normal. No murmurs, rubs or gallops. Abdominal exam reveals normal bowel sounds, no masses, no organomegaly and no aortic enlargement. Extremities are nonedematous and both femoral and pedal pulses are normal.Examination of the skin revealed no evidence of significant rashes, suspicious appearing nevi or other concerning lesions.Neurologically, the patient is awake and alert and the patient does not have any focal neurological deficit. Cranial nerves are essentially intact. The patient has a left subclavian triple-lumen catheter in the right femoral dialysis catheter. The patient has a permacath in the right IJ area. - Labs CBC & Chem 7: 01/16/20 04:14 01/16/20 04:14 Labs: Abnormal Lab Results - Last 24 Hours (Table) 01/15/20 01/15/20 01/15/20 Range/Units 12:04 18:28 20:23 WBC (3.8-10.6) k/uL RBC (4.30-5.90) m/uL Hgb (13.0-17.5) gm/dL Hct (39.0-53.0) % Sodium (137-145) mmol/L BUN (9-20) mg/dL Creatinine (0.66-1.25) mg/dL Glucose (74-99) mg/dL POC Glucose (mg/dL) 128 H 116 H 124 H (75-99) mg/dL Calcium (8.4-10.2) mg/dL 01/16/20 01/16/20 01/16/20 Range/Units 04:14 04:14 06:54 WBC 11.7 H (3.8-10.6) k/uL RBC 3.00 L (4.30-5.90) m/uL Hgb 9.7 L (13.0-17.5) gm/dL Hct 27.8 L (39.0-53.0) % Sodium 133 L (137-145) mmol/L BUN 39 H (9-20) mg/dL Creatinine 4.86 H (0.66-1.25) mg/dL Glucose 135 H (74-99) mg/dL POC Glucose (mg/dL) 142 H (75-99) mg/dL Calcium 8.3 L (8.4-10.2) mg/dL Assessment and Plan Plan: 1 acute hypoxic respiratory failure, multifactorial essentially related to severe metabolic acidosis/are cold intoxication at recovered and the patient is currently on room air oxygen, and subsequent chest x-ray from yesterday showed improvement in left lower lobe consolidation. 2 left lower lobe consolidation/pneumonia, consider aspiration pneumonia currently on Augmentin, improving based on the chest x-rays was done yesterday and the patient remains on Augmentin. The previous 7 day course 3 severe metabolic acidosis/lactic acidosis, recovered, likely secondary to alcoholism, dehydration and use of metformin outpatient basis which have probably cause severe metabolic acidosis. 4 altered mental status secondary to above, recovered and the patient's mentation is back to normal 5 acute alcohol intoxication, recovered 6 acute kidney injury/ATN in the creatinine is on the rise and the patient will need hemodialysis, in no improvement in the renal function compared to yesterday. Ultrasound the kidneys showed no evidence of hydronephrosis. The patient has a permacath catheter in place and the patient underwent a session of hemodialysis yesterday. No signs of any fluid overload. No significant metabolic acidosis. No altered mentation. 7 history of alcoholism 8 diabetes mellitus 9 hypertension 10 hyperlipidemia Plan Continue Augmentin for now and complete a ten-day course Proceed with hemodialysis via a permacath insertion, and the patient has to follow up with dialysis center nephrology No other Issues for now and the patient can be discharged home today Continue oral Lasix Case was discussed with nephrology
--- NOTE | 2020-01-16 12:45 | P.DS ---
Providers Date of admission: 01/08/20 09:11 Attending physician: Nic Avila Consults: 01/08/20 08:36 Consult Physician Stat Consulting Provider: Vickie García Consult Reason/Comments: emergent HD Do you want consulting provider notified?: Already Contacted 01/08/20 08:38 Consult Physician Stat Consulting Provider: Velasquez Triana Consult Reason/Comments: HD cath placement Do you want consulting provider notified?: Already Contacted 01/08/20 09:02 Consult Physician Stat Consulting Provider: Lane Saucedo Consult Reason/Comments: icu patient Do you want consulting provider notified?: Already Contacted 01/08/20 09:36 Consult Physician Stat Consulting Provider: Carla Child Consult Reason/Comments: suicidal attempt? Do you want consulting provider notified?: Yes 01/10/20 14:53 Consult Physician Routine Consulting Provider: Phil Odell Consult Reason/Comments: Possible IRP Do you want consulting provider notified?: Yes 01/10/20 19:23 Consult Physician Routine Consulting Provider: Phil Odell Consult Reason/Comments: need IP rehabd Do you want consulting provider notified?: Yes Primary care physician: Semaj Guillory [facility] Course: 59-year-old male was admitted with severe metabolic acidosis alcohol overdose, patient had mild osmolar gap because of which patient underwent a work and alcohol screen which was negative. Patient had severe lactic acidosis from intravascular depletion dehydration and the metformin patient ended up having acute kidney injury now requiring hemodialysis patient on admission was intubated and had respiratory failure which is believed to be secondary to alcohol overdose and aspiration pneumonia patient can use to be in Augmentin. Patient is to [facility] patient probably will be discharged tomorrow patient is presently medically stable to be transferred out of ICU. Patient will undergo hemodialysis today. 01/16/2020 No overnight events patient the will follow up with her paralysis as an outpatient patient is clinically doing well patient will be discharged and 2 more days of antibiotics. Patient's metformin was discontinued because of the renal failure patient will be on insulin long-acting at nighttime. PHYSICAL EXAMINATION: GENERAL: The patient is alert and oriented x3, not in any acute distress. Well developed, well nourished. HEENT: Pupils are round and equally reacting to light. EOMI. No scleral icterus. No conjunctival pallor. Normocephalic, atraumatic. No pharyngeal erythema. No thyromegaly. CARDIOVASCULAR: S1 and S2 present. No murmurs, rubs, or gallops. PULMONARY: Chest is clear to auscultation, no wheezing or crackles. ABDOMEN: Soft, nontender, nondistended, normoactive bowel sounds. No palpable organomegaly. MUSCULOSKELETAL: No joint swelling or deformity. EXTREMITIES: No cyanosis, clubbing, or pedal edema. NEUROLOGICAL: Gross neurological examination did not reveal any focal deficits. SKIN: No rashes. Assessment and Plan Plan: -Acute hypoxic respiratory failure multifactorial secondary to metabolic acidosis and alcohol intoxication and aspiration pneumonia patient is presently extubated medically stable is being discharged on 2 more days of Augmentin -Possible aspiration pneumonia -Severe metabolic acidosis and lactic acidosis recorded at this time secondary to intravascular depletion dehydration, metformin and alcoholism.metformin was discontinued -Metabolic encephalopathy which resolved -Acute kidney injury secondary to acute tubulavrnecrosis and patient was initiated on hemodialysis receiving permacath -Type 2 diabetes mellitus -Hypertension -Hyperlipidemia Patient Condition at Discharge: Critical Plan - Discharge Summary Discharge Rx Participant: No New Discharge Prescriptions: New Amoxic-Pot Clav 875-125Mg [Augmentin 875-125] 1 each PO Q24HR #4 tab Furosemide [Lasix] 40 mg PO DAILY #30 tab Insulin Detemir (Levemir) [Levemir] 12 unit SQ DAILY@0700 #1 syr amLODIPine [Norvasc] 5 mg PO DAILY #30 tab SILVER sulfADIAZINE CREAM [Silvadene Cream] 1 applic TOPICAL DAILY #10 applic Acetaminophen Tab [Tylenol] 325 mg PO Q4HR PRN tab PRN Reason: Fever And/ Or Pain Continue Aspirin 81 mg PO DAILY #30 chew Pravastatin Sodium [Pravachol] 10 mg PO DAILY Discontinued metFORMIN HCL [Glucophage] 500 mg PO BID #60 tab Triamterene-Hctz 37.5-25Mg [Dyazide 37.5-25 Capsule] 1 cap PO DAILY Losartan Potassium 100 mg PO DAILY Discharge Medication List Aspirin 81 mg PO DAILY #30 chew 05/19/18 [Rx] Pravastatin Sodium [Pravachol] 10 mg PO DAILY 01/08/20 [History] Acetaminophen Tab [Tylenol] 325 mg PO Q4HR PRN tab 01/16/20 [Rx] Amoxic-Pot Clav 875-125Mg [Augmentin 875-125] 1 each PO Q24HR #4 tab 01/16/20 [Rx] Furosemide [Lasix] 40 mg PO DAILY #30 tab 01/16/20 [Rx] Insulin Detemir (Levemir) [Levemir] 12 unit SQ DAILY@0700 #1 syr 01/16/20 [Rx] SILVER sulfADIAZINE CREAM [Silvadene Cream] 1 applic TOPICAL DAILY #10 applic 01/16/20 [Rx] amLODIPine [Norvasc] 5 mg PO DAILY #30 tab 01/16/20 [Rx] Follow up Appointment(s)/Referral(s): Semaj Guillory MD [Primary Care Provider] - 01/21/20 2:00 pm Dialysis,[facility] [NON-STAFF] - 01/17/20 7:30 am (Tuesday, , Saturdays at 0800 will be normal time.) Zahira Duque DO [STAFF PHYSICIAN] - 2 Weeks (Call Office at to schedule an appointment within two weeks.) Patient Instructions/Handouts: Acute Kidney Injury (DC), Dialysis Diet (DC), Abuse of Alcohol (DC), Ischemic Stroke (DC) Discharge Disposition: HOME SELF-CARE
[2020-01-16 13:06] VITALS: BP 146/69; TEMP 97.4
== END 2020-01-16 11:24 | disposition home or self-care (01) | DRG 917 ==
LOC: EC 06:24 → 2SICU 09:11
PROVIDERS: ADMIT Hospitalist; ATTEND Hospitalist
PROC: 02HV33Z Insertion of Infusion Device into Superior Vena Cava, Percutaneous Approach (ICD-10-PCS; 2020-01-08)
PROC: 5A1D70Z Performance of Urinary Filtration, Intermittent, Less than 6 Hours Per Day (ICD-10-PCS; 2020-01-08)
PROC: 02H633Z Insertion of Infusion Device into Right Atrium, Percutaneous Approach (ICD-10-PCS; 2020-01-08)
PROC: 03HY32Z Insertion of Monitoring Device into Upper Artery, Percutaneous Approach (ICD-10-PCS; 2020-01-08)
PROC: 4A133B1 Monitoring of Arterial Pressure, Peripheral, Percutaneous Approach (ICD-10-PCS; 2020-01-08)
PROC: 4A133J1 Monitoring of Arterial Pulse, Peripheral, Percutaneous Approach (ICD-10-PCS; 2020-01-08)
PROC: 5A1935Z Respiratory Ventilation, Less than 24 Consecutive Hours (ICD-10-PCS; 2020-01-08)
PROC: 0BH17EZ Insertion of Endotracheal Airway into Trachea, Via Natural or Artificial Opening (ICD-10-PCS; 2020-01-08)
PROC: 3E033XZ Introduction of Vasopressor into Peripheral Vein, Percutaneous Approach (ICD-10-PCS; principal; 2020-01-09)
PROC: 0JH63XZ Insertion of Tunneled Vascular Access Device into Chest Subcutaneous Tissue and Fascia, Percutaneous Approach (ICD-10-PCS; 2020-01-15)
PROC: 02HV33Z Insertion of Infusion Device into Superior Vena Cava, Percutaneous Approach (ICD-10-PCS; 2020-01-15)
DX: T51.0X1A Toxic effect of ethanol, accidental (unintentional), initial encounter (principal); J96.01 Acute respiratory failure with hypoxia; N17.0 Acute kidney failure with tubular necrosis; I63.9 Cerebral infarction, unspecified; K72.00 Acute and subacute hepatic failure without coma; J69.0 Pneumonitis due to inhalation of food and vomit; G93.41 Metabolic encephalopathy; E87.2 Acidosis; F10.231 Alcohol dependence with withdrawal delirium; J98.11 Atelectasis; Z20.828 Contact with and (suspected) exposure to other viral communicable diseases; D75.89 Other specified diseases of blood and blood-forming organs; E78.5 Hyperlipidemia, unspecified; F32.9 Major depressive disorder, single episode, unspecified; R79.89 Other specified abnormal findings of blood chemistry; Y90.3 Blood alcohol level of 60-79 mg/100 ml; T50.2X5A Adverse effect of carbonic-anhydrase inhibitors, benzothiadiazides and other diuretics, initial encounter; E87.6 Hypokalemia; I11.0 Hypertensive heart disease with heart failure; I50.9 Heart failure, unspecified; E11.40 Type 2 diabetes mellitus with diabetic neuropathy, unspecified; R53.81 Other malaise; I16.0 Hypertensive urgency; I95.9 Hypotension, unspecified; F10.229 Alcohol dependence with intoxication, unspecified; E11.65 Type 2 diabetes mellitus with hyperglycemia; E83.42 Hypomagnesemia; R40.2362 Coma scale, best motor response, obeys commands, at arrival to emergency department; R40.2142 Coma scale, eyes open, spontaneous, at arrival to emergency department; R40.2252 Coma scale, best verbal response, oriented, at arrival to emergency department; E86.0 Dehydration; D69.6 Thrombocytopenia, unspecified; E86.1 Hypovolemia; Z86.73 Personal history of transient ischemic attack (TIA), and cerebral infarction without residual deficits; Z79.82 Long term (current) use of aspirin; Z79.899 Other long term (current) drug therapy; Z82.3 Family history of stroke; Z82.49 Family history of ischemic heart disease and other diseases of the circulatory system; Z87.01 Personal history of pneumonia (recurrent); Z87.19 Personal history of other diseases of the digestive system
CPT/HCPCS: 31500; 36415; 36558; 36600; 70450; 71045; 71046; 76770; 76937; 77001; 80048; 80053; 80306; 80320; 81001; 82009; 82550; 82805; 83036; 83520; 83605; 83690; 83735; 83930; 84100; 84484; 84600; 85025; 85027; 85610; 85730; 86704; 86706; 87040; 87070; 87205; 87340; 90935; 93005; 93306; 94002; 94003; 94640; 94660; 96361; 96365; 96366; 96367; 96372; 96375; 96376; 99291

== ENCOUNTER → 2020-03-24 | Outpatient (CLI) | payer OTHER ==
[2020-03-24 09:00] LABS: HCT 43.7 % (39.0-53.0); HGB 14.2 gm/dL (13.0-17.5); MCHC 32.5 g/dL (31.0-37.0); MCV 92.4 fL (80.0-100.0); Platelet Count 299 k/uL (150-450); RBC 4.72 m/uL (4.30-5.90); RDW 12.8 % (11.5-15.5); WBC 10.5 k/uL (3.8-10.6)
[2020-03-24 09:47] LABS: Creatinine,Urine Random 137.6 mg/dL; Protein/Creatinine Ratio,Urine 0.051
[2020-03-24 14:42] LABS: % Iron Saturation 24.65 (15.00-50.00); African American GFR (CKD) 62.8 (60.0-200.0); Anion Gap 7.5 mmol/L (4.00-12.00); BUN/Creat Ratio 17.14 Ratio (12.00-20.00); Calcium 10.3 mg/dL (8.7-10.3); Carbon Dioxide 30.5 mmol/L (21.6-31.8); Non-African American GFR(CKD) 54.2 (60.0-200.0); Potassium 5.1 mmol/L (3.5-5.5)
[2020-03-24 15:04] LABS: Ferritin 516.5 ng/mL (22.0-322.0)
== END | disposition home or self-care (01) ==
LOC: LABWHC1 07:46
PROVIDERS: ATTEND Nurse Practitioner Family
DX: N17.9 Acute kidney failure, unspecified (principal); D64.9 Anemia, unspecified; R80.9 Proteinuria, unspecified
CPT/HCPCS: 36415; 80048; 82570; 82728; 83540; 83550; 84156; 85027

== ENCOUNTER → 2021-07-08 | Outpatient (CLI) | payer OTHER ==
--- NOTE | 2021-07-08 08:30 | XR ---
EXAMINATION TYPE: XR foot complete LT DATE OF EXAM: 07/08/2021 CLINICAL HISTORY: pain TECHNIQUE: Frontal, lateral and oblique images of the left foot are obtained. COMPARISON: None. FINDINGS: There is no acute fracture/dislocation evident. The joint spaces appear within normal phillips its. The overlying soft tissue appears unremarkable. IMPRESSION: There is no acute fracture or dislocation. ICD 10 NO FRACTURE, INITIAL EVALUATION
== END | disposition home or self-care (01) ==
LOC: RADXRMAIN 08:02
PROVIDERS: ATTEND Family Medicine
DX: M79.672 Pain in left foot (principal)

== ENCOUNTER → 2021-11-24 | Outpatient (CLI) | payer OTHER ==
--- NOTE | 2021-11-24 16:37 | XR ---
EXAMINATION TYPE: XR lumbosacral spine min 4V DATE OF EXAM: 11/24/2021 CLINICAL HISTORY: pain COMPARISON: NONE TECHNIQUE: Frontal, lateral, and oblique images of the lumbar spine are obtained. FINDINGS: There are 5 lumbar type vertebral bodies identified. The lumbar spine shows satisfactory alignment without evidence of acute fracture or dislocation. Vertebral body heights are within normal limits. Moderate to severe degenerative disc space narrowing L4-5 and L5-S1. The overlying soft ti ssue appears unremarkable. IMPRESSION: No acute fracture or dislocation is seen in the lumbar spine.ICD 10 NO FRACTURE, INITIAL EVALUATION
--- NOTE | 2021-11-24 16:40 | US ---
EXAMINATION TYPE: US scrotum with doppler. DATE OF EXAM: 11/24/2021 COMPARISON: NONE CLINICAL HISTORY: 61-year-old male Q53.0 Ectopic testis, unilateral. Right undescended teste. Left s sergio pain- patient states no injury but he does bike a lot. Patient states he has right testicle pain his whole life. No redness or swelling. Patient states he gets a right inguinal bulge that he push es back in when he stands. TECHNIQUE: Grayscale and color Doppler Duplex imaging performed of the scrotum. FINDINGS: EXAM MEASUREMENTS: TESTICLES: Right Testicle: 3.7 x 2.8 x 1.9 cm Left Testicle: 4.4 x 3.5 x 2.2 cm EPIDIDYMIS HEAD: Right Epididymis: 0.8 x 1.0 x 0.8 cm Left Epididymis: 1.0 x 0.9 x 0.6 cm Doppler performed to assess for testicular vascularity; good bilateral color flow and waveforms are s een. There is no evidence of testicular torsion. Presence of hydroceles: Small on the left Presence of varicoceles: no Right inguinal canal: right teste visualized with small amount of fluid. Additionally, there is heter ogeneous material moving within the inguinal canal during Valsalva maneuver. No peristalsis is seen. Possible mesenteric fat and vessels. IMPRESSION: 1. Cryptorchidism with intracanalicular right testicle. 2. Moderate-sized right inguinal hernia moving along the right inguinal canal with Valsalva maneuver. Suspect mesenteric fat and vessels within the hernia sac. However, the director of rooms states that the h erniation includes bowel. This is not clearly demonstrated on the provided images. There is a small a mount of fluid within the hernia sac. 3. No evidence for testicular torsion. Small nonspecific hydrocele on the left.
== END | disposition home or self-care (01) ==
LOC: RADUSWWP 15:20
PROVIDERS: ATTEND Family Medicine
DX: Q53.10 Unspecified undescended testicle, unilateral (principal); K40.91 Unilateral inguinal hernia, without obstruction or gangrene, recurrent
CPT/HCPCS: 72110; 76870; 93975

== ENCOUNTER 2021-12-28 05:56 | Day surgery (SDC) | payer OTHER ==
[~2021-12-28 05:56] MED LIST: ACETAMINOPHEN TAB 500 MG TAB PO PRN; DEXAMETHASONE SOD PHOSPHATE 4 MG/ML 1 ML VIAL IV ONE; HEPARIN SODIUM,PORCINE/PF 5,000 UNIT/0.5 ML SYRINGE SQ PRN; LACTATED RINGERS 1,000 ML IV SCH; LIDOCAINE 1% (10MG/ML) FOR IV START INTRADERMA PRN; MIDAZOLAM 2 MG/2 ML VIAL IV PRN; ONDANSETRON 4 MG/2 ML VIAL IVP ONE
[2021-12-28 06:34] LABS: Glucose,Whole Blood 134 mg/dL (70-110)
[2021-12-28 06:48] VITALS: RESP 16; TEMP 97.3
[2021-12-28] MEDS ORDERED: fentaNYL (PF) 50 MCG/ML 2 ML AMP IV ONE (07:16)
--- NOTE | 2021-12-28 07:25 | P.ANPRN ---
Procedure Note - Anesthesia - Nerve Block Performed Right Transversus Abdominis Single Time Out Performed: Yes Date of Procedure: 12/28/21 Procedure Start Time: :16 Procedure Stop Time: : Location of Patient: PreOp Indication: Requested by Surgeon Specifically requested for management of pain by DrChristal: Lazaro Carr Sedation Type: Sedate with meaningful contact maintained Preparation: Sterile Prep Position: Supine Needle Types: Pajunk Needle Gauge: 21 Ultrasound used to visualize needle placement: Yes Ultrasound used to observe medication spread: Yes Injectate: 0.5% Ropivacaine (see comment for volume) (25 ml + 4 mg Dexamethasone) Blood Aspirated: No Pain Paresthesia on Injection Noted: No Resistance on Injection: Normal Image Stored and Saved: Yes Events: Uneventful and Well Tolerated
[2021-12-28] MEDS ORDERED: MIDAZOLAM 2 MG/2 ML VIAL ONE (07:51)
[2021-12-28] MEDS ORDERED: PROPOFOL 10 MG/ML 20 ML VIAL IV ONE (07:51)
[2021-12-28] MEDS ORDERED: fentaNYL (PF) 50 MCG/ML 2 ML AMP ONE (07:51)
[2021-12-28] MEDS ORDERED: ROPIVACAINE 5 MG/ML 30 ML VIAL ONE (07:51)
[2021-12-28] MEDS ORDERED: LIDOCAINE 2% INJ 20 MG/ML (2 ML VIAL) ONE (07:51)
[2021-12-28] MEDS ORDERED: SUCCINYLCHOLINE CHLORIDE 200 MG/10 ML VIAL IV ONE (07:51)
[2021-12-28] MEDS ORDERED: GLYCOPYRROLATE 0.2 MG/ML 2 ML VIAL ONE (07:51)
[2021-12-28] MEDS ORDERED: KETOROLAC 15 MG/ML 1 ML VIAL ONE (07:51)
[2021-12-28] MEDS ORDERED: ROCURONIUM 10 MG/ML (5 ML VIAL) IV ONE (07:51)
[2021-12-28] MEDS ORDERED: LIDOCAINE 4% LTA KIT (4 ML) TOPICAL ONE (07:51)
[2021-12-28] MEDS ORDERED: DEXAMETHASONE SOD PHOSPHATE 4 MG/ML 1 ML VIAL ONE (07:51)
[2021-12-28] MEDS ORDERED: NEOSTIGMINE 1 MG/ML 10 ML VIAL ONE (07:51)
[2021-12-28] MEDS ORDERED: BUPIVACAIN-EPI 0.25%-1:200,000 30 ML VIAL SQ ONE (08:46)
[2021-12-28] MEDS: HYDROmorphone 0.5 MG/0.5 ML SYRINGE IVP PRN ×4 (09:00→09:21)
--- NOTE | 2021-12-28 09:02 | P.GSHP ---
History of Present Illness H&P Date: 12/28/21 Chief Complaint: Recurrent incarcerated right inguinal hernia This a 61-year-old male who presents today for open repair of recurrent incarcerated right we'll hernia. Patient has a high riding testicle. Patient is requesting to have orchiectomy performed at the same time as his hernia repair. 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 binge drinking, 2007 pancreatitis/alcoholic hepatitis History of Any Multi-Drug Resistant Organisms: None Reported Past Surgical History: No Surgical Hx Reported Past Anesthesia/Blood Transfusion Reactions: Unable to Obtain Additional Past Anesthesia/Blood Transfusion Reaction / Comment(s): Pt has never had surgery, very nervous about this surgery, no family problems w/anesthesia that he's aware of Smoking Status: Never smoker - Past Family History Mother Family Medical History: Congestive Heart Failure (CHF) Brother(s) Family Medical History: Myocardial Infarction ([place]) Additional Family Medical History / Comment(s): of drug overdose at the age of 56 yrs, brook believes he had a [place] as well. Sister(s) Additional Family Medical History / Comment(s): Sister from a drug overdose at the age of 63 yrs. Medications and Allergies Home Medications Medication Instructions Recorded Confirmed Type Aspirin 81 mg PO DAILY #30 chew 05/19/18 12/24/21 Rx Pravastatin Sodium [Pravachol] 10 mg PO HS 01/08/20 12/24/21 History Insulin Detemir (Levemir) [Levemir] 12 unit SQ 1630 12/24/21 12/24/21 History Losartan [Cozaar] 25 mg PO DAILY 12/24/21 12/24/21 History Allergies Allergy/AdvReac Type Severity Reaction Status Date / Time No Known Allergies Allergy Verified 12/28/21 06:10 Surgical - Exam Vital Signs Temp Pulse Resp BP Pulse Ox 97.3 F L 74 16 181/101 99 12/28/21 06:25 12/28/21 06:25 12/28/21 06:25 12/28/21 06:25 12/28/21 06:25 - General well developed, well nourished, no distress - Eyes PERRL - ENT normal pinna - Neck no masses - Respiratory normal expansion - Cardiovascular Rhythm: regular - Abdomen Abdomen: soft, non tender Hernia: inguinal (Recurrent incarcerated right inguinal hernia patient's testicle is within the hernia) Results - Labs Abnormal Lab Results - Last 24 Hours (Table) 12/28/21 Range/Units 06:28 POC Glucose (mg/dL) 134 H (70-110) mg/dL Assessment and Plan Assessment: Recurrent incarcerated right we'll hernia. Patient will undergo open repair of recurrent radial hernia and right orchiectomy.
--- NOTE | 2021-12-28 09:11 | P.OP ---
Date of Procedure: 12/28/21 Preoperative Diagnosis: Recurrent incarcerated right inguinal hernia. Postoperative Diagnosis: Incarcerated recurrent right inguinal hernia Procedure(s) Performed: Open repair of recurrent right inguinal hernia recurrent with mesh Right orchiectomy Right ilioinguinal block Anesthesia: AIMEE Surgeon: Lazaro Carr Estimated Blood Loss (ml): 5 Pathology: other (Right testicle) Condition: stable Disposition: PACU Description of Procedure: MDESCRIPTION OF PROCEDURE: The patient was placed in the supine position after receiving adequate anesthesia. Patients groin was prepped and draped in the usual sterile fashion. A standard hernia incision was made and the s ubcutaneous tissues were divided with electrocautery. The fascia of the external oblique was exposed. A jesus the fascia was made with #15 blade. The fascia was then opened with pair of Metzenbaum scissors. A Weitlaner retractor was placed in the wound and the cord structures were grasped and dissected free from the inguinal canal. A rubber Kendall drain was placed around the cord structures. The hernial sac was seen on the anterior-medial portion of the cord and this was dissected free from the cord. The testicle was high riding. The cord and hernia sac underwent high ligation w ith 0 Vicryl. The remaining hernia sac was then invaginated to the peritoneal cavity. Using blunt finger dissection, the preperitoneal space was dissected and then the Prolene hernial mesh plug was placed into the prepared space. The inferior leaf was expanded. The superior leaf was secured to the pubic tubercle using 2-0 Prolene suture. The lateral portion of the superior leaf was incised and cords tied and secured to the transversalis fascia using 2-0 Prolene suture. Fascia of the external oblique was then closed using #0 Vicryl suture. The [place] drain was removed. The Scarpas fascia was then closed with 3-0 Vicryl suture and skin was closed with randy. The patient tolerated the procedure well. An ilioinguinal nerve block was performed with 1% local Xylocaine.
[2021-12-28] MEDS ORDERED: HYDROcodone/APAP 5-325MG 1 EACH TAB PO ONE (09:44)
[2021-12-28] MEDS ORDERED: HYDROcodone/APAP 5-325MG 1 EACH TAB ONE (09:47)
[2021-12-28] MEDS ORDERED: LACTATED RINGERS 1,000 ML IV ONE (10:41)
[2021-12-28 11:20] VITALS: BP 162/103; PULSE 81
== END 2021-12-28 11:52 | disposition home or self-care (01) ==
LOC: OR 05:56
PROVIDERS: ATTEND Surgery
DX: K40.31 Unilateral inguinal hernia, with obstruction, without gangrene, recurrent (principal); N44.8 Other noninflammatory disorders of the testis; E11.69 Type 2 diabetes mellitus with other specified complication; E78.5 Hyperlipidemia, unspecified; I12.9 Hypertensive chronic kidney disease with stage 1 through stage 4 chronic kidney disease, or unspecified chronic kidney disease; E11.22 Type 2 diabetes mellitus with diabetic chronic kidney disease; N18.9 Chronic kidney disease, unspecified; Z86.73 Personal history of transient ischemic attack (TIA), and cerebral infarction without residual deficits; Z79.82 Long term (current) use of aspirin; Z79.899 Other long term (current) drug therapy; Z79.4 Long term (current) use of insulin; Z82.49 Family history of ischemic heart disease and other diseases of the circulatory system
CPT/HCPCS: 64488; 88305; 49521; 54520; C1781; J2250; J0330; J1100; J2710; J0690; J2405; J3010; J2795; J1885; J2704; J1170; J1644; J2001

== ENCOUNTER → 2022-05-27 | Outpatient (CLI) | payer OTHER ==
--- NOTE | 2022-05-27 16:56 | US ---
EXAMINATION TYPE: US kidneys/renal and bladder DATE OF EXAM: 05/27/2022 COMPARISON: Renal ultrasound 01/14/2020 CLINICAL HISTORY: N18.2 CHRONIC KIDNEY DISEASE, STAGE 2 (MILD). EXAM MEASUREMENTS: Right Kidney: 10.8 x 5.6 x 4.4 cm Left Kidney: 11.6 x 5.4 x 5.1 cm Right Kidney: No hydronephrosis or masses seen inferior pole obscured by bowel gas . Left Kidney: inferior cluster of echogenic foci may represent stones Bladder: wnl Bilateral Jets seen: Yes There is no evidence for hydronephrosis at this point in time. Echogenic foci in the inferior pole of the left kidney without shadowing. No masses are identified. The urinary bladder is anechoic. Eddie ateral ureteral jets are seen. IMPRESSION: 1. No hydronephrosis. 2. Echogenic foci within the inferior pole of left kidney is unchanged and may represent renal stone versus vascular calcification.
== END | disposition home or self-care (01) ==
LOC: RADUSWWP 15:10
PROVIDERS: ATTEND Internal Medicine
DX: N18.2 Chronic kidney disease, stage 2 (mild) (principal)
CPT/HCPCS: 76770

== ENCOUNTER → 2022-11-25 | Outpatient (CLI) | payer OTHER ==
[2022-11-25 20:57] LABS: Basophils # (A) 0.06 X 10*3/uL (0.00-0.10); Basophils % (A) 0.4 %; Eosinophils # (A) 0.16 X 10*3/uL (0.04-0.35); Eosinophils % (A) 1.2 %; HCT 46.1 % (39.6-50.0); HGB 15.3 d/dL (12.0-15.0); Lymphocytes # (A) 3.33 X 10*3/uL (0.90-5.00); MCH 29.9 pg (27.0-32.0); MCHC 33.2 d/dL (32.0-37.0); Mean Platelet Volume 10.8 FL (9.5-12.2); Monocytes # (A) 1.07 X 10*3/uL (0.20-1.00); Monocytes % (A) 7.7 %; NRBC Per 100 WBC 0 X 10*3/uL (0.00-0.01); Neutrophils # (A) 9.17 X 10*3/uL (1.80-7.70); Neutrophils % (A) 66.2 %; Platelet Count 282 X 10*3/uL (140-440); RBC 5.12 X 10*6/uL (4.40-5.60); WBC 13.86 X 10*3/uL (4.50-10.00)
[2022-11-25 21:53] LABS: % Iron Saturation 16.18 (15.00-50.00); ALT 44 U/L (10-49); AST 35 U/L (14-35); Albumin 4.8 d/dL (3.8-4.9); Albumin/Globulin Ratio 1.85 Ratio (1.60-3.17); Alkaline Phosphatase 74 U/L (41-126); BUN/Creat Ratio 15.14 Ratio (12.00-20.00); Blood Urea Nitrogen 21.2 mg/dL (9.0-27.0); Calcium 10.4 mg/dL (8.7-10.3); Carbon Dioxide 25.4 mmol/L (21.6-31.8); Chloride 102 mmol/L (96-109); Globulin 2.6 d/dL (1.6-3.3); Glucose 103 mg/dL (70-110); Iron 55 UG/DL (65-175); Magnesium 1.9 mg/dL (1.5-2.4); Phosphorus 3.6 mg/dL (2.4-5.1); Potassium 4.7 mmol/L (3.5-5.5); Sodium 139 mmol/L (135-145); Total Bilirubin 0.3 mg/dL (0.3-1.2); Total Iron Binding Capacity 340 UG/DL (228-460); Total Protein 7.4 d/dL (6.2-8.2)
[2022-11-26 04:23] LABS: Appearance,Urine Clear (Clear); Bilirubin,Urine Negative (Negative); Blood,Urine Negative (Negative); Color,Urine Yellow (Yellow); Ketones,Urine Negative (Negative); Nitrite,Urine Negative (Negative); PH, Urine 5.5; Specific Gravity,Urine 1.021 (1.001-1.030)
[2022-11-26 05:38] LABS: Microalbumin Creatinine Ratio <6 mg/g Cr (0-30)
== END | disposition home or self-care (01) ==
LOC: LABWHC1 16:25
PROVIDERS: ATTEND Nurse Practitioner Family
DX: E55.9 Vitamin D deficiency, unspecified (principal); D63.1 Anemia in chronic kidney disease; N39.0 Urinary tract infection, site not specified; N25.81 Secondary hyperparathyroidism of renal origin; N18.2 Chronic kidney disease, stage 2 (mild); M10.9 Gout, unspecified; R80.9 Proteinuria, unspecified
CPT/HCPCS: 36415; 80053; 81003; 82043; 82306; 82570; 82728; 83540; 83550; 83735; 83970; 84100; 85025

== ENCOUNTER 2022-11-26 06:00 | Emergency (ER) | payer OTHER ==
[2022-11-26 06:10] VITALS: RESP 18; TEMP 97.7
--- NOTE | 2022-11-26 06:35 | ED ---
Chest Pain HPI - General Chief Complaint: Neuro Symptoms/Deficit Stated Complaint: Chest Pain, Numbness Left side Time Seen by Provider: 11/26/22 06:12 Source: patient, RN notes reviewed Mode of arrival: ambulatory Limitations: no limitations - History of Present Illness Initial Comments: This is a 62-year-old male who presents to the emergency department for chest pain and left-sided heaviness/weakness. States that about a week ago, he started to develop intermittent chest pain and shortness of breath that is worse with exertion. He is usually very active, however now doing very simple tasks causes him to become out of breath. Also states that he has developed heaviness and discomfort to the left arm that he cannot reproduce. He has also started to develop this sensation in the left leg as well. Denies any injuries. This morning, he did feel very nauseous and said that his blood pressure was elevated, prompting him to come to the emergency department. He reports a history of strokes but denies any history of heart attacks. 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 Osman, one week ago, and was told that he was healthy. Denies any fevers, chills, sore throat, cough, palpitations, abdominal pain, nausea, vomiting, diarrhea, back pain, or headaches. MD Complaint: chest pain - Related Data Home Medications Medication Instructions Recorded Confirmed Pravastatin Sodium [Pravachol] 10 mg PO HS 01/08/20 12/24/21 Insulin Detemir (Levemir) [Levemir] 12 unit SQ 1630 12/24/21 12/24/21 Losartan [Cozaar] 25 mg PO DAILY 12/24/21 12/24/21 Previous Rx's Medication Instructions Recorded Aspirin 81 mg PO DAILY #30 chew 05/19/18 Acetaminophen Tab [Tylenol] 650 mg PO Q6H #30 tab 12/28/21 Docusate [Colace] 100 mg PO BID #20 capsule 12/28/21 Ibuprofen [Motrin] 600 mg PO Q6HR PRN #40 tab 12/28/21 oxyCODONE HCL [OxyIR] 5 mg PO Q6H PRN 3 Days #10 tab 12/28/21 Allergies Allergy/AdvReac Type Severity Reaction Status Date / Time No Known Allergies Allergy Verified 11/26/22 06:10 Review of Systems ROS Statement: Those systems with pertinent positive or pertinent negative responses have been documented in the HPI. ROS Other: All systems not noted in ROS Statement are negative. 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 binge drinking, 2007 pancreatitis/alcoholic hepatitis History of Any Multi-Drug Resistant Organisms: None Reported Past Surgical History: No Surgical Hx Reported Past Anesthesia/Blood Transfusion Reactions: Unable to Obtain Additional Past Anesthesia/Blood Transfusion Reaction / Comment(s): Pt has never had surgery, very nervous about this surgery, no family problems w/anesthesia that he's aware of Past Psychological History: Anxiety, Depression Smoking Status: Never smoker - Past Family History Mother Family Medical History: Congestive Heart Failure (CHF) Brother(s) Family Medical History: Myocardial Infarction ([place]) Additional Family Medical History / Comment(s): of drug overdose at the age of 56 yrs, brook believes he had a [place] as well. Sister(s) Additional Family Medical History / Comment(s): Sister from a drug overdose at the age of 63 yrs. General Exam Limitations: no limitations General appearance: alert, in no apparent distress Head exam: Present: atraumatic, normocephalic, normal inspection Eye exam: Present: normal appearance, PERRL, EOMI. Absent: scleral icterus, conjunctival injection, periorbital swelling Respiratory exam: Present: normal lung sounds bilaterally. Absent: respiratory distress, wheezes, rales, rhonchi, stridor Cardiovascular Exam: Present: regular rate, normal rhythm, normal heart sounds. Absent: systolic murmur, diastolic murmur, rubs, gallop, clicks Neurological exam: Present: alert, oriented X3, CN II-XII intact Expanded Speech: Present: fluid speech Cerebellar function: Finger to Nose: Normal, Romberg: Normal Upper motor neuron: Pronator Drift: Normal, Sensory Extinction: Normal Motor strength exam: RUE: 5, LUE: 5, RLE: 5, LLE: 5 Psychiatric exam: Present: normal affect, normal mood Skin exam: Present: warm, dry, intact, normal color. Absent: rash Course Vital Signs 11/26/22 11/26/22 11/26/22 06:04 07:46 08:45 Temperature 97.7 F Pulse Rate 79 66 67 Respiratory 18 18 18 Rate Blood Pressure 168/95 180/100 157/99 O2 Sat by Pulse 99 98 99 Oximetry 11/26/22 10:46 Temperature 97.7 F Pulse Rate 65 Respiratory 18 Rate Blood Pressure 143/93 O2 Sat by Pulse 97 Oximetry Chest Pain MDM - MDM This is a 62-year-old male who presents to the emergency department for chest pain and left-sided heaviness/weakness. Was pt. sent in by a medical professional or institution? @ -No Did you speak to anyone other than the patient for history? @ -No Did you review nursing and triage notes? @ -Yes, and I agree, it is accurate with regards to the patient's symptoms. Were old charts reviewed? @ -No Differential Diagnosis? @ -Differential Chest Pain: Stable Angina, Unstable Angina, STEMI, NSTEMI Aortic Dissection, Pneumothorax, Musculoskeletal, Esophageal Spasm GERD, Cholecystitis, Pancreatitis, Zoster, this is not meant to be an all-inclusive list. EKG interpreted by me (3pts min.)? @ -EKG interpreted by me demonstrating the following: Sinus rhythm. Ventricular rate 69 beats per minute, VA interval 170 ms, QRS duration 122 ms, QTC 406 ms. X-rays interpreted by me (1pt min.)? @ -Chest x-ray obtained, my interpretation identifies no localized consolidations or infiltrates. CT interpreted by me (1pt min.)? @ -Computed tomography scan of the brain and CT angiogram of the head and neck obtained. My interpretation identifies no acute intracranial hemorrhage or aneurysm. U/S interpreted by me (1pt. min.)? @ -Not obtained What testing was considered but not performed? (CT, X-rays, U/S, labs)? Why? @ -None What meds were considered but not given? Why? @ -None Did you discuss the management of the patient with other professionals? @ -No Did you reconcile home meds? @ -No Was smoking cessation discussed for >3mins.? @ -No Was critical care preformed (if so, how long)? @ -No Were there social determinants of health that impacted care today? How? (Homelessness, low income, unemployed, alcoholism, drug addiction, transportation, low edu. Level, literacy, decrease access to med. care, retirement, rehab)? @ -No Was there de-escalation of care discussed even if they declined? (Discuss DNR or withdrawal of care, Hospice)? @ -No What co-morbidities impacted this encounter? (DM, HTN, Smoking, COPD, CAD, Cancer, CVA, Hep., AIDS, mental health diagnosis, sleep apnea, morbid obesity)? @ -Hx of CVA, DM, HTN, HLD Was patient admitted / discharged? @ -Discharged. Lab work obtained and found to be nonactionable. Chest x-ray reveals no acute process. Computed tomography scan of the brain and CT angiogram of the head and neck obtained revealing no acute process. Given that the patient's symptoms started after his appointment with cardiology, I did offer admission for further evaluation and cardiac rule out, however the patient declined. Case management called the cardiology office and tried to get the patient appointment, however they could not get him in until 12/14. This was also discussed with the patient, and he states that he would still rather go home. Risks of discharge in the event he were to have an underlying cardiac process, including , were reviewed. Patient expresses understanding and continues to request discharge home. I did advise that he can increase his lisinopril from 2.5 to 5 mg daily, given that his blood pressure has been fairly elevated. Advised he continue to monitor this at home several times a day and keep a log of his blood pressures. Undiagnosed new problem with uncertain prognosis? @ -None Drug Therapy requiring intensive monitoring for toxicity (Heparin, Nitro, Insulin, Cardizem)? @ -None Were any procedures done? @ -None Diagnosis/symptom? @ -Chest pain, fatigue Acute, or Chronic, or Acute on Chronic? @ -Acute Uncomplicated (without systemic symptoms) or Complicated (systemic symptoms)? @ -Uncomplicated Side effects of treatment? @ -None Exacerbation, Progression, or Severe Exacerbation] @ -Not applicable Poses a threat to life or bodily function? @ -This will depend on the cause of his symptoms. Diagnosis/symptom? @ -HTN Acute, or Chronic, or Acute on Chronic? @ -Chronic Uncomplicated (without systemic symptoms) or Complicated (systemic symptoms)? @ -Uncomplicated Side effects of treatment? @ -None Exacerbation, Progression, or Severe Exacerbation] @ -Progression Poses a threat to life or bodily function? @ -If it continues to elevate and remains elevated, it increases his risk for future heart attacks and strokes. Return precautions reviewed in depth, the patient is instructed to return to the emergency department with any new, worsening, or concerning symptoms. Patient verbalized understanding. This case was discussed in detail with the attending ED physician, Dr. Gonzalez. Presentation, findings, and treatment plan discussed in detail as well. Disposition Clinical Impression: Chest pain, Fatigue, Elevated blood pressure reading Disposition: HOME SELF-CARE Instructions (If sedation given, give patient instructions): Chest Pain (ED), Fatigue (ED) Additional Instructions: Return to the emergency department with any new, worsening, or concerning symptoms. Increase your Lisinopril to 5mg daily. Continue to monitor your blood pressure several times a day and keep a log of these values. Contact the cardiology's office when you get home as well to see if they can get you in for a sooner follow-up appointment. Follow up with your primary care provider in 1- 2 days. Is patient prescribed a controlled substance at d/c from ED?: No Referrals: Kirk Osman MD [STAFF PHYSICIAN] - 12/14/22 9:30 am (Appointment at main office on [address] ) Orville Cooley MD [Primary Care Provider] - 1-2 days
--- NOTE | 2022-11-26 07:02 | XR ---
EXAMINATION TYPE: XR chest 2V DATE OF EXAM: 11/26/2022 6:37 AM COMPARISON: Chest radiographs from 01/16/2020 TECHNIQUE: XR chest 2V Frontal and lateral views of the chest. CLINICAL INDICATION:Male, 62 years old with history of Chest Pain; FINDINGS: Lungs/Pleura: There is no evidence of pleural effusion, focal consolidation, or pneumothorax. Pulmonary vascularity: Unremarkable. Heart/mediastinum: Cardiomediastinal silhouette is unremarkable. Musculoskeletal: No acute osseous pathology. IMPRESSION: No acute cardiopulmonary disease/process.
--- NOTE | 2022-11-26 08:16 | CT ---
EXAMINATION TYPE: CT brain wo con DATE OF EXAM: 11/26/2022 COMPARISON: 01/08/2020 INDICATION: Left sided weakness/heaviness; History of CVA/TIA (2018) DLP: 1129.5 mGycm, Automated exposure control for dose reduction was used. CONTRAST: None CT of the brain is performed utilizing 3 mm thick sections through the posterior fossa and 3 mm thick sections through the remaining calvarium. Study is performed within 24 hours of arrival to the hosp ital. No abnormal hyperdensity is present to suggest an acute intracranial hemorrhage. No mass lesion is evident. No acute infarcts are evident. Ventricles and sulci are appropriate for the patient age. Paranasal sinuses and mastoid air cells within the [id number] are clear. IMPRESSIONS: 1. No acute intracranial process. Follow-up MRI can be performed as clinically indicated
--- NOTE | 2022-11-26 09:06 | CT ---
EXAMINATION TYPE: CT angio head neck DATE OF EXAM: 11/26/2022 HISTORY: Left sided weakness/heaviness COMPARISON: CT DLP: 673.7 mGycm. Automated Exposure Control for Dose Reduction was Utilized. TECHNIQUE: CTA scan of the neck is performed with IV Contrast, patient injected with 65 ml mL of Iso teddy 370, axial images are obtained, coronal and sagittal reformatted images are reviewed. Three-D rec onstructed images are created on an independent workstation and reviewed. Source images are reviewed . FINDINGS: Carotid/Vascular Structures: There is a 3 vessel arch. Vertebral arteries are codominant. Mild vascul ar calcifications of the carotid bifurcations. No significant flow-limiting stenosis is evident. Inte rnal carotid arteries and vertebral arteries are patent to the skull base. Cervical of [place]: Vertebral basilar system appears normal. Posterior cerebral vasculature is unrema rkable. Internal carotid arteries bifurcate normally into A1 and M1 segments. A2 segments are normal. The anterior communicating artery is patent. Left Posterior communicating artery is faintly visualiz ed. Right posterior communicating artery is patent. IMPRESSION: 1. No flow-limiting stenosis bilateral carotid bifurcations. 2. Normal [place] NASCET criteria was used in interpretation of this exam?
[2022-11-26 09:20] LABS: Basophils % (A) 0 %; Eosinophils # (A) 0.1 k/uL (0-0.7); Eosinophils % (A) 1 %; HCT 44.6 % (39.0-53.0); HGB 15.2 gm/dL (13.0-17.5); Lymphocytes # (A) 1.7 k/uL (1.0-4.8); Lymphocytes % (A) 16 %; MCH 30.5 pg (25.0-35.0); MCHC 34.2 g/dL (31.0-37.0); MCV 89.3 fL (80.0-100.0); Mean Platelet Volume 7.9; Monocytes # (A) 0.6 k/uL (0-1.0); Monocytes % (A) 5 %; Neutrophils # (A) 8.5 k/uL (1.3-7.7); Neutrophils % (A) 76 %; Platelet Count 232 k/uL (150-450); RBC 4.99 m/uL (4.30-5.90); RDW 12.6 % (11.5-15.5); WBC 11.1 k/uL (3.8-10.6)
[2022-11-26 09:31] LABS: Partial Thromboplastin Time 23.4 sec (22.0-30.0)
[2022-11-26 09:39] LABS: ALT 49 U/L (4-49); AST 37 U/L (17-59); African American GFR (CKD) >90 (>60 ml/min/1.73 sqM); Albumin 4.5 g/dL (3.5-5.0); Alkaline Phosphatase 73 U/L (38-126); Anion Gap 8 mmol/L; Blood Urea Nitrogen 20 mg/dL (9-20); Calcium 9.6 mg/dL (8.4-10.2); Carbon Dioxide 24 mmol/L (22-30); Chloride 103 mmol/L (98-107); Creatine Kinase 135 U/L (55-170); Glucose 119 mg/dL (74-99); Non-African American GFR(CKD) 87 (>60 ml/min/1.73 sqM); Potassium 4.4 mmol/L (3.5-5.1); Sodium 135 mmol/L (137-145); Total Bilirubin 0.6 mg/dL (0.2-1.3); Total Protein 7.4 g/dL (6.3-8.2)
[2022-11-26 10:48] VITALS: BP 143/93; PULSE 65
== END 2022-11-26 10:48 | disposition home or self-care (01) ==
LOC: EC 06:00
DX: I10 Essential (primary) hypertension (principal); R53.83 Other fatigue; E11.9 Type 2 diabetes mellitus without complications; E78.5 Hyperlipidemia, unspecified; Z79.4 Long term (current) use of insulin; Z79.899 Other long term (current) drug therapy
CPT/HCPCS: 36415; 93005; 80053; 82550; 83605; 83735; 84484; 85025; 85610; 85730; 71046; 70496; 70450; 70498; 99285; Q9967

== ENCOUNTER → 2023-02-08 | Outpatient (CLI) | payer OTHER ==
--- NOTE | 2023-02-08 22:57 | US ---
EXAMINATION TYPE: US groin RT DATE OF EXAM: 02/08/2023 COMPARISON: NONE CLINICAL INDICATION: Male, 62 years old with history of S76.211A STRAIN OF ADDUCTOR MUSC/FASC/TEND RI GHT T; Rt Groin hernia repair and Rt orchidectomy 1 yr ago, persistent rt groin pain radiating from r epair site to scrotum TECHNIQUE: several sonographic images with and without valsalva obtained at repair site. FINDINGS: no abnormality appreciated at repair site, mesh shadowing seen. IMPRESSION: 1. No suspicious recurrent hernia.
== END | disposition home or self-care (01) ==
LOC: RADUSWWP 13:29
PROVIDERS: ATTEND Family Medicine
DX: S76.211A Strain of adductor muscle, fascia and tendon of right thigh, initial encounter (principal)

== ENCOUNTER → 2023-04-27 | Outpatient (CLI) | payer OTHER ==
--- NOTE | 2023-04-27 15:39 | P.SLEEP ---
History of Present Illness DATE: 04/27/2023 CONSULTATION/NEW PATIENT EVALUATION HISTORY OF PRESENT ILLNESS/SLEEP-WAKE EVALUATION: 62 year old gentleman had been evaluated in the sleep center for possible obstructive sleep apnea hypopnea syndrome. SLEEP SCHEDULE: Usually sleep schedule from 6 PM to 34 AM 7 days a week. FALLING ASLEEP: No problems with falling asleep. DURING SLEEP: Patient has very loud snoring and witnessed episodes of stop breathing during the sleep. Positive history of heartburn, gasping for air and sweating during the sleep. Patient wakes up from sleep up to 3 times with 2 episodes of nocturia. Positive history of significant movements during the sleep. No history of hypnogogical hallucinations, sleep paralysis, or catapl exy. DURING THE DAY/WAKE STATE: In the morning patient wake up tired, has problems with memory, claustrophobia. [place] sleepiness scale is 6. Patient takes 1 nap at noontime. PAST MEDICAL HISTORY: Hypertension, stroke 6 years ago with left-sided numbness, diabetes mellitus, kidney failure 3 years ago. PAST SURGICAL HISTORY: Hernia repair in 2022. MEDICATIONS: Metformin 500 mg twice a day, pravastatin, lisinopril 2.5 mg once a day. SOCIAL HISTORY: Presently negative for smoking or using alcohol. FAMILY HISTORY: Hypertension, heart problems, emphysema. REVIEW OF SYSTEMS: Loud snoring, multiple awakenings from sleep, episodes of sleepiness during the day. No fevers. No double vision. No recent chest pain. No shortness of breath. No abdominal pain. No bleeding episodes. No blood in urine. No seizure episodes. PHYSICAL EXAMINATION: GENERAL: A pleasant patient without any distress. VITAL SIGNS: BP 108/70, HR 84, RR 16, weight 185 pounds, height 5 foot 8 inches, body mass index 28.1. HEENT: PERRLA, EOMI. Evaluation of oropharynx showed tongue protrudes midline, low position of soft palate Mallampati 34. NECK: Supple. No JVD. Thyroid is not palpable. 16 inches in circumference. LUNGS: Clear to percussion and to auscultation. Good air exchange. No wheezing or rhonchi. HEART: S1, S2 regular. No murmurs, gallops or rubs. ABDOMEN: Soft and nontender. Bowel sounds are present. No organomegaly appreciated. EXTREMITIES: No clubbing or cyanosis. GROUP CHIEF OPERATOR: Awake, alert, and oriented x3. Cranial nerves 2 to 7 intact. There is no fasciculation or atrophy noted. No focal deficits observed. Mild numbness on the left side ASSESSMENT: 1. Loud snoring, witnessed episodes of stop breathing during the sleep, extremely low position of soft palate Mallampati 34, sleepiness patient takes naps. Obstructive sleep apnea hypopnea syndrome. 2. History of hypertension. 3. History of stroke with left-sided numbness 6 years ago, mild residual numbness on the left side. 4. Diabetes mellitus, recent hemoglobin A1c according to patient 6.5. 5 history of kidney failure 3 years ago. 6 . Status post the hernia repair in December 2022. PLAN: 1. Home sleep apnea test Polysomnography for evaluation of patient's breathing during sleep and to check for possible periodic limb movements. 2. CPAP/BiPAP titration if sleep study confirms obstructive sleep apnea- hypopnea syndrome. 3. Preferable position during sleep on the side. 4. No driving if patient feels any sleepiness. Patient is aware of civil and criminal liability for unsafe driving. 5. Sleep hygiene with regular sleep time for at least 7.5-8 hours. 6. Watching weight. Thank you very much for referring this patient for consultation. Sincerely, Natanael Currie MD, PhD, FAASM. 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 binge drinking, 2007 pancreatitis/alcoholic hepatitis History of Any Multi-Drug Resistant Organisms: None Reported Past Surgical History: No Surgical Hx Reported Past Anesthesia/Blood Transfusion Reactions: Unable to Obtain Additional Past Anesthesia/Blood Transfusion Reaction / Comment(s): Pt has never had surgery, very nervous about this surgery, no family problems w/anesthesia that he's aware of Past Psychological History: Anxiety, Depression Smoking Status: Never smoker - Past Family History Mother Family Medical History: Congestive Heart Failure (CHF) Brother(s) Family Medical History: Myocardial Infarction ([place]) Additional Family Medical History / Comment(s): of drug overdose at the age of 56 yrs, brook believes he had a [place] as well. Sister(s) Additional Family Medical History / Comment(s): Sister from a drug overdose at the age of 63 yrs. Medications and Allergies Home Medications Medication Instructions Recorded Confirmed Type Aspirin 81 mg PO DAILY #30 chew 05/19/18 12/24/21 Rx Pravastatin Sodium [Pravachol] 10 mg PO HS 01/08/20 12/24/21 History Insulin Detemir (Levemir) [Levemir] 12 unit SQ 1630 12/24/21 12/24/21 History Losartan [Cozaar] 25 mg PO DAILY 12/24/21 12/24/21 History Acetaminophen Tab [Tylenol] 650 mg PO Q6H #30 tab 12/28/21 Rx Docusate [Colace] 100 mg PO BID #20 capsule 12/28/21 Rx Ibuprofen [Motrin] 600 mg PO Q6HR PRN #40 tab 12/28/21 Rx oxyCODONE HCL [OxyIR] 5 mg PO Q6H PRN 3 Days #10 tab 12/28/21 Rx Allergies Allergy/AdvReac Type Severity Reaction Status Date / Time No Known Allergies Allergy Verified 11/26/22 06:10 Sleep Note - Sleep Note Sleep Note: Temperature: Pulse Rate: Respiratory Rate: Blood Pressure: SpO2: Height: Weight: BMI: Neck Circumference:
== END ==
LOC: 3 N SLEEP 14:32
PROVIDERS: ATTEND Internal Medicine
DX: G47.33 Obstructive sleep apnea (adult) (pediatric) (principal); I10 Essential (primary) hypertension; I63.9 Cerebral infarction, unspecified; R20.0 Anesthesia of skin; E11.9 Type 2 diabetes mellitus without complications; N19 Unspecified kidney failure; Z98.890 Other specified postprocedural states; Z79.82 Long term (current) use of aspirin
CPT/HCPCS: 99211

== ENCOUNTER 2023-05-31 19:23 | Outpatient (CLI) | payer OTHER ==
--- NOTE | 2023-06-01 14:18 | P.PCN ---
Description of Procedure: POLYSOMNOGRAPHY REPORT PROCEDURE(S)/DATE(S): Polysomnography on 02/10/2024 CLINICAL: Patient has been seen in the sleep center for evaluation of obstructive sleep apnea-hypopnea syndrome. Please see my consultation. Sleep study has been done for evaluation of patient breathing during the sleep. PROCEDURE: The standard montage for clinical polysomnography included the electroencephalogram, the electrooculogram, the mentalis surface electromyography and Lead II cardiography. The respiratory battery consisted of measurements of nasal/buccal air flow, pressure transducer measurements from nose, thoracic and/or abdominal effort and intercostal surface electromyography. Video monitoring has been done to check for any parasomnia events. Nocturnal oxyhemoglobin saturations were obtained by finger oximetry. Step-oh titration with positive airway pressure was utilized to control the respiratory events, if necessary. RESULTS: During the diagnostic sleep study sleep efficiency was decreased to 72.1 %. Latency to sleep onset was borderline 28.0 min. Sleep architecture s howed stage NI was increased to 15.7 %, Delta sleep was extremely short 0.6 %, REM sleep was short 10.3 %. Respiratory channel showed 15 obstructive apneas, 0 mixed apneas, 2 central apneas, 27 hypopneas with lowest oxygen level 84%. Total apnea hypopnea index was 8.4. Heart rate was in the range between 56 and 62, average 58. EMG showed 1.7 periodic limb movements per hour with 1.0 micro-arousals per hour. IMPRESSIONS: 1. Obstructive sleep apnea hypopnea syndrome in mild range. 2. No significant periodic limb movements have been documented. 3. Hypertension. 4. History of stroke. Please see other impressions from consultation PLAN: 1. The patient will have AutoPAP treatment for correction of respiratory abnormalities during the sleep. 2. Losing weight program. 3. Sleep hygiene with regular time in bed for at least 7-1/2 hours. 4. No driving if feeling sleepiness. 5. I will see patient for follow-up visit to release clinical response on treatment, compliance with treatment and make any necessary adjustments related to mask fitting pressure and humidification. Thank you very much for allowing me to participate in the management of your patient. Sincerely, Natanael Currie MD, PhD, FAASM. Diplomat of [place] [employer], Sleep Medicine Board by [place] [employer] Human Resources Project Manager of [facility]
== END 2023-06-01 04:35 | disposition home or self-care (01) ==
LOC: 3 N SLEEP 19:23
PROVIDERS: ATTEND Internal Medicine
DX: G47.33 Obstructive sleep apnea (adult) (pediatric) (principal); I10 Essential (primary) hypertension; Z86.73 Personal history of transient ischemic attack (TIA), and cerebral infarction without residual deficits; Z79.82 Long term (current) use of aspirin; Z79.899 Other long term (current) drug therapy
CPT/HCPCS: 95810

== ENCOUNTER 2023-10-19 06:24 | Day surgery (SDC) | payer OTHER ==
[~2023-10-19 06:24] MED LIST changes: -ACETAMINOPHEN TAB 500 MG TAB PO PRN; -DEXAMETHASONE SOD PHOSPHATE 4 MG/ML 1 ML VIAL IV ONE; -HEPARIN SODIUM,PORCINE/PF 5,000 UNIT/0.5 ML SYRINGE SQ PRN; -LACTATED RINGERS 1,000 ML IV SCH; -MIDAZOLAM 2 MG/2 ML VIAL IV PRN; -ONDANSETRON 4 MG/2 ML VIAL IVP ONE
[2023-10-19] MEDS: LACTATED RINGERS 1,000 ML IV SCH (06:47)
[2023-10-19] MEDS ORDERED: ONDANSETRON 4 MG/2 ML VIAL IVP PRN (07:00)
[2023-10-19 07:03] LABS: Glucose,Whole Blood 144 mg/dL (70-110)
[2023-10-19 07:14] VITALS: TEMP 98
[2023-10-19] MEDS ORDERED: PROPOFOL 10 MG/ML 20 ML VIAL IV ONE (07:25)
--- NOTE | 2023-10-19 07:45 | P.PCN ---
Date of Procedure: 10/19/23 Procedure(s) Performed: BRIEF HISTORY: Patient is a 62-year-old pleasant white male scheduled for an elective colonoscopy as a part of screening for colon cancer. PROCEDURE PERFORMED: Colonoscopy. PREOPERATIVE DIAGNOSIS: Screening for colon cancer. IV sedation per Anesthesia. PROCEDURE: After informed consent was obtained, the patient, was brought into the endoscopy unit. IV sedation was administered by Anesthesia under continuous monitoring. Digital rectal examination was normal. Initially the Olympus CF-160 flexible video colonoscope was then inserted in the rectum, gradually advanced into the cecum without any difficulty. Careful examination was performed as the scope was gradually being withdrawn. Ileocecal valve and the appendiceal orifice were visualized and appeared normal. Prep was excellent. Mucosa of the cecum, ascending colon, transverse colon, descending colon, sigmoid colon, and rectum appeared normal. Retroflexion was performed in the rectum and no lesions were seen. Scattered sigmoid diverticulosis. The patient tolerated the procedure well. IMPRESSION: Normal-appearing colon from rectum to cecum with no evidence of colorectal neoplasia. Scattered sigmoid diverticulosis. RECOMMENDATIONS: Findings of this examination were discussed with the patient as well as his family. He was advised to have repeat screening colonoscopy in 10 years..
[2023-10-19 08:04] VITALS: BP 110/73; PULSE 65
[2023-10-19 08:05] VITALS: RESP 17
== END 2023-10-19 08:25 | disposition home or self-care (01) ==
LOC: ORWHC2ENDO 06:24
PROVIDERS: ATTEND Internal Medicine Gastroenterology
DX: Z12.11 Encounter for screening for malignant neoplasm of colon (principal); K57.30 Diverticulosis of large intestine without perforation or abscess without bleeding; I10 Essential (primary) hypertension; E78.5 Hyperlipidemia, unspecified; G47.33 Obstructive sleep apnea (adult) (pediatric); E11.9 Type 2 diabetes mellitus without complications; F41.9 Anxiety disorder, unspecified; F32.A Depression, unspecified; Z86.73 Personal history of transient ischemic attack (TIA), and cerebral infarction without residual deficits; Z79.82 Long term (current) use of aspirin; Z79.84 Long term (current) use of oral hypoglycemic drugs; Z79.899 Other long term (current) drug therapy; Z98.890 Other specified postprocedural states
CPT/HCPCS: 45378; J2704

== ENCOUNTER → 2023-11-30 | Outpatient (CLI) | payer OTHER ==
[2023-11-30 13:31] VITALS: BP 130/80; PULSE 60; RESP 16; TEMP 98.1
--- NOTE | 2023-11-30 14:53 | P.PROGSL ---
Subjective DATE: 11/30/2023 FOLLOW UP VISIT. Patient with obstructive sleep apnea hypopnea syndrome return to sleep center for follow-up visit. Recently patient had sleep study which documented obstructive sleep apnea hypopnea syndrome. Patient was initiated on PAP therapy and today is first visit after treatment was started. Patient was able to use PAP equipment every night for the whole night. He does not snore with CPAP and feels slightly better in the morning after awakenings, but sometimes still feels sleepy during the day. Patient still wakes up during the night The patient does not have significant problems with the mask, PAP pressure and humidification. [place] sleepiness scale is 2. I checked information from PAP unit. PAP unit pressure 5-13, average 8.5 cm H2O. Usage is 100% for more then 4 hours, average 8 hours per night. Leak is 16 l/m, which is in acceptable range. Apnea Hypopnea Index is 1.9, which is normal. MEDICATIONS: Please see below During physical exam: GENERAL: A pleasant patient without any distress. VITAL please see below, weight 181.6 pounds. HEENT: PERRLA, EOMI.low position of soft palate, Mallapati 3-4 . NECK: Supple. No JVD. LUNGS: Clear to percussion and to auscultation. Good air exchange. No wheezing or rhonchi. HEART: S1, S2 regular. ABDOMEN: Soft and nontender.[] EXTREMITIES: No clubbing or cyanosis. MANAGER CREDIT RISK: Awake, alert, and oriented x3. No focal deficit. Impressions: 1. Obstructive sleep apnea-hypopnea syndrome. Patient demonstrated great compliance with treatment, benefiting from treatment. 2. History of stroke 6 years ago with left side numbness and mild residual numbness on the left side. 3. Diabetes mellitus. 4. History of kidney failure 3 years ago. 5. History of hypertension. 6. Status post hernia repair in December 2022. Plan: 1. Continue using PAP equipment every night for the whole night. I changed ramp to Auto, started at 5 cm of water instead of 4. 2. To change air filter at least 1-2 times per month. 3. PAP unit should stay lower then position of the head. 4. Advised patient to remove all remaining water from humidifier canister daily and make it dry after each usage. Refill canister with fresh distilled water before each usage. 5. Sleep hygiene with regular time in bed for at least 8 hours. 6. Precautions related to driving. No driving if feel any sleepiness. 7. I will maintain prescription for PAP supplies including mask, tube, filters. 8. Follow up visit in 3 months or earlier if patient has any problems. 9. Watching weight. Thank you very much for allowing me to participate in the management of your patient. Natanael Currie MD, PhD, FAASM. Diplomat of [place] [employer], Sleep Medicine Board by [place] [employer] [facility] [place] Objective - Vital Signs Vital Signs: Vital Signs Temp 98.1 F 11/30/23 13:29 Pulse 60 11/30/23 13:29 Resp 16 11/30/23 13:29 BP 130/80 11/30/23 13:29 Pulse Ox 95 11/30/23 13:29 FiO2 Intake & Output 11/29/23 11/30/23 11/30/23 18:59 06:59 18:59 Weight 82.1 kg Home Medications: Home Medications Medication Instructions Recorded Confirmed Type Aspirin 81 mg PO DAILY #30 chew 05/19/18 11/30/23 Rx Pravastatin Sodium [Pravachol] 10 mg PO HS 01/08/20 11/30/23 History lisinopriL [Lisinopril] 2.5 mg PO DAILY 10/18/23 11/30/23 History metFORMIN HCL [Metformin HCl] 500 mg PO 1200 10/18/23 11/30/23 History
== END ==
LOC: 3 N SLEEP 13:12
PROVIDERS: ATTEND Internal Medicine
DX: G47.33 Obstructive sleep apnea (adult) (pediatric) (principal); E11.9 Type 2 diabetes mellitus without complications; I11.0 Hypertensive heart disease with heart failure; I50.9 Heart failure, unspecified; Z99.89 Dependence on other enabling machines and devices; Z90.49 Acquired absence of other specified parts of digestive tract; Z98.890 Other specified postprocedural states; Z86.73 Personal history of transient ischemic attack (TIA), and cerebral infarction without residual deficits; Z79.899 Other long term (current) drug therapy; Z79.84 Long term (current) use of oral hypoglycemic drugs
CPT/HCPCS: 99212

== ENCOUNTER 2024-02-06 07:59 | Observation (INO) | payer OTHER ==
--- NOTE | 2024-02-06 08:15 | ED ---
General Adult HPI - General Chief complaint: Chest Pain Stated complaint: Chest pain,L sided weakness Time Seen by Provider: 02/06/24 08:05 Source: patient, family, RN notes reviewed, old records reviewed Mode of arrival: ambulatory Limitations: no limitations - History of Present Illness Initial comments: This is a 63-year-old male with a past medical history significant for diabetes hypertension high cholesterol. Patient states he has been battling some significant fatigue for a while now. Patient states he comes in today because he started having chest pain about 5 days ago and it has been intermittent ever since. Patient states the pain is in the center of her chest radiates to the left lateral wall and he feels a heaviness in his left arm and left leg. Patient states that started this morning and then subsided prior to his arrival but it has been ongoing for 5 days so he decided to come get evaluated. Patient denies any back pain patient denies any nausea vomiting diarrhea. Patient has any fever chills or cough. Patient denies any headache patient denies numbness or weakness that is focal - Related Data Home Medications Medication Instructions Recorded Confirmed Pravastatin Sodium [Pravachol] 10 mg PO HS 01/08/20 11/30/23 lisinopriL [Lisinopril] 2.5 mg PO DAILY 10/18/23 11/30/23 metFORMIN HCL [Metformin HCl] 500 mg PO 1200 10/18/23 11/30/23 Previous Rx's Medication Instructions Recorded Aspirin 81 mg PO DAILY #30 chew 05/19/18 Allergies Allergy/AdvReac Type Severity Reaction Status Date / Time No Known Allergies Allergy Verified 02/06/24 08:03 Review of Systems ROS Statement: Those systems with pertinent positive or pertinent negative responses have been documented in the HPI. ROS Other: All systems not noted in ROS Statement are negative. 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 binge drinking, 2007 pancreatitis/alcoholic hepatitis, wears cpap History of Any Multi-Drug Resistant Organisms: None Reported Past Surgical History: Hernia Repair Additional Past Surgical History / Comment(s): rt inguinal. testicle removed on rt, not descended. Past Anesthesia/Blood Transfusion Reactions: No Reported Reaction Additional Past Anesthesia/Blood Transfusion Reaction / Comment(s): Pt has never had surgery, very nervous about this surgery, no family problems w/anesthesia that he's aware of Past Psychological History: Anxiety, Depression Smoking Status: Never smoker Past Alcohol Use History: Heavy Past Drug Use History: None Reported - Past Family History Mother Family Medical History: Congestive Heart Failure (CHF) Brother(s) Family Medical History: Myocardial Infarction ([place]) Father Additional Family Medical History / Comment(s): coma after procedure to open up veins in his legs. General Exam - General Exam Comments Initial Comments: GENERAL: Patient is well-developed and well-nourished. Patient is nontoxic and well- hydrated and is in mild distress. ENT: Neck is soft and supple. No significant lymphadenopathy is noted. Oropharynx is clear. Moist mucous membranes. Neck has full range of motion without eliciting any pain. EYES: The sclera were anicteric and conjunctiva were pink and moist. Extraocular movements were intact and pupils were equal round and reactive to light. Eyelids were unremarkable. PULMONARY: Unlabored respirations. Good breath sounds bilaterally. No audible rales rhonchi or wheezing was noted. CARDIOVASCULAR: There is a regular rate and rhythm without any murmurs gallops or rubs. ABDOMEN: Soft and nontender with normal bowel sounds. SKIN: Skin is clear with no lesions or rashes and otherwise unremarkable. NEUROLOGIC: Patient is alert and oriented x3. Cranial nerves II through XII are grossly intact. Motor and sensory are also intact. Normal speech, volume and content. Symmetrical smile. MUSCULOSKELETAL: Normal extremities with adequate strength and full range of motion. No lower extremity swelling or edema. No calf tenderness. LYMPHATICS: No significant lymphadenopathy is noted PSYCHIATRIC: Normal psychiatric evaluation. Limitations: no limitations Course Vital Signs 02/06/24 02/06/24 02/06/24 08:02 08:30 08:33 Temperature 98.8 F Pulse Rate 76 63 Pulse Rate [ 65 [employer]her [employer] ] Respiratory 18 18 Rate Blood Pressure 135/85 116/88 O2 Sat by Pulse 98 96 Oximetry 02/06/24 09:35 Temperature Pulse Rate 61 Pulse Rate [ [employer] ] Respiratory 16 Rate Blood Pressure 124/81 O2 Sat by Pulse 95 Oximetry Medical Decision Making - Medical Decision Making EKG is interpreted by myself. EKG shows a sinus rhythm at 76 bpm MS 136 QRS is 117 QT interval 374 QTc is 405. Patient's EKG shows no ST segment elevation or depression. Was pt. sent in by a medical professional or institution ([facility], [facility], urgent care, hospital, or [facility]...) When possible be specific @ -No Did you speak to anyone other than the patient for history (EMS, parent, family, police, friend...)? What history was obtained from this source @ -No Did you review nursing and triage notes (agree or disagree)? Why? @ -I reviewed and agree with nursing and triage notes Were old charts reviewed (outside hosp., previous admission, EMS record, old EKG, old radiological studies, urgent care reports/EKG's, [facility] records)? Report findings @ -No old charts were reviewed Differential Diagnosis? @ -Differential Chest Pain: Stable Angina, Unstable Angina, STEMI, NSTEMI Aortic Dissection, Pneumothorax, Musculoskeletal, Esophageal Spasm GERD, Cholecystitis, Pancreatitis, Zoster, this is not meant to be an all-inclusive list. EKG interpreted by me (3pts min.). @ -As above X-rays interpreted by me (1pt min.). @ -Chest x-ray shows no acute abnormality CT interpreted by me (1pt min.). @ -None done U/S interpreted by me (1pt. min.). @ -None done What testing was considered but not performed or refused? (CT, X-rays, U/S, labs)? Why? @ -None What meds were considered but not given or refused? Why? @ -None Did you discuss the management of the patient with other professionals (professionals i.e. [facility], [facility], lab, RT, psych nurse, manager social responsibility, exchange consultant, teacher, fire information officer, assistant case manager)? Give summary @ -I spoke with Dr. Taylor he agreed to admit the patient Was smoking cessation discussed for >3mins.? @ -No Was critical care preformed (if so, how long)? @ -No Were there social determinants of health that impacted care today? How? (Homelessness, low income, unemployed, alcoholism, drug addiction, transportation, low edu. Level, literacy, decrease access to med. care, [facility], rehab)? @ -No Was there de-escalation of care discussed even if they declined (Discuss DNR or withdrawal of care, Hospice)? DNR status @ -No What co-morbidities impacted this encounter? (DM, HTN, Smoking, COPD, CAD, Cancer, CVA, ARF, Chemo, Hep., AIDS, mental health diagnosis, sleep apnea, morbid obesity)? @ -None Was patient admitted / discharged? Hospital course, mention meds given and route, prescriptions, significant lab abnormalities, going to OR and other pertinent info. @ -Patient had no chest pain in the emergency department. Patient was given an aspirin and Nitropaste. Patient will be admitted to Dr. Taylor lab work initially was negative. I will order an echo and a consult to cardiology Undiagnosed new problem with uncertain prognosis? @ -No Drug Therapy requiring intensive monitoring for toxicity (Heparin, Nitro, Insulin, Cardizem)? @ -No Were any procedures done? @ -No Diagnosis/symptom? @ -Chest pain Acute, or Chronic, or Acute on Chronic? @ -Acute Uncomplicated (without systemic symptoms) or Complicated (systemic symptoms)? @ -Comp Side effects of treatment? @ -No Exacerbation, Progression, or Severe Exacerbation? @ -No Poses a threat to life or bodily function? How? (Chest pain, [place], [place], pneumonia, PE, COPD, DKA, ARF, appy, cholecystitis, CVA, Diverticulitis, Homicidal, Suicidal, threat to staff... and all critical care pts) @ -Yes this could lead to an [place] and endorgan dysfunction - Lab Data Result diagrams: 02/06/24 08:24 02/06/24 08:24 Lab Results 02/06/24 02/06/24 02/06/24 Range/Units 08:24 08:24 08:24 WBC 10.2 (3.8-10.6) k/uL RBC 5.13 (4.30-5.90) m/uL Hgb 15.1 (13.0-17.5) gm/dL Hct 46.5 (39.0-53.0) % MCV 90.6 (80.0-100.0) fL MCH 29.5 (25.0-35.0) pg MCHC 32.6 (31.0-37.0) g/dL RDW 13.1 (11.5-15.5) % Plt Count 215 (150-450) k/uL MPV 7.9 Neutrophils % 72 % Lymphocytes % 19 % Monocytes % 5 % Eosinophils % 2 % Basophils % 1 % Neutrophils # 7.3 (1.3-7.7) k/uL Lymphocytes # 1.9 (1.0-4.8) k/uL Monocytes # 0.5 (0-1.0) k/uL Eosinophils # 0.2 (0-0.7) k/uL Basophils # 0.1 (0-0.2) k/uL PT 11.1 (10.0-12.5) sec INR 1.0 (<1.2) APTT 23.0 (22.0-30.0) sec D-Dimer 0.61 H (<0.60) mg/L FEU Sodium 140 (137-145) mmol/L Potassium 4.9 (3.5-5.1) mmol/L Chloride 107 (98-107) mmol/L Carbon Dioxide 22 (22-30) mmol/L Anion Gap 11 mmol/L BUN 28 H (9-20) mg/dL Creatinine 1.08 (0.66-1.25) mg/dL Est GFR (CKD-EPI)AfAm 83 (>60 ml/min/1.73 sqM) Est GFR (CKD-EPI)NonAf 72 (>60 ml/min/1.73 sqM) Glucose 165 H (74-99) mg/dL Calcium 10.3 H (8.4-10.2) mg/dL Magnesium 1.7 (1.6-2.3) mg/dL Total Bilirubin 0.7 (0.2-1.3) mg/dL AST 30 (17-59) U/L ALT 33 (4-49) U/L Alkaline Phosphatase 62 (38-126) U/L Troponin I (0.000-0.034) ng/mL Total Protein 7.3 (6.3-8.2) g/dL Albumin 4.6 (3.5-5.0) g/dL TSH 1.900 (0.465-4.680) mIU/L 02/06/24 Range/Units 08:24 WBC (3.8-10.6) k/uL RBC (4.30-5.90) m/uL Hgb (13.0-17.5) gm/dL Hct (39.0-53.0) % MCV (80.0-100.0) fL MCH (25.0-35.0) pg MCHC (31.0-37.0) g/dL RDW (11.5-15.5) % Plt Count (150-450) k/uL MPV Neutrophils % % Lymphocytes % % Monocytes % % Eosinophils % % Basophils % % Neutrophils # (1.3-7.7) k/uL Lymphocytes # (1.0-4.8) k/uL Monocytes # (0-1.0) k/uL Eosinophils # (0-0.7) k/uL Basophils # (0-0.2) k/uL PT (10.0-12.5) sec INR (<1.2) APTT (22.0-30.0) sec D-Dimer (<0.60) mg/L FEU Sodium (137-145) mmol/L Potassium (3.5-5.1) mmol/L Chloride (98-107) mmol/L Carbon Dioxide (22-30) mmol/L Anion Gap mmol/L BUN (9-20) mg/dL Creatinine (0.66-1.25) mg/dL Est GFR (CKD-EPI)AfAm (>60 ml/min/1.73 sqM) Est GFR (CKD-EPI)NonAf (>60 ml/min/1.73 sqM) Glucose (74-99) mg/dL Calcium (8.4-10.2) mg/dL Magnesium (1.6-2.3) mg/dL Total Bilirubin (0.2-1.3) mg/dL AST (17-59) U/L ALT (4-49) U/L Alkaline Phosphatase (38-126) U/L Troponin I <0.012 (0.000-0.034) ng/mL Total Protein (6.3-8.2) g/dL Albumin (3.5-5.0) g/dL TSH (0.465-4.680) mIU/L Disposition Clinical Impression: Chest pain Disposition: ADMITTED IP TO THIS HOSP Referrals: Orville Cooley MD [Primary Care Provider] - 1-2 days Time of Disposition: :39
[2024-02-06] MEDS: ASPIRIN 81 MG PO STA (08:31)
[2024-02-06] MEDS: NITROGLYCERIN OINT 1 INCH/GM PACKET TOPICAL STA (08:32)
[2024-02-06 08:36] LABS: Basophils # (A) 0.1 k/uL (0-0.2); Basophils % (A) 1 %; Eosinophils # (A) 0.2 k/uL (0-0.7); Eosinophils % (A) 2 %; HCT 46.5 % (39.0-53.0); HGB 15.1 gm/dL (13.0-17.5); Lymphocytes # (A) 1.9 k/uL (1.0-4.8); Lymphocytes % (A) 19 %; MCH 29.5 pg (25.0-35.0); MCHC 32.6 g/dL (31.0-37.0); MCV 90.6 fL (80.0-100.0); Mean Platelet Volume 7.9; Monocytes # (A) 0.5 k/uL (0-1.0); Monocytes % (A) 5 %; Neutrophils # (A) 7.3 k/uL (1.3-7.7); Neutrophils % (A) 72 %; Platelet Count 215 k/uL (150-450); RBC 5.13 m/uL (4.30-5.90); RDW 13.1 % (11.5-15.5); WBC 10.2 k/uL (3.8-10.6)
--- NOTE | 2024-02-06 08:45 | XR ---
EXAMINATION TYPE: XR chest 2V DATE OF EXAM: 02/06/2024 COMPARISON: 11/26/2022 INDICATION: Chest pain TECHNIQUE: Frontal and lateral views of the chest are obtained. FINDINGS: The heart size is normal. The pulmonary vasculature is normal. The lungs are clear. IMPRESSION: 1. No acute pulmonary process. [facility], , 02/06/2024 8:43 AM
[2024-02-06 08:56] LABS: ALT 33 U/L (4-49); African American GFR (CKD) 83 (>60 ml/min/1.73 sqM); Albumin 4.6 g/dL (3.5-5.0); Anion Gap 11 mmol/L; Blood Urea Nitrogen 28 mg/dL (9-20); Calcium 10.3 mg/dL (8.4-10.2); Carbon Dioxide 22 mmol/L (22-30); Chloride 107 mmol/L (98-107); Glucose 165 mg/dL (74-99); Non-African American GFR(CKD) 72 (>60 ml/min/1.73 sqM); Sodium 140 mmol/L (137-145); Total Bilirubin 0.7 mg/dL (0.2-1.3); Total Protein 7.3 g/dL (6.3-8.2)
[2024-02-06 08:57] LABS: Prothrombin Time 11.1 sec (10.0-12.5)
[2024-02-06 09:12] LABS: AST 30 U/L (17-59); Alkaline Phosphatase 62 U/L (38-126); Magnesium 1.7 mg/dL (1.6-2.3); Potassium 4.9 mmol/L (3.5-5.1)
[2024-02-06] MEDS ORDERED: NITROGLYCERIN SL TABS 0.4 MG TAB SUBLINGUAL PRN (09:40)
[2024-02-06] MEDS: NITROGLYCERIN OINT 1 INCH/GM PACKET TOPICAL SCH (11:59)
[2024-02-06] MEDS ORDERED: DEXTROSE 50% SYRINGE 50 ML IVP PRN ×2 (12:12)
--- NOTE | 2024-02-06 12:13 | P.HPIM ---
History of Present Illness H&P Date: 02/06/24 Patient is a 63-year-old male with PMH of CVA/TIA, systolic heart failure (echo in 2020 shows LVEF 25 to 30%), type 2 diabetes mellitus, hypertension, hyperlipidemia, NIDA and CKD stage II presents to the ER with complaint of feeling fatigue and chest pain. Patient reports that he has been feeling f atigue since 10 days. Patient has been endorsing chronic fatigue since 2020. He had a 10-day hospital course in 2020 where he was treated for ROYAL (requiring hemodialysis), aspiration pneumonia, acute hypoxic respiratory failure. Patient reports that he has been following with cardiology (Dr. Osman) and nephrology (Dr. Mena). According the patient, etiology of chronic fatigue is unknown. H e reports that normally his fatigue lasts for 2 days. He stays active and functional for 10 days before he starts to feel tired and fatigue again. Denies any recent weight loss, night sweats. He claims that he has never had a cardiac cath, but recent stress test was negative. He is unsure if he had recovered EF. However, patient reports that this episode is the worst that he has experienced so far because fatigue has lasted for almost 10 days and not improving also he has been complaining of chest pain that started 4 days ago. Patient reports generalized intermittent sharp chest pain lasting for few seconds worse on left side and radiating towards the left lateral chest wall into the ribs and left arm and in left leg. He also endorses heaviness in the left arm and left leg. He feels episodes of sharp pain with change in body positions specially when he lays in left decubitus position. He feels better when resting. Patient reports that he is been feeling better today in terms of his chest pain however still continues to have intermittent episodes lasting for few seconds. Otherwise denies exertional dyspnea, PND, orthopnea. Denies recent upper respiratory tract infection. No recent hospitalization. No history of arrhythmias or blood clots. Patient is not on any blood thinner. Patient denies any nausea, vomiting, shortness of breath fever, chills, weakness and numbness or tingling in upper and lower extremities. Patient denies using alcohol, cigarette smoking, illicit drug use. Laboratory evaluation in the ED shows WBC 10.2, hemoglobin 15.1, hematocrit 46.5, MCV 90.6, platelet count 215, D-dimer 0.61, sodium 140, potassium 4.9, chloride 107, bicarb 22, BUN 28, creatinine 1.08, EGFR 72, glucose 165, calcium 10.3, magnesium 1.7 Chest x-ray shows no acute pulmonary process. EKG shows normal sinus rhythm. NE interval 136, not prolonged. QRS interval 117, no prolonged. QTc 405, not prolonged. No ST-T wave changes. Review of systems: Pertinent positives and negatives as discussed in HPI, a complete review of systems was performed and all other systems are negative. Social history: Tobacco: None Alcohol: Previous heavy alcohol user; quit 4 years ago Recreational drugs: None Travel: None Occupation: None Family History: Older brother had OR at age 42. Physical examination: Vital signs reviewed General: non toxic, no distress, appears at stated age, normal weight Derm: no unusual rashes/lesions, warm Head: atraumatic, normocephalic, symmetric Eyes: EOMI, no lid lag, anicteric sclera, pupils equal round reactive to light ENT: Nose and ears atraumatic Neck: No cervical lymphadenopathy, trachea midline, supple Mouth: no lip lesion, mucus membranes moist Cardiovascular: S1S2 reg, no murmur, positive dorsalis pedis pulse bilateral, no edema Lungs: CTA bilateral, no rhonchi, no rales, no accessory muscle use Abdominal: soft, nontender to palpation, no guarding Ext: muscle strength 5 out of 5 in all 4 extremities grossly, no gross muscle atrophy, no contractures, Neuro: CN II-XI grossly intact, no gross focal neuro deficits Psych: Alert, oriented, appropriate affect Assessment/Plan: 63-year-old male with PMH of CVA/TIA, type 2 diabetes mellitus, hypertension, hyperlipidemia, NIDA and CKD stage II presents to the ER with complaint of feeling fatigue and chest pain. #Chest pain History of systolic cardiomyopathy, unknown if ischemic or nonischemic History of alcohol dependence Rule out ACS EKG normal sinus rhythm Chest x-ray shows no acute cardiopulmonary process Troponin less than 0.012; continue to trend troponin Continue cardiac telemetry Consult cardiology Order echo echo in 2019 shows LVEF 25 to 30% Heart healthy diet Aspirin 81 mg, nitroglycerin ointment every 6 hour and nitroglycerin sublingual tablet as needed for chest pain Heart score: 4 with moderate risk Continue aspirin 81 mg daily #Fatigue, unknown etiology TSH 1.9 Order vitamin B12, folate, iron studies, reticulocyte count, CK, DENISE, CRP, ESR echo in 2019 shows LVEF 25 to 30% Type 2 diabetes #Hyperglycemia Serum glucose 165 Started on sliding scale insulin, ACH S, monitor for hypoglycemia Ordered HbA1c -Hold metformin #Elevated D-dimer, normal for age Hypertension -Continue lisinopril 2.5 daily Dyslipidemia -Continue pravastatin 10 mg nightly NIDA -on cpap DVT prophylaxis: Subcu heparin The patient is admitted with an anticipated less than 2 midnight stay as observation status for evaluation of fatigue and chest pain. CODE STATUS: Full code Discussed with: Patient Anticipated discharge place: Home Anticipated discharge place: 24 to 48 hours A total of 55 minutes was spent on the care of this complex patient more than 50% of the time was spent in counseling and care coordination. I have seen and evaluated the patient today. Discussed with the resident and agree with the residents finding and plan as documented in the resident's note. Changes highlighted in blue font. 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 binge drinking, 2007 pancreatitis/alcoholic hepatitis, wears cpap History of Any Multi-Drug Resistant Organisms: None Reported Past Surgical History: Hernia Repair Additional Past Surgical History / Comment(s): rt inguinal. testicle removed on rt, not descended. Past Anesthesia/Blood Transfusion Reactions: No Reported Reaction Additional Past Anesthesia/Blood Transfusion Reaction / Comment(s): Pt has never had surgery, very nervous about this surgery, no family problems w/anesthesia that he's aware of Past Psychological History: Anxiety, Depression Smoking Status: Never smoker Past Alcohol Use History: Heavy Past Drug Use History: None Reported - Past Family History Mother Family Medical History: Congestive Heart Failure (CHF) Brother(s) Family Medical History: Myocardial Infarction ([place]) Father Additional Family Medical History / Comment(s): coma after procedure to open up veins in his legs. Medications and Allergies Home Medications Medication Instructions Recorded Confirmed Type Pravastatin Sodium [Pravachol] 10 mg PO HS 08/18/20 09/16/24 History lisinopriL [Lisinopril] 2.5 mg PO DAILY 10/18/23 02/06/24 History metFORMIN HCL [Metformin HCl] 500 mg PO DAILY@1100 10/18/23 02/06/24 History Aspirin 81 mg PO DAILY@1100 02/06/24 02/06/24 History Allergies Allergy/AdvReac Type Severity Reaction Status Date / Time No Known Allergies Allergy Verified 02/06/24 09:59 Physical Exam Vitals: Vital Signs Temp Pulse Pulse Resp BP Pulse Ox 02/06/24 11:14 60 16 119/81 96 02/06/24 10:02 60 16 124/91 96 02/06/24 09:35 61 16 124/81 95 02/06/24 08:33 65 02/06/24 08:30 98.8 F 63 18 116/88 96 02/06/24 08:02 76 18 135/85 98 Intake and Output 02/05/24 02/06/24 02/06/24 22:59 06:59 14:59 Other: Weight 81.647 kg Results CBC & Chem 7: 02/06/24 08:24 02/06/24 08:24 Labs: Abnormal Lab Results - Last 24 Hours (Table) 02/06/24 02/06/24 Range/Units 08:24 08:24 D-Dimer 0.61 H (<0.60) mg/L FEU BUN 28 H (9-20) mg/dL Glucose 165 H (74-99) mg/dL Calcium 10.3 H (8.4-10.2) mg/dL
[2024-02-06] MEDS: INSULIN ASPART (NovoLOG) 100 UNIT/ML VIAL SQ SCH (12:21)
[2024-02-06 12:23] LABS: Glucose,Whole Blood 97 mg/dL (70-110)
[2024-02-06 14:45] LABS: Reticulocyte % 1.4 % (0.5-2.0)
[2024-02-06 14:53] LABS: C Reactive Protein <0.5 mg/dL (<1.0); Creatine Kinase 102 U/L (55-170)
[2024-02-06] MEDS: HEPARIN SODIUM,PORCINE 5,000 UNIT/ML 1 ML VIAL SQ SCH (15:08)
[2024-02-06 18:06] LABS: Glucose,Whole Blood 141 mg/dL (70-110)
--- NOTE | 2024-02-06 18:18 | CA ---
Transthoracic Echo Report Name: Jason Tripp Age: 63 Gender: M : 1960 Exam Date: 02/06/2024 12:33 Exam Location: [place] Echo Ht (in): 68 Wt (lb): 180 Ordering Physician: Reinaldo Nguyen MD Attending/Referring Phys: Jawbone Breaker Gali Contreras RDCS Procedure CPT: Indications: Chest pain, fatigue Cardiac Hx: Technical Quality: Technically difficult study Contrast 1: Definity Total Dose (mL): 2 Contrast 2: Total Dose (mL): MEASUREMENTS (Male / Female) Normal Values 2D ECHO LV Diastolic Diameter PLAX 4.1 cm 4.2 - 5.9 / 3.9 - 5.3 cm LV Systolic Diameter PLAX 2.7 cm IVS Diastolic Thickness 1.4 cm 0.6 - 1.0 / 0.6 - 0.9 cm LVPW Diastolic Thickness 1.1 cm 0.6 - 1.0 / 0.6 - 0.9 cm LV Relative Wall Thickness 0.6 LVOT Diameter 2.3 cm LV Diastolic Volume MOD BP 120.7 cm??? 67 - 155 / 56 - 104 cm??? LV Systolic Volume MOD BP 41.7 cm??? 22 - 58 / 19 - 49 cm??? LV Ejection Fraction MOD BP 65.5 % >= 55 % LV Cardiac Index MOD BP 2414.6 cm???/min???m??? LV Diastolic Volume MOD 4C 120.2 cm??? LV Systolic Volume MOD 4C 44.9 cm??? LV Ejection Fraction MOD 4C 62.6 % LV Cardiac Index MOD 4C 2299.9 cm???/min???m??? LV Diastolic Length 4C 8.9 cm LV Systolic Length 4C 7.3 cm LV Diastolic Volume MOD 2C 118.7 cm??? LV Systolic Volume MOD 2C 36.6 cm??? LV Ejection Fraction MOD 2C 69.2 % LV Cardiac Index MOD 2C 2509.3 cm???/min???m??? LV Diastolic Length 2C 9.1 cm LV Systolic Length 2C 6.9 cm LA Volume 58.3 cm??? 18 - 58 / 22 - 52 cm??? LA Volume Index 29.2 cm???/m??? 16 - 28 cm???/m??? Ascending Aorta Diameter 3.4 cm DOPPLER AV Peak Velocity 140.1 cm/s AV Peak Gradient 7.9 mmHg AV Mean Velocity 97.7 cm/s AV Mean Gradient 4.2 mmHg AV Velocity Time Integral 28.4 cm LVOT Peak Velocity 99.1 cm/s LVOT Peak Gradient 3.9 mmHg LVOT Velocity Time Integral 19.7 cm LVOT Stroke Volume 82.1 cm??? LVOT Stroke Volume Index 42.0 ml/m??? LVOT Cardiac Index 2508.6 cm???/min???m??? AV Area Cont Eq vti 2.9 cm??? AV Area Cont Eq pk 2.9 cm??? MV Area PHT 3.2 cm??? Mitral E Point Velocity 54.8 cm/s Mitral A Point Velocity 59.6 cm/s Mitral E to A Ratio 0.9 MV Deceleration Time 236.4 ms PV Peak Velocity 96.4 cm/s PV Peak Gradient 3.7 mmHg FINDINGS Left Ventricle Left ventricular ejection fraction is estimated at 55-60 %. Mildly increased septal wall thickness. Left ventricular cavity size normal. No obvious regional wall motion abnormalities. Right Ventricle Normal right ventricular size and function. Unable to estimate the right ventricular systolic pressure. Right Atrium Normal right atrial size. Left Atrium Mildly increased left atrial volume. Mitral Valve Structurally normal mitral valve. No evidence for mitral valve prolapse. No mitral stenosis. Trace mitral regurgitation. Aortic Valve Aortic valve not well visualized. No aortic valve stenosis or regurgitation. Tricuspid Valve Structurally normal tricuspid valve. No tricuspid stenosis. No tricuspid regurgitation. Pulmonic Valve Pulmonic valve not well visualized. No pulmonic stenosis. No pulmonic regurgitation. Pericardium No pericardial effusion. Prominent epicardial fat. Aorta Normal size aortic root and proximal ascending aorta. CONCLUSIONS Diagnosis: Chest pain Preserved LV systolic function Prominent posterior pericardial stripe Suboptimal acoustic windows Previewed by: Dr. Kirk Osman MD (Electronically Signed) Final Date: 06 February 2024 18:17
[2024-02-06 21:14] LABS: Glucose,Whole Blood 128 mg/dL (70-110)
[2024-02-06] MEDS: PRAVASTATIN SODIUM 20 MG TAB PO SCH (21:34)
[2024-02-06 22:04] LABS: % Iron Saturation 16.03 (15.00-50.00); Iron 50 UG/DL (65-175); Total Iron Binding Capacity 312 UG/DL (228-460)
[2024-02-07 06:07] LABS: Glucose,Whole Blood 147 mg/dL (70-110)
[2024-02-07 07:49] LABS: Basophils # (A) 0.1 k/uL (0-0.2); Basophils % (A) 1 %; Eosinophils # (A) 0.1 k/uL (0-0.7); Eosinophils % (A) 1 %; HCT 46.3 % (39.0-53.0); HGB 15.1 gm/dL (13.0-17.5); Lymphocytes # (A) 1.8 k/uL (1.0-4.8); Lymphocytes % (A) 17 %; MCH 29.6 pg (25.0-35.0); MCHC 32.7 g/dL (31.0-37.0); MCV 90.5 fL (80.0-100.0); Mean Platelet Volume 7.7; Monocytes # (A) 0.6 k/uL (0-1.0); Monocytes % (A) 6 %; Neutrophils # (A) 7.7 k/uL (1.3-7.7); Neutrophils % (A) 74 %; Platelet Count 239 k/uL (150-450); RBC 5.12 m/uL (4.30-5.90); RDW 12.9 % (11.5-15.5); WBC 10.4 k/uL (3.8-10.6)
[2024-02-07 07:58] LABS: African American GFR (CKD) 82 (>60 ml/min/1.73 sqM); Anion Gap 7 mmol/L; Blood Urea Nitrogen 25 mg/dL (9-20); Calcium 10.4 mg/dL (8.4-10.2); Carbon Dioxide 26 mmol/L (22-30); Chloride 106 mmol/L (98-107); Glucose 131 mg/dL (74-99); Non-African American GFR(CKD) 71 (>60 ml/min/1.73 sqM); Potassium 5.4 mmol/L (3.5-5.1); Sodium 139 mmol/L (137-145)
[2024-02-07] MEDS: ASPIRIN 81 MG PO SCH (08:47)
[2024-02-07] MEDS ORDERED: ASPIRIN 325 MG TAB PO SCH (09:00)
[2024-02-07] MEDS: SODIUM CHLORIDE 0.9% 1,000 ML IV SCH (09:48)
[2024-02-07] MEDS ORDERED: ASPIRIN 81 MG PO SCH (11:00)
[2024-02-07 11:13] LABS: Chol/HDL Ratio 3.82 Ratio; LDL Cholesterol,Calculated 118.9 mg/dL (0.0-131.0)
[2024-02-07 11:32] LABS: Glucose,Whole Blood 110 mg/dL (70-110)
[2024-02-07 11:39] VITALS: RESP 16
--- NOTE | 2024-02-07 12:06 | P.PN ---
Subjective Progress Note Date: 02/07/24 Hospital course: Patient is a 63-year-old male with PMH of CVA/TIA, systolic heart failure (echo in 2020 shows LVEF 25 to 30%), type 2 diabetes mellitus, hypertension, hyperlipidemia, NIDA and CKD stage II presents to the ER with complaint of feeling fatigue and chest pain. Patient has been endorsing chronic fatigue since 2019. He had a 10-day hospital course in 2020 where he was treated for ROYAL (requiring hemodialysis), aspiration pneumonia, acute hypoxic respiratory failure. He reports that normally his fatigue lasts for 2 days. He stays active and functional for 10 days before he starts to feel tired and fatigue again. patient reports that this episode is the worst that he has experienced so far because fatigue has lasted for almost 10 days and not improving also he has been complaining of generalized intermittent sharp chest pain lasting for few seconds worse on left side and radiating towards the left lateral chest wall into the ribs and left arm and in left leg started 4 days ago. Patient is admitted for worsening fatigue and chest pain. Laboratory evaluation in the ED shows WBC 10.2, hemoglobin 15.1, hematocrit 46.5, MCV 90.6, platelet count 215, D-dimer 0.61, sodium 140, potassium 4.9, chloride 107, bicarb 22, BUN 28, creatinine 1.08, EGFR 72, glucose 165, calcium 10.3, magnesium 1.7. Chest x-ray shows no acute pulmonary process. EKG shows normal sinus rhythm. KY interval 136, not prolonged. QRS interval 117, no prolonged. QTc 405, not prolonged. No ST-T wave changes. Cardiology was consulted. Troponin levels nonelevated. Echocardiogram shows ejection fraction 55 to 60% with mildly increased left atrial volume and trace MR. Patient continued to feel chest pain. Patient to go for stress test. Subjective: Patient seen and examined at the bedside. Patient complaining of constant substernal chest pain overnight. Patient reports pain was as high as 8 out of 10 but currently is 3 out of 10. Nonradiating. No exacerbating/alleviating factors. Denies shortness of breath. All Systems reviewed and pertinent positives and negatives noted in HPI, all other symptoms are negative Objective: Physical examination: Vital signs reviewed General: non toxic, no distress, appears at stated age, normal weight Derm: no unusual rashes/lesions, warm Head: atraumatic, normocephalic, symmetric Eyes: EOMI, no lid lag, anicteric sclera, pupils equal round reactive to light ENT: Nose and ears atraumatic Neck: No cervical lymphadenopathy, trachea midline, supple Mouth: no lip lesion, mucus membranes moist Cardiovascular: S1S2 reg, no murmur, positive dorsalis pedis pulse bilateral, no edema Lungs: CTA bilateral, no rhonchi, no rales, no accessory muscle use Abdominal: soft, nontender to palpation, no guarding Ext: muscle strength 5 out of 5 in all 4 extremities grossly, no gross muscle atrophy, no contractures, Neuro: CN II-XI grossly intact, no gross focal neuro deficits Psych: Alert, oriented, appropriate affect Data reviewed today: Pertinent Labs: WBC 10.4 hemoglobin 15.1, hematocrit 46.3, platelet count 239, sodium 139, potassium 5.4, BUN 25, creatinine 1.1, glucose 131, HbA1c 6.8, calcium 10.4 Reticulocyte count 1.4, iron 50, TIBC 312, percent saturation 16, transferrin 203, ferritin 239, C-reactive negative, CK 102, DENISE negative Lipid panel within normal range, vitamin B12 436, folate 11.7, TSH 1.9 Images: Echocardiogram shows ejection fraction 55 to 60% with mildly increased left atrial volume and trace MR. Assessment/Plan: 63-year-old male with PMH of CVA/TIA, type 2 diabetes mellitus, hypertension, hyperlipidemia, NIDA and CKD stage II presents to the ER with complaint of feeling fatigue and chest pain. #Chest pain, ACS ruled out #History of systolic cardiomyopathy, likely nonischemic #History of alcohol dependence EKG normal sinus rhythm Chest x-ray shows no acute cardiopulmonary process Troponin trend: Nonelevated Continue cardiac telemetry Echocardiogram in 2020 shows LVEF 25 to 30% Repeat echocardiogram shows ejection fraction 55 to 60% with mildly increased left atrial volume and trace MR. Discussed management with cardiology, pending stress echo Heart healthy diet Aspirin 81 mg, nitroglycerin ointment every 6 hour and nitroglycerin sublingual tablet as needed for chest pain Heart score: 4 with moderate risk Continue aspirin 81 mg daily and pravastatin 10 mg p.o. at bedtime #Fatigue, unknown etiology #Hypercalcemia Reticulocyte count 1.4, iron 50, TIBC 312, percent saturation 16, transferrin 203, ferritin 239, C-reactive negative, CK 102, DENISE negative Lipid panel within normal range, vitamin B12 436, folate 11.7, TSH 1.9 Unremarkable results Calcium 10.4; ordered ionized calcium, PTH; started on IV normal saline at 75 cc/h Continue monitor calcium level #Type 2 diabetes melitis #Hyperglycemia Started on sliding scale insulin, ACH S, monitor for hypoglycemia HbA1c: 6.8% Hold metformin #Elevated D-dimer, normal for age #Hypertension Continue lisinopril 2.5 mg p.o. daily #Dyslipidemia Continue pravastatin 10 mg nightly #NIDA on cpap DVT prophylaxis: Subcu heparin F: Normal saline 75 cc/h E: Replete as needed N: Heart healthy diet A: Ambulatory CODE STATUS: Full code Discussed with: Patient Anticipated discharge place: Home Anticipated discharge place: 24 to 48 hours I have seen and evaluated the patient today. Discussed with the resident and agree with the residents finding and plan as documented in the resident's note. Changes highlighted in blue font. Objective - Vital Signs Vital signs: Vital Signs Temp 98.2 F 02/07/24 07:55 Pulse 61 02/07/24 11:38 Resp 16 02/07/24 11:38 BP 126/86 02/07/24 11:38 Pulse Ox 96 02/07/24 11:38 FiO2 Intake & Output 02/06/24 02/07/24 02/07/24 18:59 06:59 18:59 Intake Total 10 Balance 10 Weight 81.647 kg 81.193 kg Intake: IV 10 Invasive Line 1 10 Other: Voiding Method Toilet Toilet # Voids 1 - Labs CBC & Chem 7: 02/07/24 07:19 02/07/24 07:19 Labs: Abnormal Lab Results - Last 24 Hours (Table) 02/06/24 02/06/24 02/06/24 Range/Units 14:19 18:04 21:12 Potassium (3.5-5.1) mmol/L BUN (9-20) mg/dL Glucose (74-99) mg/dL POC Glucose (mg/dL) 141 H 128 H (70-110) mg/dL Hemoglobin A1c (<=6.0) % Calcium (8.4-10.2) mg/dL Iron 50 L (65-175) UG/DL 02/07/24 02/07/24 02/07/24 Range/Units 06:06 07:19 07:19 Potassium 5.4 H (3.5-5.1) mmol/L BUN 25 H (9-20) mg/dL Glucose 131 H (74-99) mg/dL POC Glucose (mg/dL) 147 H (70-110) mg/dL Hemoglobin A1c 6.8 H (<=6.0) % Calcium 10.4 H (8.4-10.2) mg/dL Iron (65-175) UG/DL
--- NOTE | 2024-02-07 12:51 | P.CRDCN ---
History of Present Illness Consult date: 02/07/24 Consult reason: chest pain History of present illness: HISTORY OF PRESENT ILLNESS: This is a 63 year old male with past medical history significant for history of CVA (lacunar infarct), nonischemic myopathy, hypertension, hyperlipidemia, NIDA, diabetes, and CKD stage II. Patient follows in the office with Dr. Osman. We have been asked to see the patient in consultation for chest pain. Patient was examined at the bedside. Patient came to hospital because he states he had this bandlike chest pain that was 5 out of 10 and that it was worse yesterday. Pain started at rest he states he has also been having fatigue for the last 10 days. Denies any history of prior catheterization denies exertional dyspnea, PND, orthopnea, fever, chills, weakness/numbness in upper or lower extremities. DIAGNOSTICS: - EKG reveals sinus rhythm. CO interval 136, QRS interval 117, QT 405. No ST or T wave changes - Chest xray shows no acute process - Laboratory data: CBC unremarkable. D-dimer 0.61. Potassium 5.4. BUN 25. Creatinine 1.10. GFR 71. Glucose 131. A1c 6.8. Calcium 10.4. Troponins x 3 negative. - Current home cardiac medications include aspirin 81 mg, lisinopril 2.5 mg, pravastatin 10 mg Most recent echocardiogram yesterday showed EF 55 to 60%, prominent posterior pericardial stripe, trace MR REVIEW OF SYSTEMS: As stated above in HPI. PHYSICAL EXAM: VITAL SIGNS: Reviewed. GENERAL: Well-developed in no acute distress. HEENT: Head is normocephalic. Pupils are equal, round. Sclerae anicteric. Mucous membranes of the mouth are moist. Neck supple. No JVD or thyromegaly LUNGS: Respirations even and unlabored. Some crackles bilaterally. HEART: Regular rate and rhythm. S1 and S2 heard. No murmurs rubs or gallops. ABDOMEN: Soft. Nontender to palpation. EXTREMITIES: Normal range of motion. No clubbing or cyanosis. Peripheral pulses intact. No edema in lower extremities. ASSESSMENT: Nonischemic cardiomyopathy Chest pain likely secondary to above Fatigue, unknown etiology Hypertension Hyperlipidemia NIDA Diabetes CKD stage II History of CVA History of alcohol abuse PLAN: Follow-up on results of stress echocardiogram Continue cardiac home meds as stated above Continue cardiac telemetry Continue Nitrostat sublingual every 5 minutes as needed Continue sliding scale insulin, ACHS, monitor for hypoglycemia Encourage use of CPAP Monitor vital signs, electrolytes and renal function Further recommendations to follow based upon clinical course Thank you kindly for this consultation. Past Medical History Past Medical History: CVA/TIA, Diabetes Mellitus, Hyperlipidemia, Hypertension, Pneumonia, Renal Disease, Sleep Apnea/CPAP/BIPAP Additional Past Medical History / Comment(s): June 2019 severe pneumonia & had bout of kidney failure-did dialysis for about 3 months but no current problems, now sees garnetter yearly, at 90% now, 2018 CVA with some residual numbness L hand fingers, NIDDM type II, past hx. binge drinking, 2007 pancreatitis/alcoholic hepatitis, wears cpap History of Any Multi-Drug Resistant Organisms: None Reported Past Surgical History: Hernia Repair Additional Past Surgical History / Comment(s): rt inguinal. testicle removed on rt, not descended. Past Anesthesia/Blood Transfusion Reactions: No Reported Reaction Additional Past Anesthesia/Blood Transfusion Reaction / Comment(s): Pt has never had surgery, very nervous about this surgery, no family problems w/anesthesia that he's aware of Past Psychological History: Anxiety, Depression Additional Psychological History / Comment(s): Pt resides with his fiancee of 17 yrs. He is normally independent. Smoking Status: Never smoker Past Alcohol Use History: Heavy Additional Past Alcohol Use History / Comment(s): hasn't drank in 5 years, but was a binge drinker, would drink heavily every few months Past Drug Use History: None Reported Additional Drug Use History / Comment(s): Past abuse of pain medication. - Past Family History Mother Family Medical History: Congestive Heart Failure (CHF) Brother(s) Family Medical History: Myocardial Infarction (PA) Father Additional Family Medical History / Comment(s): coma after procedure to open up veins in his legs. Medications and Allergies Home Medications Medication Instructions Recorded Confirmed Type Pravastatin Sodium [Pravachol] 10 mg PO HS 01/08/20 02/06/24 History lisinopriL [Lisinopril] 2.5 mg PO DAILY 10/18/23 02/06/24 History metFORMIN HCL [Metformin HCl] 500 mg PO DAILY@109910/18/23 02/06/24 History Aspirin 81 mg PO DAILY@109902/06/24 02/06/24 History Allergies Allergy/AdvReac Type Severity Reaction Status Date / Time No Known Allergies Allergy Verified 02/06/24 09:59 Physical Exam Vitals: Vital Signs Temp Pulse Pulse Pulse Resp BP BP 02/07/24 11:38 61 16 126/86 02/07/24 09:15 64 18 02/07/24 08:54 02/07/24 07:55 98.2 F 64 18 159/84 02/07/24 04:00 97.8 F 70 18 112/63 02/06/24 23:54 56 L 18 122/63 02/06/24 21:45 97.8 F 61 18 112/69 02/06/24 21:28 80 18 127/67 02/06/24 20:08 60 18 130/80 02/06/24 18:10 646 H 18 130/70 02/06/24 16:17 76 18 128/78 02/06/24 15:10 62 18 122/75 02/06/24 14:05 98.8 F 63 16 113/72 Pulse Ox 02/07/24 11:38 96 02/07/24 09:15 02/07/24 08:54 98 02/07/24 07:55 99 02/07/24 04:00 98 02/06/24 23:54 98 02/06/24 21:45 96 02/06/24 21:28 96 02/06/24 20:08 95 02/06/24 18:10 96 02/06/24 16:17 98 02/06/24 15:10 97 02/06/24 14:05 95 Intake and Output 02/06/24 02/07/24 02/07/24 22:59 06:59 14:59 Intake Total 10 Balance 10 Intake: IV 10 Invasive Line 1 10 Other: Voiding Method Toilet Toilet Toilet # Voids 1 Weight 81.647 kg 81.193 kg Results 02/07/24 07:19 02/07/24 07:19 Cardiac Enzymes 02/06/24 Range/Units 14:19 Troponin I <0.012 (0.000-0.034) ng/mL Lipids 02/07/24 Range/Units 07:19 Triglycerides 114.00 (0.00-149.00) mg/dL Cholesterol 192.00 (0.00-200.00) mg/dL HDL Cholesterol 50.30 (40.00-60.00) mg/dL Cholesterol/HDL Ratio 3.82 Ratio CBC 02/07/24 Range/Units 07:19 WBC 10.4 (3.8-10.6) k/uL RBC 5.12 (4.30-5.90) m/uL Hgb 15.1 (13.0-17.5) gm/dL Hct 46.3 (39.0-53.0) % Plt Count 239 (150-450) k/uL Comprehensive Metabolic Panel 02/07/24 Range/Units 07:19 Sodium 139 (137-145) mmol/L Potassium 5.4 H (3.5-5.1) mmol/L Chloride 106 (98-107) mmol/L Carbon Dioxide 26 (22-30) mmol/L BUN 25 H (9-20) mg/dL Creatinine 1.10 (0.66-1.25) mg/dL Glucose 131 H (74-99) mg/dL Calcium 10.4 H (8.4-10.2) mg/dL Current Medications Generic Name Dose Route Start Last Admin Trade Name Freq PRN Reason Stop Dose Admin Aspirin 81 mg 02/07/24 09:00 02/07/24 08:47 Aspirin 81 Mg PO 81 mg DAILY DALIA Administration Dextrose/Water 25 ml 02/06/24 12:12 Dextrose 50% Syringe 50 Ml IVP PER PROTOCOL PRN Hypoglycemia Protocol Dextrose/Water 50 ml 02/06/24 12:12 Dextrose 50% Syringe 50 Ml IVP PER PROTOCOL PRN Hypoglycemia Protocol Heparin Sodium (Porcine) 5,000 unit 02/06/24 16:00 02/07/24 08:47 Heparin Sodium,Porcine 5,000 Unit/Ml 1 Ml Vial SQ 5,000 unit Q8HR DALIA Administration Sodium Chloride 1,000 mls @ 75 mls/hr 02/07/24 09:45 02/07/24 09:48 Saline 0.9% IV 75 mls/hr .[id number] DALIA Administration Insulin Aspart 0 unit 02/06/24 12:30 02/07/24 06:19 Insulin Aspart (Novolog) 100 Unit/Ml Vial SQ Not Given ACHS DALIA Protocol Lisinopril 2.5 mg 02/06/24 12:15 02/07/24 08:47 Lisinopril 2.5 Mg Tab PO 2.5 mg DAILY DALIA Administration Nitroglycerin 0.4 mg 02/06/24 09:40 Nitroglycerin Sl Tabs 0.4 Mg Tab SUBLINGUAL Q5M PRN Chest Pain Pravastatin Sodium 10 mg 02/06/24 21:00 02/06/24 21:34 Pravastatin Sodium 20 Mg Tab PO 10 mg HS DALIA Administration Intake and Output 02/06/24 02/07/24 02/07/24 22:59 06:59 14:59 Intake Total 10 Balance 10 Intake: IV 10 Invasive Line 1 10 Other: Voiding Method Toilet Toilet Toilet # Voids 1 Weight 81.647 kg 81.193 kg 02/07/24 07:19 02/07/24 07:19
[2024-02-07 12:54] LABS: Erythrocyte Sedimentation Rate 9 mm/Hr (0-20)
[2024-02-07 16:36] LABS: Glucose,Whole Blood 130 mg/dL (70-110)
--- NOTE | 2024-02-07 17:46 | CA ---
Stress Echo Report Jason Tripp Age: 63 Gender: M : 1960 Exam Date: 02/07/2024 11:37 Exam Location: [place] [facility] Ht (in): 68 Wt (lb): 180 Ordering Physician: Paula Vazquez Referring Physician: [id number] Curator: Gali Contreras RDCS Technologist Procedure CPT: Indication: CP ICD-9 Codes: Rhythm: Patient History: Cardiac Medications: see chart Medications in past 24 hours: Contrast: Definity Stress Results Protocol: Isma Total dose(mL): 2 Exercise Duration (min:sec): 7:[address] Depression (mm): Angina Score: Ramirez Score: METS: 8.5 Resting HR: 76 Resting BP: 135 / 71 Peak HR: 153 Peak BP: 194 / 87 Max Predicted HR: 156 98 % Max Predicted HR Target HR: 133 Double Product: [id number] Stress Summary: BP Response: Reason for Termination: Reached target heart rate or work-load Cardiac Symptoms: NO SYMPTOMS ECG Analysis Resting ECG: Stress ECG: Arrhythmia: Echo Analysis Resting Echo: Peak Echo Analysis: MEASUREMENTS (Male/Female) Normal Values CONCLUSIONS Diagnosis: Recurrent chest discomfort and fatigue Normal exercise stress echo No evidence for ischemia or arrhythmia Average exercise capacity Normal heart rate and blood pressure response Dr. Kirk Osman MD (Electronically Signed) Final Date: 07 February 2024 17:45
[2024-02-07 20:03] LABS: Glucose,Whole Blood 166 mg/dL (70-110)
[2024-02-08 05:49] LABS: Glucose,Whole Blood 145 mg/dL (70-110)
[2024-02-08 06:55] LABS: African American GFR (CKD) 89 (>60 ml/min/1.73 sqM); Anion Gap 10 mmol/L; Blood Urea Nitrogen 23 mg/dL (9-20); Calcium 10.3 mg/dL (8.4-10.2); Carbon Dioxide 20 mmol/L (22-30); Chloride 108 mmol/L (98-107); Glucose 139 mg/dL (74-99); Magnesium 1.8 mg/dL (1.6-2.3); Non-African American GFR(CKD) 77 (>60 ml/min/1.73 sqM); Potassium 4.9 mmol/L (3.5-5.1); Sodium 138 mmol/L (137-145)
[2024-02-08 07:46] VITALS: BP 121/77; PULSE 68; TEMP 97.8
--- NOTE | 2024-02-08 10:54 | P.DS ---
Providers Date of admission: 02/06/24 17:59 Expected date of discharge: 02/08/24 Attending physician: Jake Taylor Consults: 02/06/24 09:40 Consult Physician Urgent Consulting Provider: [facility] Consult Reason/Comments: Chest pain Do you want consulting provider notified?: Yes Primary care physician: Orville Cooley MD Hospital Course: Discharge Diagnosis: #Chest pain, ACS ruled out #History of systolic cardiomyopathy, likely nonischemic #History of alcohol dependence #Fatigue, unknown etiology #Hypercalcemia #Type 2 diabetes melitis #Hyperglycemia #Elevated D-dimer, normal for age #Hypertension #Dyslipidemia #NIDA Hospital Course: Patient is a 63-year-old male with PMH of CVA/TIA, systolic heart failure (echo in 2019 shows LVEF 25 to 30%), type 2 diabetes mellitus, hypertension, hyperlipidemia, NIDA and CKD stage II presents to the ER with complaint of feeling fatigue and chest pain. Patient has been endorsing chronic fatigue since 2019. He had a 10-day hospital course in 2019 where he was treated for ROYAL (requiring hemodialysis), aspiration pneumonia, acute hypoxic respiratory failure. He reports that normally his fatigue lasts for 2 days. He stays active and functional for 10 days before he starts to feel tired and fatigue again. patient reports that this episode is the worst that he has experienced so far because fatigue has lasted for almost 10 days and not improving also he has been complaining of generalized intermittent sharp chest pain lasting for few seconds worse on left side and radiating towards the left lateral chest wall into the ribs and left arm and in left leg started 4 days ago. Patient is admitted for worsening fatigue and chest pain. Laboratory evaluation in the ED shows WBC 10.2, hemoglobin 15.1, hematocrit 46.5, MCV 90.6, platelet count 215, D-dimer 0.61, sodium 140, potassium 4.9, chloride 107, bicarb 22, BUN 28, creatinine 1.08, EGFR 72, glucose 165, calcium 10.3, magnesium 1.7. Chest x-ray shows no acute pulmonary process. EKG shows normal sinus rhythm. DE interval 136, not prolonged. QRS interval 117, no prolonged. QTc 405, not prolonged. No ST-T wave changes. Cardiology was consulted. Troponin levels nonelevated. Echocardiogram shows ejection fraction 55 to 60% with mildly increased left atrial volume and trace MR. Patient continued to feel chest pain. Patient underwent stress echo which was normal. Patient no longer complaining of chest pain. Also reports that his fatigue is much better. Lab work during the course of admission was significant for borderline high hypercalcemia. Further workup for hypercalcemia was negative. Normal PTH, normal ionized calcium, negative DENISE, normal TSH, normal vitamin B12 and folate. Patient otherwise hemodynamically stable for discharge. Patient to follow-up with PCP. Will need further workup for elevated calcium levels. Patient provided with instruction/handout for hypercalcemia. Vital signs reviewed. Gen: in no apparent distress, resting comfortably in bed Eyes: PERRL, no scleral injection or icterus HENT: normocephalic, atraumatic, good hearing acuity, moist mucous membranes Neck: full range of motion Resp: CTAB, no rales, rhonchi, or wheezes CVS: normal S1 and S2, no murmurs, rubs or gallops, no edema GI: soft, NTTP, ND, no hepatosplenomegaly : no suprapubic tenderness, no CVAT, guevara catheter is not present MSK: no clubbing, no cyanosis, no noted contractures of extremities Skin: no noted rashes, petechiae; temperature of skin is appropriate Neuro: moving all extremities without signs of weakness, CN II-XII intact Psych: cooperative, euthymic mood, insight and judgment intact A total of 32 minutes of time were spent preparing this complex discharge summary. Patient was discharged on 02/08/2024 at 923. I have seen and evaluated the patient today. Discussed with the resident and agree with the residents finding and plan as documented in the resident's note. Changes highlighted in blue font. Patient Condition at Discharge: Stable Plan - Discharge Summary Discharge Rx Participant: No New Discharge Prescriptions: Continue Pravastatin Sodium [Pravachol] 10 mg PO HS metFORMIN HCL 500 mg PO DAILY@1100 lisinopriL 2.5 mg PO DAILY Aspirin 81 mg PO DAILY@1100 Discharge Medication List Pravastatin Sodium [Pravachol] 10 mg PO HS 01/08/20 [History] lisinopriL 2.5 mg PO DAILY 10/18/23 [History] metFORMIN HCL 500 mg PO DAILY@1100 10/18/23 [History] Aspirin 81 mg PO DAILY@1100 02/06/24 [History] Follow up Appointment(s)/Referral(s): Orville Cooley MD [Primary Care Provider] - 1-2 days (Office not answering phone, please make an appointment) Patient Instructions/Handouts: Hypercalcemia (DC) Activity/Diet/Wound Care/Special Instructions: Please follow up with your PCP. You will need further work up for elevated Calcium levels Discharge Disposition: HOME SELF-CARE
== END 2024-02-08 10:19 | disposition home or self-care (01) ==
LOC: EC 07:59 → 3SCARD 09:40 → INTOOBSV 09:40 → UNDOADMOB 09:40 → 3SCARD 14:55
PROVIDERS: ADMIT Student in an Organized Health Care Education/Training Program; ATTEND Student in an Organized Health Care Education/Training Program
DX: R07.2 Precordial pain (principal); E11.65 Type 2 diabetes mellitus with hyperglycemia; I13.0 Hypertensive heart and chronic kidney disease with heart failure and stage 1 through stage 4 chronic kidney disease, or unspecified chronic kidney disease; I50.22 Chronic systolic (congestive) heart failure; N18.2 Chronic kidney disease, stage 2 (mild); R53.82 Chronic fatigue, unspecified; E83.52 Hypercalcemia; I42.8 Other cardiomyopathies; E78.00 Pure hypercholesterolemia, unspecified; E11.22 Type 2 diabetes mellitus with diabetic chronic kidney disease; G47.33 Obstructive sleep apnea (adult) (pediatric); F32.A Depression, unspecified; F41.9 Anxiety disorder, unspecified; F10.21 Alcohol dependence, in remission; Z86.73 Personal history of transient ischemic attack (TIA), and cerebral infarction without residual deficits; Z79.899 Other long term (current) drug therapy; Z79.84 Long term (current) use of oral hypoglycemic drugs; Z79.82 Long term (current) use of aspirin; Z82.49 Family history of ischemic heart disease and other diseases of the circulatory system
CPT/HCPCS: 36415; 71046; 80048; 80053; 80061; 82330; 82550; 82607; 82728; 82746; 83036; 83540; 83550; 83735; 83970; 84443; 84484; 85025; 85045; 85379; 85610; 85652; 85730; 86038; 86140; 93005; 93306; 93351; 94660; 94760; 96372; 99285

== ENCOUNTER → 2024-02-17 | Outpatient (CLI) | payer OTHER ==
[2024-02-17 14:37] LABS: HIV 2 AB Non-Reactive (Non-Reactive); HIV AB P24 Non-Reactive (Non-Reactive); HIV P24 AG Non-Reactive (Non-Reactive)
== END | disposition home or self-care (01) ==
LOC: LABWHC1 06:53
PROVIDERS: ATTEND Family Medicine
DX: Z00.00 Encounter for general adult medical examination without abnormal findings
CPT/HCPCS: 36415; 87390

== ENCOUNTER → 2024-03-06 | Outpatient (CLI) | payer OTHER ==
[2024-03-06 07:42] LABS: African American GFR (CKD) 77 (>60 ml/min/1.73 sqM); Blood Urea Nitrogen 26 mg/dL (9-20); Non-African American GFR(CKD) 67 (>60 ml/min/1.73 sqM)
--- NOTE | 2024-03-06 10:17 | CT ---
EXAMINATION TYPE: CT ChestAbdPelvis w con CT DLP: 1964 mGycm, Automated exposure control for dose reduction was used. DATE OF EXAM: 03/06/2024 10:07 AM COMPARISON: Chest radiograph 02/06/2024, right groin ultrasound 02/08/2023 CLINICAL INDICATION:Male, 63 years old with history of R53.83 OTHER FATIGUE; PHH, Fatigue, RT side gr oin pain, hx inguinal hernia. Technique: Multiple axial images of the chest, abdomen, and pelvis were obtained following the intrav enous administration of 100 mL Isovue-300. Oral contrast was administered. Two-dimensional coronal an d sagittal reconstructions were obtained. Findings: CHEST: LUNGS/ PLEURA: No pleural effusion, pneumothorax, or focal consolidation. Minimal bilateral dependent lower lobe subsegmental atelectasis. AIRWAY: Patent and unremarkable.. HEART: Size within normal limits. No pericardial effusion. MEDIASTINUM: No evidence of adenopathy. VASCULATURE: No aortic aneurysm. MUSCULOSKELETAL: No acute osseous abnormalities. SOFT TISSUES/LYMPH NODES: Mild bilateral gynecomastia. LOWER NECK: No significant findings. ABDOMEN: ABDOMEN LIVER: Unremarkable GALLBLADDER AND BILE DUCTS: Cholelithiasis. No surrounding inflammatory changes. No biliary ductal di latation. PANCREAS: Unremarkable. SPLEEN: Unremarkable. ADRENAL GLANDS: Unremarkable. KIDNEYS AND URETERS: No evidence of hydronephrosis or renal calculus. The kidneys enhance symmetrical ly. Contrast is demonstrated within both collecting systems on the delayed phase. Bilateral small radhika al cysts. PELVIS BLADDER: Unremarkable REPRODUCTIVE: Coarse calcifications of the prostate gland are identified. ABDOMEN & PELVIS STOMACH AND BOWEL: Stomach and duodenum are unremarkable. Redundant sigmoid colon. No focal bowel wal l thickening or surrounding inflammatory changes. Enteric contrast reaches the mid to distal small kim wel. The appendix is within normal limits. No evidence of bowel obstruction. PERITONEUM: No evidence of pneumoperitoneum or free fluid. VASCULATURE: Mild atherosclerotic calcifications are present throughout the abdominal aorta and its b ranches. No abdominal aortic aneurysm. Pelvic phleboliths. MUSCULOSKELETAL: No acute osseous abnormalities. Mild multilevel degenerative changes of the lower lynn mbar spine. LYMPH NODES: No evidence for lymphadenopathy. SOFT TISSUE/ABDOMINAL WALL: Postsurgical changes right inguinal hernia repair. No evidence for recurr ent hernia. IMPRESSION: 1. No acute process within the chest, abdomen or pelvis. 2. Cholelithiasis. [facility], , 03/06/2024 10:14 AM
== END ==
LOC: RADCTMAIN 06:58
PROVIDERS: ATTEND Family Medicine
DX: R53.83 Other fatigue
CPT/HCPCS: 36415; 71260; 74177; 82565; 84520

== ENCOUNTER → 2024-03-21 | Outpatient (CLI) | payer OTHER ==
[2024-03-21 11:01] VITALS: BP 108/63; PULSE 72; RESP 16; TEMP 98
--- NOTE | 2024-03-21 11:27 | P.PROGSL ---
Subjective DATE: 03/21/2024 FOLLOW UP VISIT. Patient with obstructive sleep apnea hypopnea syndrome return to sleep center for follow-up visit. Information from previous visit have been reviewed. Patient is using PAP equipment every night for the whole night, getting PAP supplies in time. Patient still wakes up from sleep up to 3 times with 1 episode of nocturia and has difficulties to fall asleep after last awakening. The patient does not have significant problems with the mask, PAP unit and humidification. [facility] sleepiness scale is 6, which is normal. I checked information from PAP unit. PAP unit pressure 5-13, average 9.7 cm H2O. Usage is 100% for more then 4 hours, average 8 hours per night. Leak is 10 l/m, which is in acceptable range. Apnea Hypopnea Index is 1.6, which is normal. MEDICATIONS have been reviewed, please see below. During physical exam: GENERAL: A pleasant patient without any distress. VITAL SIGNS: Please see below, weight is 186 lbs. HEENT: PERRLA, EOMI.low position of soft palate, Mallapati 34. NECK: Supple. No JVD. LUNGS: Clear to percussion and to auscultation. Good air exchange. No wheezing or rhonchi. HEART: S1, S2 regular. ABDOMEN: Soft and nontender.[] EXTREMITIES: No clubbing or cyanosis. TILE SORTER: Awake, alert, and oriented x3. No focal deficit. Impressions: 1. Obstructive sleep apnea-hypopnea syndrome. Patient demonstrated great compliance with treatment, benefiting from treatment. 2. Patient complains on feeling tiredness during the day, but not sleepiness. 3. Patient still has awakenings from sleep, although respiration is normal. 4. History of stroke about 6 years ago with some residual numbness on the left side. 5. Diabetes mellitus. 6. History of hypertension. 7. History of kidney failure 3 years ago. 8. Status post hernia repair in December 2022. Plan: 1. Continue using PAP equipment every night for the whole night. 2. Sleep hygiene with regular time in bed for at least 7.5-8 hours 3. PAP unit should stay lower then position of the head. 4. Advised patient to remove all remaining water from humidifier canister daily and make it dry after each usage. Refill canister with fresh distilled water before each usage. 5. Watching weight. 6. Precautions related to driving. No driving if feel any sleepiness. 7. I will maintain prescription for PAP supplies including mask, tube, filters. 8. Follow up visit in 6 months or earlier if patient has any problems. 9. Patient will be started on clonazepam with lowest doses 0.5 mg half to 1 tablet at bedtime with a goal to prevent awakenings from sleep. Patient will stop medication, if he will develop any more tiredness in the morning with medication. Thank you very much for allowing me to participate in the management of your patient. Natanael Currie MD, PhD, FAASM. Diplomat of [employer] [employer], Sleep Medicine Board by [employer] [employer] [facility] Ault cc: Orville Cooley MD Objective - Vital Signs Vital Signs: Vital Signs Temp 98 F 03/21/24 11:00 Pulse 72 03/21/24 11:00 Resp 16 03/21/24 11:00 BP 108/63 03/21/24 11:00 Pulse Ox 95 03/21/24 11:00 FiO2 Home Medications: Home Medications Medication Instructions Recorded Confirmed Type Pravastatin Sodium [Pravachol] 10 mg PO HS 01/08/20 03/21/24 History lisinopriL 2.5 mg PO DAILY 10/18/23 03/21/24 History metFORMIN HCL 500 mg PO DAILY@109910/18/23 03/21/24 History Aspirin 81 mg PO DAILY@1100 02/06/24 03/21/24 History
== END ==
LOC: 3 N SLEEP 10:31
PROVIDERS: ATTEND Internal Medicine
CPT/HCPCS: 99212